=== PATIENT | male | born 1945 | race Caucasian/White ===

== ENCOUNTER 2017-02-07 20:59 | Emergency (ER) | payer MEDICARE, OTHER ==
[2017-02-07] MEDS ORDERED: BENADRYL 50 MG/ML IV ONE (21:35)
[2017-02-07] MEDS ORDERED: solu-MEDROL 125 MG IV ONE (21:35)
[2017-02-07] MEDS ORDERED: BENADRYL 50 MG/ML ONE (21:38)
[2017-02-07] MEDS ORDERED: solu-MEDROL 125 MG ONE (21:38)
--- NOTE | 2017-02-07 21:41 | ERPHSYRPT ---
- History of Present Illness Time Seen by Provider: 02/07/17 21:27 Source: patient, family () Exam Limitations: no limitations Patient Subjective Stated Complaint: pt states he has been outside mowing today and was bitten by gnats and now his face is swelling ,lips and eyelids with a cough -he has also been started on aleve Triage Nursing Assessment: pt is awake and alert and able to answer questions - there is obvious swelling of the eyelids- he is able to speak without difficluty Physician History: PT HAS BEEN MOWING TODAY AND BITTEN BY GNATS WITH RESULTANT ITCHING AND SWELLING OF THE EYELIDS, UPPER LIP AND LEFT EAR; DENIES CHEST PAIN, SHORTNESS OF AIR, FEVER, NAUSEA, VOMITING, ABDOMINAL PAIN, HOARSENESS, SWELLING IN THE NECK OR THROAT. Allergies/Adverse Reactions: latex Allergy (Severe, Verified 02/07/17 21:21) SORES IN MOUTH AND TONGUE sulfamethoxazole [From Bactrim] Allergy (Verified 02/07/17 21:21) trimethoprim [From Bactrim] Allergy (Verified 02/07/17 21:21) Home Medications: Aspirin 81 gm Chew [Baby Aspirin 81 mg Chew] 81 mg PO DAILY 02/07/17 [ History] Gabapentin [Neurontin] 300 mg PO TID 02/07/17 [History] Glipizide 5 mg [Glucotrol 5 MG] 5 mg PO DAILY 02/07/17 [History] Insulin Detemir [Levemir] 20 unit SQ DAILY 02/07/17 [History] Lisinopril 10 mg [Zestril 10 MG] 10 mg PO HS 02/07/17 [History] Metformin HCl [Fortamet] 1,000 mg PO BID 02/07/17 [History] Multivitamin [Multi-Vitamin Daily] 1 tab PO DAILY 02/07/17 [History] Naproxen Sodium 220 mg [Aleve 220 MG] 220 mg PO BID 02/07/17 [History] Simvastatin 10 mg PO HS 02/07/17 [History] Hx Tetanus, Diphtheria Vaccination/Date Given: Yes Hx Influenza Vaccination/Date Given: Yes Hx Pneumococcal Vaccination/Date Given: Yes - Review of Systems Constitutional: No Fever Ears, Nose, & Throat: No Throat Swelling, No Hoarse Respiratory: No Dyspnea Cardiac: No Chest Pain Abdominal/Gastrointestinal: No Abdominal Pain, No Nausea, No Vomiting Skin: Other (SWELLING AND PRURITUS OF THE EYELIDS, UPPER LIP AND LEFT EAR TODAY. ) All Other Systems: Reviewed and Negative - Past Medical History Pertinent Past Medical History: Yes Neurological History: Peripheral Neuropathy ENT History: No Pertinent History Cardiac History: No Pertinent History Respiratory History: No Pertinent History Endocrine Medical History: Diabetes Type II Musculoskeletal History: Arthritis, Other GI Medical History: No Pertinent History History: No Pertinent History Psycho-Social History: No Pertinent History Male Reproductive Disorders: No Pertinent History Other Medical History: Anemia - Past Surgical History Past Surgical History: Yes Neuro Surgical History: No Pertinent History Cardiac: No Pertinent History Respiratory: No Pertinent History Gastrointestinal: Cholecystectomy Musculoskeletal: Orthopedic Surgery Other Surgical History: Back surgery 2010, Neck surgery 2007, Left knee meniscal repair 2004, Right hip repair 1989, 1990, 2003, 10/11/2012, 2012...Fx: Pelvis, Ribs, Vertabrae, Right hip from tree falling on him in 1989 - Social History Smoking Status: Never smoker Exposure to second hand smoke: No Drug Use: none Patient Lives Alone: No - Nursing Vital Signs Nursing Vital Signs: Initial Vital Signs Temperature 98.7 F Temperature Source Oral Pulse Rate 72 Respiratory Rate 16 Blood Pressure [Right Arm] 113/70 Pain Intensity 0 - Physical Exam General Appearance: alert Eye Exam: PERRL/EOMI, other (EYELIDS MILDLY EDEMATOUS) Ears, Nose, Throat Exam: TMs normal, pharynx normal (NO PHARYNGEAL EDEMA), other (MILD EDEMA OF LEFT AURICLE AND UPPER LIP) Neck Exam: normal inspection Respiratory Exam: lungs clear Cardiovascular Exam: normal heart sounds Gastrointestinal/Abdomen Exam: soft, normal bowel sounds Back Exam: normal range of motion Extremity Exam: normal inspection, No pedal edema Neurologic Exam: alert, cooperative Skin Exam: warm, dry SpO2 Interpretation: normal SpO2: 98 Oxygen Delivery: Room Air - Course Nursing assessment & vital signs reviewed: Yes Ordered Tests: Active Orders 24 hr Category Date Time Status ACCUCHECK [Accucheck] STAT Care 02/07/17 21:13 Active IV Insertion STAT Care 02/07/17 21:13 Active Medication Summary Generic Name Dose Route Start Last Admin Trade Name Freq PRN Reason Stop Dose Admin Diphenhydramine HCl 25 mg 02/07/17 21:35 Benadryl 50 Mg/Ml IV 02/07/17 21:36 STAT ONE Methylprednisolone Sodium Succinate 125 mg 02/07/17 21:35 Solu-Medrol 125 Mg IV 02/07/17 21:36 STAT ONE - Departure Time of Disposition: 21:45 Departure Disposition: Home Clinical Impression: ALLERGIC REACTION Condition: Fair Critical Care Time: No Instructions: General Allergic Reactions Additional Instructions: FOLLOW UP WITH PRIVATE DOCTOR TOMORROW. Prescriptions: Hydroxyzine HCl 25 mg [Atarax 25 mg] 25 mg PO Q4H PRN PRN #30 tablet PRN Reason: Itching Methylprednisolone Packet [Medrol Dosepack] 4 mg PO UD #30 packet
[2017-02-07 21:45] VITALS: O2SAT 98
[2017-02-07] MEDS ORDERED: ATARAX 25 MG PO PRN (22:05)
[2017-02-07] MEDS ORDERED: ATARAX 25 MG PO ONE (22:07)
[2017-02-07] MEDS ORDERED: ATARAX 25 MG ONE (22:11)
[2017-02-07 22:22] VITALS: BP 122/68; PULSE 68
== END 2017-02-07 22:22 | disposition home or self-care (01) ==
LOC: ED 20:59
DX: T78.40XA Allergy, unspecified, initial encounter (principal); L29.9 Pruritus, unspecified; E11.9 Type 2 diabetes mellitus without complications; Z79.84 Long term (current) use of oral hypoglycemic drugs; Z79.4 Long term (current) use of insulin
CPT/HCPCS: 36000; 82962; 96374; 96375; 99284; J1200; J2930; A9270-GY

== ENCOUNTER 2018-04-09 13:10 | Inpatient (IN) | payer MEDICARE, OTHER ==
[2018-04-09] MEDS ORDERED: OXYCODONE HCL PO PRN (17:02)
[2018-04-09] MEDS ORDERED: VANCOMYCIN HCL IN DEXTROSE IV SCH (17:15)
[2018-04-09] MEDS ORDERED: [UNRECOGNIZED DRUG - OTHER] IV SCH (17:15)
[2018-04-09] MEDS ORDERED: Oxy-IR 5 MG PO PRN (17:19)
[2018-04-09] MEDS ORDERED: NEURONTIN 300 MG PO SCH (22:00)
[2018-04-09] MEDS: Oxycontin 10 MG ER PO SCH (22:43)
[2018-04-09] MEDS: Zestril 5 MG PO SCH (22:43)
[2018-04-09] MEDS: ECOTRIN 81 MG PO SCH (22:43)
[2018-04-09] MEDS: Zocor 10MG PO SCH (22:43)
[2018-04-09] MEDS: TYLENOL EXTRA STRENGTH 500 MG PO SCH (22:44)
[2018-04-09] MEDS: VANCOCIN 1 GM VIAL*** 0.75 GM in Sodium Chloride 0.9% 250 ML 250 ML IV SCH (22:44)
[2018-04-09] MEDS: Senokot-S Tablet PO SCH (22:45)
[2018-04-10] MEDS: Oxycontin 10 MG ER PO SCH ×2 (09:13→13:56)
[2018-04-10] MEDS: FEOSOL 325 MG PO SCH (09:13)
[2018-04-10] MEDS: THERAGRAN MULTIVITAMIN PO SCH ×2 (09:13→09:14)
[2018-04-10] MEDS: ROCEPHIN 2 Gm-D5w 50ML BAG** 2 G/50 ML IVPB IV SCH (09:13)
[2018-04-10] MEDS: ECOTRIN 81 MG PO SCH ×2 (09:13→22:22)
[2018-04-10] MEDS: Lopressor 25MG Tab PO SCH (09:13)
[2018-04-10] MEDS: Miralax Powder 17GM PACKET PO SCH (09:13)
[2018-04-10] MEDS: Protonix 40MG Tablet PO SCH (09:13)
[2018-04-10] MEDS: Senokot-S Tablet PO SCH ×3 (09:14→22:37)
[2018-04-10] MEDS: TYLENOL EXTRA STRENGTH 500 MG PO SCH ×4 (09:14→22:36)
[2018-04-10] MEDS: NEURONTIN 300 MG PO SCH ×4 (09:16→22:22)
[2018-04-10] MEDS ORDERED: NON-FORMULARY ITEM (Multivitamin [Multi-Vitamin Daily] 1 TAB) PO SCH (10:00)
[2018-04-10] MEDS ORDERED: [UNRECOGNIZED DRUG - OTHER] IV SCH (10:00)
[2018-04-10] MEDS ORDERED: CEFTRIAXONE IN IS OSM DEXTROSE IV SCH (10:00)
[2018-04-10] MEDS ORDERED: INSULIN DETEMIR 23 UNIT SQ SCH (10:00)
[2018-04-10] MEDS ORDERED: Aplisol ID SCH (10:00)
[2018-04-10] MEDS ORDERED: NON-FORMULARY ITEM (Omeprazole [Omeprazole] 20 MG) PO SCH (10:00)
[2018-04-10] MEDS: VANCOCIN 1 GM VIAL*** 0.75 GM in Sodium Chloride 0.9% 250 ML 250 ML IV SCH ×2 (10:18→22:22)
[2018-04-10] MEDS: Lantus Insulin SQ SCH (10:18)
[2018-04-10] MEDS: Glucophage 500 MG PO SCH (17:21)
[2018-04-10] MEDS: NovoLOG Insulin SQ PRN ×2 (17:21→22:23)
--- NOTE | 2018-04-10 21:13 | XRAY ---
Indication: New admission. Comparison: October 20, 2012. Portable chest again demonstrates normal heart and lungs with new right arm PICC line in good position. Bony thorax intact again with lower cervical fusion surgery. No acute cardiopulmonary abnormalities.
[2018-04-10] MEDS: Zestril 5 MG PO SCH (22:22)
[2018-04-10] MEDS: Zocor 10MG PO SCH (22:22)
[2018-04-11] MEDS: NEURONTIN 300 MG PO SCH ×4 (05:47→21:38)
[2018-04-11 06:14] LABS: BASOPHIL % 0.4 % (0.0-0.4); Basophil (Absolute #) 0.02 (0-0.4); Eosinophil % 5.3 % (0.00-5.0); Granulocyte Absolute (ANC) 3.56 (1.4-6.9); Granulocytes % 62.3 % (36.0-66.0); Hematocrit 26.9 % (42-50); Hemoglobin 8.3 gm/dl (12.5-18.0); Lymphocyte (Absolute #) 1.28 (1.0-4.6); Lymphocytes % 22.4 % (24.0-44.0); Mean Cell Volume 81.3 fl (78-100); Mean Corpuscular Hgb Concent. 30.9 g/dl (32-36); Mean Platelet Volume 8.7 fl (6-9.5); Monocyte (Absolute #) 0.55 (0.0-1.3); Monocytes % 9.6 % (0.0-12.0); Platelet Count 398 K/mm3 (150-450); Red Blood Count 3.31 M/mm3 (4.1-5.6); Red Cell Distribution Width 16.2 % (11.5-14.0); White Blood Count 5.7 K/mm3 (4.0-10.5)
[2018-04-11 06:25] LABS: ALKALINE PHOSPHATASE 201 U/L (38-126); BLOOD UREA NITROGEN 18 mg/dL (9-20); CHLORIDE 103 mmol/L (98-107); Calcium 8.7 mg/dL (8.4-10.2); Carbon Dioxide 28 mmol/L (22-30); Creatinine 1 0.86 mg/dL (0.66-1.25); Glucose 138 mg/dL (74-106); Potassium 4.3 mmol/L (3.5-5.1); SGOT/AST 34 U/L (17-59); SGPT/ALT 25 U/L (0-50); SODIUM 138 mmol/L (137-145); Total Protein 6.2 g/dL (6.3-8.2)
[2018-04-11] MEDS: Glucophage 500 MG PO SCH ×2 (07:59→16:43)
[2018-04-11] MEDS: TYLENOL EXTRA STRENGTH 500 MG PO SCH ×3 (09:19→21:55)
[2018-04-11] MEDS: THERAGRAN MULTIVITAMIN PO SCH (09:20)
[2018-04-11] MEDS: Senokot-S Tablet PO SCH ×2 (09:20→21:54)
[2018-04-11] MEDS: ROCEPHIN 2 Gm-D5w 50ML BAG** 2 G/50 ML IVPB IV SCH (09:20)
[2018-04-11] MEDS: ECOTRIN 81 MG PO SCH ×2 (09:20→21:38)
[2018-04-11] MEDS: Lopressor 25MG Tab PO SCH (09:20)
[2018-04-11] MEDS: Protonix 40MG Tablet PO SCH (09:20)
[2018-04-11] MEDS: FEOSOL 325 MG PO SCH (09:20)
[2018-04-11] MEDS: Lantus Insulin SQ SCH (09:21)
[2018-04-11] MEDS: Oxycontin 10 MG ER PO SCH ×2 (09:21→21:54)
[2018-04-11] MEDS: Miralax Powder 17GM PACKET PO SCH (09:22)
[2018-04-11] MEDS: VANCOCIN 1 GM VIAL*** 0.75 GM in Sodium Chloride 0.9% 250 ML 250 ML IV SCH ×2 (10:48→21:38)
[2018-04-11] MEDS: NovoLOG Insulin SQ PRN ×2 (11:57→16:43)
[2018-04-11] MEDS: Zestril 5 MG PO SCH (21:38)
[2018-04-11] MEDS: Zocor 10MG PO SCH (21:38)
[2018-04-12 05:47] LABS: ALKALINE PHOSPHATASE 179 U/L (38-126); ANION GAP 10.2 MEQ/L (5-15); BLOOD UREA NITROGEN 19 mg/dL (9-20); CHLORIDE 104 mmol/L (98-107); Calcium 8.9 mg/dL (8.4-10.2); Carbon Dioxide 29 mmol/L (22-30); Glucose 113 mg/dL (74-106); Potassium 4.2 mmol/L (3.5-5.1); SGOT/AST 32 U/L (17-59); SGPT/ALT 25 U/L (0-50); SODIUM 139 mmol/L (137-145); Total Protein 6.3 g/dL (6.3-8.2)
[2018-04-12 05:48] LABS: BASOPHIL % 0.5 % (0.0-0.4); Basophil (Absolute #) 0.03 (0-0.4); Eosinophil % 6.1 % (0.00-5.0); Eosinophil (Absolute #) 0.36 (0-0.5); Granulocyte Absolute (ANC) 3.34 (1.4-6.9); Granulocytes % 56.6 % (36.0-66.0); Hematocrit 25.2 % (42-50); Hemoglobin 7.9 gm/dl (12.5-18.0); Lymphocyte (Absolute #) 1.62 (1.0-4.6); Lymphocytes % 27.5 % (24.0-44.0); Mean Corpuscular Hemoglobin 25.4 pg (26-32); Mean Corpuscular Hgb Concent. 31.3 g/dl (32-36); Mean Platelet Volume 8.7 fl (6-9.5); Monocyte (Absolute #) 0.55 (0.0-1.3); Monocytes % 9.3 % (0.0-12.0); Platelet Count 384 K/mm3 (150-450); Red Blood Count 3.11 M/mm3 (4.1-5.6); Red Cell Distribution Width 16.2 % (11.5-14.0); White Blood Count 5.9 K/mm3 (4.0-10.5)
[2018-04-12] MEDS: NEURONTIN 300 MG PO SCH ×4 (06:48→21:37)
[2018-04-12] MEDS: Glucophage 500 MG PO SCH ×2 (08:08→16:56)
[2018-04-12] MEDS: FEOSOL 325 MG PO SCH (09:18)
[2018-04-12] MEDS: ECOTRIN 81 MG PO SCH ×2 (09:18→21:37)
[2018-04-12] MEDS: Lopressor 25MG Tab PO SCH (09:19)
[2018-04-12] MEDS: Protonix 40MG Tablet PO SCH (09:19)
[2018-04-12] MEDS: Senokot-S Tablet PO SCH ×2 (09:19→21:42)
[2018-04-12] MEDS: Oxycontin 10 MG ER PO SCH ×3 (09:19→21:45)
[2018-04-12] MEDS: TYLENOL EXTRA STRENGTH 500 MG PO SCH ×4 (09:20→21:45)
[2018-04-12] MEDS: VANCOCIN 1 GM VIAL*** 0.75 GM in Sodium Chloride 0.9% 250 ML 250 ML IV SCH ×2 (09:20→21:39)
[2018-04-12] MEDS: Miralax Powder 17GM PACKET PO SCH (09:22)
[2018-04-12] MEDS: Lantus Insulin SQ SCH (10:34)
[2018-04-12] MEDS: PLAVIX 75 MG Tablet PO SCH (10:34)
[2018-04-12] MEDS: ROCEPHIN 2 Gm-D5w 50ML BAG** 2 G/50 ML IVPB IV SCH (11:23)
--- NOTE | 2018-04-12 12:33 | HP ---
HISTORY OF PRESENT ILLNESS: Mina Grewal is a 72 year old with past medical history of hypertension, coronary artery disease, diabetes mellitus, hyperlipidemia, recent history of CVA with residual left facial droop, chronic anemia, peripheral neuropathy. He had mild left facial droop present. He has undergone multiple surgeries related to his right hip. 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 Reportedly he was doing well until January 2018 when he started to have fluctuance, swelling, draining area in right hip/right flank area. He was seen by vice president of software development and orthopedics. [place], he was treated with p.o. antibiotics for about a month. Eventually he underwent drainage of the area on 03/30/2018. Also he had undergone additional work up including MRI of that area. He had also underwent MRI of abdomen and pelvis which showed right posterior-lateral fluid collection overlying iliac crest with extension intra-abdominal anterior surrounding to right hip joint. The patient was admitted to for further management of the same. Over there he was placed on broad spectrum IV antibiotics and underwent further surgical intervention on 04/05/2018. Subsequently, he was transferred to [facility] on 04/09/2018 for swing-bed. Postoperative course was essentially unremarkable except mild anemia. He underwent PT. Reportedly there was some confusion about his medications. I was not contacted by nursing staff regarding his admission orders and medications were continued as per his discharge medication list. Per patient's , the patient's medication list from that paper was not accurate and she discussed with field operations supervisor regarding the same. At the time of this evaluation the patient is alert, awake and comfortable. He states his right hip pain is controlled. Denies any other complaints. PAST MEDICAL HISTORY: As noted above. PAST SURGICAL HISTORY: Anorectal carcinoid tumor status post excision in 2017. Total hip arthroplasty (1990, 2004, 2012). Resection of right total hip arthroplasty 02/03/2014. Re-implant right total hip arthroplasty 04/21/2014. Back surgery 2010. Neck surgery 2009. Knee surgery. Hip and pelvis repair 1989. Cholecystectomy. Tonsillectomy. ALLERGIES: LATEX, ATORVASTATIN, BACTRIM. MEDICATIONS: Current medications were reviewed. FAMILY HISTORY: Noncontributory. SOCIAL HISTORY: The patient lives at home. He has smoked one pack per day for ten years. He had quit in 1979. He denies alcohol abuse or illicit drug use. REVIEW OF SYSTEMS: Denies headache or dizziness. Complains of fatigue. Denies chest pain, shortness of breath or cough. Denies abdominal pain, nausea or vomiting. Denies constipation or diarrhea. Complains of mild right hip pain which is controlled with current medications. Denies urinary complaints. PHYSICAL EXAMINATION: An elderly male lying comfortably in bed, not in acute distress. VITAL SIGNS: Blood pressure 162/67, heart rate 62, respiratory rate 18, temperature 98.4F. Oxygen saturation 99% on room air. HEENT: Pallor is present. NECK: No JVD is present. CVS: S1, S2 present. RESPIRATORY: Breath sounds are bilaterally diminished and clear to auscultation. ABDOMEN: Soft, nontender. Right flank area shows presence of dressing/drain. NEURO: He is alert, oriented x3. EXTREMITIES: Reveals no edema on bilateral lower extremities. LABORATORY DATA AND TESTS: Available recent labs from transfer records were reviewed. There were no new labs today. Medications were reviewed. 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 2) History of hypertension/coronary artery disease. 3) Diabetes mellitus. 4) Chronic anemia. 5) Recent history of CVA with left facial droop. PLAN: The patient is transferred to swing-bed for further management. Continue PT/OT as tolerated. Continue broad spectrum IV antibiotics. Continue to follow CBC and electrolytes. Continue all post-op care as directed by orthopedic recommendation. The plan was discussed with the patient and the patient's . His medications have been now readjusted correctly. The plan was discussed with the patient and his . They seemed to be in understanding and agreement.
--- NOTE | 2018-04-12 12:39 | PCM.NOTE ---
Date and Time: 04/12/18 1237 Subjective Assessment: doing ok - Review of Systems Constitutional: No Fever, No Chills Eyes: No Symptoms Ears, Nose, & Throat: No Symptoms Respiratory: No Cough, No Short Of Breath Cardiac: No Chest Pain, No Edema, No Syncope Abdominal/Gastrointestinal: No Abdominal Pain, No Nausea, No Vomiting, No Diarrhea Genitourinary Symptoms: No Dysuria Musculoskeletal: No Back Pain, No Neck Pain Skin: No Rash Neurological: No Dizziness, No Focal Weakness, No Sensory Changes Psychological: No Symptoms Endocrine: No Symptoms Hematologic/Lymphatic: No Symptoms Immunological/Allergic: No Symptoms Objective Exam General Appearance: no apparent distress, alert Neurologic Exam: alert, oriented x 3, cooperative, normal mood/affect, nml cerebellar function, sensation nml, No motor deficits Skin Exam: normal color, warm, dry Eye Exam: PERRL, EOMI, eyes nml inspection Ears, Nose, Throat Exam: normal ENT inspection, pharynx normal, moist mucous membranes Neck Exam: normal inspection, non-tender, supple, full range of motion Respiratory Exam: normal breath sounds, lungs clear, No respiratory distress Cardiovascular Exam: regular rate/rhythm, normal heart sounds Gastrointestinal/Abdomen Exam: soft, No tenderness, No mass Extremity Exam: normal inspection, normal range of motion Back Exam: normal inspection, normal range of motion, No CVA tenderness, No vertebral tenderness Male Genitalia Exam: deferred Rectal Exam: deferred OBJECTIVE DATA Vital Signs: Vital Signs - 24 hr Temp Pulse Resp BP Pulse Ox 04/12/18 06:40 98.4 F 61 18 150/67 96 04/11/18 20:00 98.6 F 71 18 131/67 96 Pain Assessment - Last Documented Pain Intensity 0 Pain Scale Used 0-10 Pain Scale Intake and Output: Intake & Output 04/10/18 04/11/18 04/12/18 04/13/18 11:59 11:59 11:59 11:59 Intake Total 1550 1650 1570 Output Total 225 300 Balance 1325 1350 1570 Weight 74.3 kg 72.3 kg 71.1 kg Lab Results: Accuchecks Date 04/11/18 Date 04/11/18 Time 22:00 Time 16:30 Accucheck Value: 98 Accucheck Value: 170 Accucheck Value: 225 Lab Results-Last 24 Hours 04/12/18 04/12/1804/12/18 Range/Units 05:15 05:15 05:15 WBC 5.9 (4.0-10.5) K/mm3 RBC 3.11 L (4.1-5.6) M/mm3 Hgb 7.9 L (12.5-18.0) gm/dl Hct 25.2 L (42-50) % MCV 81.0 (78-100) fl MCH 25.4 L (26-32) pg MCHC 31.3 L (32-36) g/dl RDW 16.2 H (11.5-14.0) % Plt Count 384 (150-450) K/mm3 MPV 8.7 (6-9.5) fl Gran % 56.6 (36.0-66.0) % Eos # (Auto) 0.36 (0-0.5) Absolute Lymphs (auto) 1.62 (1.0-4.6) Absolute Monos (auto) 0.55 (0.0-1.3) Lymphocytes % 27.5 (24.0-44.0) % Monocytes % 9.3 (0.0-12.0) % Eosinophils % 6.1 H (0.00-5.0) % Basophils % 0.5 (0.0-0.4) % Absolute Granulocytes 3.34 (1.4-6.9) Basophils # 0.03 (0-0.4) Sodium 139 (137-145) mmol/L Potassium 4.2 (3.5-5.1) mmol/L Chloride 104 (98-107) mmol/L Carbon Dioxide 29 (22-30) mmol/L Anion Gap 10.2 (5-15) MEQ/L BUN 19 (9-20) mg/dL Creatinine 0.90 (0.66-1.25) mg/dL Estimated GFR > 60.0 ML/MIN Glucose 113 H (74-106) mg/dL Hemoglobin A1c 9.14 H (4.5-6.0) % Calcium 8.9 (8.4-10.2) mg/dL Total Bilirubin 0.20 (0.2-1.3) mg/dL AST 32 (17-59) U/L ALT 25 (0-50) U/L Alkaline Phosphatase 179 H (38-126) U/L Serum Total Protein 6.3 (6.3-8.2) g/dL Albumin 3.0 L (3.5-5.0) g/dL Vancomycin Trough (10-20) ug/mL 04/12/18 Range/Units 09:26 WBC (4.0-10.5) K/mm3 RBC (4.1-5.6) M/mm3 Hgb (12.5-18.0) gm/dl Hct (42-50) % MCV (78-100) fl MCH (26-32) pg MCHC (32-36) g/dl RDW (11.5-14.0) % Plt Count (150-450) K/mm3 MPV (6-9.5) fl Gran % (36.0-66.0) % Eos # (Auto) (0-0.5) Absolute Lymphs (auto) (1.0-4.6) Absolute Monos (auto) (0.0-1.3) Lymphocytes % (24.0-44.0) % Monocytes % (0.0-12.0) % Eosinophils % (0.00-5.0) % Basophils % (0.0-0.4) % Absolute Granulocytes (1.4-6.9) Basophils # (0-0.4) Sodium (137-145) mmol/L Potassium (3.5-5.1) mmol/L Chloride (98-107) mmol/L Carbon Dioxide (22-30) mmol/L Anion Gap (5-15) MEQ/L BUN (9-20) mg/dL Creatinine (0.66-1.25) mg/dL Estimated GFR ML/MIN Glucose (74-106) mg/dL Hemoglobin A1c (4.5-6.0) % Calcium (8.4-10.2) mg/dL Total Bilirubin (0.2-1.3) mg/dL AST (17-59) U/L ALT (0-50) U/L Alkaline Phosphatase (38-126) U/L Serum Total Protein (6.3-8.2) g/dL Albumin (3.5-5.0) g/dL Vancomycin Trough 19.96 (10-20) ug/mL Multi-Disciplinary Progress Notes: Multi-Disciplinary Progress Notes 04/12/18 07:52 Case Management Note by Iesha Estrada LATE ENTRY FOR 04/09/18 AT 1631: WHEN ACCEPTING PATIENT EARLIER IN WEEK, DR. ALBRECHT ORDERED FOR ALL DC ORDERS FROM [facility] TO BE CONT'D UPON ARRIVAL ADMIT ORDERS. HE OKAYED FOR [facility] TO USE [facility]'S DOSE OF VANC FOR PATIENT'S PM DOSE ON . HOME MED LIST DONE USING [facility] DC MED LIST, THIS WAS DOUBLE CHECKED BY HS. ALL MEDS CONT'D. CHECKED WITH YAKELIN FROM PHARMACY TO BE SURE THE CORRECT DOCUSATE -SENNA TABS AND FERROUS SULFATE TABS WERE CHOSEN WHEN ADDED TO THE HOME MED LIST. HE VERIFIED THEY WERE THE SAME LISTED ON THE [facility] DC LIST. IT WAS NOTED PATIENT WAS TO START PLAVIX ON THURSDAY 04/12 BUT NO FREQUENCY WAS LISTED, ORDER WRITTEN TO CLARIFY ORDER SO PATIENT CAN START ON THURSDAY. 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
--- NOTE | 2018-04-12 13:34 | PROG NOTE ---
DATE: 04/11/2018 Chart is reviewed and events noted. At the time of this evaluation the patient is alert, awake, comfortable, states his right hip pain is doing better. He was seen by PT earlier today. He denies any new complaints. PHYSICAL EXAMINATION: VITAL SIGNS: Blood pressure 141/59, heart rate 82, respiratory rate 17, temperature 98.8F. Oxygen saturation 98%. HEENT: Pallor is present. No icterus is noted. NECK: No JVD is present. CVS: S1, S2 present. RESPIRATORY: Breath sounds are bilaterally diminished, clear to auscultation. ABDOMEN: Soft, nontender. NEURO: He is alert, oriented x3. EXTREMITIES: No edema on bilateral lower extremities. LABORATORY DATA AND TESTS: Labs from today showed CBC with white blood cell 5.7, hemoglobin 8.3, hematocrit 26.9, PLT 398,000. CMP essentially unremarkable except glucose 128 and alkaline phosphatase 201. Chest x-ray from yesterday showed no acute changes. Medications were reviewed. ASSESSMENT: A 73 year old male with impression: 1) Status post incision and drainage of right total hip arthroplasty. 2) Anemia. 3) Diabetes mellitus. 4) Hypertension. 5) Coronary artery disease. PLAN: Continue broad spectrum IV antibiotics. Continue to monitor CBC and electrolytes. Continue PT/OT as tolerated. The plan was discussed with patient and . They seem to be in understanding and agreement.
[2018-04-12] MEDS: Zestril 5 MG PO SCH (21:38)
[2018-04-12] MEDS: Zocor 10MG PO SCH (21:38)
[2018-04-13] MEDS: NEURONTIN 300 MG PO SCH ×2 (05:45→11:20)
[2018-04-13 07:21] VITALS: BP 128/66; PULSE 75; O2SAT 93
[2018-04-13] MEDS: Glucophage 500 MG PO SCH (08:01)
[2018-04-13] MEDS: ROCEPHIN 2 Gm-D5w 50ML BAG** 2 G/50 ML IVPB IV SCH (09:13)
[2018-04-13] MEDS: Lantus Insulin SQ SCH (09:31)
[2018-04-13] MEDS: FEOSOL 325 MG PO SCH (09:32)
[2018-04-13] MEDS: THERAGRAN MULTIVITAMIN PO SCH (09:33)
[2018-04-13] MEDS: Protonix 40MG Tablet PO SCH (09:34)
[2018-04-13] MEDS: PLAVIX 75 MG Tablet PO SCH (09:34)
[2018-04-13] MEDS: Lopressor 25MG Tab PO SCH (09:35)
[2018-04-13] MEDS: ECOTRIN 81 MG PO SCH (09:35)
[2018-04-13] MEDS: Miralax Powder 17GM PACKET PO SCH (09:37)
[2018-04-13] MEDS: Oxycontin 10 MG ER PO SCH (09:38)
[2018-04-13] MEDS: TYLENOL EXTRA STRENGTH 500 MG PO SCH (09:38)
[2018-04-13] MEDS: Senokot-S Tablet PO SCH (09:38)
[2018-04-13] MEDS: VANCOCIN 1 GM VIAL*** 0.75 GM in Sodium Chloride 0.9% 250 ML 250 ML IV SCH (10:04)
--- NOTE | 2018-04-13 18:05 | PCM.DS ---
Discharge Summary Date of Admission: 04/09/18 16:31 Admitting Physician: ASH ALBRECHT Primary Care Provider: ASH ALBRECHT Allergies Allergies latex Allergy (Severe, Verified 02/07/17 21:21) SORES IN MOUTH AND TONGUE sulfamethoxazole [From Bactrim] Allergy (Verified 04/09/18 20:07) trimethoprim [From Bactrim] Allergy (Verified 02/07/17 21:21) Hospital Summary - Hospital Course Hospital Course: Chief Complaint Diagnosis deconditioning r/t s/p I&D R total hip arthroplasty Allergies Allergy/AdvReac Type Severity Reaction Status Date / Time latex Allergy Severe SORES IN Verified 02/07/17 21:21 MOUTH AND TONGUE sulfamethoxazole Allergy Verified 04/09/18 20:07 [From Bactrim] trimethoprim [From Bactrim] Allergy Verified 02/07/17 21:21 Vital Signs (Last 24 hours) Temp Pulse Resp BP Pulse Ox 04/13/18 07:20 98.7 F 75 18 128/66 93 L 04/12/18 20:00 98.9 F 71 18 149/71 98 Home Medications Medication Instructions Recorded Confirmed Last Taken Type Acetaminophen 500 mg [Tylenol 1,000 mg PO TID 04/09/18 04/09/18 04/09/18 09: 38 History Extra Strength 500 mg] Aspirin EC 81 mg [Ecotrin 81 81 mg PO BID 04/09/18 04/09/18 04/09/18 09:38 History mg] Ceftriaxone in Is-Osm Dextrose 2 gm IV DAILY 04/09/18 04/09/18 04/09/18 13:00 History [Ceftriaxone 2 gm Piggyback] Ferrous Sulfate 325 mg PO DAILY 04/09/18 04/09/18 04/09/18 09:38 History Lisinopril 5 mg [Zestril 5 5 mg PO HS 04/09/18 04/09/18 Unknown History MG] Metformin HCl 1,000 mg PO BIDWMEALS 04/09/18 04/09/18 04/09/18 09:38 History Metoprolol Tartrate 25 mg 25 mg PO DAILY 04/09/18 04/09/18 04/09/18 09:38 History [Lopressor 25MG Tab] Omeprazole 20 mg PO DAILY 04/09/18 04/09/18 Unknown History Oxycodone HCl 5 - 10 mg PO Q4HPRN PRN 04/09/18 04/09/18 Unknown History Oxycodone HCl [Oxycodone HCl ER] 10 mg PO Q12H 04/09/18 04/09/18 04/09/18 11:00 History Polyethylene Glycol 3350 17 gm 17 gm PO DAILY 04/09/18 04/09/18 Unknown History [Miralax Powder 17GM PACKET] Sennosides/Docusate Sodium 2 tab PO BID 04/09/18 04/09/18 Unknown History [Docusate Sodium-Senna Tablet] Vancomycin HCl in Dextrose 5 % 750 mg IV Q12H 04/09/18 04/09/18 04/09/18 10:00 History [Vancomycin 750 mg/250 ml-D5w] Clopidogrel Bisulfate 75 mg 75 mg PO DAILY 04/12/18 04/12/18 Unknown History [PLAVIX 75 MG Tablet] Ceftriaxone 2 GM/50 ML PREMIX* 2 g IV DAILY 34 Days #34 ivpb 04/13/18 Unknown Rx [ROCEPHIN 2 Gm-D5w 50ML BAG] Vancomycin/0.9 % Sod Chloride 750 mg IV Q12H 34 Days #68 04/13/18 Unknown Rx [Vanco-0.9% NaCl 750 mg/150 ml] plast..bag Current Medications Discontinued Medications Generic Name Dose Route Start Last Admin Trade Name Freq PRN Reason Stop Dose Admin Acetaminophen 1,000 mg 04/09/18 22:00 04/13/18 09:38 Tylenol Extra Strength 500 Mg PO 05/09/18 21:59 Not Given TID PAMELA Aspirin 81 mg 04/09/18 22:00 04/13/18 09:35 Ecotrin 81 Mg PO 05/07/18 21:59 81 mg BID PAMELA Administration Clopidogrel Bisulfate 75 mg 04/12/18 10:00 04/13/18 09:34 Plavix 75 Mg Tablet PO 05/12/18 09:59 75 mg DAILY PAMELA Administration Ferrous Sulfate 325 mg 04/10/18 10:00 04/13/18 09:32 Feosol 325 Mg PO 05/10/18 09:59 325 mg DAILY PAMELA Administration Gabapentin 600 mg 04/09/18 22:00 04/09/18 22:43 Neurontin 300 Mg PO 05/09/18 21:59 600 mg QID PAMELA Administration Gabapentin 600 mg 04/10/18 09:15 04/13/18 11:20 Neurontin 300 Mg PO 05/09/18 09:14 600 mg 0600,1200,1800,2200 PAMELA Administration Heparin Sodium (Beef Lung) 500 units 04/13/18 12:00 04/13/18 12:15 Heparin Lock Flush 100 Units/Ml 5ml Syringe PICC 05/13/18 11:59 500 units PRN PRN Administration IV PORT FLUSH Ceftriaxone Sodium/Dextrose 2 g in 50 mls @ 100 mls/hr 04/10/18 10:00 09:13 Rocephin 2 Gm-D5w 50ml Bag IV 05/10/18 09:59 100 mls/hr Q24H10 PAMELA Administration Vancomycin HCl 0.75 gm/ Sodium 250 mls @ 167 mls/hr 04/09/18 22:00 04/13/18 10:04 Chloride IV 05/09/18 21:59 167 mls/hr Q12HT PAMELA Administration Insulin Aspart 0 unit 04/10/18 17:04 04/11/18 16:43 Novolog Insulin SQ 05/10/18 17:03 2 unit UD PRN Administration HYPERGLYCEMIA Insulin Glargine 23 unit 04/10/18 10:00 04/13/18 09:31 Lantus Insulin SQ 05/10/18 09:59 23 unit QAM PAMELA Administration Lisinopril 5 mg 04/09/18 22:00 04/12/18 21:38 Zestril 5 Mg PO 05/09/18 21:59 5 mg HS PAMELA Administration Metformin HCl 1,000 mg 04/10/18 18:00 04/13/18 08:01 Glucophage 500 Mg PO 05/10/18 17:59 1,000 mg BIDWM PAMELA Administration Metoprolol Tartrate 25 mg 04/10/18 10:00 04/13/18 09:35 Lopressor 25mg Tab PO 05/10/18 09:59 25 mg DAILY PAMELA Administration Multivitamins Therapeutic 1 tab 04/10/18 10:00 04/13/18 09:33 Theragran Multivitamin PO 05/10/18 09:59 1 tab DAILY PAMELA Administration Non-Formulary Medication 2 gm 04/10/18 10:00 Ceftriaxone In Is-Osm Dextrose [Ceftriaxone 2 Gm Piggyback] IV 05/10/18 09: 59 DAILY PAMELA Non-Formulary Medication 750 mg 04/09/18 17:15 Vancomycin Hcl In Dextrose 5 % [Vancomycin 750 Mg/250 Ml-D5w] IV 05/09/18 17 :14 Q12H PAMELA Oxycodone HCl 10 mg 04/09/18 22:00 04/13/18 09:38 Oxycontin 10 Mg Er PO 04/14/18 21:59 Not Given Q12HT PAMELA Oxycodone HCl 5 - 10 mg 04/09/18 17:19 Oxy-Ir 5 Mg PO 04/14/18 17:18 Q4H PRN PRN PAIN Pantoprazole Sodium 40 mg 04/10/18 10:00 04/13/18 09:34 Protonix 40mg Tablet PO 05/10/18 09:59 40 mg DAILY PAMELA Administration Polyethylene Glycol 17 gm 04/10/18 10:00 04/13/18 09:37 Miralax Powder 17gm Packet PO 05/10/18 09:59 Not Given DAILY PAMELA Senna/Docusate Sodium 2 udtab 04/09/18 22:00 04/13/18 09:38 Senokot-S Tablet PO 05/09/18 21:59 Not Given BID PAMELA Simvastatin 10 mg 04/09/18 22:00 04/12/18 21:38 Zocor 10mg PO 05/09/18 21:59 10 mg HS PAMELA Administration Tuberculin PPD 5 unit 04/10/18 10:00 04/10/18 15:30 Aplisol ID 04/10/18 10:01 5 unit DAILY PAMELA Administration Tuberculin PPD 5 unit 04/21/18 10:00 Aplisol ID 04/21/18 10:01 DAILY PAMELA Intake & Output (Last 24 hours) 04/11/18 04/12/18 04/13/18 04/14/18 11:59 11:59 11:59 11:59 Intake Total 1650 1570 1320 480 Output Total 300 Balance 1350 1570 1320 480 Weight 72.3 kg 71.1 kg 70.9 kg Orders (Last 24 hours) Category Date Time Status Miscellaneous Nursing Order ROUTINE Care 04/13/18 13:29 Active Discharge Routine Discharge 04/13/18 Ordered Heparin Flush 500 units/5 ml [Heparin Lock Flush 100 Med 04/13/18 12:00 Discontinued Units/ml 5ml Syringe] 500 units PICC PRN PRN Tuberculin,Purif.prot.deriv. [Aplisol] Med 04/21/18 10:00 Discontinued 5 unit ID DAILY Patient Care Notes (Last 24 hours) 04/13/18 16:09 Physical Therapy Note by Nahomy Moss PATIENT D/C TO HOME THIS P.M. WILL CONTINUE ANTIBIOTIC THERAPY VIA OUTPT [facility]ION [facility]. P.T. WILL FOLLOW PATIENT IN THE INFUSION CENTER TO MONITOR HEP AND INCISION WOUND HEALING. Initialized on 04/13/18 16:09 - END OF NOTE - Vitals & Intake/Output Vital Signs: Vital Signs Temperature 98.7 F 04/13/18 07:20 Pulse Rate 75 04/13/18 07:20 Respiratory Rate 18 04/13/18 07:20 Blood Pressure 128/66 04/13/18 07:20 O2 Sat by Pulse Oximetry 93 L 04/13/18 07:20 Intake & Output: Intake & Output 04/11/18 04/12/18 04/13/18 04/14/18 11:59 11:59 11:59 11:59 Intake Total 1650 1570 1320 480 Output Total 300 Balance 1350 1570 1320 480 Weight 72.3 kg 71.1 kg 70.9 kg - Lab Result Diagrams: 04/12/18 05:15 04/12/18 05:15 Lab Results-Last 24 Hrs: Accuchecks Date 04/13/18 Date 04/13/18 Date 04/12/18 Time 11:30 Time 07:30 Time 22:00 Accucheck Value: 110 Accucheck Value: 72 Accucheck Value: 189 Micro Results-Entire Visit: Accuchecks Date 04/13/18 Date 04/13/18 Date 04/12/18 Time 11:30 Time 07:30 Time 22:00 Accucheck Value: 110 Accucheck Value: 72 Accucheck Value: 189 - Procedures and Test Procedures and Tests throughout Hospitalization: Therapy Orders & Screens 04/09/18 20:33 OT Screen per Nursing Assess ONCE Comment: Protocol Order Physician Instructions: Greater than 3 points order OT Admission Screening Reason For Exam: Triggered on Admission Diagnosis: deconditioning r/t s/p I&D R total hip arthroplasty Open Wound/Cellutlitis/Pressure Ulcers: No Acute Fx/ORIF/Change in wt bearing status: No Severe MUSCULOSKELETAL pain: No ADL Dysfunction: No Acute CVA w/Hemiparesis/Hemiplegia: No Decreased Functional Mobility/Strength: Yes Sprain/Strain: No Acute Post-op Mobility Dysfunction: Yes Total Points: 4 PT Screen per Nursing Assess ONCE Comment: Protocol Order Physician Instructions: Greater than 3 points order PT Admission Screenin Reason For Exam: Triggered on Admission Diagnosis: deconditioning r/t s/p I&D R total hip arthroplasty Open Wound/Cellutlitis/Pressure Ulcers: No Acute Fx/ORIF/Change in wt bearing status: No Severe MUSCULOSKELETAL pain: No ADL Dysfunction: No Acute CVA w/Hemiparesis/Hemiplegia: No Decreased Functional Mobility/Strength: Yes Sprain/Strain: No Acute Post-op Mobility Dysfunction: Yes Total Points: 4 04/10/18 08:43 OT Eval and Treat ( Order) ROUTINE Comment: Consulting Provider: Physician Instructions: Reason For Exam: Evaluate: t Treat: t Reason for Evaluation: Deconditioning r/t s/p I&D, right total hip arthroplasty Diagnosis: deconditioning r/t s/p I&D R total hip arthroplasty PT Eval & Treat ( Order) ROUTINE Reason for Eval:: Deconditioning r/t I&D, right total hip arthroplasty Diagnosis: deconditioning r/t s/p I&D R total hip arthroplasty 04/10/18 18:55 PT Eval & Treat ( Order) ROUTINE Reason for Eval:: s/p infected rt IRMA surgery Diagnosis: deconditioning r/t s/p I&D R total hip arthroplasty Discharge Exam General Appearance: no apparent distress, alert Neurologic Exam: alert, oriented x 3, cooperative, normal mood/affect, nml cerebellar function, sensation nml, No motor deficits Skin Exam: normal color, warm, dry Eye Exam: PERRL, EOMI, eyes nml inspection Ears, Nose, Throat Exam: normal ENT inspection, pharynx normal, moist mucous membranes Neck Exam: normal inspection, non-tender, supple, full range of motion Respiratory Exam: normal breath sounds, lungs clear, No respiratory distress Cardiovascular Exam: regular rate/rhythm, normal heart sounds Gastrointestinal/Abdomen Exam: soft, No tenderness, No mass Extremity Exam: normal inspection, normal range of motion Back Exam: normal inspection, normal range of motion, No CVA tenderness, No vertebral tenderness Male Genitalia Exam: deferred Rectal Exam: deferred Final Diagnosis/Problem List - Final Discharge Diagnosis/Problem (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 Status: Acute Assessment & Plan: Chief Complaint Diagnosis deconditioning r/t s/p I&D R total hip arthroplasty Allergies Allergy/AdvReac Type Severity Reaction Status Date / Time latex Allergy Severe SORES IN Verified 02/07/17 21:21 MOUTH AND TONGUE sulfamethoxazole Allergy Verified 04/09/18 20:07 [From Bactrim] trimethoprim [From Bactrim] Allergy Verified 02/07/17 21:21 Vital Signs (Last 24 hours) Temp Pulse Resp BP Pulse Ox 04/13/18 07:20 98.7 F 75 18 128/66 93 L 04/12/18 20:00 98.9 F 71 18 149/71 98 Home Medications Medication Instructions Recorded Confirmed Last Taken Type Acetaminophen 500 mg [Tylenol 1,000 mg PO TID 04/09/18 04/09/18 04/09/18 09: 38 History Extra Strength 500 mg] Aspirin EC 81 mg [Ecotrin 81 81 mg PO BID 04/09/18 04/09/18 04/09/18 09:38 History mg] Ceftriaxone in Is-Osm Dextrose 2 gm IV DAILY 04/09/18 04/09/18 04/09/18 13:00 History [Ceftriaxone 2 gm Piggyback] Ferrous Sulfate 325 mg PO DAILY 04/09/18 04/09/18 04/09/18 09:38 History Lisinopril 5 mg [Zestril 5 5 mg PO HS 04/09/18 04/09/18 Unknown History MG] Metformin HCl 1,000 mg PO BIDWMEALS 04/09/18 04/09/18 04/09/18 09:38 History Metoprolol Tartrate 25 mg 25 mg PO DAILY 04/09/18 04/09/18 04/09/18 09:38 History [Lopressor 25MG Tab] Omeprazole 20 mg PO DAILY 04/09/18 04/09/18 Unknown History Oxycodone HCl 5 - 10 mg PO Q4HPRN PRN 04/09/18 04/09/18 Unknown History Oxycodone HCl [Oxycodone HCl ER] 10 mg PO Q12H 04/09/18 04/09/18 04/09/18 11:00 History Polyethylene Glycol 3350 17 gm 17 gm PO DAILY 04/09/18 04/09/18 Unknown History [Miralax Powder 17GM PACKET] Sennosides/Docusate Sodium 2 tab PO BID 04/09/18 04/09/18 Unknown History [Docusate Sodium-Senna Tablet] Vancomycin HCl in Dextrose 5 % 750 mg IV Q12H 04/09/18 04/09/18 04/09/18 10:00 History [Vancomycin 750 mg/250 ml-D5w] Clopidogrel Bisulfate 75 mg 75 mg PO DAILY 04/12/18 04/12/18 Unknown History [PLAVIX 75 MG Tablet] Ceftriaxone 2 GM/50 ML PREMIX* 2 g IV DAILY 34 Days #34 ivpb 04/13/18 Unknown Rx [ROCEPHIN 2 Gm-D5w 50ML BAG] Vancomycin/0.9 % Sod Chloride 750 mg IV Q12H 34 Days #68 04/13/18 Unknown Rx [Vanco-0.9% NaCl 750 mg/150 ml] plast..bag Current Medications Discontinued Medications Generic Name Dose Route Start Last Admin Trade Name Freq PRN Reason Stop Dose Admin Acetaminophen 1,000 mg 04/09/18 22:00 04/13/18 09:38 Tylenol Extra Strength 500 Mg PO 05/09/18 21:59 Not Given TID PAMELA Aspirin 81 mg 04/09/18 22:00 04/13/18 09:35 Ecotrin 81 Mg PO 05/07/18 21:59 81 mg BID PAMELA Administration Clopidogrel Bisulfate 75 mg 04/12/18 10:00 04/13/18 09:34 Plavix 75 Mg Tablet PO 05/12/18 09:59 75 mg DAILY PAMELA Administration Ferrous Sulfate 325 mg 04/10/18 10:00 04/13/18 09:32 Feosol 325 Mg PO 05/10/18 09:59 325 mg DAILY PAMELA Administration Gabapentin 600 mg 04/09/18 22:00 04/09/18 22:43 Neurontin 300 Mg PO 05/09/18 21:59 600 mg QID PAMELA Administration Gabapentin 600 mg 04/10/18 09:15 04/13/18 11:20 Neurontin 300 Mg PO 05/09/18 09:14 600 mg 0600,1200,1800,2200 PAMELA Administration Heparin Sodium (Beef Lung) 500 units 04/13/18 12:00 04/13/18 12:15 Heparin Lock Flush 100 Units/Ml 5ml Syringe PICC 05/13/18 11:59 500 units PRN PRN Administration IV PORT FLUSH Ceftriaxone Sodium/Dextrose 2 g in 50 mls @ 100 mls/hr 04/10/18 10:00 09:13 Rocephin 2 Gm-D5w 50ml Bag IV 05/10/18 09:59 100 mls/hr Q24H10 PAMELA Administration Vancomycin HCl 0.75 gm/ Sodium 250 mls @ 167 mls/hr 04/09/18 22:00 04/13/18 10:04 Chloride IV 05/09/18 21:59 167 mls/hr Q12HT PAMELA Administration Insulin Aspart 0 unit 04/10/18 17:04 04/11/18 16:43 Novolog Insulin SQ 05/10/18 17:03 2 unit UD PRN Administration HYPERGLYCEMIA Insulin Glargine 23 unit 04/10/18 10:00 04/13/18 09:31 Lantus Insulin SQ 05/10/18 09:59 23 unit QAM PAMELA Administration Lisinopril 5 mg 04/09/18 22:00 04/12/18 21:38 Zestril 5 Mg PO 05/09/18 21:59 5 mg HS PAMELA Administration Metformin HCl 1,000 mg 04/10/18 18:00 04/13/18 08:01 Glucophage 500 Mg PO 05/10/18 17:59 1,000 mg BIDWM PAMELA Administration Metoprolol Tartrate 25 mg 04/10/18 10:00 04/13/18 09:35 Lopressor 25mg Tab PO 05/10/18 09:59 25 mg DAILY PAMELA Administration Multivitamins Therapeutic 1 tab 04/10/18 10:00 04/13/18 09:33 Theragran Multivitamin PO 05/10/18 09:59 1 tab DAILY PAMELA Administration Non-Formulary Medication 2 gm 04/10/18 10:00 Ceftriaxone In Is-Osm Dextrose [Ceftriaxone 2 Gm Piggyback] IV 05/10/18 09: 59 DAILY PAMELA Non-Formulary Medication 750 mg 04/09/18 17:15 Vancomycin Hcl In Dextrose 5 % [Vancomycin 750 Mg/250 Ml-D5w] IV 05/09/18 17 :14 Q12H PAMELA Oxycodone HCl 10 mg 04/09/18 22:00 04/13/18 09:38 Oxycontin 10 Mg Er PO 04/14/18 21:59 Not Given Q12HT PAMELA Oxycodone HCl 5 - 10 mg 04/09/18 17:19 Oxy-Ir 5 Mg PO 04/14/18 17:18 Q4H PRN PRN PAIN Pantoprazole Sodium 40 mg 04/10/18 10:00 04/13/18 09:34 Protonix 40mg Tablet PO 05/10/18 09:59 40 mg DAILY PAMELA Administration Polyethylene Glycol 17 gm 04/10/18 10:00 04/13/18 09:37 Miralax Powder 17gm Packet PO 05/10/18 09:59 Not Given DAILY PAMELA Senna/Docusate Sodium 2 udtab 04/09/18 22:00 04/13/18 09:38 Senokot-S Tablet PO 05/09/18 21:59 Not Given BID PAMELA Simvastatin 10 mg 04/09/18 22:00 04/12/18 21:38 Zocor 10mg PO 05/09/18 21:59 10 mg HS PAMELA Administration Tuberculin PPD 5 unit 04/10/18 10:00 04/10/18 15:30 Aplisol ID 04/10/18 10:01 5 unit DAILY PAMELA Administration Tuberculin PPD 5 unit 04/21/18 10:00 Aplisol ID 04/21/18 10:01 DAILY PAMELA Intake & Output (Last 24 hours) 04/11/18 04/12/18 04/13/18 04/14/18 11:59 11:59 11:59 11:59 Intake Total 1650 1570 1320 480 Output Total 300 Balance 1350 1570 1320 480 Weight 72.3 kg 71.1 kg 70.9 kg Orders (Last 24 hours) Category Date Time Status Miscellaneous Nursing Order ROUTINE Care 04/13/18 13:29 Active Discharge Routine Discharge 04/13/18 Ordered Heparin Flush 500 units/5 ml [Heparin Lock Flush 100 Med 04/13/18 12:00 Discontinued Units/ml 5ml Syringe] 500 units PICC PRN PRN Tuberculin,Purif.prot.deriv. [Aplisol] Med 04/21/18 10:00 Discontinued 5 unit ID DAILY Patient Care Notes (Last 24 hours) 04/13/18 16:09 Physical Therapy Note by Nahomy Moss PATIENT D/C TO HOME THIS P.M. WILL CONTINUE ANTIBIOTIC THERAPY VIA OUTPT [facility]ION [facility]ENTER. P.T. WILL FOLLOW PATIENT IN THE INFUSION CENTER TO MONITOR HEP AND INCISION WOUND HEALING. Initialized on 04/13/18 16:09 - END OF NOTE - Discharge Discharge Date: 04/13/18 Disposition: Home, Self-Care Condition: Good Prescriptions: New Ceftriaxone 2 GM/50 ML PREMIX* [ROCEPHIN 2 Gm-D5w 50ML BAG] 2 g IV DAILY 34 Days #34 ivpb Vancomycin/0.9 % Sod Chloride [Vanco-0.9% NaCl 750 mg/150 ml] 750 mg IV Q12H 34 Days #68 plast..bag Continue Insulin Detemir [Levemir] 23 unit SQ QAM Simvastatin 10 mg PO HS Gabapentin [Neurontin] 600 mg PO QID Multivitamin [Multi-Vitamin Daily] 1 tab PO DAILY Polyethylene Glycol 3350 17 gm [Miralax Powder 17GM PACKET] 17 gm PO DAILY Oxycodone HCl 5 - 10 mg PO Q4HPRN PRN PRN Reason: Pain Omeprazole 20 mg PO DAILY Metoprolol Tartrate 25 mg [Lopressor 25MG Tab] 25 mg PO DAILY Lisinopril 5 mg [Zestril 5 MG] 5 mg PO HS Ferrous Sulfate 325 mg PO DAILY Sennosides/Docusate Sodium [Docusate Sodium-Senna Tablet] 2 tab PO BID Ceftriaxone in Is-Osm Dextrose [Ceftriaxone 2 gm Piggyback] 2 gm IV DAILY Aspirin EC 81 mg [Ecotrin 81 mg] 81 mg PO BID Acetaminophen 500 mg [Tylenol Extra Strength 500 mg] 1,000 mg PO TID Vancomycin HCl in Dextrose 5 % [Vancomycin 750 mg/250 ml-D5w] 750 mg IV Q12H Oxycodone HCl [Oxycodone HCl ER] 10 mg PO Q12H Metformin HCl 1,000 mg PO BIDWMEALS Clopidogrel Bisulfate 75 mg [PLAVIX 75 MG Tablet] 75 mg PO DAILY Instructions: Surgical Wound (DC), Diabetes Type 2 (DC), Wound Incision and Drainage (DC) Additional Instructions: YOU WILL NEED TO COME TO HOSPITAL STARTING TOMORROW MORNING AT 6:00 AM FOR YOUR FIRST INFUSION. YOU WILL BE DIRECTED BY THE INFUSION DEPARTMENT WHAT TIME TO RETURN. YOUR ANTIBIOTICS WILL CONTINUE THROUGH 05/17/18. ALSO, P.T. TO EVAL AND TREAT FOR CONTINUED WOUND CARE AND PHYSICAL THERAPY OUTPATIENT. PLEASE CONTINUE PER NAHOMY MOSS P.T. Follow up with: DAISY DELGADO MD [NON-STAFF PHY W/O PRIVILEGES] - 04/22/18 2:45 pm ELLEN GILLESPIE [NON-STAFF PHY W/O PRIVILEGES] - 05/05/18 1:00 pm ASH ALBRECHT MD [Primary Care Provider] - Call for Appointment Forms: Discharge Instructions
[2018-04-21] MEDS ORDERED: Aplisol ID SCH (10:00)
== END 2018-04-13 14:30 | disposition home or self-care (01) | DRG 950 ==
LOC: MED SURG 16:31
PROVIDERS: ADMIT General Practice; ATTEND General Practice
DX: T84.51XD Infection and inflammatory reaction due to internal right hip prosthesis, subsequent encounter (principal); I10 Essential (primary) hypertension; I25.10 Atherosclerotic heart disease of native coronary artery without angina pectoris; E11.9 Type 2 diabetes mellitus without complications; E78.5 Hyperlipidemia, unspecified; Z86.73 Personal history of transient ischemic attack (TIA), and cerebral infarction without residual deficits; G62.9 Polyneuropathy, unspecified; Z86.14 Personal history of Methicillin resistant Staphylococcus aureus infection; Z96.641 Presence of right artificial hip joint; D64.9 Anemia, unspecified; Z98.890 Other specified postprocedural states
CPT/HCPCS: 36415; 71045; 80053; 80202; 83036; 85025; J0696; J1642; J3370; 97110-GP; A9270-GY

== ENCOUNTER 2019-04-06 19:25 | Emergency (ER) | payer MEDICARE, OTHER ==
[2019-04-06 19:44] VITALS: O2SAT 98
--- NOTE | 2019-04-06 20:22 | ERPHSYRPT ---
- History of Present Illness Time Seen by Provider: 04/06/19 20:22 Source: patient Exam Limitations: no limitations Patient Subjective Stated Complaint: stated had labs drawn at [facility] and [facility] called stating potassium was 6.3 and to either come to [place] [facility] workup. pt states has had some occassional light headedness but denies any other complaints. states see Dr August food service coordinator, has an internal heart monitor in place. Triage Nursing Assessment: A/O speech clear no c/o pain or disc. resp easy. lungs CTA. denies any further co at present. states here for abnormal labs [facility] Allergies/Adverse Reactions: latex Allergy (Severe, Verified 07/15/18 07:22) SORES IN MOUTH AND TONGUE sulfamethoxazole [From Bactrim] Allergy (Verified 07/15/18 07:22) trimethoprim [From Bactrim] Allergy (Verified 07/15/18 07:22) Home Medications: Gabapentin [Neurontin] 600 mg PO QID 02/07/17 [History] Insulin Detemir [Levemir] 32 unit SQ QAM 02/07/17 [History] Multivitamin [Multi-Vitamin Daily] 1 tab PO DAILY 02/07/17 [History] Simvastatin 10 mg PO HS 02/07/17 [History] Ferrous Sulfate 325 mg PO DAILY 04/09/18 [History] Lisinopril 5 mg [Zestril 5 MG] 5 mg PO BID 04/09/18 [History] Metformin HCl 1,000 mg PO BIDWMEALS 04/09/18 [History] Metoprolol Tartrate 25 mg [Lopressor 25MG Tab] 25 mg PO DAILY 04/09/18 [ History] Clopidogrel Bisulfate 75 mg [PLAVIX 75 MG Tablet] 75 mg PO DAILY 04/12/18 [History] Hx Tetanus, Diphtheria Vaccination/Date Given: No Hx Influenza Vaccination/Date Given: No Hx Pneumococcal Vaccination/Date Given: No Immunizations Up to Date: Yes - Review of Systems Constitutional: No Symptoms Respiratory: No Symptoms Cardiac: No Symptoms Neurological: Vertigo (occasionally - off and on) - Past Medical History Pertinent Past Medical History: Yes Neurological History: Peripheral Neuropathy, Stroke ENT History: Other Cardiac History: Coronary Artery Disease, Hypertension, Myocardial Infarction ( [place]) Respiratory History: No Pertinent History Endocrine Medical History: Diabetes Type II Musculoskeletal History: Arthritis, Other GI Medical History: No Pertinent History History: No Pertinent History Psycho-Social History: No Pertinent History Male Reproductive Disorders: No Pertinent History Other Medical History: Anemia,FLANDREAU, chronic hip infection of prosthetic joint. - Past Surgical History Past Surgical History: Yes Neuro Surgical History: No Pertinent History Cardiac: Cardiac Catheterization Respiratory: No Pertinent History Gastrointestinal: Appendectomy, Cholecystectomy Genitourinary: No Pertinent History Musculoskeletal: Orthopedic Surgery Male Surgical History: No Pertinent History Other Surgical History: Back surgery 2010, Neck surgery 2007, Left knee meniscal repair 2004, Right hip repair 1989, 1990, 2003, 10/11/2012, 2012...Fx: Pelvis, Ribs, Vertabrae, Right hip from tree falling on him in 1989 - Social History Smoking Status: Former smoker Exposure to second hand smoke: No Drug Use: none Patient Lives Alone: No - Nursing Vital Signs Nursing Vital Signs: Initial Vital Signs Temperature 98.8 F 04/06/19 19:26 Pulse Rate 55 L 04/06/19 19:26 Respiratory Rate 17 04/06/19 19:26 Blood Pressure 146/76 04/06/19 19:26 O2 Sat by Pulse Oximetry 98 04/06/19 19:26 Pain Scale Pain Intensity 0 - Physical Exam General Appearance: no apparent distress Eye Exam: PERRL/EOMI, eyes nml inspection Ears, Nose, Throat Exam: normal ENT inspection Neck Exam: normal inspection, non-tender, No carotid bruit Respiratory Exam: normal breath sounds, lungs clear, airway intact Cardiovascular Exam: regular rate/rhythm, normal heart sounds, normal peripheral pulses, No edema Gastrointestinal/Abdomen Exam: soft, normal bowel sounds (slightly hyperactive all 4 quadrants) Extremity Exam: normal inspection, normal range of motion, No pedal edema, No swelling Neurologic Exam: alert, oriented x 3, cooperative, normal mood/affect Skin Exam: normal color, warm, dry SpO2: 98 O2 Delivery: Room Air - Course Nursing assessment & vital signs reviewed: Yes EKG Interpreted by Me: RATE (52), Sinus Juan, NORMAL AXIS, NORMAL INTERVALS Ordered Tests: Active Orders 24 hr Category Date Time Status EKG-ER Only STAT Care 04/06/19 20:36 Active CBC Stat Lab 04/06/19 20:56 Completed CMP Stat Lab 04/06/19 20:56 Completed Lab/Rad Data: Laboratory Result Diagrams 04/06/19 20:56 04/06/19 20:56 Laboratory Results 04/06/19 04/06/19 Range/Units 20:56 20:56 WBC 5.6 (4.0-10.5) K/mm3 RBC 3.41 L (4.1-5.6) M/mm3 Hgb 9.7 L (12.5-18.0) gm/dl Hct 30.3 L (42-50) % MCV 88.9 (78-100) fl MCH 28.4 (26-32) pg MCHC 32.0 (32-36) g/dl RDW 14.0 (11.5-14.0) % Plt Count 268 (150-450) K/mm3 MPV 9.3 (6-9.5) fl Sodium 138 (137-145) mmol/L Potassium 5.9 H (3.5-5.1) mmol/L Chloride 108 H (98-107) mmol/L Carbon Dioxide 24 (22-30) mmol/L Anion Gap 11.3 (5-15) MEQ/L BUN 32 H (9-20) mg/dL Creatinine 1.13 (0.66-1.25) mg/dL Estimated GFR > 60.0 ML/MIN Glucose 166 H (74-106) mg/dL Calcium 9.7 (8.4-10.2) mg/dL Total Bilirubin 0.40 (0.2-1.3) mg/dL AST 33 (17-59) U/L ALT 22 (0-50) U/L Alkaline Phosphatase 98 (38-126) U/L Serum Total Protein 7.0 (6.3-8.2) g/dL Albumin 3.7 (3.5-5.0) g/dL - Departure Departure Disposition: Home Clinical Impression: Hyperkalemia Condition: Good Critical Care Time: No Referrals: ASH ALBRECHT MD [Primary Care Provider] - Instructions: Hyperkalemia (DC) Additional Instructions: Call Dr. August tomorrow; let them know of elevated Potassium of 5.9 which might be related to medications being taken. EKG was done in the ER and was unremarkable. Lab value in ER was lower than [facility] Follow up with Dr. August or primary care.
[2019-04-06 20:57] LABS: Hematocrit 30.3 % (42-50); Hemoglobin 9.7 gm/dl (12.5-18.0); Mean Cell Volume 88.9 fl (78-100); Mean Corpuscular Hemoglobin 28.4 pg (26-32); Mean Platelet Volume 9.3 fl (6-9.5); Platelet Count 268 K/mm3 (150-450); Red Blood Count 3.41 M/mm3 (4.1-5.6); White Blood Count 5.6 K/mm3 (4.0-10.5)
[2019-04-06 21:07] LABS: ALBUMIN 3.7 g/dL (3.5-5.0); ALKALINE PHOSPHATASE 98 U/L (38-126); ANION GAP 11.3 MEQ/L (5-15); BLOOD UREA NITROGEN 32 mg/dL (9-20); CHLORIDE 108 mmol/L (98-107); Calcium 9.7 mg/dL (8.4-10.2); Carbon Dioxide 24 mmol/L (22-30); Creatinine 1 1.13 mg/dL (0.66-1.25); Glucose 166 mg/dL (74-106); Potassium 5.9 mmol/L (3.5-5.1); SGOT/AST 33 U/L (17-59); SGPT/ALT 22 U/L (0-50); SODIUM 138 mmol/L (137-145)
[2019-04-06 22:01] VITALS: BP 143/74; PULSE 58
== END 2019-04-06 22:01 | disposition home or self-care (01) ==
LOC: ED 19:25
DX: E87.5 Hyperkalemia (principal); Z79.899 Other long term (current) drug therapy; E11.9 Type 2 diabetes mellitus without complications; I10 Essential (primary) hypertension; I25.10 Atherosclerotic heart disease of native coronary artery without angina pectoris
CPT/HCPCS: 36415; 80053; 85027; 93005; 99284

== ENCOUNTER 2019-09-20 14:51 | Inpatient (IN) | payer MEDICARE, OTHER ==
[2019-09-20] MEDS ORDERED: Oxycontin 10 MG ER PO PRN (17:32)
[2019-09-20] MEDS: Oxy-IR 5 MG PO PRN (17:40)
[2019-09-20] MEDS ORDERED: Vancomycin 1GM/ Ns 250ML*** 250 ML IV ONE (21:49)
[2019-09-20] MEDS ORDERED: VANCOCIN 1 GM VIAL*** 1.25 GM in Sodium Chloride 0.9% 250 ML 250 ML IV SCH (22:00)
[2019-09-20] MEDS ORDERED: VANCOCIN 1 GM VIAL*** 1 GM in Sodium Chloride 0.9% 250 ML 250 ML IV SCH (22:00)
[2019-09-20] MEDS: Colace 100 MG PO SCH (22:36)
[2019-09-20] MEDS: ECOTRIN 81 MG PO SCH (22:37)
[2019-09-20] MEDS: SENOKOT 8.6 MG PO SCH (22:37)
[2019-09-20] MEDS: NEURONTIN 300 MG PO SCH (22:37)
[2019-09-20] MEDS: Oxycontin 10 MG ER PO SCH (22:37)
[2019-09-20] MEDS: RIFAMPIN 300 MG PO SCH (22:38)
[2019-09-20] MEDS: TYLENOL EXTRA STRENGTH 500 MG PO SCH (22:38)
[2019-09-20] MEDS: Zocor 10MG PO SCH (22:39)
[2019-09-20] MEDS: Zestril 10 MG PO SCH (22:39)
[2019-09-20] MEDS: NovoLOG Insulin SQ PRN (23:28)
[2019-09-21 04:59] LABS: ANION GAP 7.1 MEQ/L (5-15); Calcium 9.1 mg/dL (8.4-10.2); Creatinine 1 1.34 mg/dL (0.66-1.25); Potassium 4.2 mmol/L (3.5-5.1)
[2019-09-21] MEDS ORDERED: Oxy-IR 5 MG PO PRN (07:27)
[2019-09-21] MEDS ORDERED: Nitrostat 0.4 MG Tablet SL PRN (07:43)
[2019-09-21] MEDS ORDERED: NON-FORMULARY ITEM (Metformin Hcl [Metformin Hcl] 1,000 MG) PO SCH (08:00)
[2019-09-21] MEDS: Lantus Insulin SQ SCH (08:10)
[2019-09-21] MEDS: Glucophage 500 MG PO SCH ×2 (08:10→17:30)
[2019-09-21] MEDS ORDERED: INSULIN DETEMIR 35 UNIT SQ SCH (10:00)
[2019-09-21] MEDS ORDERED: NON-FORMULARY ITEM (Omeprazole [Omeprazole] 20 MG) PO SCH (10:00)
[2019-09-21] MEDS ORDERED: NON-FORMULARY ITEM (Multivitamin [Multi-Vitamin Daily] 1 TAB) PO SCH (10:00)
[2019-09-21] MEDS ORDERED: Aplisol ID ONE (10:00)
[2019-09-21] MEDS ORDERED: NON-FORMULARY ITEM (Alogliptin Benzoate [Alogliptin] 12.5 MG) PO SCH (10:00)
[2019-09-21] MEDS: THERAGRAN MULTIVITAMIN PO SCH (10:32)
[2019-09-21] MEDS: FEOSOL 325 MG PO SCH (10:32)
[2019-09-21] MEDS: Colace 100 MG PO SCH ×2 (10:32→21:58)
[2019-09-21] MEDS: TYLENOL EXTRA STRENGTH 500 MG PO SCH ×3 (10:33→21:58)
[2019-09-21] MEDS: Januvia 50 MG PO SCH (10:33)
[2019-09-21] MEDS: NEURONTIN 300 MG PO SCH ×4 (10:34→21:58)
[2019-09-21] MEDS: Oxycontin 10 MG ER PO SCH ×2 (10:34→21:58)
[2019-09-21] MEDS: ECOTRIN 81 MG PO SCH ×2 (10:34→21:58)
[2019-09-21] MEDS: SENOKOT 8.6 MG PO SCH ×2 (10:34→21:58)
[2019-09-21] MEDS: Protonix 40MG Tablet PO SCH (10:34)
[2019-09-21] MEDS: Lopressor 25MG Tab PO SCH (10:34)
[2019-09-21] MEDS: Zestril 10 MG PO SCH ×2 (10:34→21:59)
[2019-09-21] MEDS: RIFAMPIN 300 MG PO SCH ×2 (10:35→21:59)
[2019-09-21] MEDS: Miralax Powder 17GM PACKET PO SCH (10:35)
--- NOTE | 2019-09-21 13:12 | PCM.HP ---
History of Present Illness - Chief Complaint Chief Complaint: deconditioning r/t hip infection History of Present Illness: is a 74 year old male came for rehab.Recently had hip infection - Review of Systems Constitutional: No Fever, No Chills Eyes: No Symptoms Ears, Nose, & Throat: No Symptoms Respiratory: No Cough, No Short Of Breath Cardiac: No Chest Pain, No Edema, No Syncope Abdominal/Gastrointestinal: No Abdominal Pain, No Nausea, No Vomiting, No Diarrhea Genitourinary Symptoms: No Dysuria Musculoskeletal: No Back Pain, No Neck Pain Skin: No Rash Neurological: No Dizziness, No Focal Weakness, No Sensory Changes Psychological: No Symptoms Endocrine: No Symptoms Hematologic/Lymphatic: No Symptoms Immunological/Allergic: No Symptoms Medications & Allergies Home Medications: Home Medication List Gabapentin [Neurontin] 600 mg PO QID 02/07/17 [History Confirmed 09/20/19] Insulin Detemir [Levemir] 35 unit SQ QAM 02/07/17 [History Confirmed 09/20/19] Multivitamin [Multi-Vitamin Daily] 1 tab PO DAILY 02/07/17 [History Confirmed ] Simvastatin 10 mg PO HS 02/07/17 [History Confirmed 09/20/19] Ferrous Sulfate 325 mg PO DAILY 04/09/18 [History Confirmed 09/20/19] Lisinopril 5 mg [Zestril 5 MG] 10 mg PO BID 04/09/18 [History Confirmed ] Metformin HCl 1,000 mg PO BIDWMEALS 04/09/18 [History Confirmed 09/20/19] Metoprolol Tartrate 25 mg [Lopressor 25MG Tab] 25 mg PO DAILY 04/09/18 [ History Confirmed 09/20/19] Clopidogrel Bisulfate 75 mg [PLAVIX 75 MG Tablet] 75 mg PO DAILY 04/12/18 [History Confirmed 09/20/19] Acetaminophen 500 mg [Tylenol Extra Strength 500 mg] 1,000 mg PO TID 09/20 [History Confirmed 09/20/19] Alogliptin Benzoate [Alogliptin] 12.5 mg PO DAILY 09/20/19 [History Confirmed ] Aspirin [Aspirin EC] 81 mg PO BID 09/20/19 [History Confirmed 09/20/19] Docusate Sodium [Stool Softener] 50 mg PO BID 09/20/19 [History Confirmed ] Indomethacin 25 mg [Indocin 25 MG] 25 mg PO DAILY 09/20/19 [History Confirmed 09/20/19] Nitroglycerin 0.4 mg Tablet [Nitrostat 0.4 MG Tablet] 0.4 mg SL Q5MIN PRN MR X 3 PRN 09/20/19 [History Confirmed 09/20/19] Omeprazole 20 mg PO DAILY 09/20/19 [History Confirmed 09/20/19] Oxycodone HCl 5 mg Ir [Oxy-IR 5 MG] 5 - 10 mg PO Q4H PRN 09/20/19 [ History Confirmed 09/20/19] Oxycodone HCl [Oxycodone HCl ER] 10 mg PO BID 09/20/19 [History Confirmed ] Polyethylene Glycol 3350 17 gm [Miralax Powder 17GM PACKET] 17 gm PO DAILY [History Confirmed 09/20/19] Rifampin 300 mg [Rifadin 300 mg] 300 mg PO BID 09/20/19 [History Confirmed 09/20/19] Sennosides [Senna] 8.6 mg PO BID 09/20/19 [History Confirmed 09/20/19] Vancomycin HCl in Water [Vancomycin 1,250 mg/12.5 ml Vl] 1.25 gm IV DAILY [History Confirmed 09/20/19] Allergies/Adverse Reactions: Allergies Allergy/AdvReac Type Severity Reaction Status Date / Time latex Allergy Severe SORES IN Verified 07/15/18 07:22 MOUTH AND TONGUE sulfamethoxazole Allergy Verified 07/15/18 07:22 [From Bactrim] trimethoprim [From Bactrim] Allergy Verified 07/15/18 07:22 - Past Medical History Past Medical History: Yes Neurological History: Peripheral Neuropathy, Stroke ENT History: Other Cardiac History: Coronary Artery Disease, Hypertension, Myocardial Infarction ( [place]) Respiratory History: No Pertinent History Endocrine Medical History: Diabetes Type II Musculoskelatal History: Arthritis, Other GI Medical History: No Pertinent History History: No Pertinent History Pyscho-Social History: No Pertinent History Male Reproductive Disorders: No Pertinent History Comment: Anemia,CURYUNG, chronic hip infection of prosthetic joint. - Past Surgical History Past Surgical History: Yes Neuro Surgical History: No Pertinent History Cardiac History: Cardiac Catheterization Respiratory Surgery: No Pertinent History GI Surgical History: Appendectomy, Cholecystectomy Genitourinary Surgical Hx: No Pertinent History Musculskeletal Surgical Hx: Orthopedic Surgery Male Surgical History: No Pertinent History Other Surgical History: Back surgery 2010, Neck surgery 2007, Left knee meniscal repair 2004, Right hip repair 1989, 1990, 2003, 10/11/2012, 2012...Fx: Pelvis, Ribs, Vertabrae, Right hip from tree falling on him in 1989 - Social History Smoking Status: Former smoker Exposure to second hand smoke: No Alcohol: None Drug Use: none - Physical Exam Vital Signs: Vital Signs - 24 hr Temp Pulse Resp BP Pulse Ox 09/21/19 08:00 97.6 F 68 24 138/65 94 L 09/20/19 20:00 98.0 F 64 20 108/57 96 09/20/19 17:29 98.1 F 65 18 108/57 95 General Appearance: no apparent distress, alert Neurologic Exam: alert, oriented x 3, cooperative, normal mood/affect, nml cerebellar function, nml station & gait, sensation nml, No motor deficits Eye Exam: PERRL/EOMI, eyes nml inspection Ears, Nose, Throat Exam: normal ENT inspection, TMs normal, pharynx normal, moist mucous membranes Neck Exam: normal inspection, non-tender, supple, full range of motion Respiratory Exam: normal breath sounds, lungs clear, No respiratory distress Cardiovascular Exam: regular rate/rhythm, normal heart sounds, normal peripheral pulses Gastrointestinal/Abdomen Exam: soft, normal bowel sounds, No tenderness, No mass Back Exam: normal inspection, normal range of motion, No CVA tenderness, No vertebral tenderness Extremity Exam: normal inspection, normal range of motion, pelvis stable Skin Exam: normal color, warm, dry, No rash Lymphatic Exam: No adenopathy Results - Labs Lab/Micro Results: Accuchecks Accucheck Value: 252 Lab Results-Last 24 Hours 09/21/19 09/21/19 Range/Units 04:43 06:00 Sodium 137 (137-145) mmol/L Potassium 4.2 (3.5-5.1) mmol/L Chloride 107 (98-107) mmol/L Carbon Dioxide 27 (22-30) mmol/L Anion Gap 7.1 (5-15) MEQ/L BUN 36 H (9-20) mg/dL Creatinine 1.34 H (0.66-1.25) mg/dL Estimated GFR 55.7 ML/MIN Glucose 94 (74-106) mg/dL Hemoglobin A1c 7.89 H (4.5-6.0) % Calcium 9.1 (8.4-10.2) mg/dL Accuchecks Accucheck Value: 252 Assessment/Plan (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 Current Visit: No Status: Acute Qualifiers: Encounter type: initial encounter Qualified Code(s): T84.59XA - Infection and inflammatory reaction due to other internal joint prosthesis, initial encounter; Z96.649 - Presence of unspecified artificial hip joint Code(s): T84.59XA - INFECT/INFLM REACTION DUE TO OTH INTERNAL JOINT PROSTH, INIT ; Z96.649 - PRESENCE OF UNSPECIFIED ARTIFICIAL HIP JOINT
[2019-09-21] MEDS: VANCOCIN 1 GM VIAL*** 1.25 GM in Sodium Chloride 0.9% 250 ML 250 ML IV SCH (21:58)
[2019-09-21] MEDS: Zocor 10MG PO SCH (21:59)
[2019-09-22] MEDS: Glucophage 500 MG PO SCH ×2 (08:26→17:42)
[2019-09-22] MEDS: Lantus Insulin SQ SCH (08:26)
[2019-09-22] MEDS: NEURONTIN 300 MG PO SCH ×4 (09:25→21:57)
[2019-09-22] MEDS: Lopressor 25MG Tab PO SCH (09:25)
[2019-09-22] MEDS: Protonix 40MG Tablet PO SCH (09:25)
[2019-09-22] MEDS: ECOTRIN 81 MG PO SCH ×2 (09:25→21:57)
[2019-09-22] MEDS: Zestril 10 MG PO SCH ×2 (09:25→21:58)
[2019-09-22] MEDS: Januvia 50 MG PO SCH (09:26)
[2019-09-22] MEDS: FEOSOL 325 MG PO SCH (09:26)
[2019-09-22] MEDS: THERAGRAN MULTIVITAMIN PO SCH (09:26)
[2019-09-22] MEDS: TYLENOL EXTRA STRENGTH 500 MG PO SCH ×3 (09:26→21:58)
[2019-09-22] MEDS: Oxycontin 10 MG ER PO SCH ×2 (09:26→21:57)
[2019-09-22] MEDS: RIFAMPIN 300 MG PO SCH ×2 (09:27→21:57)
[2019-09-22] MEDS: Miralax Powder 17GM PACKET PO SCH (09:27)
[2019-09-22] MEDS: SENOKOT 8.6 MG PO SCH ×2 (09:27→21:58)
[2019-09-22] MEDS: Colace 100 MG PO SCH ×2 (09:28→21:57)
--- NOTE | 2019-09-22 19:01 | PCM.NOTE ---
Date and Time: 09/22/19 190 Subjective Assessment: doing ok - Review of Systems Constitutional: No Fever, No Chills Eyes: No Symptoms Ears, Nose, & Throat: No Symptoms Respiratory: No Cough, No Short Of Breath Cardiac: No Chest Pain, No Edema, No Syncope Abdominal/Gastrointestinal: No Abdominal Pain, No Nausea, No Vomiting, No Diarrhea Genitourinary Symptoms: No Dysuria Musculoskeletal: No Back Pain, No Neck Pain Skin: No Rash Neurological: No Dizziness, No Focal Weakness, No Sensory Changes Psychological: No Symptoms Endocrine: No Symptoms Hematologic/Lymphatic: No Symptoms Immunological/Allergic: No Symptoms Objective Exam General Appearance: no apparent distress, alert Neurologic Exam: alert, oriented x 3, cooperative, normal mood/affect, nml cerebellar function, sensation nml, No motor deficits Skin Exam: normal color, warm, dry Eye Exam: PERRL, EOMI, eyes nml inspection Ears, Nose, Throat Exam: normal ENT inspection, pharynx normal, moist mucous membranes Neck Exam: normal inspection, non-tender, supple, full range of motion Respiratory Exam: normal breath sounds, lungs clear, No respiratory distress Cardiovascular Exam: regular rate/rhythm, normal heart sounds Gastrointestinal/Abdomen Exam: soft, No tenderness, No mass Extremity Exam: normal inspection, normal range of motion Back Exam: normal inspection, normal range of motion, No CVA tenderness, No vertebral tenderness Male Genitalia Exam: deferred Rectal Exam: deferred OBJECTIVE DATA Vital Signs: Vital Signs - 24 hr Temp Pulse Resp BP Pulse Ox 09/22/19 07:48 98.4 F 84 18 110/55 95 09/21/19 20:00 97.9 F 66 18 114/58 98 Pain Assessment - Last Documented Pain Intensity 0 Pain Scale Used 0-10 Pain Scale Intake and Output: Intake & Output 09/20/19 09/21/19 09/22/19 09/23/19 11:59 11:59 11:59 11:59 Intake Total 711 1191 360 Output Total 1040 Balance -329 1191 360 Weight 72.1 kg 72.1 kg Lab Results: Accuchecks Date 09/22/19 Date 09/22/19 Date 09/22/19 Time 17:30 Time 11:30 Time 07:30 Accucheck Value: 133 Accucheck Value: 140 Accucheck Value: 128 Accucheck Value: 138 Assessment/Plan (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 Current Visit: Yes Status: Chronic Qualifiers: Encounter type: initial encounter Qualified Code(s): T84.59XA - Infection and inflammatory reaction due to other internal joint prosthesis, initial encounter; Z96.649 - Presence of unspecified artificial hip joint Code(s): T84.59XA - INFECT/INFLM REACTION DUE TO OTH INTERNAL JOINT PROSTH, INIT ; Z96.649 - PRESENCE OF UNSPECIFIED ARTIFICIAL HIP JOINT
[2019-09-22] MEDS: Zocor 10MG PO SCH (21:58)
[2019-09-22] MEDS: VANCOCIN 1 GM VIAL*** 1.25 GM in Sodium Chloride 0.9% 250 ML 250 ML IV SCH (21:58)
[2019-09-23] MEDS: Lantus Insulin SQ SCH (08:00)
[2019-09-23] MEDS: Glucophage 500 MG PO SCH ×2 (09:03→17:02)
[2019-09-23] MEDS: Colace 100 MG PO SCH ×3 (10:42→22:24)
[2019-09-23] MEDS: Protonix 40MG Tablet PO SCH (10:42)
[2019-09-23] MEDS: THERAGRAN MULTIVITAMIN PO SCH (10:42)
[2019-09-23] MEDS: Miralax Powder 17GM PACKET PO SCH (10:42)
[2019-09-23] MEDS: SENOKOT 8.6 MG PO SCH ×2 (10:42→22:24)
[2019-09-23] MEDS: ECOTRIN 81 MG PO SCH ×2 (10:42→22:19)
[2019-09-23] MEDS: FEOSOL 325 MG PO SCH (10:42)
[2019-09-23] MEDS: NEURONTIN 300 MG PO SCH ×4 (10:42→22:19)
[2019-09-23] MEDS: Zestril 10 MG PO SCH ×2 (10:43→22:19)
[2019-09-23] MEDS: RIFAMPIN 300 MG PO SCH ×2 (10:43→22:19)
[2019-09-23] MEDS: Lopressor 25MG Tab PO SCH (10:43)
[2019-09-23] MEDS: Oxycontin 10 MG ER PO SCH ×2 (10:43→22:24)
[2019-09-23] MEDS: Januvia 50 MG PO SCH (10:43)
[2019-09-23] MEDS: TYLENOL EXTRA STRENGTH 500 MG PO SCH ×3 (10:49→22:24)
--- NOTE | 2019-09-23 12:26 | PCM.NOTE ---
Date and Time: 09/23/19 1226 Subjective Assessment: doing ok - Review of Systems Constitutional: No Fever, No Chills Eyes: No Symptoms Ears, Nose, & Throat: No Symptoms Respiratory: No Cough, No Short Of Breath Cardiac: No Chest Pain, No Edema, No Syncope Abdominal/Gastrointestinal: No Abdominal Pain, No Nausea, No Vomiting, No Diarrhea Genitourinary Symptoms: No Dysuria Musculoskeletal: No Back Pain, No Neck Pain Skin: No Rash Neurological: No Dizziness, No Focal Weakness, No Sensory Changes Psychological: No Symptoms Endocrine: No Symptoms Hematologic/Lymphatic: No Symptoms Immunological/Allergic: No Symptoms Objective Exam General Appearance: no apparent distress, alert Neurologic Exam: alert, oriented x 3, cooperative, normal mood/affect, nml cerebellar function, sensation nml, No motor deficits Skin Exam: normal color, warm, dry Eye Exam: PERRL, EOMI, eyes nml inspection Ears, Nose, Throat Exam: normal ENT inspection, pharynx normal, moist mucous membranes Neck Exam: normal inspection, non-tender, supple, full range of motion Respiratory Exam: normal breath sounds, lungs clear, No respiratory distress Cardiovascular Exam: regular rate/rhythm, normal heart sounds Gastrointestinal/Abdomen Exam: soft, No tenderness, No mass Extremity Exam: normal inspection, normal range of motion Back Exam: normal inspection, normal range of motion, No CVA tenderness, No vertebral tenderness Male Genitalia Exam: deferred Rectal Exam: deferred OBJECTIVE DATA Vital Signs: Vital Signs - 24 hr Temp Pulse Resp BP Pulse Ox 09/23/19 08:00 98.7 F 98 H 16 120/59 97 09/22/19 20:00 97.8 F 63 18 122/57 98 Pain Assessment - Last Documented Pain Intensity 1 Pain Scale Used 0-10 Pain Scale Intake and Output: Intake & Output 09/21/19 09/22/19 09/23/19 09/24/19 11:59 11:59 11:59 11:59 Intake Total 711 1191 1071 Output Total 1040 375 500 Balance -329 1191 696 -500 Weight 72.1 kg 72.1 kg Lab Results: Accuchecks Date 09/23/19 Date 09/22/19 Time 07:30 Time 17:30 Accucheck Value: 62 Accucheck Value: 153 Accucheck Value: 133 Assessment/Plan (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 Current Visit: Yes Status: Chronic Qualifiers: Encounter type: initial encounter Qualified Code(s): T84.59XA - Infection and inflammatory reaction due to other internal joint prosthesis, initial encounter; Z96.649 - Presence of unspecified artificial hip joint Code(s): T84.59XA - INFECT/INFLM REACTION DUE TO OTH INTERNAL JOINT PROSTH, INIT ; Z96.649 - PRESENCE OF UNSPECIFIED ARTIFICIAL HIP JOINT
[2019-09-23] MEDS: Zocor 10MG PO SCH (22:19)
[2019-09-23] MEDS: VANCOCIN 1 GM VIAL*** 1.25 GM in Sodium Chloride 0.9% 250 ML 250 ML IV SCH (22:37)
[2019-09-23] MEDS: NovoLOG Insulin SQ PRN (22:37)
[2019-09-24] MEDS: Glucophage 500 MG PO SCH ×2 (08:37→17:19)
[2019-09-24] MEDS: Lantus Insulin SQ SCH (08:37)
[2019-09-24] MEDS: TYLENOL EXTRA STRENGTH 500 MG PO SCH ×3 (09:38→22:03)
[2019-09-24] MEDS: FEOSOL 325 MG PO SCH (09:39)
[2019-09-24] MEDS: NEURONTIN 300 MG PO SCH ×4 (09:39→22:03)
[2019-09-24] MEDS: THERAGRAN MULTIVITAMIN PO SCH (09:39)
[2019-09-24] MEDS: PLAVIX 75 MG Tablet PO SCH (09:39)
[2019-09-24] MEDS: Lopressor 25MG Tab PO SCH (09:39)
[2019-09-24] MEDS: Zestril 10 MG PO SCH ×2 (09:39→22:05)
[2019-09-24] MEDS: Protonix 40MG Tablet PO SCH (09:39)
[2019-09-24] MEDS: ECOTRIN 81 MG PO SCH ×2 (09:39→22:03)
[2019-09-24] MEDS: RIFAMPIN 300 MG PO SCH ×2 (09:41→22:04)
[2019-09-24] MEDS: Miralax Powder 17GM PACKET PO SCH (09:45)
[2019-09-24] MEDS: SENOKOT 8.6 MG PO SCH ×2 (09:45→22:04)
[2019-09-24] MEDS: Oxycontin 10 MG ER PO SCH ×2 (09:45→22:04)
[2019-09-24] MEDS: Colace 100 MG PO SCH ×2 (09:45→22:03)
[2019-09-24] MEDS: Januvia 50 MG PO SCH (12:25)
[2019-09-24] MEDS: NovoLOG Insulin SQ PRN ×2 (12:26→22:09)
[2019-09-24] MEDS: VANCOCIN 1 GM VIAL*** 1.25 GM in Sodium Chloride 0.9% 250 ML 250 ML IV SCH (22:02)
[2019-09-24] MEDS: Zocor 10MG PO SCH (22:05)
[2019-09-25] MEDS: Glucophage 500 MG PO SCH ×2 (07:56→16:32)
[2019-09-25] MEDS: Lantus Insulin SQ SCH (07:56)
[2019-09-25] MEDS: Zestril 10 MG PO SCH ×2 (09:11→21:33)
[2019-09-25] MEDS: THERAGRAN MULTIVITAMIN PO SCH (09:12)
[2019-09-25] MEDS: NEURONTIN 300 MG PO SCH ×4 (09:12→21:33)
[2019-09-25] MEDS: FEOSOL 325 MG PO SCH (09:13)
[2019-09-25] MEDS: Januvia 50 MG PO SCH (09:13)
[2019-09-25] MEDS: Lopressor 25MG Tab PO SCH (09:14)
[2019-09-25] MEDS: PLAVIX 75 MG Tablet PO SCH (09:14)
[2019-09-25] MEDS: Protonix 40MG Tablet PO SCH (09:14)
[2019-09-25] MEDS: ECOTRIN 81 MG PO SCH ×2 (09:15→21:33)
[2019-09-25] MEDS: RIFAMPIN 300 MG PO SCH ×2 (09:16→21:33)
[2019-09-25] MEDS: SENOKOT 8.6 MG PO SCH ×2 (09:17→21:52)
[2019-09-25] MEDS: Oxycontin 10 MG ER PO SCH (09:18)
[2019-09-25] MEDS: TYLENOL EXTRA STRENGTH 500 MG PO SCH ×3 (09:18→21:51)
[2019-09-25] MEDS: Colace 100 MG PO SCH ×2 (09:18→21:52)
[2019-09-25] MEDS: Miralax Powder 17GM PACKET PO SCH (09:18)
[2019-09-25] MEDS: NovoLOG Insulin SQ PRN (16:34)
[2019-09-25] MEDS ORDERED: TROUGH DRUG LEVELS IJ ONE (21:30)
[2019-09-25] MEDS: Zocor 10MG PO SCH (21:33)
[2019-09-25] MEDS: VANCOCIN 1 GM VIAL*** 1.25 GM in Sodium Chloride 0.9% 250 ML 250 ML IV SCH (22:33)
[2019-09-26] MEDS: Glucophage 500 MG PO SCH ×2 (08:14→18:59)
[2019-09-26] MEDS: Lantus Insulin SQ SCH (08:15)
[2019-09-26 08:28] LABS: ANION GAP 13.4 MEQ/L (5-15); BLOOD UREA NITROGEN 38 mg/dL (9-20); CHLORIDE 104 mmol/L (98-107); Calcium 9.1 mg/dL (8.4-10.2); Carbon Dioxide 25 mmol/L (22-30); Creatinine 1 1.13 mg/dL (0.66-1.25); Glucose 152 mg/dL (74-106); Potassium 4.5 mmol/L (3.5-5.1); SODIUM 138 mmol/L (137-145)
[2019-09-26] MEDS: Januvia 50 MG PO SCH (10:29)
[2019-09-26] MEDS: Zestril 10 MG PO SCH ×2 (10:30→21:15)
[2019-09-26] MEDS: NEURONTIN 300 MG PO SCH ×4 (10:30→21:16)
[2019-09-26] MEDS: Protonix 40MG Tablet PO SCH (10:30)
[2019-09-26] MEDS: THERAGRAN MULTIVITAMIN PO SCH (10:31)
[2019-09-26] MEDS: FEOSOL 325 MG PO SCH (10:31)
[2019-09-26] MEDS: ECOTRIN 81 MG PO SCH ×2 (10:31→21:15)
[2019-09-26] MEDS: Lopressor 25MG Tab PO SCH (10:31)
[2019-09-26] MEDS: PLAVIX 75 MG Tablet PO SCH (10:31)
[2019-09-26] MEDS: SENOKOT 8.6 MG PO SCH ×3 (10:32→21:18)
[2019-09-26] MEDS: RIFAMPIN 300 MG PO SCH ×2 (10:32→21:17)
[2019-09-26] MEDS: Colace 100 MG PO SCH ×2 (10:39→21:18)
[2019-09-26] MEDS: Miralax Powder 17GM PACKET PO SCH (10:39)
[2019-09-26] MEDS: TYLENOL EXTRA STRENGTH 500 MG PO SCH ×3 (11:25→21:17)
[2019-09-26] MEDS: Zocor 10MG PO SCH (21:16)
[2019-09-26] MEDS: VANCOMYCIN 1 GRAM/200 ML BAG 1 GM/200 ML PIGGYBACK IV SCH (21:53)
[2019-09-27] MEDS: Lantus Insulin SQ SCH (08:32)
[2019-09-27] MEDS: Glucophage 500 MG PO SCH ×2 (08:39→17:06)
[2019-09-27] MEDS: NEURONTIN 300 MG PO SCH ×4 (09:56→21:10)
[2019-09-27] MEDS: THERAGRAN MULTIVITAMIN PO SCH (09:57)
[2019-09-27] MEDS: Zestril 10 MG PO SCH ×2 (09:57→21:09)
[2019-09-27] MEDS: FEOSOL 325 MG PO SCH (09:57)
[2019-09-27] MEDS: RIFAMPIN 300 MG PO SCH ×2 (09:57→21:11)
[2019-09-27] MEDS: PLAVIX 75 MG Tablet PO SCH (09:57)
[2019-09-27] MEDS: ECOTRIN 81 MG PO SCH ×2 (09:57→21:09)
[2019-09-27] MEDS: Lopressor 25MG Tab PO SCH (09:57)
[2019-09-27] MEDS: Januvia 50 MG PO SCH (09:57)
[2019-09-27] MEDS: Protonix 40MG Tablet PO SCH (09:57)
[2019-09-27] MEDS: TYLENOL EXTRA STRENGTH 500 MG PO SCH ×3 (09:58→17:11)
[2019-09-27] MEDS: Miralax Powder 17GM PACKET PO SCH (09:58)
[2019-09-27] MEDS: Colace 100 MG PO SCH ×2 (09:58→21:11)
[2019-09-27] MEDS: SENOKOT 8.6 MG PO SCH ×2 (09:58→21:11)
[2019-09-27] MEDS: NovoLOG Insulin SQ PRN (17:06)
[2019-09-27] MEDS: Zocor 10MG PO SCH (21:08)
[2019-09-27] MEDS: VANCOMYCIN 1 GRAM/200 ML BAG 1 GM/200 ML PIGGYBACK IV SCH (21:11)
[2019-09-28] MEDS ORDERED: GlucaGen 1 MG IM PRN (00:31)
[2019-09-28] MEDS ORDERED: D50W 50 ml Abboject IV PRN (00:31)
[2019-09-28] MEDS ORDERED: Glutose 15 GM ORAL GEL PO PRN (00:31)
[2019-09-28 05:36] LABS: Creatinine 1 1.25 mg/dL (0.66-1.25)
[2019-09-28] MEDS: Glucophage 500 MG PO SCH ×2 (08:26→16:42)
[2019-09-28] MEDS: Lantus Insulin SQ SCH (08:26)
[2019-09-28] MEDS: NEURONTIN 300 MG PO SCH ×4 (10:23→22:27)
[2019-09-28] MEDS: Colace 100 MG PO SCH ×2 (10:24→22:26)
[2019-09-28] MEDS: FEOSOL 325 MG PO SCH (10:24)
[2019-09-28] MEDS: ECOTRIN 81 MG PO SCH ×2 (10:24→22:27)
[2019-09-28] MEDS: THERAGRAN MULTIVITAMIN PO SCH (10:24)
[2019-09-28] MEDS: Miralax Powder 17GM PACKET PO SCH (10:24)
[2019-09-28] MEDS: Januvia 50 MG PO SCH (10:24)
[2019-09-28] MEDS: PLAVIX 75 MG Tablet PO SCH (10:24)
[2019-09-28] MEDS: TYLENOL EXTRA STRENGTH 500 MG PO SCH ×3 (10:25→22:29)
[2019-09-28] MEDS: Protonix 40MG Tablet PO SCH (10:25)
[2019-09-28] MEDS: SENOKOT 8.6 MG PO SCH ×2 (10:25→22:29)
[2019-09-28] MEDS: Zestril 10 MG PO SCH ×2 (10:25→22:32)
[2019-09-28] MEDS: Lopressor 25MG Tab PO SCH (10:25)
[2019-09-28] MEDS: RIFAMPIN 300 MG PO SCH ×2 (10:25→22:28)
--- NOTE | 2019-09-28 14:14 | PCM.NOTE ---
Date and Time: 09/28/19 1414 Subjective Assessment: doing better - Review of Systems Constitutional: No Fever, No Chills Eyes: No Symptoms Ears, Nose, & Throat: No Symptoms Respiratory: No Cough, No Short Of Breath Cardiac: No Chest Pain, No Edema, No Syncope Abdominal/Gastrointestinal: No Abdominal Pain, No Nausea, No Vomiting, No Diarrhea Genitourinary Symptoms: No Dysuria Musculoskeletal: No Back Pain, No Neck Pain Skin: No Rash Neurological: No Dizziness, No Focal Weakness, No Sensory Changes Psychological: No Symptoms Endocrine: No Symptoms Hematologic/Lymphatic: No Symptoms Immunological/Allergic: No Symptoms Objective Exam General Appearance: no apparent distress, alert Neurologic Exam: alert, oriented x 3, cooperative, normal mood/affect, nml cerebellar function, sensation nml, No motor deficits Skin Exam: normal color, warm, dry Eye Exam: PERRL, EOMI, eyes nml inspection Ears, Nose, Throat Exam: normal ENT inspection, pharynx normal, moist mucous membranes Neck Exam: normal inspection, non-tender, supple, full range of motion Respiratory Exam: normal breath sounds, lungs clear, No respiratory distress Cardiovascular Exam: regular rate/rhythm, normal heart sounds Gastrointestinal/Abdomen Exam: soft, No tenderness, No mass Extremity Exam: normal inspection, normal range of motion Back Exam: normal inspection, normal range of motion, No CVA tenderness, No vertebral tenderness Male Genitalia Exam: deferred Rectal Exam: deferred OBJECTIVE DATA Vital Signs: Vital Signs - 24 hr Temp Pulse Resp BP Pulse Ox 09/28/19 08:00 97.7 F 85 16 141/67 99 09/27/19 20:00 98.2 F 74 17 136/65 96 Pain Assessment - Last Documented Pain Intensity 0 Pain Scale Used 0-10 Pain Scale Intake and Output: Intake & Output 09/26/19 09/27/19 09/28/19 09/29/19 11:59 11:59 11:59 11:59 Intake Total 740 760 680 360 Balance 740 760 680 360 Weight 72.1 kg Lab Results: Accuchecks Date 09/28/19 Date 09/27/19 Date 09/27/19 Date 09/27/19 Time 00:22 Time 23:50 Time 16:00 Accucheck Value: 62 Accucheck Value: 85 Accucheck Value: 67 Accucheck Value: 58 Accucheck Value: 126 Accucheck Value: 253 Lab Results-Last 24 Hours 09/28/19 Range/Units 05:24 Creatinine 1.25 (0.66-1.25) mg/dL Estimated GFR > 60.0 ML/MIN Multi-Disciplinary Progress Notes: Multi-Disciplinary Progress Notes 09/27/19 17:08 Physical Therapy Note by Josie Altamirano PT. REPORTS R HIP PN AT 3/10; DECLINES NEED FOR CP OR PN MED. TRANSFERS W/ SBA. AMBULATES 200' W/ ROLLER WALKER AND FOOT FLAT WB R LE. NOTED IMPROVED PATTERN TODAY W/ R AFO AND SHOE. PT. IS PERFORMING 15-20 REPS OF GENERAL LE EX' S WITHIN HIP PRECAUTIONS W/ 1# CUFF WEIGHT. ADDED STEP TOUCH ON 3' STEP W/ R LE AND KICKS W/ R LE AT WALKER. PT. HAD 4X4" AREA OF DRIED BLOODY DRAINAGE ON PILLOW UPON P.T. ARRIVING TO ROOM THIS PM. R HIP INCISION WAS ASSESSED AND NO ACUTE BLEEDING NOTED. NOTED SMALL PINHOLE OPENING AT MEDIAL END. CLEANSED W/ HIBICLENS AND APPLIED THREE STERI-STRIPS TO AREA TO HELP APPROXIMATE. NO ODOR OR ANY PURULENT DRAINAGE NOTED. LEFT VOICEMAIL FOR "MARTIN", DR. BARR'S NURSE RE" THIS ISSUE W/ INISION AND SHE HAD NOT RETURNED CALL YET. ALSO DISCUSSED D/C FOR Thursday09/29/19 IF INICISION IS OK. PT. TO CONT. W/ OP INFUSION AND P.T. DID ADVISE PT AND SPOUSE RE: OP P.T. CAP AND THAT WE WOULD NEED TO BE CONSERVATIVE W/ P.T. VISITS HE HAS ANOTHER SX ON R HIP IN 8- 10 WKS. PT. ALSO NEEDS A HOSPITAL BED W/ TRAPEZE WHEN D/C'ED HOME TO ASSIST W/ MOBILITY NEEDS AND MAINTAIN COMPLINACE W/ HIP PRECAUTIONS. WILL CONT. P.T. AND AWAIT RETURN CALL FROM SX'S NURSE. JOSIE ALTAMIRANO PT Initialized on 09/27/19 17:08 - END OF NOTE Assessment/Plan (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 Status: Chronic Qualifiers: Encounter type: subsequent encounter Qualified Code(s): T84.59XD - Infection and inflammatory reaction due to other internal joint prosthesis, subsequent encounter; Z96.649 - Presence of unspecified artificial hip joint Code(s): T84.59XA - INFECT/INFLM REACTION DUE TO OTH INTERNAL JOINT PROSTH, INIT ; Z96.649 - PRESENCE OF UNSPECIFIED ARTIFICIAL HIP JOINT
[2019-09-28] MEDS ORDERED: TROUGH DRUG LEVELS IJ ONE (21:30)
[2019-09-28 21:45] VITALS: PULSE 83
[2019-09-28] MEDS: Zocor 10MG PO SCH (22:32)
[2019-09-28] MEDS: VANCOMYCIN 1 GRAM/200 ML BAG 1 GM/200 ML PIGGYBACK IV SCH (22:36)
[2019-09-29 07:40] VITALS: BP 119/60; O2SAT 99
[2019-09-29] MEDS: Lopressor 25MG Tab PO SCH (08:13)
[2019-09-29] MEDS: NEURONTIN 300 MG PO SCH ×2 (08:13→12:51)
[2019-09-29] MEDS: Januvia 50 MG PO SCH (08:13)
[2019-09-29] MEDS: Glucophage 500 MG PO SCH (08:13)
[2019-09-29] MEDS: PLAVIX 75 MG Tablet PO SCH (08:13)
[2019-09-29] MEDS: Zestril 10 MG PO SCH (08:14)
[2019-09-29] MEDS: Lantus Insulin SQ SCH (08:14)
[2019-09-29] MEDS: ECOTRIN 81 MG PO SCH (08:14)
[2019-09-29] MEDS: FEOSOL 325 MG PO SCH (08:14)
[2019-09-29] MEDS: THERAGRAN MULTIVITAMIN PO SCH (08:14)
[2019-09-29] MEDS: Protonix 40MG Tablet PO SCH (08:14)
[2019-09-29] MEDS: Colace 100 MG PO SCH (08:14)
[2019-09-29] MEDS: Miralax Powder 17GM PACKET PO SCH (08:15)
[2019-09-29] MEDS: SENOKOT 8.6 MG PO SCH (08:15)
[2019-09-29] MEDS: RIFAMPIN 300 MG PO SCH (08:15)
[2019-09-29] MEDS: TYLENOL EXTRA STRENGTH 500 MG PO SCH ×2 (08:31→14:50)
[2019-09-29] MEDS ORDERED: VANCOCIN 500 MG VIAL*** 500 MG in Sodium Chloride 100ML MINI-BAG PLUS 100 ML IV SCH (11:00)
--- NOTE | 2019-09-29 17:12 | PCM.DS ---
Discharge Summary Date of Admission: 09/20/19 17:21 Admitting Physician: ASH ALBRECHT Primary Care Provider: ASH ALBRECHT Allergies Allergies latex Allergy (Severe, Verified 07/15/18 07:22) SORES IN MOUTH AND TONGUE sulfamethoxazole [From Bactrim] Allergy (Verified 07/15/18 07:22) trimethoprim [From Bactrim] Allergy (Verified 07/15/18 07:22) Hospital Summary - Hospital Course Hospital Course: Chief Complaint Diagnosis deconditioning r/t hip infection Allergies Allergy/AdvReac Type Severity Reaction Status Date / Time latex Allergy Severe SORES IN Verified 07/15/18 07:22 MOUTH AND TONGUE sulfamethoxazole Allergy Verified 07/15/18 07:22 [From Bactrim] trimethoprim [From Bactrim] Allergy Verified 07/15/18 07:22 Vital Signs (Last 24 hours) Temp Pulse Resp BP Pulse Ox 09/29/19 07:40 98.2 F 83 18 119/60 99 09/28/19 20:00 98.2 F 83 17 126/60 93 L Home Medications Medication Instructions Recorded Confirmed Last Taken Type Acetaminophen 500 mg [Tylenol 1,000 mg PO TID 09/20/19 09/20/19 09/20/19 15: 00 History Extra Strength 500 mg] 1000 mg Alogliptin Benzoate [Alogliptin] 12.5 mg PO HS 09/20/19 09/23/19 09/20/19 09:00 History 12.5mg Aspirin [Aspirin EC] 81 mg PO BID 09/20/19 09/20/19 09/20/19 09:00 History 81mg Docusate Sodium [Stool Softener] 50 mg PO BID 09/20/19 09/20/19 09/20/19 09:00 History 50mg Indomethacin 25 mg [Indocin 25 25 mg PO DAILY PRN PRN 09/20/19 09/23/19 Unknown History MG] Nitroglycerin 0.4 mg Tablet 0.4 mg SL Q5MIN PRN MR X 3 PRN 09/20/19 09/20/19 Unknown History [Nitrostat 0.4 MG Tablet] Omeprazole 20 mg PO DAILY 09/20/19 09/20/19 09/20/19 09:00 History 20mg Oxycodone HCl 5 mg Ir [Oxy-IR 5 5 - 10 mg PO Q4H PRN 09/20/19 09/20/19 17:00 History MG] 5mg Oxycodone HCl [Oxycodone HCl ER] 10 mg PO BID 09/20/19 09/20/19 09/20/19 09:00 History 10mg Polyethylene Glycol 3350 17 gm 17 gm PO DAILY 09/20/19 09/20/19 09/20/19 09:00 History [Miralax Powder 17GM PACKET] Rifampin 300 mg [Rifadin 300 300 mg PO BID 09/20/19 09/20/19 09/20/19 11:00 History mg] 300mg Sennosides [Senna] 8.6 mg PO BID 09/20/19 09/20/19 09/20/19 09:00 History 8.6mg Vancomycin/0.9 % Sod Chloride 1 gm IV DAILY #42 plast..bag 09/29/19 Unknown Rx [Vanco 1 Gram/250 ml-0.9% NaCl] Current Medications Generic Name Dose Route Start Last Admin Trade Name Freq PRN Reason Stop Dose Admin Acetaminophen 1,000 mg 09/20/19 22:00 09/29/19 14:50 Tylenol Extra Strength 500 Mg PO 10/20/19 21:59 Not Given TID PAMELA Aspirin 81 mg 09/20/19 22:00 09/29/19 08:14 Ecotrin 81 Mg PO 10/20/19 21:59 81 mg BID PAMELA Administration Clopidogrel Bisulfate 75 mg 09/24/19 10:00 09/29/19 08:13 Plavix 75 Mg Tablet PO 10/24/19 09:59 75 mg DAILY PAMELA Administration Dextrose 25 ml 09/28/19 00:31 D50w 50 Ml Abboject IV 10/28/19 00:30 PRN PRN HYPOGLYCEMIA Docusate Sodium 100 mg 09/20/19 22:00 09/29/19 08:14 Colace 100 Mg PO 10/20/19 21:59 Not Given BID PAMELA Ferrous Sulfate 325 mg 09/21/19 10:00 09/29/19 08:14 Feosol 325 Mg PO 10/21/19 09:59 325 mg DAILY PAMELA Administration Gabapentin 600 mg 09/20/19 22:00 09/29/19 12:51 Neurontin 300 Mg PO 10/20/19 21:59 600 mg QID PAMELA Administration Glucagon 1 mg 09/28/19 00:31 09/28/19 00:42 Glucagen 1 Mg IM 10/28/19 00:30 1 mg PRN PRN Administration HYPOGLYCEMIA Glucose 15 gm 09/28/19 00:31 Glutose 15 Gm Oral Gel PO 10/28/19 00:30 PRN PRN HYPOGLYCEMIA Heparin Sodium (Beef Lung) 500 units 09/20/19 23:49 09/29/19 00:15 Heparin Lock Flush 100 Units/Ml 5ml Syringe PICC 10/20/19 23:48 500 units PRN PRN Administration IV PORT FLUSH Insulin Aspart 0 unit 09/20/19 22:59 09/27/19 17:06 Novolog Insulin SQ 10/20/19 22:58 4 unit UD PRN Administration HYPERGLYCEMIA Insulin Glargine 35 unit 09/21/19 08:00 09/29/19 08:14 Lantus Insulin SQ 10/21/19 07:59 35 unit AMINSULIN PAMELA Administration Lisinopril 10 mg 09/20/19 22:00 09/29/19 08:14 Zestril 10 Mg PO 10/20/19 21:59 10 mg BID PAMELA Administration Metformin HCl 1,000 mg 09/21/19 08:00 09/29/19 08:13 Glucophage 500 Mg PO 10/21/19 07:59 1,000 mg BIDWM PAMELA Administration Metoprolol Tartrate 25 mg 09/21/19 10:00 09/29/19 08:13 Lopressor 25mg Tab PO 10/21/19 09:59 25 mg DAILY PAMELA Administration Multivitamins Therapeutic 1 tab 09/21/19 10:00 09/29/19 08:14 Theragran Multivitamin PO 10/21/19 09:59 1 tab DAILY PAMELA Administration Nitroglycerin 0.4 mg 09/21/19 07:43 Nitrostat 0.4 Mg Tablet SL 10/21/19 07:42 Q5MIN PRN MR X 3 PRN CHEST PAIN Pantoprazole Sodium 40 mg 09/21/19 10:00 09/29/19 08:14 Protonix 40mg Tablet PO 10/21/19 09:59 40 mg DAILY PAMELA Administration Polyethylene Glycol 17 gm 09/21/19 10:00 09/29/19 08:15 Miralax Powder 17gm Packet PO 10/21/19 09:59 Not Given DAILY PAMELA Rifampin 300 mg 09/20/19 22:00 09/29/19 08:15 Rifadin 300 Mg PO 10/20/19 21:59 300 mg BID PAMELA Administration Senna 8.6 mg 09/20/19 22:00 09/29/19 08:15 Senokot 8.6 Mg PO 10/20/19 21:59 Not Given BID PAMELA Simvastatin 10 mg 09/20/19 22:00 09/28/19 22:32 Zocor 10mg PO 10/20/19 21:59 10 mg HS PAMELA Administration Sitagliptin Phosphate 50 mg 09/21/19 10:00 09/29/19 08:13 Januvia 50 Mg PO 10/21/19 09:59 50 mg QAM PAMELA Administration Discontinued Medications Generic Name Dose Route Start Last Admin Trade Name Freq PRN Reason Stop Dose Admin Device 1 09/25/19 21:30 09/25/19 21:52 Trough Drug Levels IJ 09/25/19 21:31 1 1XONLY ONE Administration Device 1 09/28/19 21:30 09/28/19 22:36 Trough Drug Levels IJ 09/28/19 21:31 1 1XONLY ONE Administration Vancomycin HCl 1.25 gm/ Sodium 250 mls @ 167 mls/hr 09/20/19 22:00 Chloride IV 10/20/19 21:59 Q24H PAMELA Vancomycin HCl 1 gm/ Sodium 250 mls @ 167 mls/hr 09/20/19 22:00 09/20/19 22: 24 Chloride IV 10/20/19 21:59 167 mls/hr Q24H PAMELA Administration Vancomycin HCl Confirm 09/20/19 21:49 Vancomycin 1gm/ Ns 250ml Administered 09/20/19 21:50 Dose 250 mls @ ud IV .STK-MED ONE Vancomycin HCl 1.25 gm/ Sodium 250 mls @ 167 mls/hr 09/21/19 22:00 09/25/19 22:33 Chloride IV 10/21/19 21:59 167 mls/hr Q24H22 PAMELA Administration Vancomycin HCl 1 gm in 200 mls @ 167 mls/hr 09/26/19 22:00 09/28/19 22:36 Vancomycin 1 Gram/200 Ml Bag IV 10/26/19 21:59 167 mls/hr Q24H22 PAMELA Administration Vancomycin HCl 500 mg/ Sodium 100 mls @ 66.667 mls/hr 09/29/19 11:00 10:59 Chloride IV 09/29/19 12:29 66.667 mls/hr 1100 PAMELA Administration Oxycodone HCl 5 - 10 mg 09/20/19 17:32 Oxycontin 10 Mg Er PO 09/25/19 17:44 Q4H PRN PAIN Oxycodone HCl 5 - 10 mg 09/20/19 17:36 09/20/19 17:40 Oxy-Ir 5 Mg PO 09/25/19 17:35 5 mg Q4H PRN Administration PAIN Oxycodone HCl 10 mg 09/20/19 22:00 09/25/19 09:18 Oxycontin 10 Mg Er PO 09/25/19 21:59 Not Given BID PAMELA Oxycodone HCl 5 - 10 mg 09/21/19 07:27 Oxy-Ir 5 Mg PO 09/26/19 07:26 Q4H PRN PRN PAIN Tuberculin PPD 5 unit 09/21/19 10:00 09/21/19 10:31 Aplisol ID 09/21/19 10:01 5 unit ONCE ONE Administration Intake & Output (Last 24 hours) 09/27/19 09/28/19 09/29/19 09/30/19 11:59 11:59 11:59 11:59 Intake Total 704 680 765 480 Output Total 200 Balance 760 160 565 480 Weight 72.1 kg Laboratory Results (Last 24 hours) 09/28/19 21:40 Vancomycin Trough 18.02 Orders (Last 24 hours) Category Date Time Status Discharge Planning,Consult Routine Discharge 09/29/19 Active Vancomycin, Trough Urgent Lab 09/28/19 21:40 Completed Therapuetic Drug Level Monitor [Trough Drug Levels] Med 09/28/19 21:30 Discontinued 1 IJ 1XONLY ONE Vancomycin HCl 500 mg Inj [Vancocin 500 mg Vial] Med 09/29/19 11:00 Discontinued 500 mg NaCl 0.9% 100 ml Mini-Bag Plus [Sodium Chloride 100ML MINI-BAG PLUS] 100 ml IV 1100 Patient Care Notes (Last 24 hours) 09/29/19 16:44 (created 09/29/19 16:46) Nursing Note by Gisel Hitchcock DC instructions given with understanding verbalized by patient and . Discharged at 1644. via wheelchair with Initialized on 09/29/19 16:46 - END OF NOTE 09/29/19 16:41 Physical Therapy Note by Josie Nino PT. REPORTS NO C/O R HIP PN. ANXIOUS TO D/C HOME. TO CONT. W/ OP VANCOMYCIN INFUSIONS AND WILL CONT. W/ HEP AT HOME TO LIMIT USE OF OP CAP HE HAS ANOTHER SX IN 8-10 WEEKS IN WHICH HE WILL NEED MORE OP P.T. PT TO CALL IF HE FEELS HE NEEDS OP P.T. ONCE D/C'ED HOME IF HEP NOT ENOUGH. PERFORMED 20 REPS OF LE EX'S W/ 1# CUFF WEIGHT. REVIEWED HIP PRECAUTIONS AND WB STATUS. WORKED ON STEP NEGOTIATION PT. HAS 2 STEPS IN TO ENTER HOME WITHOUT HR. SON, DILMA , PRESENT DURING STEP TRAINING. PT. ABLE TO ASCEND AND DESCEND 2 STEPS X 2 W/ WALKER AND CGA/MIN ASSIST. NEEDED V.C. TO REMIND TO ASCEND LEADING W/ L LE AND DESCEND LEADING W/ R. SON REPORTS EITHER HE OR HIS BROTHER WILL BE THERE TO ASSIST W/ STEP NEGOTIATION. PT. PROVIDED W/ WRITTEN AND PICTORIAL HEP. TO F/ U W/ SX 10/04/19. JOSIE NINO PT Initialized on 09/29/19 16:41 - END OF NOTE 09/29/19 09:00 (created 09/29/19 09:53) Case Management Note by Tyra Guerrero'S [facility] DOCUMENTATION FOR HOSPITAL BED TO BE BILLED TO INSURANCE. REPORTED TO DR. ALBRECHT. Initialized on 09/29/19 09:53 - END OF NOTE Patient will require hospital bed with trapeze for repositioning for chronic right hip infection and surgical intervention which limits mobility and repositioning himself - Vitals & Intake/Output Vital Signs: Vital Signs Temperature 98.2 F 09/29/19 07:40 Pulse Rate 83 09/29/19 07:40 Respiratory Rate 18 09/29/19 07:40 Blood Pressure 119/60 09/29/19 07:40 O2 Sat by Pulse Oximetry 99 09/29/19 07:40 Intake & Output: Intake & Output 09/27/19 09/28/19 09/29/19 09/30/19 11:59 11:59 11:59 11:59 Intake Total 760 680 765 480 Output Total 200 Balance 760 680 565 480 Weight 72.1 kg - Lab Result Diagrams: 09/28/19 05:24 Lab Results-Last 24 Hrs: Accuchecks Date 09/29/19 Date 09/29/19 Date 09/28/19 Time 16:30 Time 11:30 Time 07:30 Time 21:30 Accucheck Value: 75 Accucheck Value: 153 Accucheck Value: 98 Accucheck Value: 181 Lab Results-Last 24 Hours 09/28/19 Range/Units 21:40 Vancomycin Trough 18.02 (10-20) ug/mL Micro Results-Entire Visit: Accuchecks Date 09/29/19 Date 09/29/19 Date 09/28/19 Time 16:30 Time 11:30 Time 07:30 Time 21:30 Accucheck Value: 75 Accucheck Value: 153 Accucheck Value: 98 Accucheck Value: 181 - Procedures and Test Procedures and Tests throughout Hospitalization: Therapy Orders & Screens 09/20/19 17:58 PT Eval & Treat ( Order) ROUTINE Reason for Eval:: deconditioning rt right hip infection and resection Diagnosis: deconditioning r/t hip infection 09/21/19 15:02 PT Clarification Order ROUTINE Comment: Physician Instructions: Reason For Exam: PT Clarification: PT TO RX 5X/WK UNTIL D/C TO ADDRESS FUNCTIONAL MOBILITY AND GAIT TRAINING, THER EX, BALANCE TRAINING AND PT. ED. RE: HEP AND SAFETY AWRAENESS TO MAXIMIZE FUNCTIONAL POTENTIAL FOR SAFE RETURN HOME. Discharge Exam General Appearance: no apparent distress, alert Neurologic Exam: alert, oriented x 3, cooperative, normal mood/affect, nml cerebellar function, sensation nml, No motor deficits Eye Exam: PERRL, EOMI, eyes nml inspection Ears, Nose, Throat Exam: normal ENT inspection, pharynx normal, moist mucous membranes Neck Exam: normal inspection, non-tender, supple, full range of motion Respiratory Exam: normal breath sounds, lungs clear, No respiratory distress Cardiovascular Exam: regular rate/rhythm, normal heart sounds Gastrointestinal/Abdomen Exam: soft, No tenderness, No mass Male Genitalia Exam: deferred Rectal Exam: deferred Back Exam: normal inspection, normal range of motion, No CVA tenderness, No vertebral tenderness Extremity Exam: normal inspection, normal range of motion Skin Exam: normal color, warm, dry Final Diagnosis/Problem List - Final Discharge Diagnosis/Problem (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 Current Visit: Yes Status: Chronic Assessment & Plan: Chief Complaint Diagnosis deconditioning r/t hip infection Allergies Allergy/AdvReac Type Severity Reaction Status Date / Time latex Allergy Severe SORES IN Verified 07/15/18 07:22 MOUTH AND TONGUE sulfamethoxazole Allergy Verified 07/15/18 07:22 [From Bactrim] trimethoprim [From Bactrim] Allergy Verified 07/15/18 07:22 Vital Signs (Last 24 hours) Temp Pulse Resp BP Pulse Ox 09/29/19 07:40 98.2 F 83 18 119/60 99 09/28/19 20:00 98.2 F 83 17 126/60 93 L Home Medications Medication Instructions Recorded Confirmed Last Taken Type Acetaminophen 500 mg [Tylenol 1,000 mg PO TID 09/20/19 09/20/19 09/20/19 15: 00 History Extra Strength 500 mg] 1000 mg Alogliptin Benzoate [Alogliptin] 12.5 mg PO HS 09/20/19 09/23/19 09/20/19 09:00 History 12.5mg Aspirin [Aspirin EC] 81 mg PO BID 09/20/19 09/20/19 09/20/19 09:00 History 81mg Docusate Sodium [Stool Softener] 50 mg PO BID 09/20/19 09/20/19 09/20/19 09:00 History 50mg Indomethacin 25 mg [Indocin 25 25 mg PO DAILY PRN PRN 09/20/19 09/23/19 Unknown History MG] Nitroglycerin 0.4 mg Tablet 0.4 mg SL Q5MIN PRN MR X 3 PRN 09/20/19 09/20/19 Unknown History [Nitrostat 0.4 MG Tablet] Omeprazole 20 mg PO DAILY 09/20/19 09/20/19 09/20/19 09:00 History 20mg Oxycodone HCl 5 mg Ir [Oxy-IR 5 5 - 10 mg PO Q4H PRN 09/20/19 09/20/19 17:00 History MG] 5mg Oxycodone HCl [Oxycodone HCl ER] 10 mg PO BID 09/20/19 09/20/19 09/20/19 09:00 History 10mg Polyethylene Glycol 3350 17 gm 17 gm PO DAILY 09/20/19 09/20/19 09/20/19 09:00 History [Miralax Powder 17GM PACKET] Rifampin 300 mg [Rifadin 300 300 mg PO BID 09/20/19 09/20/19 09/20/19 11:00 History mg] 300mg Sennosides [Senna] 8.6 mg PO BID 09/20/19 09/20/19 09/20/19 09:00 History 8.6mg Vancomycin/0.9 % Sod Chloride 1 gm IV DAILY #42 plast..bag 09/29/19 Unknown Rx [Vanco 1 Gram/250 ml-0.9% NaCl] Current Medications Generic Name Dose Route Start Last Admin Trade Name Freq PRN Reason Stop Dose Admin Acetaminophen 1,000 mg 09/20/19 22:00 09/29/19 14:50 Tylenol Extra Strength 500 Mg PO 10/20/19 21:59 Not Given TID PAMELA Aspirin 81 mg 09/20/19 22:00 09/29/19 08:14 Ecotrin 81 Mg PO 10/20/19 21:59 81 mg BID PAMELA Administration Clopidogrel Bisulfate 75 mg 09/24/19 10:00 09/29/19 08:13 Plavix 75 Mg Tablet PO 10/24/19 09:59 75 mg DAILY PAMELA Administration Dextrose 25 ml 09/28/19 00:31 D50w 50 Ml Abboject IV 10/28/19 00:30 PRN PRN HYPOGLYCEMIA Docusate Sodium 100 mg 09/20/19 22:00 09/29/19 08:14 Colace 100 Mg PO 10/20/19 21:59 Not Given BID PAMELA Ferrous Sulfate 325 mg 09/21/19 10:00 09/29/19 08:14 Feosol 325 Mg PO 10/21/19 09:59 325 mg DAILY PAMELA Administration Gabapentin 600 mg 09/20/19 22:00 09/29/19 12:51 Neurontin 300 Mg PO 10/20/19 21:59 600 mg QID PAMELA Administration Glucagon 1 mg 09/28/19 00:31 09/28/19 00:42 Glucagen 1 Mg IM 10/28/19 00:30 1 mg PRN PRN Administration HYPOGLYCEMIA Glucose 15 gm 09/28/19 00:31 Glutose 15 Gm Oral Gel PO 10/28/19 00:30 PRN PRN HYPOGLYCEMIA Heparin Sodium (Beef Lung) 500 units 09/20/19 23:49 09/29/19 00:15 Heparin Lock Flush 100 Units/Ml 5ml Syringe PICC 10/20/19 23:48 500 units PRN PRN Administration IV PORT FLUSH Insulin Aspart 0 unit 09/20/19 22:59 09/27/19 17:06 Novolog Insulin SQ 10/20/19 22:58 4 unit UD PRN Administration HYPERGLYCEMIA Insulin Glargine 35 unit 09/21/19 08:00 09/29/19 08:14 Lantus Insulin SQ 10/21/19 07:59 35 unit AMINSULIN PAMELA Administration Lisinopril 10 mg 09/20/19 22:00 09/29/19 08:14 Zestril 10 Mg PO 10/20/19 21:59 10 mg BID PAMELA Administration Metformin HCl 1,000 mg 09/21/19 08:00 09/29/19 08:13 Glucophage 500 Mg PO 10/21/19 07:59 1,000 mg BIDWM PAMELA Administration Metoprolol Tartrate 25 mg 09/21/19 10:00 09/29/19 08:13 Lopressor 25mg Tab PO 10/21/19 09:59 25 mg DAILY PAMELA Administration Multivitamins Therapeutic 1 tab 09/21/19 10:00 09/29/19 08:14 Theragran Multivitamin PO 10/21/19 09:59 1 tab DAILY PAMELA Administration Nitroglycerin 0.4 mg 09/21/19 07:43 Nitrostat 0.4 Mg Tablet SL 10/21/19 07:42 Q5MIN PRN MR X 3 PRN CHEST PAIN Pantoprazole Sodium 40 mg 09/21/19 10:00 09/29/19 08:14 Protonix 40mg Tablet PO 10/21/19 09:59 40 mg DAILY PAMELA Administration Polyethylene Glycol 17 gm 09/21/19 10:00 09/29/19 08:15 Miralax Powder 17gm Packet PO 10/21/19 09:59 Not Given DAILY PAMELA Rifampin 300 mg 09/20/19 22:00 09/29/19 08:15 Rifadin 300 Mg PO 10/20/19 21:59 300 mg BID PAMELA Administration Senna 8.6 mg 09/20/19 22:00 09/29/19 08:15 Senokot 8.6 Mg PO 10/20/19 21:59 Not Given BID PAMELA Simvastatin 10 mg 09/20/19 22:00 09/28/19 22:32 Zocor 10mg PO 10/20/19 21:59 10 mg HS PAMELA Administration Sitagliptin Phosphate 50 mg 09/21/19 10:00 09/29/19 08:13 Januvia 50 Mg PO 10/21/19 09:59 50 mg QAM PAMELA Administration Discontinued Medications Generic Name Dose Route Start Last Admin Trade Name Freq PRN Reason Stop Dose Admin Device 1 09/25/19 21:30 09/25/19 21:52 Trough Drug Levels IJ 09/25/19 21:31 1 1XONLY ONE Administration Device 1 09/28/19 21:30 09/28/19 22:36 Trough Drug Levels IJ 09/28/19 21:31 1 1XONLY ONE Administration Vancomycin HCl 1.25 gm/ Sodium 250 mls @ 167 mls/hr 09/20/19 22:00 Chloride IV 10/20/19 21:59 Q24H PAMELA Vancomycin HCl 1 gm/ Sodium 250 mls @ 167 mls/hr 09/20/19 22:00 09/20/19 22: 24 Chloride IV 10/20/19 21:59 167 mls/hr Q24H PAMELA Administration Vancomycin HCl Confirm 09/20/19 21:49 Vancomycin 1gm/ Ns 250ml Administered 09/20/19 21:50 Dose 250 mls @ ud IV .STK-MED ONE Vancomycin HCl 1.25 gm/ Sodium 250 mls @ 167 mls/hr 09/21/19 22:00 09/25/19 22:33 Chloride IV 10/21/19 21:59 167 mls/hr Q24H22 PAMELA Administration Vancomycin HCl 1 gm in 200 mls @ 167 mls/hr 09/26/19 22:00 09/28/19 22:36 Vancomycin 1 Gram/200 Ml Bag IV 10/26/19 21:59 167 mls/hr Q24H22 PAMELA Administration Vancomycin HCl 500 mg/ Sodium 100 mls @ 66.667 mls/hr 09/29/19 11:00 10:59 Chloride IV 09/29/19 12:29 66.667 mls/hr 1100 PAMELA Administration Oxycodone HCl 5 - 10 mg 09/20/19 17:32 Oxycontin 10 Mg Er PO 09/25/19 17:44 Q4H PRN PAIN Oxycodone HCl 5 - 10 mg 09/20/19 17:36 09/20/19 17:40 Oxy-Ir 5 Mg PO 09/25/19 17:35 5 mg Q4H PRN Administration PAIN Oxycodone HCl 10 mg 09/20/19 22:00 09/25/19 09:18 Oxycontin 10 Mg Er PO 09/25/19 21:59 Not Given BID PAMELA Oxycodone HCl 5 - 10 mg 09/21/19 07:27 Oxy-Ir 5 Mg PO 09/26/19 07:26 Q4H PRN PRN PAIN Tuberculin PPD 5 unit 09/21/19 10:00 09/21/19 10:31 Aplisol ID 09/21/19 10:01 5 unit ONCE ONE Administration Intake & Output (Last 24 hours) 09/27/19 09/28/19 09/29/19 09/30/19 11:59 11:59 11:59 11:59 Intake Total 760 680 765 480 Output Total 200 Balance 760 680 565 480 Weight 72.1 kg Laboratory Results (Last 24 hours) 09/28/19 21:40 Vancomycin Trough 18.02 Orders (Last 24 hours) Category Date Time Status Discharge Planning,Consult Routine Discharge 09/29/19 Active Vancomycin, Trough Urgent Lab 09/28/19 21:40 Completed Therapuetic Drug Level Monitor [Trough Drug Levels] Med 09/28/19 21:30 Discontinued 1 IJ 1XONLY ONE Vancomycin HCl 500 mg Inj [Vancocin 500 mg Vial] Med 09/29/19 11:00 Discontinued 500 mg NaCl 0.9% 100 ml Mini-Bag Plus [Sodium Chloride 100ML MINI-BAG PLUS] 100 ml IV 1100 Patient Care Notes (Last 24 hours) 09/29/19 16:44 (created 09/29/19 16:46) Nursing Note by Gisel Hitchcock DC instructions given with understanding verbalized by patient and . Discharged at 1644. via wheelchair with Initialized on 09/29/19 16:46 - END OF NOTE 09/29/19 16:41 Physical Therapy Note by Josie Nino PT. REPORTS NO C/O R HIP PN. ANXIOUS TO D/C HOME. TO CONT. W/ OP VANCOMYCIN INFUSIONS AND WILL CONT. W/ HEP AT HOME TO LIMIT USE OF OP CAP HE HAS ANOTHER SX IN 8-10 WEEKS IN WHICH HE WILL NEED MORE OP P.T. PT TO CALL IF HE FEELS HE NEEDS OP P.T. ONCE D/C'ED HOME IF HEP NOT ENOUGH. PERFORMED 20 REPS OF LE EX'S W/ 1# CUFF WEIGHT. REVIEWED HIP PRECAUTIONS AND WB STATUS. WORKED ON STEP NEGOTIATION PT. HAS 2 STEPS IN TO ENTER HOME WITHOUT HR. SONDILMA , PRESENT DURING STEP TRAINING. PT. ABLE TO ASCEND AND DESCEND 2 STEPS X 2 W/ WALKER AND CGA/MIN ASSIST. NEEDED V.C. TO REMIND TO ASCEND LEADING W/ L LE AND DESCEND LEADING W/ R. SON REPORTS EITHER HE OR HIS BROTHER WILL BE THERE TO ASSIST W/ STEP NEGOTIATION. PT. PROVIDED W/ WRITTEN AND PICTORIAL HEP. TO F/ U W/ SX 10/04/19. JOSIE NINO PT Initialized on 09/29/19 16:41 - END OF NOTE 09/29/19 09:00 (created 09/29/19 09:53) Case Management Note by Tyra Guerrero'S [facility] DOCUMENTATION FOR HOSPITAL BED TO BE BILLED TO INSURANCE. REPORTED TO DR. ALBRECHT. Initialized on 09/29/19 09:53 - END OF NOTE Code(s): T84.59XA - INFECT/INFLM REACTION DUE TO OTH INTERNAL JOINT PROSTH, INIT ; Z96.649 - PRESENCE OF UNSPECIFIED ARTIFICIAL HIP JOINT - Discharge Discharge Date: 09/29/19 Disposition: Home, Self-Care Condition: Stable Prescriptions: New Vancomycin/0.9 % Sod Chloride [Vanco 1 Gram/250 ml-0.9% NaCl] 1 gm IV DAILY # 42 plast..bag Continue Insulin Detemir [Levemir] 35 unit SQ QAM Simvastatin 10 mg PO HS Gabapentin [Neurontin] 600 mg PO QID Multivitamin [Multi-Vitamin Daily] 1 tab PO 1200 Metoprolol Tartrate 25 mg [Lopressor 25MG Tab] 25 mg PO 1200 Lisinopril 5 mg [Zestril 5 MG] 10 mg PO BID Ferrous Sulfate 325 mg PO DINNER Metformin HCl 1,000 mg PO BIDWMEALS Clopidogrel Bisulfate 75 mg [PLAVIX 75 MG Tablet] 75 mg PO DAILY Nitroglycerin 0.4 mg Tablet [Nitrostat 0.4 MG Tablet] 0.4 mg SL Q5MIN PRN MR X 3 PRN PRN Reason: Chest Pain Indomethacin 25 mg [Indocin 25 MG] 25 mg PO DAILY PRN PRN PRN Reason: gout Alogliptin Benzoate [Alogliptin] 12.5 mg PO HS Rifampin 300 mg [Rifadin 300 mg] 300 mg PO BID Polyethylene Glycol 3350 17 gm [Miralax Powder 17GM PACKET] 17 gm PO DAILY Oxycodone HCl [Oxycodone HCl ER] 10 mg PO BID Oxycodone HCl 5 mg Ir [Oxy-IR 5 MG] 5 - 10 mg PO Q4H PRN PRN Reason: Pain Omeprazole 20 mg PO DAILY Sennosides [Senna] 8.6 mg PO BID Docusate Sodium [Stool Softener] 50 mg PO BID Aspirin [Aspirin EC] 81 mg PO BID Acetaminophen 500 mg [Tylenol Extra Strength 500 mg] 1,000 mg PO TID Discontinued Vancomycin HCl in Water [Vancomycin 1,250 mg/12.5 ml Vl] 1.25 gm IV DAILY Outpatient Orders: CBC Time Frame: 09/30/19, Location: LABORATORY CMP Time Frame: 09/30/19, Location: LABORATORY Erythrocyte Sedimentation Rate Time Frame: 09/30/19, Location: LABORATORY C-Reactive Protein, Quant Time Frame: 09/30/19, Location: LABORATORY Instructions: Peripherally-Inserted Central Catheter, Surgical Wound (DC), Generalized Weakness (DC), Wound Infection Additional Instructions: D/C Lab tests (CMP,CBC,SED RATE,CRP SerPI QN,Vancomycin pre-level) Every week for 6 weeks. Fax to [phone]. BRING THE AMBULATORY ORDER REQUISITION FORM WITH YOU TOMORROW, TO HAVE YOUR LABS DRAWN. YOUR INFUSION IS SCHEDULED FOR 2:00 PM. IF YOU ARRIVE BY 1:30 PM YOU SHOULD BE ABLE TO HAVE LABS DRAWN FIRST. [facility] HAS AN ORDER ON FILE, AND IF YOU DECIDE THAT YOU NEED THEIR SERVICES, JUST CALL THEM. Follow up with: Maria Elena TAYLOR MD [NON-STAFF PHY W/O PRIVILEGES] - 10/12/19 1:00 pm ([facility] [address] [facility] [address] 7th floor ) DAISY DELGADO MD [NON-STAFF PHY W/O PRIVILEGES] - 10/04/19 11:15 am ASH ALBRECHT MD [Primary Care Provider] - 10/07/19 2:00 pm (at [facility] ) Forms: Discharge Instructions
== END 2019-09-29 16:44 | disposition home or self-care (01) | DRG 561 ==
LOC: MED SURG 17:21 → OBSVTOIN 17:21
PROVIDERS: ADMIT General Practice; ATTEND General Practice
DX: T84.51XA Infection and inflammatory reaction due to internal right hip prosthesis, initial encounter (principal); I10 Essential (primary) hypertension; E11.9 Type 2 diabetes mellitus without complications; I25.10 Atherosclerotic heart disease of native coronary artery without angina pectoris; Z79.01 Long term (current) use of anticoagulants; Z79.899 Other long term (current) drug therapy; I25.2 Old myocardial infarction
CPT/HCPCS: 36415; 80048; 80202; 82565; 82962; 83036; J1610; J1642; J3370; 97110-GP; A9270-GY

== ENCOUNTER 2019-10-09 11:00 | Inpatient (IN) | payer MEDICARE, OTHER ==
[2019-10-09] MEDS ORDERED: Sodium Chloride 0.9% 1000 ML 1,000 ML IV STA ×3 (11:29→20:16)
[2019-10-09] MEDS ORDERED: Zofran 4 MG/2 ML VIAL IV ONE (11:29)
--- NOTE | 2019-10-09 11:31 | ERPHSYRPT ---
- History of Present Illness Time Seen by Provider: 10/09/19 11:11 Source: patient Patient Subjective Stated Complaint: Pt states "Ever since i started this infusion, i am really sick." Triage Nursing Assessment: Pt presented alert and oriented X 3, Skin pale, warm , dry. Pt able to speakin clearf ull sentences pt in no aparent respiratory distress. 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 Patient reports his symptoms of weakness and lethargy he gets worse after taking vancomycin infusion. He was recently evaluated by infectious disease/ orthopedic surgery for increasing nausea, was given Zofran. He denies fever or chills. Denies any chest pain palpitations or shortness of breath.denies any hip swelling, redness, fall.patient reports last time when he had similar symptom he had hyperkalemia. Patient is not a good historian and history is limited. Severity: moderate Modifying Factors: Improves With: medication Associated Symptoms: nausea, vomiting, abdominal pain Allergies/Adverse Reactions: latex Allergy (Severe, Verified 07/15/18 07:22) SORES IN MOUTH AND TONGUE sulfamethoxazole [From Bactrim] Allergy (Verified 07/15/18 07:22) trimethoprim [From Bactrim] Allergy (Verified 07/15/18 07:22) Home Medications: Gabapentin [Neurontin] 600 mg PO QID 02/07/17 [History] Insulin Detemir [Levemir] 35 unit SQ QAM 02/07/17 [History] Multivitamin [Multi-Vitamin Daily] 1 tab PO 1200 02/07/17 [History] Simvastatin 10 mg PO HS 02/07/17 [History] Ferrous Sulfate 325 mg PO DINNER 04/09/18 [History] Lisinopril 5 mg [Zestril 5 MG] 10 mg PO BID 04/09/18 [History] Metformin HCl 1,000 mg PO BIDWMEALS 04/09/18 [History] Metoprolol Tartrate 25 mg [Lopressor 25MG Tab] 25 mg PO 1200 04/09/18 [ History] Clopidogrel Bisulfate 75 mg [PLAVIX 75 MG Tablet] 75 mg PO DAILY 04/12/18 [History] Acetaminophen 500 mg [Tylenol Extra Strength 500 mg] 1,000 mg PO TIDPRN [History] Alogliptin Benzoate [Alogliptin] 12.5 mg PO HS 09/20/19 [History] Aspirin [Aspirin EC] 81 mg PO BID 09/20/19 [History] Docusate Sodium [Stool Softener] 50 mg PO BID 09/20/19 [History] Indomethacin 25 mg [Indocin 25 MG] 25 mg PO DAILY PRN PRN 09/20/19 [ History] Nitroglycerin 0.4 mg Tablet [Nitrostat 0.4 MG Tablet] 0.4 mg SL Q5MIN PRN MR X 3 PRN 09/20/19 [History] Omeprazole 20 mg PO DAILY 09/20/19 [History] Polyethylene Glycol 3350 17 gm [Miralax Powder 17GM PACKET] 17 gm PO DAILY [History] Rifampin 300 mg [Rifadin 300 mg] 300 mg PO BID 09/20/19 [History] Sennosides [Senna] 8.6 mg PO BID 09/20/19 [History] Hx Tetanus, Diphtheria Vaccination/Date Given: No Hx Influenza Vaccination/Date Given: Yes Hx Pneumococcal Vaccination/Date Given: Yes Immunizations Up to Date: Yes - Review of Systems Constitutional: Malaise Eyes: No Symptoms Ears, Nose, & Throat: No Symptoms Respiratory: No Symptoms Cardiac: No Symptoms Abdominal/Gastrointestinal: Nausea, Vomiting Genitourinary Symptoms: No Symptoms Musculoskeletal: Myalgias Neurological: No Symptoms Psychological: No Symptoms Endocrine: No Symptoms Hematologic/Lymphatic: No Symptoms Immunological/Allergic: No Symptoms - Past Medical History Pertinent Past Medical History: Yes Neurological History: Peripheral Neuropathy, Stroke ENT History: Other Cardiac History: Coronary Artery Disease, Hypertension, Myocardial Infarction ( ID) Respiratory History: No Pertinent History Endocrine Medical History: Diabetes Type II Musculoskeletal History: Arthritis, Other GI Medical History: No Pertinent History History: No Pertinent History Psycho-Social History: No Pertinent History Male Reproductive Disorders: No Pertinent History Other Medical History: Anemia,HAVASUPAI, chronic hip infection of prosthetic joint. 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 right hip - Social History Smoking Status: Former smoker Exposure to second hand smoke: No Drug Use: none Patient Lives Alone: No - Nursing Vital Signs Nursing Vital Signs: Initial Vital Signs Temperature 98.2 F 10/09/19 11:05 Pulse Rate 83 10/09/19 11:05 Respiratory Rate 14 10/09/19 11:05 Blood Pressure 130/66 10/09/19 11:05 O2 Sat by Pulse Oximetry 97 10/09/19 11:05 Pain Scale Pain Intensity 0 - Physical Exam General Appearance: no apparent distress Eye Exam: PERRL/EOMI, eyes nml inspection Ears, Nose, Throat Exam: normal ENT inspection, TMs normal, pharynx normal Neck Exam: normal inspection, non-tender, supple, full range of motion Respiratory Exam: normal breath sounds, lungs clear, No chest tenderness, No respiratory distress Cardiovascular Exam: regular rate/rhythm, normal heart sounds Gastrointestinal/Abdomen Exam: soft, normal bowel sounds, tenderness (mild generalized), No distention, No mass, No guarding Back Exam: normal inspection, normal range of motion Extremity Exam: normal inspection, limited range of motion (right hip), tenderness (right hip) Neurologic Exam: alert, oriented x 3, 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, 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 Skin Exam: normal color SpO2 Interpretation: normal SpO2: 97 O2 Delivery: Room Air - Course Nursing assessment & vital signs reviewed: Yes Ordered Tests: Active Orders 24 hr Category Date Time Status Up With Assistance ROUTINE Activity 10/09/19 14:07 Active Accucheck Q4H Care 10/09/19 14:07 Active Call Admit Doctor for Orders ROUTINE Care 10/09/19 14:07 Active Code Status Order ROUTINE Care 10/09/19 14:07 Active IV Care Q6H Care 10/09/19 14:07 Active IV Insertion STAT Care 10/09/19 11:29 Completed Neuro Checks Q4H Care 10/09/19 14:[address] in Observation ROUTINE Care 10/09/19 14:07 Active Kevin Wiggins ROUTINE Care 10/09/19 14:07 Active 1800 Calorie ADA Diet 10/09/19 Dinner Active BLOOD CULTURE Stat Lab 10/09/19 11:57 Received BMP AM.LAB Lab 10/10/19 04:00 Ordered CBC W DIFF AM.LAB Lab 10/10/19 04:00 Ordered CBC W DIFF Stat Lab 10/09/19 11:20 Completed CMP Stat Lab 10/09/19 11:20 Completed LIPASE Stat Lab 10/09/19 11:20 Completed Lactic Acid Stat Lab 10/09/19 11:29 Completed UA W/RFX UR CULTURE Stat Lab 10/09/19 13:34 Completed Transfer Order Routine Transfer 10/09/19 Completed Medication Summary Generic Name Dose Route Start Last Admin Trade Name Freq PRN Reason Stop Dose Admin Acetaminophen 1,000 mg 10/09/19 16:24 10/09/19 16:45 Tylenol Extra Strength 500 Mg PO 11/08/19 16:22 1,000 mg TIDPRN PRN Administration HEADACHE Docusate Sodium 50 mg 10/09/19 22:00 Colace 100 Mg PO 11/08/19 21:59 BID [facility] Enoxaparin Sodium 30 mg 10/09/19 18:00 Enoxaparin Sodium SQ 11/08/19 17:59 DAILY [facility] Ferrous Sulfate 325 mg 10/09/19 17:00 Feosol 325 Mg PO 11/08/19 16:59 [facility] Gabapentin 600 mg 10/09/19 22:00 Neurontin 300 Mg PO 11/08/19 21:59 QID [facility] Heparin Sodium (Beef Lung) 500 units 10/09/19 14:17 Heparin Lock Flush 100 Units/Ml 5ml Syringe PICC 11/08/19 14:16 PRN PRN IV PORT FLUSH Insulin Aspart 0 unit 10/09/19 14:07 Novolog Insulin SQ 11/08/19 14:06 UD PRN HYPERGLYCEMIA Lisinopril 10 mg 10/09/19 22:00 Zestril 10 Mg PO 11/08/19 21:59 BID [facility] Ondansetron HCl 4 mg 10/09/19 16:22 10/09/19 17:19 Zofran 4 Mg/2 Ml Vial IV 11/08/19 16:21 4 mg Q4H PRN PRN Administration NAUSEA/VOMITING Senna 8.6 mg 10/09/19 22:00 Senokot 8.6 Mg PO 11/08/19 21:59 BID [facility] Simvastatin 10 mg 10/09/19 22:00 Zocor 10mg PO 11/08/19 21:59 HS [facility] Discontinued Medications Generic Name Dose Route Start Last Admin Trade Name Freq PRN Reason Stop Dose Admin Acetaminophen 1,000 mg 10/09/19 16:23 Tylenol Extra Strength 500 Mg PO 11/08/19 16:22 Q4H PRN PRN HEADACHE Alteplase, Recombinant 2 mg 10/09/19 15:00 10/09/19 14:38 Cathflo Activase 2 Mg IV 10/09/19 15:01 2 mg ONCE ONE Administration Sodium Chloride 1,000 mls @ 999 mls/hr 10/09/19 11:29 10/09/19 12:38 Sodium Chloride 0.9% 1000 Ml IV 10/09/19 12:29 Infused .Q1H1M STA Infusion Sodium Chloride Confirm 10/09/19 11:35 Sodium Chloride 0.9% 1000 Ml Administered 10/09/19 11:36 Dose 1,000 mls @ ud .ROUTE .STK-MED ONE Sodium Chloride 1,000 mls @ 999 mls/hr 10/09/19 12:44 10/09/19 12:50 Sodium Chloride 0.9% 1000 Ml IV 10/09/19 13:44 999 mls/hr .Q1H1M STA Administration Piperacillin Sod/Tazobactam Sod 3.375 gm in 100 mls @ 200 mls/hr 10/09/19 12: 43 10/09/19 12:51 Zosyn 3.375gm/100 Ml D5w IV 10/09/19 13:12 200 mls/hr STAT STA 200 mls/hr Administration Sodium Chloride Confirm 10/09/19 12:49 Sodium Chloride 0.9% 1000 Ml Administered 10/09/19 12:50 Dose 1,000 mls @ ud .ROUTE .STK-MED ONE Piperacillin Sod/Tazobactam Sod Confirm 10/09/19 12:49 Zosyn 3.375gm/100 Ml D5w Administered 10/09/19 12:50 Dose 3.375 gm in 100 mls @ ud IV .STK-MED ONE Ondansetron HCl 4 mg 10/09/19 11:29 10/09/19 11:37 Zofran 4 Mg/2 Ml Vial IV 10/09/19 11:30 4 mg STAT ONE Administration Ondansetron HCl Confirm 10/09/19 11:35 Zofran 4 Mg/2 Ml Vial Administered 10/09/19 11:36 Dose 4 mg .ROUTE .STK-MED ONE Lab/Rad Data: Laboratory Result Diagrams 10/09/19 11:20 10/09/19 11:20 Laboratory Results 10/09/19 10/09/19 10/09/19 Range/Units 13:34 13:30 11:29 WBC (4.0-10.5) K/mm3 RBC (4.1-5.6) M/mm3 Hgb (12.5-18.0) gm/dl Hct (42-50) % MCV (78-100) fl MCH (26-32) pg MCHC (32-36) g/dl RDW (11.5-14.0) % Plt Count (150-450) K/mm3 MPV (7.5-11.0) fl Gran % (36.0-66.0) % Eos # (Auto) (0-0.5) Absolute Lymphs (auto) (1.0-4.6) Absolute Monos (auto) (0.0-1.3) Lymphocytes % (24.0-44.0) % Monocytes % (0.0-12.0) % Eosinophils % (0.00-5.0) % Basophils % (0.0-0.4) % Absolute Granulocytes (1.4-6.9) Basophils # (0-0.4) Sodium (137-145) mmol/L Potassium (3.5-5.1) mmol/L Chloride (98-107) mmol/L Carbon Dioxide (22-30) mmol/L Anion Gap (5-15) MEQ/L BUN (9-20) mg/dL Creatinine (0.66-1.25) mg/dL Estimated GFR ML/MIN Glucose (74-106) mg/dL Lactic Acid 5.4 H (0.4-2.0) Calcium (8.4-10.2) mg/dL Total Bilirubin (0.2-1.3) mg/dL AST (17-59) U/L ALT (0-50) U/L Alkaline Phosphatase (38-126) U/L Troponin I < 0.012 (0.000-0.034) ng/mL Serum Total Protein (6.3-8.2) g/dL Albumin (3.5-5.0) g/dL Lipase (23-300) U/L Urine Color RUPALI (YELLOW) Urine Appearance CLEAR (CLEAR) Urine pH 5.0 (5-6) Ur Specific Sneads 1.021 (1.005-1.025) Urine Protein 30 (Negative) Urine Ketones NEGATIVE (NEGATIVE) Urine Blood NEGATIVE (0-5) Curtis/ul Urine Nitrite NEGATIVE (NEGATIVE) Urine Bilirubin NEGATIVE (NEGATIVE) Urine Urobilinogen NEGATIVE (0-1) mg/dL Ur Leukocyte Esterase NEGATIVE (NEGATIVE) Urine WBC (Auto) NONE (0-5) /HPF Urine RBC (Auto) 0-2 (0-2) /HPF U Hyaline Cast (Auto) 6-10 (0-2) /LPF U Epithel Cells (Auto) NONE (FEW) /HPF Urine Bacteria (Auto) NONE (NEGATIVE) /HPF Urine Mucus (Auto) SLIGHT (NEGATIVE) /HPF Urine Culture Reflexed NO (NO) Urine Glucose NEGATIVE (NEGATIVE) mg/dL 10/09/19 10/09/19 Range/Units 11:20 11:20 WBC 6.9 (4.0-10.5) K/mm3 RBC 3.06 L (4.1-5.6) M/mm3 Hgb 8.4 L (12.5-18.0) gm/dl Hct 26.0 L (42-50) % MCV 85.0 (78-100) fl MCH 27.5 (26-32) pg MCHC 32.3 (32-36) g/dl RDW 14.0 (11.5-14.0) % Plt Count 231 (150-450) K/mm3 MPV 9.3 (7.5-11.0) fl Gran % 72.2 H (36.0-66.0) % Eos # (Auto) 0.55 H (0-0.5) Absolute Lymphs (auto) 0.70 L (1.0-4.6) Absolute Monos (auto) 0.65 (0.0-1.3) Lymphocytes % 10.1 L (24.0-44.0) % Monocytes % 9.4 (0.0-12.0) % Eosinophils % 8.0 H (0.00-5.0) % Basophils % 0.3 (0.0-0.4) % Absolute Granulocytes 4.98 (1.4-6.9) Basophils # 0.02 (0-0.4) Sodium 134 L (137-145) mmol/L Potassium 4.7 (3.5-5.1) mmol/L Chloride 104 (98-107) mmol/L Carbon Dioxide 19 L (22-30) mmol/L Anion Gap 16.6 H (5-15) MEQ/L BUN 41 H (9-20) mg/dL Creatinine 1.47 H (0.66-1.25) mg/dL Estimated GFR 50.0 ML/MIN Glucose 90 (74-106) mg/dL Lactic Acid (0.4-2.0) Calcium 9.0 (8.4-10.2) mg/dL Total Bilirubin 0.40 (0.2-1.3) mg/dL AST 37 (17-59) U/L ALT 27 (0-50) U/L Alkaline Phosphatase 155 H (38-126) U/L Troponin I (0.000-0.034) ng/mL Serum Total Protein 7.2 (6.3-8.2) g/dL Albumin 3.5 (3.5-5.0) g/dL Lipase 48 (23-300) U/L Urine Color (YELLOW) Urine Appearance (CLEAR) Urine pH (5-6) Ur Specific Sneads (1.005-1.025) Urine Protein (Negative) Urine Ketones (NEGATIVE) Urine Blood (0-5) Curtis/ul Urine Nitrite (NEGATIVE) Urine Bilirubin (NEGATIVE) Urine Urobilinogen (0-1) mg/dL Ur Leukocyte Esterase (NEGATIVE) Urine WBC (Auto) (0-5) /HPF Urine RBC (Auto) (0-2) /HPF U Hyaline Cast (Auto) (0-2) /LPF U Epithel Cells (Auto) (FEW) /HPF Urine Bacteria (Auto) (NEGATIVE) /HPF Urine Mucus (Auto) (NEGATIVE) /HPF Urine Culture Reflexed (NO) Urine Glucose (NEGATIVE) mg/dL - Progress Progress: improved, pain not gone completely, re-examined Progress Note: 10/09/19 18:29 74 years old is evaluated for generalized weakness and fatigue with some nausea and mild abdominal discomfort. He is given IV fluid, septic workup showed lactic of 5.4 but normal white count and stable H&H. I have recommended CT abdomen and pelvis and chest x-ray but patient/family refused.dentist and the risk of not doing imaging. I have discussed with Dr. Leslye Benson. orthopedic , he has discussed with Dr. Valencia, recommended stopping rifampin as this could be the reason for his not feeling well. This patient seems septic I have given a dose of Zosyn as well along with IV fluids at per sepsis protocol. Discussed with Dr. Tejada and the patient is deemed admitted. Plan discussed with patient and family who understand the visit. Discussed with .: Abi Will see patient in: hospital (observation) Counseled pt/family regarding: lab results, diagnosis - Departure Departure Disposition: Observation Clinical Impression: Dehydration Sepsis Qualifiers: Sepsis type: sepsis due to unspecified organism Sepsis acute organ dysfunction status: unspecified Qualified Code(s): A41.9 - Sepsis, unspecified organism Condition: Fair Critical Care Time: Yes Critical Care Time(excluding separately billable procedures): Critical 30-74 mins
[2019-10-09] MEDS ORDERED: Zofran 4 MG/2 ML VIAL ONE (11:35)
[2019-10-09] MEDS ORDERED: Sodium Chloride 0.9% 1000 ML 1,000 ML ONE ×2 (11:35→12:49)
[2019-10-09 11:36] LABS: Absolute Neutrophil Ct (ANC) 4.98 (1.4-6.9); BASOPHIL % 0.3 % (0.0-0.4); Basophil (Absolute #) 0.02 (0-0.4); Eosinophil (Absolute #) 0.55 (0-0.5); Hemoglobin 8.4 gm/dl (12.5-18.0); Lymphocytes % 10.1 % (24.0-44.0); Mean Corpuscular Hemoglobin 27.5 pg (26-32); Mean Corpuscular Hgb Concent. 32.3 g/dl (32-36); Mean Platelet Volume 9.3 fl (7.5-11.0); Monocyte (Absolute #) 0.65 (0.0-1.3); Monocytes % 9.4 % (0.0-12.0); Neutrophil % 72.2 % (36.0-66.0); Platelet Count 231 K/mm3 (150-450); Red Blood Count 3.06 M/mm3 (4.1-5.6); White Blood Count 6.9 K/mm3 (4.0-10.5)
[2019-10-09 11:44] LABS: ALBUMIN 3.5 g/dL (3.5-5.0); ANION GAP 16.6 MEQ/L (5-15); BILIRUBIN,TOTAL 0.4 mg/dL (0.2-1.3); Creatinine 1 1.47 mg/dL (0.66-1.25); Potassium 4.7 mmol/L (3.5-5.1); Total Protein 7.2 g/dL (6.3-8.2)
[2019-10-09] MEDS ORDERED: Zosyn 3.375GM/100 Ml D5W 3.375 GM/100 ML IVPB IV STA (12:43)
[2019-10-09] MEDS ORDERED: Zosyn 3.375GM/100 Ml D5W 3.375 GM/100 ML IVPB IV ONE (12:49)
[2019-10-09 13:52] LABS: Appearance CLEAR (CLEAR); Bilirubin NEGATIVE (NEGATIVE); Blood NEGATIVE Ery/ul (0-5); Glucose NEGATIVE (NEGATIVE); Ketones NEGATIVE (NEGATIVE); Leukocyte Esterase NEGATIVE (NEGATIVE); Mucus SLIGHT /HPF (NEGATIVE); Nitrite NEGATIVE (NEGATIVE); Protein,Urine Dip 30 (Negative); RBC 0-2 /HPF (0-2); Specific Gravity 1.021 (1.005-1.025); Urobilinogen NEGATIVE mg/dL (0-1)
[2019-10-09] MEDS ORDERED: Cathflo Activase 2 MG IV ONE (15:00)
[2019-10-09] MEDS ORDERED: TYLENOL EXTRA STRENGTH 500 MG PO PRN ×3 (16:23→20:18)
[2019-10-09] MEDS ORDERED: TYLENOL EXTRA STRENGTH 500 MG ONE (16:35)
[2019-10-09] MEDS ORDERED: FEOSOL 325 MG PO SCH (17:00)
[2019-10-09] MEDS: Zofran 4 MG/2 ML VIAL IV PRN (17:19)
[2019-10-09] MEDS: ENOXAPARIN SODIUM SQ SCH (19:04)
[2019-10-09] MEDS: Zosyn 3.375GM/100 Ml D5W 3.375 GM/100 ML IVPB IV SCH (21:24)
[2019-10-09] MEDS: Dextrose 5% -0.45 NaCl 1000 ML 1,000 ML IV SCH (21:28)
[2019-10-09] MEDS ORDERED: Zocor 10MG PO SCH (22:00)
[2019-10-09] MEDS ORDERED: Colace 100 MG PO SCH (22:00)
[2019-10-09] MEDS: Zestril 10 MG PO SCH (22:10)
[2019-10-09] MEDS: NEURONTIN 300 MG PO SCH (22:25)
[2019-10-09] MEDS: SENOKOT 8.6 MG PO SCH (22:28)
[2019-10-10] MEDS: NovoLOG Insulin SQ PRN ×3 (03:59→13:02)
[2019-10-10] MEDS: Dextrose 5% -0.45 NaCl 1000 ML 1,000 ML IV SCH ×2 (04:53→14:54)
[2019-10-10] MEDS: Zosyn 3.375GM/100 Ml D5W 3.375 GM/100 ML IVPB IV SCH ×2 (04:56→14:55)
[2019-10-10 05:26] LABS: Absolute Neutrophil Ct (ANC) 3.65 (1.4-6.9); BASOPHIL % 0.2 % (0.0-0.4); Basophil (Absolute #) 0.01 (0-0.4); Eosinophil % 10.7 % (0.00-5.0); Eosinophil (Absolute #) 0.55 (0-0.5); Hematocrit 22.5 % (42-50); Hemoglobin 7.2 gm/dl (12.5-18.0); Lymphocyte (Absolute #) 0.41 (1.0-4.6); Mean Cell Volume 84.6 fl (78-100); Mean Corpuscular Hemoglobin 27.1 pg (26-32); Mean Platelet Volume 8.9 fl (7.5-11.0); Monocyte (Absolute #) 0.52 (0.0-1.3); Monocytes % 10.1 % (0.0-12.0); Platelet Count 225 K/mm3 (150-450); Red Blood Count 2.66 M/mm3 (4.1-5.6); Red Cell Distribution Width 13.9 % (11.5-14.0); White Blood Count 5.1 K/mm3 (4.0-10.5)
[2019-10-10 05:43] LABS: ANION GAP 11.2 MEQ/L (5-15); Calcium 7.6 mg/dL (8.4-10.2); Creatinine 1 1.29 mg/dL (0.66-1.25); Potassium 4.1 mmol/L (3.5-5.1)
[2019-10-10 05:44] LABS: Slide Review 1 YES
[2019-10-10] MEDS ORDERED: TYLENOL EXTRA STRENGTH 500 MG PO PRN (06:59)
[2019-10-10] MEDS ORDERED: Nitrostat 0.4 MG Tablet SL PRN (07:05)
[2019-10-10] MEDS ORDERED: NON-FORMULARY ITEM (Metformin Hcl [Metformin Hcl] 1,000 MG) PO SCH (08:00)
[2019-10-10] MEDS ORDERED: Lantus Insulin SQ SCH (08:00)
[2019-10-10] MEDS ORDERED: Glucophage 500 MG PO SCH (08:00)
[2019-10-10] MEDS ORDERED: PHARMACY DOSING REQUIRED: VANCOMYCIN IV ONE (08:53)
[2019-10-10] MEDS ORDERED: VANCOMYCIN 1 GRAM/200 ML BAG 1 GM/200 ML PIGGYBACK IV SCH (10:00)
[2019-10-10] MEDS ORDERED: Protonix 40MG Tablet PO SCH (10:00)
[2019-10-10] MEDS ORDERED: INSULIN DETEMIR 35 UNIT SQ SCH (10:00)
[2019-10-10] MEDS ORDERED: Miralax Powder 17GM PACKET PO SCH (10:00)
[2019-10-10] MEDS ORDERED: NON-FORMULARY ITEM (Omeprazole [Omeprazole] 20 MG) PO SCH (10:00)
[2019-10-10] MEDS ORDERED: Colace 100 MG PO SCH (10:00)
[2019-10-10] MEDS: Zestril 10 MG PO SCH (10:32)
[2019-10-10] MEDS: SENOKOT 8.6 MG PO SCH (10:32)
[2019-10-10] MEDS: NEURONTIN 300 MG PO SCH ×2 (10:32→14:55)
[2019-10-10] MEDS: ENOXAPARIN SODIUM SQ SCH (10:35)
[2019-10-10] MEDS ORDERED: THERAGRAN MULTIVITAMIN PO SCH (12:00)
[2019-10-10] MEDS ORDERED: Lopressor 25MG Tab PO SCH (12:00)
[2019-10-10] MEDS ORDERED: NON-FORMULARY ITEM (Multivitamin [Multi-Vitamin Daily] 1 TAB) PO SCH (12:00)
--- NOTE | 2019-10-10 13:25 | PCM.HP ---
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 Patient reports his symptoms of weakness and lethargy he gets worse after taking vancomycin infusion. He was recently evaluated by infectious disease/orthopedic surgery for increasing nausea, was given Zofran. He denies fever or chills. Denies any chest pain palpitations or shortness of breath.denies any hip swelling, redness, fall.patient reports last time when he had similar symptom he had hyperkalemia. Patient is not a good historian and history is limited. Severity: moderate Modifying Factors: Improves With: medication Associated Symptoms: nausea, vomiting, abdominal pain - Review of Systems Constitutional: Fever, Chills Eyes: No Symptoms Ears, Nose, & Throat: No Symptoms Respiratory: No Cough, No Short Of Breath Cardiac: No Chest Pain, No Edema, No Syncope Abdominal/Gastrointestinal: No Abdominal Pain, No Nausea, No Vomiting, No Diarrhea Genitourinary Symptoms: No Dysuria Musculoskeletal: No Back Pain, No Neck Pain Skin: No Rash Neurological: No Dizziness, No Focal Weakness, No Sensory Changes Psychological: No Symptoms Endocrine: No Symptoms Hematologic/Lymphatic: No Symptoms Immunological/Allergic: No Symptoms Medications & Allergies Home Medications: Home Medication List Gabapentin [Neurontin] 600 mg PO QID 02/07/17 [History Confirmed 10/09/19] Insulin Detemir [Levemir] 35 unit SQ QAM 02/07/17 [History Confirmed 10/09/19] Multivitamin [Multi-Vitamin Daily] 1 tab PO 1200 02/07/17 [History Confirmed ] Simvastatin 10 mg PO HS 02/07/17 [History Confirmed 10/09/19] Ferrous Sulfate 325 mg PO DINNER 04/09/18 [History Confirmed 10/09/19] Lisinopril 5 mg [Zestril 5 MG] 10 mg PO BID 04/09/18 [History Confirmed ] Metformin HCl 1,000 mg PO BIDWMEALS 04/09/18 [History Confirmed 10/09/19] Metoprolol Tartrate 25 mg [Lopressor 25MG Tab] 25 mg PO 1200 04/09/18 [ History Confirmed 10/09/19] Clopidogrel Bisulfate 75 mg [PLAVIX 75 MG Tablet] 75 mg PO DAILY 04/12/18 [History Confirmed 10/09/19] Acetaminophen 500 mg [Tylenol Extra Strength 500 mg] 1,000 mg PO TIDPRN [History Confirmed 10/09/19] Alogliptin Benzoate [Alogliptin] 12.5 mg PO HS 09/20/19 [History Confirmed 10/09] Aspirin [Aspirin EC] 81 mg PO BID 09/20/19 [History Confirmed 10/09/19] Docusate Sodium [Stool Softener] 50 mg PO BID 09/20/19 [History Confirmed ] Indomethacin 25 mg [Indocin 25 MG] 25 mg PO DAILY PRN PRN 09/20/19 [ History Confirmed 10/09/19] Nitroglycerin 0.4 mg Tablet [Nitrostat 0.4 MG Tablet] 0.4 mg SL Q5MIN PRN MR X 3 PRN 09/20/19 [History Confirmed 10/09/19] Omeprazole 20 mg PO DAILY 09/20/19 [History Confirmed 10/09/19] Polyethylene Glycol 3350 17 gm [Miralax Powder 17GM PACKET] 17 gm PO DAILY [History Confirmed 10/09/19] Rifampin 300 mg [Rifadin 300 mg] 300 mg PO BID 09/20/19 [History Confirmed 10/09/19] Sennosides [Senna] 8.6 mg PO BID 09/20/19 [History Confirmed 10/09/19] Vancomycin/0.9 % Sod Chloride [Vanco 1 Gram/250 ml-0.9% NaCl] 1 gm IV DAILY #42 plast..bag 09/29/19 [Rx Confirmed 10/09/19] Allergies/Adverse Reactions: Allergies Allergy/AdvReac Type Severity Reaction Status Date / Time latex Allergy Severe SORES IN Verified 07/15/18 07:22 MOUTH AND TONGUE sulfamethoxazole Allergy Verified 07/15/18 07:22 [From Bactrim] trimethoprim [From Bactrim] Allergy Verified 07/15/18 07:22 - Past Medical History Past Medical History: Yes Neurological History: Peripheral Neuropathy, Stroke ENT History: Other Cardiac History: Coronary Artery Disease, Hypertension, Myocardial Infarction ( [place]) Respiratory History: No Pertinent History Endocrine Medical History: Diabetes Type II Musculoskelatal History: Arthritis, Other GI Medical History: No Pertinent History History: No Pertinent History Pyscho-Social History: No Pertinent History Male Reproductive Disorders: No Pertinent History Comment: Anemia,[place], chronic hip infection of prosthetic joint. - Past Surgical History Past Surgical History: Yes Neuro Surgical History: No Pertinent History Cardiac History: Cardiac Catheterization Respiratory Surgery: No Pertinent History GI Surgical History: Appendectomy, Cholecystectomy Genitourinary Surgical Hx: No Pertinent History Musculskeletal Surgical Hx: Orthopedic Surgery Male Surgical History: No Pertinent History Other Surgical History: Back surgery 2010, Neck surgery 2007, Left knee meniscal repair 2004, Right hip repair 1989, 1990, 2003, 10/11/2012, 2012...Fx: Pelvis, Ribs, Vertabrae, Right hip from tree falling on him in 1989. right hip - Social History Smoking Status: Former smoker Exposure to second hand smoke: No Alcohol: None Drug Use: none - Physical Exam Vital Signs: Vital Signs - 24 hr Temp Pulse Resp BP Pulse Ox 10/10/19 12:00 95 H 10/10/19 11:36 99.8 F 88 18 130/68 98 10/10/19 10:00 97.2 F 85 24 115/57 98 10/10/19 08:00 81 10/10/19 06:20 98.3 F 89 20 110/72 95 10/10/19 05:43 98.3 F 10/10/19 05:13 102.3 F 10/10/19 04:00 102.7 F 107 H 22 136/65 92 L 10/10/19 00:00 98.1 F 93 H 23 145/64 95 10/09/19 21:00 98.0 F 95 H 22 111/52 96 10/09/19 18:34 97 10/09/19 16:00 101.8 F 97 H 20 119/58 97 10/09/19 15:17 98.7 F 87 20 143/63 97 10/09/19 14:12 98.7 F 87 20 143/63 97 10/09/19 13:34 98.4 F 87 14 125/66 98 General Appearance: no apparent distress, alert Neurologic Exam: alert, oriented x 3, cooperative, normal mood/affect, nml cerebellar function, nml station & gait, sensation nml, No motor deficits Eye Exam: PERRL/EOMI, eyes nml inspection Ears, Nose, Throat Exam: normal ENT inspection, TMs normal, pharynx normal, moist mucous membranes Neck Exam: normal inspection, non-tender, supple, full range of motion Respiratory Exam: normal breath sounds, lungs clear, No respiratory distress Cardiovascular Exam: regular rate/rhythm, normal heart sounds, normal peripheral pulses Gastrointestinal/Abdomen Exam: soft, normal bowel sounds, No tenderness, No mass Back Exam: normal inspection, normal range of motion, No CVA tenderness, No vertebral tenderness Extremity Exam: inflammation (right hip), joint swelling, limited range of motion, swelling, tenderness Skin Exam: normal color, warm, dry, No rash Lymphatic Exam: No adenopathy Results - Labs Lab/Micro Results: Accuchecks Date 10/10/19 Date 10/10/19 Date 10/09/19 Date 10/09/19 Date 10/09/19 Time 04:03 Time 00:00 Time 22:06 Time 20:00 Time 16:00 Accucheck Value: 184 Accucheck Value: 201 Accucheck Value: 185 Accucheck Value: 111 Accucheck Value: 106 Accucheck Value: 66 Accucheck Value: 61 Lab Results-Last 24 Hours 10/09/19 10/09/19 10/09/19 Range/Units 13:30 13:34 14:18 WBC (4.0-10.5) K/mm3 RBC (4.1-5.6) M/mm3 Hgb (12.5-18.0) gm/dl Hct (42-50) % MCV (78-100) fl MCH (26-32) pg MCHC (32-36) g/dl RDW (11.5-14.0) % Plt Count (150-450) K/mm3 MPV (7.5-11.0) fl Gran % (36.0-66.0) % Eos # (Auto) (0-0.5) Absolute Lymphs (auto) (1.0-4.6) Absolute Monos (auto) (0.0-1.3) Lymphocytes % (24.0-44.0) % Monocytes % (0.0-12.0) % Eosinophils % (0.00-5.0) % Basophils % (0.0-0.4) % Absolute Granulocytes (1.4-6.9) Basophils # (0-0.4) Sodium (137-145) mmol/L Potassium (3.5-5.1) mmol/L Chloride (98-107) mmol/L Carbon Dioxide (22-30) mmol/L Anion Gap (5-15) MEQ/L BUN (9-20) mg/dL Creatinine (0.66-1.25) mg/dL Estimated GFR ML/MIN Glucose (74-106) mg/dL Lactic Acid 5.9 H (0.4-2.0) Calcium (8.4-10.2) mg/dL Troponin I < 0.012 (0.000-0.034) ng/mL Prealbumin (17.6-36.0) mg/dL Urine Color RUPALI (YELLOW) Urine Appearance CLEAR (CLEAR) Urine pH 5.0 (5-6) Ur Specific Melvin 1.021 (1.005-1.025) Urine Protein 30 (Negative) Urine Ketones NEGATIVE (NEGATIVE) Urine Blood NEGATIVE (0-5) Curtis/ul Urine Nitrite NEGATIVE (NEGATIVE) Urine Bilirubin NEGATIVE (NEGATIVE) Urine Urobilinogen NEGATIVE (0-1) mg/dL Ur Leukocyte Esterase NEGATIVE (NEGATIVE) Urine WBC (Auto) NONE (0-5) /HPF Urine RBC (Auto) 0-2 (0-2) /HPF U Hyaline Cast (Auto) 6-10 (0-2) /LPF U Epithel Cells (Auto) NONE (FEW) /HPF Urine Bacteria (Auto) NONE (NEGATIVE) /HPF Urine Mucus (Auto) SLIGHT (NEGATIVE) /HPF Urine Culture Reflexed NO (NO) Urine Glucose NEGATIVE (NEGATIVE) mg/dL Slides for Path Review 10/09/19 10/10/19 10/10/19 Range/Units 16:00 04:45 05:00 WBC 5.1 (4.0-10.5) K/mm3 RBC 2.66 L (4.1-5.6) M/mm3 Hgb 7.2 L (12.5-18.0) gm/dl Hct 22.5 L (42-50) % MCV 84.6 (78-100) fl MCH 27.1 (26-32) pg MCHC 32.0 (32-36) g/dl RDW 13.9 (11.5-14.0) % Plt Count 225 (150-450) K/mm3 MPV 8.9 (7.5-11.0) fl Gran % 71.0 H (36.0-66.0) % Eos # (Auto) 0.55 H (0-0.5) Absolute Lymphs (auto) 0.41 L (1.0-4.6) Absolute Monos (auto) 0.52 (0.0-1.3) Lymphocytes % 8.0 L (24.0-44.0) % Monocytes % 10.1 (0.0-12.0) % Eosinophils % 10.7 H (0.00-5.0) % Basophils % 0.2 (0.0-0.4) % Absolute Granulocytes 3.65 (1.4-6.9) Basophils # 0.01 (0-0.4) Sodium 134 L (137-145) mmol/L Potassium 4.1 (3.5-5.1) mmol/L Chloride 106 (98-107) mmol/L Carbon Dioxide 21 L (22-30) mmol/L Anion Gap 11.2 (5-15) MEQ/L BUN 28 H (9-20) mg/dL Creatinine 1.29 H (0.66-1.25) mg/dL Estimated GFR 58.2 ML/MIN Glucose 161 H (74-106) mg/dL Lactic Acid (0.4-2.0) Calcium 7.6 L D (8.4-10.2) mg/dL Troponin I (0.000-0.034) ng/mL Prealbumin 10.89 L (17.6-36.0) mg/dL Urine Color (YELLOW) Urine Appearance (CLEAR) Urine pH (5-6) Ur Specific Melvin (1.005-1.025) Urine Protein (Negative) Urine Ketones (NEGATIVE) Urine Blood (0-5) Curtis/ul Urine Nitrite (NEGATIVE) Urine Bilirubin (NEGATIVE) Urine Urobilinogen (0-1) mg/dL Ur Leukocyte Esterase (NEGATIVE) Urine WBC (Auto) (0-5) /HPF Urine RBC (Auto) (0-2) /HPF U Hyaline Cast (Auto) (0-2) /LPF U Epithel Cells (Auto) (FEW) /HPF Urine Bacteria (Auto) (NEGATIVE) /HPF Urine Mucus (Auto) (NEGATIVE) /HPF Urine Culture Reflexed (NO) Urine Glucose (NEGATIVE) mg/dL Slides for Path Review YES 10/10/19 Range/Units 06:06 WBC (4.0-10.5) K/mm3 RBC (4.1-5.6) M/mm3 Hgb (12.5-18.0) gm/dl Hct (42-50) % MCV (78-100) fl MCH (26-32) pg MCHC (32-36) g/dl RDW (11.5-14.0) % Plt Count (150-450) K/mm3 MPV (7.5-11.0) fl Gran % (36.0-66.0) % Eos # (Auto) (0-0.5) Absolute Lymphs (auto) (1.0-4.6) Absolute Monos (auto) (0.0-1.3) Lymphocytes % (24.0-44.0) % Monocytes % (0.0-12.0) % Eosinophils % (0.00-5.0) % Basophils % (0.0-0.4) % Absolute Granulocytes (1.4-6.9) Basophils # (0-0.4) Sodium (137-145) mmol/L Potassium (3.5-5.1) mmol/L Chloride (98-107) mmol/L Carbon Dioxide (22-30) mmol/L Anion Gap (5-15) MEQ/L BUN (9-20) mg/dL Creatinine (0.66-1.25) mg/dL Estimated GFR ML/MIN Glucose (74-106) mg/dL Lactic Acid 1.4 (0.4-2.0) Calcium (8.4-10.2) mg/dL Troponin I (0.000-0.034) ng/mL Prealbumin (17.6-36.0) mg/dL Urine Color (YELLOW) Urine Appearance (CLEAR) Urine pH (5-6) Ur Specific Melvin (1.005-1.025) Urine Protein (Negative) Urine Ketones (NEGATIVE) Urine Blood (0-5) Curtis/ul Urine Nitrite (NEGATIVE) Urine Bilirubin (NEGATIVE) Urine Urobilinogen (0-1) mg/dL Ur Leukocyte Esterase (NEGATIVE) Urine WBC (Auto) (0-5) /HPF Urine RBC (Auto) (0-2) /HPF U Hyaline Cast (Auto) (0-2) /LPF U Epithel Cells (Auto) (FEW) /HPF Urine Bacteria (Auto) (NEGATIVE) /HPF Urine Mucus (Auto) (NEGATIVE) /HPF Urine Culture Reflexed (NO) Urine Glucose (NEGATIVE) mg/dL Slides for Path Review Accuchecks Date 10/10/19 Date 10/10/19 Date 10/09/19 Date 10/09/19 Date 10/09/19 Time 04:03 Time 00:00 Time 22:06 Time 20:00 Time 16:00 Accucheck Value: 184 Accucheck Value: 201 Accucheck Value: 185 Accucheck Value: 111 Accucheck Value: 106 Accucheck Value: 66 Accucheck Value: 61 Assessment/Plan (1) Sepsis Current Visit: Yes Status: Acute Qualifiers: Sepsis type: sepsis due to unspecified organism Sepsis acute organ dysfunction status: unspecified Qualified Code(s): A41.9 - Sepsis, unspecified organism Assessment & Plan: Chief Complaint Diagnosis SEPSIS Allergies Allergy/AdvReac Type Severity Reaction Status Date / Time latex Allergy Severe SORES IN Verified 07/15/18 07:22 MOUTH AND TONGUE sulfamethoxazole Allergy Verified 07/15/18 07:22 [From Bactrim] trimethoprim [From Bactrim] Allergy Verified 07/15/18 07:22 Vital Signs (Last 24 hours) Temp Pulse Resp BP Pulse Ox 10/10/19 12:00 95 H 10/10/19 11:36 99.8 F 88 18 130/68 98 10/10/19 10:00 97.2 F 85 24 115/57 98 10/10/19 08:00 81 10/10/19 06:20 98.3 F 89 20 110/72 95 10/10/19 05:43 98.3 F 10/10/19 05:13 102.3 F 10/10/19 04:00 102.7 F 107 H 22 136/65 92 L 10/10/19 00:00 98.1 F 93 H 23 145/64 95 10/09/19 21:00 98.0 F 95 H 22 111/52 96 10/09/19 18:34 97 10/09/19 16:00 101.8 F 97 H 20 119/58 97 10/09/19 15:17 98.7 F 87 20 143/63 97 10/09/19 14:12 98.7 F 87 20 143/63 97 10/09/19 13:34 98.4 F 87 14 125/66 98 Current Medications Generic Name Dose Route Start Last Admin Trade Name Freq PRN Reason Stop Dose Admin Acetaminophen 1,000 mg 10/10/19 06:59 10/10/19 11:51 Tylenol Extra Strength 500 Mg PO 11/09/19 06:58 1,000 mg Q4H PRN PRN Administration HEADACHE Docusate Sodium 100 mg 10/10/19 10:00 10/10/19 10:31 Colace 100 Mg PO 11/09/19 09:59 Not Given BID PAMELA Enoxaparin Sodium 30 mg 10/09/19 18:00 10/10/19 10:35 Enoxaparin Sodium SQ 11/08/19 17:59 30 mg DAILY PAMELA Administration Ferrous Sulfate 325 mg 10/09/19 17:00 10/09/19 18:48 Feosol 325 Mg PO 11/08/19 16:59 Not Given DINNER PAMELA Gabapentin 600 mg 10/09/19 22:00 10/10/19 10:32 Neurontin 300 Mg PO 11/08/19 21:59 600 mg QID PAMELA Administration Heparin Sodium (Beef Lung) 500 units 10/09/19 14:17 Heparin Lock Flush 100 Units/Ml 5ml Syringe PICC 11/08/19 14:16 PRN PRN IV PORT FLUSH Piperacillin Sod/Tazobactam Sod 3.375 gm in 100 mls @ 200 mls/hr 10/09/19 22: 00 10/10/19 04:56 Zosyn 3.375gm/100 Ml D5w IV 11/08/19 21:59 200 mls/hr Q8HT PAMELA Administration Dextrose/Sodium Chloride 1,000 mls @ 125 mls/hr 10/09/19 21:30 10/10/19 04:53 Dextrose 5% -0.45 Nacl 1000 Ml IV 11/08/19 21:29 125 mls/hr .Q8H PAMELA Administration Vancomycin HCl 1 gm in 200 mls @ 133.333 mls/hr 10/10/19 10:00 10/10/19 10:44 Vancomycin 1 Gram/200 Ml Bag IV 11/09/19 09:59 133.333 mls/hr Q24H10 PAMELA Administration Insulin Aspart 0 unit 10/09/19 14:07 10/10/19 13:02 Novolog Insulin SQ 11/08/19 14:06 3 unit UD PRN Administration HYPERGLYCEMIA Insulin Glargine 35 unit 10/10/19 08:00 10/10/19 08:42 Lantus Insulin SQ 11/09/19 07:59 35 unit AMINSULIN PAMELA Administration Lisinopril 10 mg 10/09/19 22:00 10/10/19 10:32 Zestril 10 Mg PO 11/08/19 21:59 Not Given BID PAMELA Metformin HCl 1,000 mg 10/10/19 08:00 10/10/19 08:40 Glucophage 500 Mg PO 11/09/19 07:59 1,000 mg BIDWM PAMELA Administration Metoprolol Tartrate 25 mg 10/10/19 12:00 10/10/19 11:51 Lopressor 25mg Tab PO 11/09/19 11:59 25 mg 1200 PAMELA Administration Multivitamins Therapeutic 1 tab 10/10/19 12:00 10/10/19 13:02 Theragran Multivitamin PO 11/09/19 11:59 1 tab DAILY@1200 PAMELA Administration Nitroglycerin 0.4 mg 10/10/19 07:05 Nitrostat 0.4 Mg Tablet SL 11/09/19 07:04 Q5MIN PRN MR X 3 PRN CHEST PAIN Ondansetron HCl 4 mg 10/09/19 16:22 10/09/19 17:19 Zofran 4 Mg/2 Ml Vial IV 11/08/19 16:21 4 mg Q4H PRN PRN Administration NAUSEA/VOMITING Pantoprazole Sodium 40 mg 10/10/19 10:00 10/10/19 10:31 Protonix 40mg Tablet PO 11/09/19 09:59 40 mg DAILY PAMELA Administration Polyethylene Glycol 17 gm 10/10/19 10:00 10/10/19 10:32 Miralax Powder 17gm Packet PO 11/09/19 09:59 Not Given DAILY PAMELA Senna 8.6 mg 10/09/19 22:00 10/10/19 10:32 Senokot 8.6 Mg PO 11/08/19 21:59 Not Given BID PAMELA Simvastatin 10 mg 10/09/19 22:00 10/09/19 22:10 Zocor 10mg PO 11/08/19 21:59 Not Given HS PAMELA Sitagliptin Phosphate 50 mg 10/10/19 22:00 Januvia 50 Mg PO 11/09/19 21:59 HS PAMELA Discontinued Medications Generic Name Dose Route Start Last Admin Trade Name Freq PRN Reason Stop Dose Admin Acetaminophen 1,000 mg 10/09/19 16:23 Tylenol Extra Strength 500 Mg PO 11/08/19 16:22 Q4H PRN PRN HEADACHE Acetaminophen 1,000 mg 10/09/19 16:24 10/09/19 16:45 Tylenol Extra Strength 500 Mg PO 11/08/19 16:22 1,000 mg TIDPRN PRN Administration HEADACHE Acetaminophen Confirm 10/09/19 16:35 Tylenol Extra Strength 500 Mg Administered 10/09/19 16:36 Dose 1,000 mg .ROUTE .STK-MED ONE Acetaminophen 1,000 mg 10/09/19 20:18 10/10/19 03:57 Tylenol Extra Strength 500 Mg PO 11/08/19 16:23 1,000 mg Q4H PRN Administration HEADACHE Alteplase, Recombinant 2 mg 10/09/19 15:00 10/09/19 14:38 Cathflo Activase 2 Mg IV 10/09/19 15:01 2 mg ONCE ONE Administration Docusate Sodium 50 mg 10/09/19 22:00 10/09/19 22:28 Colace 100 Mg PO 11/08/19 21:59 Not Given BID PAMELA Sodium Chloride 1,000 mls @ 999 mls/hr 10/09/19 11:29 10/09/19 12:38 Sodium Chloride 0.9% 1000 Ml IV 10/09/19 12:29 Infused .Q1H1M STA Infusion Sodium Chloride Confirm 10/09/19 11:35 Sodium Chloride 0.9% 1000 Ml Administered 10/09/19 11:36 Dose 1,000 mls @ ud .ROUTE .STK-MED ONE Sodium Chloride 1,000 mls @ 999 mls/hr 10/09/19 12:44 10/09/19 12:50 Sodium Chloride 0.9% 1000 Ml IV 10/09/19 13:44 999 mls/hr .Q1H1M STA Administration Piperacillin Sod/Tazobactam Sod 3.375 gm in 100 mls @ 200 mls/hr 10/09/19 12: 43 10/09/19 12:51 Zosyn 3.375gm/100 Ml D5w IV 10/09/19 13:12 200 mls/hr STAT STA 200 mls/hr Administration Sodium Chloride Confirm 10/09/19 12:49 Sodium Chloride 0.9% 1000 Ml Administered 10/09/19 12:50 Dose 1,000 mls @ ud .ROUTE .STK-MED ONE Piperacillin Sod/Tazobactam Sod Confirm 10/09/19 12:49 Zosyn 3.375gm/100 Ml D5w Administered 10/09/19 12:50 Dose 3.375 gm in 100 mls @ ud IV .STK-MED ONE Sodium Chloride 1,000 mls @ 999 mls/hr 10/09/19 20:16 10/09/19 20:22 Sodium Chloride 0.9% 1000 Ml IV 10/09/19 21:16 999 mls/hr .Q1H1M STA Administration Non-Formulary Medication 1 each 10/10/19 08:53 Pharmacy Dosing Required: Vancomycin IV 10/10/19 08:54 STAT ONE Ondansetron HCl 4 mg 10/09/19 11:29 10/09/19 11:37 Zofran 4 Mg/2 Ml Vial IV 10/09/19 11:30 4 mg STAT ONE Administration Ondansetron HCl Confirm 10/09/19 11:35 Zofran 4 Mg/2 Ml Vial Administered 10/09/19 11:36 Dose 4 mg .ROUTE .STK-MED ONE Intake & Output (Last 24 hours) 10/08/19 10/09/19 10/10/19 10/11/19 11:59 11:59 11:59 11:59 Intake Total 2827 Output Total 1100 275 Balance 1727 -275 Weight 68.039 kg 68.039 kg Microbiology Results (Last 24 hours) 10/09/19 11:57 Blood Blood Culture Gram Stain - Pending 10/09/19 11:57 Blood Blood Culture - Pending 10/09/19 11:47 Blood Blood Culture Gram Stain - Pending 10/09/19 11:47 Blood Blood Culture - Pending Laboratory Results (Last 24 hours) 10/10/19 10/10/19 10/10/19 06:06 05:00 04:45 WBC 5.1 RBC 2.66 L Hgb 7.2 L Hct 22.5 L MCV 84.6 MCH 27.1 MCHC 32.0 RDW 13.9 Plt Count 225 MPV 8.9 Gran % 71.0 H Eos # (Auto) 0.55 H Absolute Lymphs (auto) 0.41 L Absolute Monos (auto) 0.52 Lymphocytes % 8.0 L Monocytes % 10.1 Eosinophils % 10.7 H Basophils % 0.2 Absolute Granulocytes 3.65 Basophils # 0.01 Sodium 134 L Potassium 4.1 Chloride 106 Carbon Dioxide 21 L Anion Gap 11.2 BUN 28 H Creatinine 1.29 H Estimated GFR 58.2 Glucose 161 H Lactic Acid 1.4 Calcium 7.6 L D Troponin I Prealbumin Urine Color Urine Appearance Urine pH Ur Specific Melvin Urine Protein Urine Ketones Urine Blood Urine Nitrite Urine Bilirubin Urine Urobilinogen Ur Leukocyte Esterase Urine WBC (Auto) Urine RBC (Auto) U Hyaline Cast (Auto) U Epithel Cells (Auto) Urine Bacteria (Auto) Urine Mucus (Auto) Urine Culture Reflexed Urine Glucose Slides for Path Review YES 10/09/19 10/09/19 10/09/19 16:00 14:18 13:34 WBC RBC Hgb Hct MCV MCH MCHC RDW Plt Count MPV Gran % Eos # (Auto) Absolute Lymphs (auto) Absolute Monos (auto) Lymphocytes % Monocytes % Eosinophils % Basophils % Absolute Granulocytes Basophils # Sodium Potassium Chloride Carbon Dioxide Anion Gap BUN Creatinine Estimated GFR Glucose Lactic Acid 5.9 H Calcium Troponin I Prealbumin 10.89 L Urine Color RUPALI Urine Appearance CLEAR Urine pH 5.0 Ur Specific Melvin 1.021 Urine Protein 30 Urine Ketones NEGATIVE Urine Blood NEGATIVE Urine Nitrite NEGATIVE Urine Bilirubin NEGATIVE Urine Urobilinogen NEGATIVE Ur Leukocyte Esterase NEGATIVE Urine WBC (Auto) NONE Urine RBC (Auto) 0-2 U Hyaline Cast (Auto) 6-10 U Epithel Cells (Auto) NONE Urine Bacteria (Auto) NONE Urine Mucus (Auto) SLIGHT Urine Culture Reflexed NO Urine Glucose NEGATIVE Slides for Path Review 10/09/19 13:30 WBC RBC Hgb Hct MCV MCH MCHC RDW Plt Count MPV Gran % Eos # (Auto) Absolute Lymphs (auto) Absolute Monos (auto) Lymphocytes % Monocytes % Eosinophils % Basophils % Absolute Granulocytes Basophils # Sodium Potassium Chloride Carbon Dioxide Anion Gap BUN Creatinine Estimated GFR Glucose Lactic Acid Calcium Troponin I < 0.012 Prealbumin Urine Color Urine Appearance Urine pH Ur Specific Melvin Urine Protein Urine Ketones Urine Blood Urine Nitrite Urine Bilirubin Urine Urobilinogen Ur Leukocyte Esterase Urine WBC (Auto) Urine RBC (Auto) U Hyaline Cast (Auto) U Epithel Cells (Auto) Urine Bacteria (Auto) Urine Mucus (Auto) Urine Culture Reflexed Urine Glucose Slides for Path Review Orders (Last 24 hours) Category Date Time Status Up With Assistance ROUTINE Activity 10/09/19 14:07 Active Accucheck Q4H Care 10/09/19 14:07 Active Admission Status Change [Change to Full Admit] ROUTINE Care 10/09/19 16:45 Active Call Admit Doctor for Orders ROUTINE Care 10/09/19 14:07 Active Code Status Order ROUTINE Care 10/09/19 14:07 Active IV Care Q6H Care 10/09/19 14:07 Active Neuro Checks Q4H Care 10/09/19 14:[address] in Observation ROUTINE Care 10/09/19 14:07 Active Kevin Wiggins ROUTINE Care 10/09/19 14:07 Active Cardio-Pulmonary Rehab .as ordered Cons 10/09/19 15:16 Active Infection Control Consult ROUTINE Cons 10/09/19 16:00 Active Gunnery/Ordnance Officer/Discharge Plan ROUTINE Cons 10/09/19 16:00 Active 1800 Calorie ADA Diet 10/09/19 Dinner Active Nutritional Admission Screen once Diet 10/09/19 16:00 Active BMP AM.LAB Lab 10/10/19 05:00 Completed CBC W DIFF AM.LAB Lab 10/10/19 04:45 Completed Lactic Acid Stat Lab 10/09/19 14:18 Completed Lactic Acid Urgent Lab 10/10/19 06:06 Completed PREALBUMIN Routine Lab 10/09/19 16:00 Completed TROPONIN Stat Lab 10/09/19 13:30 Completed UA W/RFX UR CULTURE Stat Lab 10/09/19 13:34 Completed Acetaminophen 500 mg [Tylenol Extra Strength 500 mg* Med 10/09/19 16:35 Discontinued ] 1,000 mg .ROUTE .STK-MED ONE Acetaminophen 500 mg [Tylenol Extra Strength 500 mg* Med 10/09/19 20:18 Discontinued ] 1,000 mg PO Q4H PRN Acetaminophen 500 mg [Tylenol Extra Strength 500 mg* Med 10/09/19 16:23 Discontinued ] 1,000 mg PO Q4H PRN PRN Acetaminophen 500 mg [Tylenol Extra Strength 500 mg* Med 10/10/19 06:59 Active ] 1,000 mg PO Q4H PRN PRN Acetaminophen 500 mg [Tylenol Extra Strength 500 mg* Med 10/09/19 16:24 Discontinued ] 1,000 mg PO TIDPRN PRN Alteplase 2 mg [Cathflo Activase 2 MG] Med 10/09/19 15:00 Discontinued 2 mg IV ONCE ONE D5w-0.45 NaCl 1000 ml [Dextrose 5% -0.45 NaCl 1000 ML] Med 10/09/19 21:30 Active 1,000 ml IV 125 mls/hr Docusate Sodium 100 mg [Colace 100 MG] Med 10/10/19 10:00 Active 100 mg PO BID Docusate Sodium 100 mg [Colace 100 MG] Med 10/09/19 22:00 Discontinued 50 mg PO BID Enoxaparin Sodium [Enoxaparin Sodium] Med 10/09/19 18:00 Active 30 mg SQ DAILY Ferrous Sulfate 325 mg [Feosol 325 mg] Med 10/09/19 17:00 Active 325 mg PO DINNER Gabapentin 300 mg [Neurontin 300 mg] Med 10/09/19 22:00 Active 600 mg PO QID Heparin Flush 500 units/5 ml [Heparin Lock Flush 100 Med 10/09/19 14:17 Active Units/ml 5ml Syringe] 500 units PICC PRN PRN Insulin Aspart [NovoLOG Insulin] Med 10/09/19 14:07 Active See Dose Instructions SQ UD PRN Insulin Glargine [Lantus Insulin] Med 10/10/19 08:00 Active 35 unit SQ AMINSULIN Lisinopril 10 mg [Zestril 10 MG] Med 10/09/19 22:00 Active 10 mg PO BID Metformin HCl 500 mg [Glucophage 500 MG] Med 10/10/19 08:00 Active 1,000 mg PO BIDWM Metoprolol Tartrate 25 mg [Lopressor 25MG Tab] Med 10/10/19 12:00 Active 25 mg PO 1200 Multivitamins,Therapeutic Tab* [Theragran Multivitamin* Med 10/10/19 12:00 Active ] 1 tab PO DAILY@1200 NaCl 0.9% 1000 ml [Sodium Chloride 0.9% 1000 ML] 1,000 Med 10/09/19 12:49 Discontinued ml .ROUTE UD NaCl 0.9% 1000 ml [Sodium Chloride 0.9% 1000 ML] 1,000 Med 10/09/19 12:44 Discontinued ml IV 999 mls/hr NaCl 0.9% 1000 ml [Sodium Chloride 0.9% 1000 ML] 1,000 Med 10/09/19 20:16 Discontinued ml IV 999 mls/hr Nitroglycerin 0.4 mg Tablet [Nitrostat 0.4 MG Tablet Med 10/10/19 07:05 Active ] 0.4 mg SL Q5MIN PRN MR X 3 PRN Ondansetron HCl 4 mg/2 ml [Zofran 4 MG/2 ML VIAL] Med 10/09/19 16:22 Active 4 mg IV Q4H PRN PRN PANTOPRAZOLE 40 mg Tablet [Protonix 40MG Tablet] Med 10/10/19 10:00 Active 40 mg PO DAILY Pharmacy Dose Request: Vancomy [Pharmacy Dosing Med 10/10/19 08:53 Discontinued Required: Vancomycin] 1 each IV STAT ONE Piperacillin/Tazobactam Premix [Zosyn 3.375GM/100 Ml Med 10/09/19 22:00 Active D5W] 3.375 gm in 100 ml IV Q8HT Piperacillin/Tazobactam Premix [Zosyn 3.375GM/100 Ml Med 10/09/19 12:43 Discontinued D5W] 3.375 gm in 100 ml IV STAT Piperacillin/Tazobactam Premix [Zosyn 3.375GM/100 Ml Med 10/09/19 12:49 Discontinued D5W] 3.375 gm in 100 ml IV UD Polyethylene Glycol 3350 17 gm [Miralax Powder 17GM Med 10/10/19 10:00 Active PACKET] 17 gm PO DAILY Senna 8.6 mg [Senokot 8.6 mg] Med 10/09/19 22:00 Active 8.6 mg PO BID Simvastatin 10 mg [Zocor 10MG] Med 10/09/19 22:00 Active 10 mg PO HS Sitagliptin Phosphate 50 MG [Januvia 50 MG] Med 10/10/19 22:00 Active 50 mg PO HS Vancomycin/Water For Inj (Peg) [Vancomycin 1 Gram/200 Med 10/10/19 10:00 Active ml Bag] 1 gm in 200 ml IV Q24H10 OT Screen per Nursing Assess ONCE OT 10/09/19 16:00 Active PT Screen per Nursing Assess ONCE PT 10/09/19 16:00 Completed Patient Care Notes (Last 24 hours) 10/09/19 19:30 (created 10/09/19 20:31) Nursing Note by Ashia Gupta 1437- Patient given cathflow as ordered to PICC line in right AC due to PICC line not flushing. 1507- Attempted to aspirate from PICC line at this time. Unable to aspirate as indicated in instructions. Will let cathflow dwell in PICC line longer as indicated. 1637- Attempted to aspirate from PICC line at this time. 5cc of blood aspirated as ordered. Flushed PICC line with 30cc of saline. Flushed without difficulty. 1640- NS bolus from ER attached to PICC Line and continued to infuse @ rate of 250cc/hr as instructed per ER nurse. 1645- Fever of 102.3 reported to this nurse at this time. Given Tylenol [address] Tejada called and given report on patient. Home medications reordered as indicated. 1700- Accucheck of 60 obtained. Given [place] juice at this time. patient alert and oriented. 1745- Repeat accucheck of 90 obtained at this time. B/P 119/58, P 97, R 24. 1800- Temp of 101 axillary obtained. 1850- NS bolus from ER finished at this time. PICC line flushed at this time. Initialized on 10/09/19 20:31 - END OF NOTE 10/09/19 19:08 Nursing Note by Kaitlyn Richards MD order for pharmacy to dose Zosyn. Den pharmacist communication skills instructor recommended Zosyn 3.375 Q 8Hr. Order put in as recommended by pharmacy Initialized on 10/09/19 19:08 - END OF NOTE 10/09/19 17:26 Respiratory Note by Thelma Potts REPORTED INCREASE IN LACTIC TO 5.[address] ANGEL VIA TELEPHONE AT 1720. REPEAT WITH AM LAB[facility] NOTIFIED OF RESULTS AND REPEAT OF LACTIC IN AM. 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
[2019-10-10 15:48] VITALS: BP 105/53; PULSE 91; O2SAT 96
[2019-10-10] MEDS ORDERED: Glutose 15 GM ORAL GEL PO PRN (16:21)
[2019-10-10] MEDS ORDERED: D50W 50 ml Abboject IV PRN (16:21)
[2019-10-10] MEDS: Zofran 4 MG/2 ML VIAL IV PRN (16:39)
[2019-10-10] MEDS ORDERED: NON-FORMULARY ITEM (Alogliptin Benzoate [Alogliptin] 12.5 MG) PO SCH (22:00)
[2019-10-10] MEDS ORDERED: Januvia 50 MG PO SCH (22:00)
--- NOTE | 2019-10-11 12:19 | PCM.DS ---
Discharge Summary Date of Admission: 10/09/19 16:45 Admitting Physician: ASH ALBRECHT Primary Care Provider: ASH ALBRECHT Allergies Allergies latex Allergy (Severe, Verified 07/15/18 07:22) SORES IN MOUTH AND TONGUE sulfamethoxazole [From Bactrim] Allergy (Verified 07/15/18 07:22) trimethoprim [From Bactrim] Allergy (Verified 07/15/18 07:22) Hospital Summary - Hospital Course Hospital Course: Chief Complaint Diagnosis fever, weakness chills for 2-3 days Allergies Allergy/AdvReac Type Severity Reaction Status Date / Time latex Allergy Severe SORES IN Verified 07/15/18 07:22 MOUTH AND TONGUE sulfamethoxazole Allergy Verified 07/15/18 07:22 [From Bactrim] trimethoprim [From Bactrim] Allergy Verified 07/15/18 07:22 Vital Signs (Last 24 hours) Temp Pulse Resp BP Pulse Ox 10/10/19 15:00 98.5 F 91 H 21 105/53 96 Current Medications Discontinued Medications Generic Name Dose Route Start Last Admin Trade Name Freq PRN Reason Stop Dose Admin Acetaminophen 1,000 mg 10/09/19 16:23 Tylenol Extra Strength 500 Mg PO 11/08/19 16:22 Q4H PRN PRN HEADACHE Acetaminophen 1,000 mg 10/09/19 16:24 10/09/19 16:45 Tylenol Extra Strength 500 Mg PO 11/08/19 16:22 1,000 mg TIDPRN PRN Administration HEADACHE Acetaminophen Confirm 10/09/19 16:35 Tylenol Extra Strength 500 Mg Administered 10/09/19 16:36 Dose 1,000 mg .ROUTE .STK-MED ONE Acetaminophen 1,000 mg 10/09/19 20:18 10/10/19 03:57 Tylenol Extra Strength 500 Mg PO 11/08/19 16:23 1,000 mg Q4H PRN Administration HEADACHE Acetaminophen 1,000 mg 10/10/19 06:59 10/10/19 11:51 Tylenol Extra Strength 500 Mg PO 11/09/19 06:58 1,000 mg Q4H PRN PRN Administration HEADACHE Alteplase, Recombinant 2 mg 10/09/19 15:00 10/09/19 14:38 Cathflo Activase 2 Mg IV 10/09/19 15:01 2 mg ONCE ONE Administration Dextrose 25 ml 10/10/19 16:21 10/10/19 16:36 D50w 50 Ml Abboject IV 11/09/19 16:20 25 ml PRN PRN Administration HYPOGLYCEMIA Docusate Sodium 50 mg 10/09/19 22:00 10/09/19 22:28 Colace 100 Mg PO 11/08/19 21:59 Not Given BID PAMELA Docusate Sodium 100 mg 10/10/19 10:00 10/10/19 10:31 Colace 100 Mg PO 11/09/19 09:59 Not Given BID PAMELA Enoxaparin Sodium 30 mg 10/09/19 18:00 10/10/19 10:35 Enoxaparin Sodium SQ 11/08/19 17:59 30 mg DAILY PAMELA Administration Ferrous Sulfate 325 mg 10/09/19 17:00 10/09/19 18:48 Feosol 325 Mg PO 11/08/19 16:59 Not Given DINNER PAMELA Gabapentin 600 mg 10/09/19 22:00 10/10/19 14:55 Neurontin 300 Mg PO 11/08/19 21:59 600 mg QID PAMELA Administration Glucose 15 gm 10/10/19 16:21 10/10/19 16:28 Glutose 15 Gm Oral Gel PO 11/09/19 16:20 15 gm PRN PRN Administration HYPOGLYCEMIA Heparin Sodium (Beef Lung) 500 units 10/09/19 14:17 Heparin Lock Flush 100 Units/Ml 5ml Syringe PICC 11/08/19 14:16 PRN PRN IV PORT FLUSH Sodium Chloride 1,000 mls @ 999 mls/hr 10/09/19 11:29 10/09/19 12:38 Sodium Chloride 0.9% 1000 Ml IV 10/09/19 12:29 Infused .Q1H1M STA Infusion Sodium Chloride Confirm 10/09/19 11:35 Sodium Chloride 0.9% 1000 Ml Administered 10/09/19 11:36 Dose 1,000 mls @ ud .ROUTE .STK-MED ONE Sodium Chloride 1,000 mls @ 999 mls/hr 10/09/19 12:44 10/09/19 12:50 Sodium Chloride 0.9% 1000 Ml IV 10/09/19 13:44 999 mls/hr .Q1H1M STA Administration Piperacillin Sod/Tazobactam Sod 3.375 gm in 100 mls @ 200 mls/hr 10/09/19 12: 43 10/09/19 12:51 Zosyn 3.375gm/100 Ml D5w IV 10/09/19 13:12 200 mls/hr STAT STA 200 mls/hr Administration Sodium Chloride Confirm 10/09/19 12:49 Sodium Chloride 0.9% 1000 Ml Administered 10/09/19 12:50 Dose 1,000 mls @ ud .ROUTE .STK-MED ONE Piperacillin Sod/Tazobactam Sod Confirm 10/09/19 12:49 Zosyn 3.375gm/100 Ml D5w Administered 10/09/19 12:50 Dose 3.375 gm in 100 mls @ ud IV .STK-MED ONE Piperacillin Sod/Tazobactam Sod 3.375 gm in 100 mls @ 200 mls/hr 10/09/19 22: 00 10/10/19 14:55 Zosyn 3.375gm/100 Ml D5w IV 11/08/19 21:59 200 mls/hr Q8HT PAMELA Administration Dextrose/Sodium Chloride 1,000 mls @ 125 mls/hr 10/09/19 21:30 10/10/19 14:54 Dextrose 5% -0.45 Nacl 1000 Ml IV 11/08/19 21:29 125 mls/hr .Q8H PAMELA Administration Sodium Chloride 1,000 mls @ 999 mls/hr 10/09/19 20:16 10/09/19 20:22 Sodium Chloride 0.9% 1000 Ml IV 10/09/19 21:16 999 mls/hr .Q1H1M STA Administration Vancomycin HCl 1 gm in 200 mls @ 133.333 mls/hr 10/10/19 10:00 10/10/19 10:44 Vancomycin 1 Gram/200 Ml Bag IV 11/09/19 09:59 133.333 mls/hr Q24H10 PAMELA Administration Insulin Aspart 0 unit 10/09/19 14:07 10/10/19 13:02 Novolog Insulin SQ 11/08/19 14:06 3 unit UD PRN Administration HYPERGLYCEMIA Insulin Glargine 35 unit 10/10/19 08:00 10/10/19 08:42 Lantus Insulin SQ 11/09/19 07:59 35 unit AMINSULIN PAMELA Administration Lisinopril 10 mg 10/09/19 22:00 10/10/19 10:32 Zestril 10 Mg PO 11/08/19 21:59 Not Given BID PAMELA Metformin HCl 1,000 mg 10/10/19 08:00 10/10/19 08:40 Glucophage 500 Mg PO 11/09/19 07:59 1,000 mg BIDWM PAMELA Administration Metoprolol Tartrate 25 mg 10/10/19 12:00 10/10/19 11:51 Lopressor 25mg Tab PO 11/09/19 11:59 25 mg 1200 PAMELA Administration Multivitamins Therapeutic 1 tab 10/10/19 12:00 10/10/19 13:02 Theragran Multivitamin PO 11/09/19 11:59 1 tab DAILY@1200 PMAELA Administration Nitroglycerin 0.4 mg 10/10/19 07:05 Nitrostat 0.4 Mg Tablet SL 11/09/19 07:04 Q5MIN PRN MR X 3 PRN CHEST PAIN Non-Formulary Medication 1 each 10/10/19 08:53 Pharmacy Dosing Required: Vancomycin IV 10/10/19 08:54 STAT ONE Ondansetron HCl 4 mg 10/09/19 11:29 10/09/19 11:37 Zofran 4 Mg/2 Ml Vial IV 10/09/19 11:30 4 mg STAT ONE Administration Ondansetron HCl Confirm 10/09/19 11:35 Zofran 4 Mg/2 Ml Vial Administered 10/09/19 11:36 Dose 4 mg .ROUTE .STK-MED ONE Ondansetron HCl 4 mg 10/09/19 16:22 10/10/19 16:39 Zofran 4 Mg/2 Ml Vial IV 11/08/19 16:21 4 mg Q4H PRN PRN Administration NAUSEA/VOMITING Pantoprazole Sodium 40 mg 10/10/19 10:00 10/10/19 10:31 Protonix 40mg Tablet PO 11/09/19 09:59 40 mg DAILY PAMELA Administration Polyethylene Glycol 17 gm 10/10/19 10:00 10/10/19 10:32 Miralax Powder 17gm Packet PO 11/09/19 09:59 Not Given DAILY PAMELA Senna 8.6 mg 10/09/19 22:00 10/10/19 10:32 Senokot 8.6 Mg PO 11/08/19 21:59 Not Given BID PAMELA Simvastatin 10 mg 10/09/19 22:00 10/09/19 22:10 Zocor 10mg PO 11/08/19 21:59 Not Given HS PAMELA Sitagliptin Phosphate 50 mg 10/10/19 22:00 Januvia 50 Mg PO 11/09/19 21:59 HS PAMELA Intake & Output (Last 24 hours) 10/09/19 10/10/19 10/11/19 10/12/19 11:59 11:59 11:59 11:59 Intake Total 2827 Output Total 1100 575 Balance 1727 -575 Weight 68.039 kg 68.039 kg Microbiology Results (Last 24 hours) 10/09/19 11:57 Blood Blood Culture Gram Stain - Pending 10/09/19 11:57 Blood Blood Culture - Preliminary NO GROWTH TO DATE 10/09/19 11:47 Blood Blood Culture Gram Stain - Pending 10/09/19 11:47 Blood Blood Culture - Preliminary NO GROWTH TO DATE Laboratory Results (Last 24 hours) 10/10/19 16:22 Glucose 33 L* Orders (Last 24 hours) Category Date Time Status Discharge Routine Discharge 10/10/19 16:30 Ordered Glucose Stat Lab 10/10/19 16:22 Completed Dextrose 15 gm Oral Gel [Glutose 15 GM ORAL GEL] Med 10/10/19 16:21 Discontinued 15 gm PO PRN PRN Dextrose 50%-Water Syringe [D50W 50 ml Abboject] Med 10/10/19 16:21 Discontinued 25 ml IV PRN PRN Metoprolol Tartrate 25 mg [Lopressor 25MG Tab] Med 10/10/19 12:00 Discontinued 25 mg PO 1200 Multivitamins,Therapeutic Tab* [Theragran Multivitamin* Med 10/10/19 12:00 Discontinued ] 1 tab PO DAILY@1200 Sitagliptin Phosphate 50 MG [Januvia 50 MG] Med 10/10/19 22:00 Discontinued 50 mg PO HS Patient Care Notes (Last 24 hours) 10/10/19 17:05 Nursing Note by Isaias Zuniga SNUFF GRINDER reported accucheck of 42. This nurse called lab for a stat glucose draw and rechecked with different machine. This nurse got result of 37. Glutose gel given. EMS in room to transport pt and accucheck was rechecked and found to be 66. 25 mL of D50 given and after approx 10 minutes FSBS [id number]. Initialized on 10/10/19 17:05 - END OF NOTE - Vitals & Intake/Output Vital Signs: Vital Signs Temperature 98.5 F 10/10/19 15:00 Pulse Rate 91 H 10/10/19 15:00 Respiratory Rate 21 10/10/19 15:00 Blood Pressure 105/53 10/10/19 15:00 O2 Sat by Pulse Oximetry 96 10/10/19 15:00 Intake & Output: Intake & Output 10/09/19 10/10/19 10/11/19 10/12/19 11:59 11:59 11:59 11:59 Intake Total 2827 Output Total 1100 575 Balance 1727 -575 Weight 68.039 kg 68.039 kg - Lab Result Diagrams: 10/10/19 04:45 10/10/19 05:00 Lab Results-Last 24 Hrs: Accuchecks Accucheck Value: 42 Lab Results-Last 24 Hours 10/10/19 Range/Units 16:22 Glucose 33 L* (74-106) mg/dL Micro Results-Entire Visit: Microbiology 10/09/19 11:57 Blood Culture - Preliminary Blood NO GROWTH TO DATE 10/09/19 11:47 Blood Culture - Preliminary Blood NO GROWTH TO DATE Accuchecks Accucheck Value: 42 - Procedures and Test Procedures and Tests throughout Hospitalization: Therapy Orders & Screens 10/09/19 16:00 OT Screen per Nursing Assess ONCE Comment: Protocol Order Physician Instructions: Greater than 3 points order OT Admission Screening Reason For Exam: Triggered on Admission Diagnosis: Sepsis Open Wound/Cellutlitis/Pressure Ulcers: No Acute Fx/ORIF/Change in wt bearing status: Yes Severe MUSCULOSKELETAL pain: No ADL Dysfunction: Yes Acute CVA w/Hemiparesis/Hemiplegia: No Decreased Functional Mobility/Strength: Yes Sprain/Strain: No Acute Post-op Mobility Dysfunction: No Total Points: 9 PT Screen per Nursing Assess ONCE Comment: Protocol Order Physician Instructions: Greater than 3 points order PT Admission Screenin Reason For Exam: Triggered on Admission Diagnosis: Sepsis Open Wound/Cellutlitis/Pressure Ulcers: No Acute Fx/ORIF/Change in wt bearing status: Yes Severe MUSCULOSKELETAL pain: No ADL Dysfunction: Yes Acute CVA w/Hemiparesis/Hemiplegia: No Decreased Functional Mobility/Strength: Yes Sprain/Strain: No Acute Post-op Mobility Dysfunction: No Total Points: 9 Discharge Exam General Appearance: no apparent distress, alert Neurologic Exam: alert, oriented x 3, cooperative, normal mood/affect, nml cerebellar function, sensation nml, No motor deficits Eye Exam: PERRL, EOMI, eyes nml inspection Ears, Nose, Throat Exam: normal ENT inspection, pharynx normal, moist mucous membranes Neck Exam: normal inspection, non-tender, supple, full range of motion Respiratory Exam: normal breath sounds, lungs clear, No respiratory distress Cardiovascular Exam: regular rate/rhythm, normal heart sounds Gastrointestinal/Abdomen Exam: soft, No tenderness, No mass Male Genitalia Exam: deferred Rectal Exam: deferred Back Exam: normal inspection, normal range of motion, No CVA tenderness, No vertebral tenderness Extremity Exam: normal inspection, normal range of motion Skin Exam: normal color, warm, dry Final Diagnosis/Problem List - Final Discharge Diagnosis/Problem (1) Sepsis Status: Acute (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 Status: Acute Code(s): T84.59XA - INFECT/INFLM REACTION DUE TO OTH INTERNAL JOINT PROSTH, INIT; Z96.649 - PRESENCE OF UNSPECIFIED ARTIFICIAL HIP JOINT - Discharge Discharge Date: 10/10/19 Disposition: DC TO OTHER HOSP Condition: Stable Prescriptions: No Action Insulin Detemir [Levemir] 35 unit SQ QAM Simvastatin 10 mg PO HS Gabapentin [Neurontin] 600 mg PO QID Multivitamin [Multi-Vitamin Daily] 1 tab PO 1200 Metoprolol Tartrate 25 mg [Lopressor 25MG Tab] 25 mg PO 1200 Lisinopril 5 mg [Zestril 5 MG] 10 mg PO BID Ferrous Sulfate 325 mg PO DINNER Metformin HCl 1,000 mg PO BIDWMEALS Clopidogrel Bisulfate 75 mg [PLAVIX 75 MG Tablet] 75 mg PO DAILY Nitroglycerin 0.4 mg Tablet [Nitrostat 0.4 MG Tablet] 0.4 mg SL Q5MIN PRN MR X 3 PRN PRN Reason: Chest Pain Indomethacin 25 mg [Indocin 25 MG] 25 mg PO DAILY PRN PRN PRN Reason: gout Alogliptin Benzoate [Alogliptin] 12.5 mg PO HS Rifampin 300 mg [Rifadin 300 mg] 300 mg PO BID Polyethylene Glycol 3350 17 gm [Miralax Powder 17GM PACKET] 17 gm PO DAILY Omeprazole 20 mg PO DAILY Sennosides [Senna] 8.6 mg PO BID Docusate Sodium [Stool Softener] 50 mg PO BID Aspirin [Aspirin EC] 81 mg PO BID Acetaminophen 500 mg [Tylenol Extra Strength 500 mg] 1,000 mg PO TIDPRN Vancomycin/0.9 % Sod Chloride [Vanco 1 Gram/250 ml-0.9% NaCl] 1 gm IV DAILY # 42 plast..bag Follow up with: Maria Elena TAYLOR MD [NON-STAFF PHY W/O PRIVILEGES] - 10/12/19 1:00 pm DAISY DELGADO MD [NON-STAFF PHY W/O PRIVILEGES] - 1 Week ASH ALBRECHT MD [Primary Care Provider] - 1 Week Forms: Ambulance Transport Record, Transfer Record Inter-Agency
== END 2019-10-10 16:52 | DRG 872 ==
LOC: ED 11:00 → MED SURG 14:00 → OBSVTOIN 16:45 → ICU 20:26
PROVIDERS: ADMIT General Practice; ATTEND General Practice
DX: A41.9 Sepsis, unspecified organism (principal); T84.51XD Infection and inflammatory reaction due to internal right hip prosthesis, subsequent encounter; E11.9 Type 2 diabetes mellitus without complications; I10 Essential (primary) hypertension; I25.2 Old myocardial infarction; R53.1 Weakness; R53.83 Other fatigue; R11.2 Nausea with vomiting, unspecified; R10.9 Unspecified abdominal pain; I25.10 Atherosclerotic heart disease of native coronary artery without angina pectoris; Z79.01 Long term (current) use of anticoagulants; Z79.899 Other long term (current) drug therapy
CPT/HCPCS: 36000; 36415; 80048; 80053; 81001; 82947; 82962; 83605; 83690; 84134; 84484; 85025; 87040; 93268; 96360; 96361; 96365; 96366; 96374; 99211; 99285; J1642; J1650; J2405; J2543; J2997; A9270-GY; J3370

== ENCOUNTER 2020-03-21 16:51 | Observation (INO) | payer MEDICARE, OTHER ==
--- NOTE | 2020-03-21 17:43 | ERPHSYRPT ---
- History of Present Illness Time Seen by Provider: 03/21/20 18:00 Source: patient Patient Subjective Stated Complaint: high potassium Triage Nursing Assessment: pt to ED c/o abnormal labs. states had blood drawn at [facility] today, told to come to ED for evaluation. reports hyperkalemia 6.4 per . hx hyperkalemia few years ago, pt was allergic to bactrum and that sent K+ le vels up. has not started any new meds lately. denies pain at this time. A&Ox4. pt also states recent dizziness when getting overheated. heart sounds clear. Physician History: Patient is a 74-year-old male who presents to our ED for evaluation of hyperkalemia. Patient obtained routine labs at the [facility]. Results revealed a hyperkalemia of 6.4. Patient's primary care doctor was notified. Patient was advised to come to the ED for further evaluation. Patient admits to a history of hyperkalemia a few years ago. However this was due to treatment with Bactrim. However he has not had symptoms since. No chest pain or shortness of breath. No nausea vomiting or diaphoresis. Patient voiced that he feels somewhat dizzy while outdoors during excessive heat. Otherwise he feels well. Patient voices no other complaints concerns at this time. Timing/Duration: today Severity: mild Modifying Factors: Improves With: nothing Associated Symptoms: denies symptoms Allergies/Adverse Reactions: latex Allergy (Severe, Verified 03/21/20 17:04) SORES IN MOUTH AND TONGUE sulfamethoxazole [From Bactrim] Allergy (Verified 03/21/20 17:04) trimethoprim [From Bactrim] Allergy (Verified 03/21/20 17:04) Home Medications: Gabapentin [Neurontin] 600 mg PO QID 02/07/17 [History] Insulin Detemir [Levemir] 35 unit SQ QAM 02/07/17 [History] Multivitamin [Multi-Vitamin Daily] 1 tab PO 1200 02/07/17 [History] Simvastatin 10 mg PO HS 02/07/17 [History] Ferrous Sulfate 325 mg PO DINNER 04/09/18 [History] Lisinopril 5 mg [Zestril 5 MG] 10 mg PO BID 04/09/18 [History] Metformin HCl 1,000 mg PO BIDWMEALS 04/09/18 [History] Metoprolol Tartrate 25 mg [Lopressor 25MG Tab] 25 mg PO 1200 04/09/18 [History] Clopidogrel Bisulfate 75 mg [PLAVIX 75 MG Tablet] 75 mg PO DAILY 04/12/18 [History] Alogliptin Benzoate [Alogliptin] 12.5 mg PO HS 09/20/19 [History] Aspirin [Aspirin EC] 81 mg PO BID 09/20/19 [History] Nitroglycerin 0.4 mg Tablet [Nitrostat 0.4 MG Tablet] 0.4 mg SL Q5MIN PRN MR X 3 PRN 09/20/19 [History] Hx Tetanus, Diphtheria Vaccination/Date Given: No (unknown) Hx Influenza Vaccination/Date Given: Yes Hx Pneumococcal Vaccination/Date Given: Yes Travel Risk - International Travel Have you traveled outside of the country in past 3 weeks: No - Coronavirus Screening Are you exhibiting any of the following symptoms?: No Close contact with a COVID-19 positive Pt in past 14-21 Days: No - Review of Systems Constitutional: No Symptoms, No Fever, No Chills Eyes: No Symptoms Ears, Nose, & Throat: No Symptoms Respiratory: No Symptoms, No Cough, No Dyspnea Cardiac: No Symptoms, No Chest Pain, No Edema, No Syncope Abdominal/Gastrointestinal: No Symptoms, No Abdominal Pain, No Nausea, No Vomiting, No Diarrhea Genitourinary Symptoms: No Symptoms, No Dysuria Musculoskeletal: No Symptoms, No Back Pain, No Neck Pain Skin: No Symptoms, No Rash Neurological: No Symptoms, No Dizziness, No Focal Weakness, No Sensory Changes Psychological: No Symptoms Endocrine: No Symptoms Hematologic/Lymphatic: No Symptoms Immunological/Allergic: No Symptoms All Other Systems: Reviewed and Negative - Past Medical History Pertinent Past Medical History: Yes Neurological History: Peripheral Neuropathy, Stroke ENT History: Other Cardiac History: Coronary Artery Disease, Hypertension, Myocardial Infarction ([place]) Respiratory History: No Pertinent History Endocrine Medical History: Diabetes Type II Musculoskeletal History: Arthritis, Other GI Medical History: No Pertinent History History: No Pertinent History Psycho-Social History: No Pertinent History Male Reproductive Disorders: No Pertinent History Other Medical History: Anemia,TOGIAK, chronic hip infection of prosthetic joint. 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 right hip - most recent hip sx january 2020 - Social History Smoking Status: Former smoker Exposure to second hand smoke: No Drug Use: none Patient Lives Alone: No - Nursing Vital Signs Nursing Vital Signs: Initial Vital Signs O2 Sat by Pulse Oximetry 95 03/21/20 17:54 Pain Scale Pain Intensity 0 - Physical Exam General Appearance: no apparent distress, alert Eye Exam: PERRL/EOMI, eyes nml inspection Ears, Nose, Throat Exam: normal ENT inspection, TMs normal, pharynx normal, moist mucous membranes Neck Exam: normal inspection, non-tender, supple, full range of motion Respiratory Exam: normal breath sounds, lungs clear, No respiratory distress Cardiovascular Exam: regular rate/rhythm, normal heart sounds, normal peripheral pulses Gastrointestinal/Abdomen Exam: soft, normal bowel sounds, No tenderness, No mass Back Exam: normal inspection, normal range of motion, No CVA tenderness, No vertebral tenderness Extremity Exam: normal inspection, normal range of motion, pelvis stable Neurologic Exam: alert, oriented x 3, cooperative, normal mood/affect, nml cerebellar function, nml station & gait, sensation nml, No motor deficits Skin Exam: normal color, warm, dry, No rash Lymphatic Exam: No adenopathy SpO2 Interpretation: normal SpO2: 95 O2 Delivery: Room Air - Course Nursing assessment & vital signs reviewed: Yes EKG Interpreted by Me: RATE (65), Sinus Rhythm, NORMAL AXIS, NORMAL INTERVALS Ordered Tests: Active Orders 24 hr Category Date Time Status [employer] Supervisor STAT Care 03/21/20 18:00 Active EKG-ER Only STAT Care 03/21/20 18:00 Active IV Insertion STAT Care 03/21/20 17:59 Active Nursing [Miscellaneous Nursing Order] ROUTINE Care 03/21/20 18:34 Active CBC W DIFF Stat Lab 03/21/20 17:10 Completed CMP Stat Lab 03/21/20 17:10 Completed Respiratory Therapy Assessment DAILY RT 03/21/20 19:02 Active Transfer Order Routine Transfer 03/21/20 Ordered Medication Summary Generic Name Dose Route Start Last Admin Trade Name Kimberly PRN Reason Stop Dose Admin Sodium Bicarbonate 75 meq/ 575 mls @ 75 mls/hr 03/21/20 18:30 03/21/20 18:49 Dextrose/Sodium Chloride IV 04/20/20 18:29 75 mls/hr .[id number] PAMELA 75 mls/hr Administration Discontinued Medications Generic Name Dose Route Start Last Admin Trade Name Kimberly PRN Reason Stop Dose Admin Albuterol Sulfate 2.5 mg 03/21/20 18:36 03/21/20 18:59 Proventil 2.5 Mg/3 Ml Neb IH 03/21/20 18:37 2.5 mg STAT ONE Administration Albuterol Sulfate Confirm 03/21/20 18:56 Proventil 2.5 Mg/3 Ml Neb Administered 03/21/20 18:57 Dose 2.5 mg IH .STK-MED ONE Calcium Gluconate 1,000 mg 03/21/20 18:28 03/21/20 18:47 Calcium Gluconate 10% 1000 Mg IV 03/21/20 18:29 1,000 mg STAT ONE Administration Calcium Gluconate Confirm 03/21/20 18:44 Calcium Gluconate 10% 1000 Mg Administered 03/21/20 18:45 Dose 1,000 mg IV .STK-MED ONE Furosemide 20 mg 03/21/20 18:31 03/21/20 18:47 Lasix 40 Mg/4 Ml IV 03/21/20 18:32 20 mg STAT ONE Administration Furosemide Confirm 03/21/20 18:44 Lasix 40 Mg/4 Ml Administered 03/21/20 18:45 Dose 40 mg .ROUTE .STK-MED ONE Dextrose/Sodium Chloride Confirm 03/21/20 18:44 Dextrose 5%-1/2ns Iv Soln. 500 Ml Administered 03/21/20 18:45 Dose 500 mls @ ud IV .STK-MED ONE Sodium Bicarbonate Confirm 03/21/20 18:44 Sodium Bicarbonate 50 Meq/50 Ml Vial Administered 03/21/20 18:45 Dose 100 meq .ROUTE .STK-MED ONE Sodium Polystyrene Sulfonate 30 g 03/21/20 18:29 03/21/20 18:47 Kayexylate 15 Gm/60 Ml PO 03/21/20 18:30 30 g STAT ONE Administration Sodium Polystyrene Sulfonate Confirm 03/21/20 18:44 Kayexylate 15 Gm/60 Ml Administered 03/21/20 18:45 Dose 30 g .ROUTE .STK-MED ONE Lab/Rad Data: Laboratory Result Diagrams 03/21/20 17:10 03/21/20 17:10 Laboratory Results 03/21/20 03/21/20 Range/Units 17:10 17:10 WBC 5.6 (4.0-10.5) K/mm3 RBC 3.01 L (4.1-5.6) M/mm3 Hgb 8.2 L (12.5-18.0) gm/dl Hct 26.8 L (42-50) % MCV 89.0 (78-100) fl MCH 27.2 (26-32) pg MCHC 30.6 L (32-36) g/dl RDW 15.1 H (11.5-14.0) % Plt Count 345 (150-450) K/mm3 MPV 9.3 (7.5-11.0) fl Gran % 61.8 (36.0-66.0) % Eos # (Auto) 0.26 (0-0.5) Absolute Lymphs (auto) 1.36 (1.0-4.6) Absolute Monos (auto) 0.48 (0.0-1.3) Lymphocytes % 24.5 (24.0-44.0) % Monocytes % 8.6 (0.0-12.0) % Eosinophils % 4.7 (0.00-5.0) % Basophils % 0.4 (0.0-0.4) % Absolute Granulocytes 3.43 (1.4-6.9) Basophils # 0.02 (0-0.4) Sodium 138 (137-145) mmol/L Potassium 6.4 H* (3.5-5.1) mmol/L Chloride 114 H (98-107) mmol/L Carbon Dioxide 18 L (22-30) mmol/L Anion Gap 12.7 (5-15) MEQ/L BUN 38 H (9-20) mg/dL Creatinine 1.54 H (0.66-1.25) mg/dL Estimated GFR 47.4 ML/MIN Glucose 81 (74-106) mg/dL Calcium 9.3 (8.4-10.2) mg/dL Total Bilirubin 0.40 (0.2-1.3) mg/dL AST 31 (17-59) U/L ALT 18 (0-50) U/L Alkaline Phosphatase 96 (38-126) U/L Serum Total Protein 7.1 (6.3-8.2) g/dL Albumin 3.6 (3.5-5.0) g/dL - Progress Progress: improved Progress Note: 03/21/20 19:35 Patient reassessed. He remains well. Work-up reveals a hyperkalemia with acute renal injury. The cause of the hyperkalemia is not well known at this time. We will admit patient for further evaluation and treatment Case discussed with Dr. Roman who accepts admission to [facility] for further evaluation and treatment. Plan of care discussed with patient. He agrees with admission. Patient voiced no other complaints concerns at this time. Discussed with Dr.: Cathi Will see patient in: hospital (observation) Counseled pt/family regarding: lab results, diagnosis, rad results - Departure Departure Disposition: Observation Clinical Impression: Hyperkalemia, Acute renal injury, Anemia Condition: Stable Critical Care Time: Yes Critical Care Time(excluding separately billable procedures): Critical 75-104 mins Referrals: ASH ALBRECHT MD [Primary Care Provider] - Additional Instructions: Discharge/Care Plan ANKITA MORTON was seen on 03/21/20 in the Emergency Room. The patient was counseled regarding Diagnosis,Lab results, Imaging studies, need for follow up and when to return to the Emergency Room. Prescriptions given: Discharge Note I have spoken with the patient and/or caregivers. I have explained the patient's condition, diagnosis and treatment plan based on the information available to me at this time. I have answered the patient's and/or caregiver's questions and addressed any concerns. The patient and/or caregivers have as good understanding of the patient's diagnosis, condition and treatment plan as can be expected at this point. The vital signs have been stable. The patient's condition is stable and appropriate for discharge from the emergency department. The patient will pursue further outpatient evaluation with the primary care physician or other designated or consulting physician as outlined in the discharge instructions. The patient and/or caregivers are agreeable to this plan of care and follow-up instructions have been explained in detail. The patient and/or caregivers have received these instruction. The patient/and or caregivers are aware that any significant change in condition or worsening of symptoms should prompt an immediate return to this or the closest emergency department or call 911.
[2020-03-21 18:15] LABS: Absolute Neutrophil Ct (ANC) 3.43 (1.4-6.9); BASOPHIL % 0.4 % (0.0-0.4); Basophil (Absolute #) 0.02 (0-0.4); Eosinophil % 4.7 % (0.00-5.0); Eosinophil (Absolute #) 0.26 (0-0.5); Hematocrit 26.8 % (42-50); Hemoglobin 8.2 gm/dl (12.5-18.0); Lymphocyte (Absolute #) 1.36 (1.0-4.6); Lymphocytes % 24.5 % (24.0-44.0); Mean Corpuscular Hemoglobin 27.2 pg (26-32); Mean Corpuscular Hgb Concent. 30.6 g/dl (32-36); Mean Platelet Volume 9.3 fl (7.5-11.0); Monocyte (Absolute #) 0.48 (0.0-1.3); Monocytes % 8.6 % (0.0-12.0); Neutrophil % 61.8 % (36.0-66.0); Platelet Count 345 K/mm3 (150-450); Red Blood Count 3.01 M/mm3 (4.1-5.6); Red Cell Distribution Width 15.1 % (11.5-14.0); White Blood Count 5.6 K/mm3 (4.0-10.5)
[2020-03-21 18:18] LABS: ALBUMIN 3.6 g/dL (3.5-5.0); ANION GAP 12.7 MEQ/L (5-15); BILIRUBIN,TOTAL 0.4 mg/dL (0.2-1.3); Calcium 9.3 mg/dL (8.4-10.2); Creatinine 1 1.54 mg/dL (0.66-1.25); Total Protein 7.1 g/dL (6.3-8.2)
[2020-03-21 18:20] LABS: Potassium 6.4 mmol/L (3.5-5.1)
[2020-03-21] MEDS ORDERED: Calcium Gluconate 10% 1000 MG IV ONE ×2 (18:28→18:44)
[2020-03-21] MEDS ORDERED: Kayexylate 15 GM/60 ML PO ONE (18:29)
[2020-03-21] MEDS ORDERED: Sodium Bicarbonate 50 MEQ/50 ML VIAL*** 75 MEQ in Dextrose 5%-1/2NS IV Soln. 500 ML 500 ML IV SCH (18:30)
[2020-03-21] MEDS ORDERED: Lasix 40 MG/4 ML IV ONE (18:31)
[2020-03-21] MEDS ORDERED: PROVENTIL 2.5 MG/3 ML NEB IH ONE ×2 (18:36→18:56)
[2020-03-21] MEDS ORDERED: Kayexylate 15 GM/60 ML ONE (18:44)
[2020-03-21] MEDS ORDERED: Sodium Bicarbonate 50 MEQ/50 ML VIAL ONE (18:44)
[2020-03-21] MEDS ORDERED: Lasix 40 MG/4 ML ONE (18:44)
[2020-03-21] MEDS ORDERED: Dextrose 5%-1/2NS IV Soln. 500 ML 500 ML IV ONE (18:44)
[2020-03-21] MEDS ORDERED: MORPHINE SULFATE 2 MG INJ IV PRN (20:30)
[2020-03-21 20:46] LABS: Appearance CLEAR (CLEAR); Bilirubin NEGATIVE (NEGATIVE); Blood NEGATIVE Ery/ul (0-5); Glucose NEGATIVE (NEGATIVE); Ketones NEGATIVE (NEGATIVE); Leukocyte Esterase NEGATIVE (NEGATIVE); Mucus SLIGHT /HPF (NEGATIVE); Nitrite NEGATIVE (NEGATIVE); Protein,Urine Dip NEGATIVE (Negative); Specific Gravity 1.006 (1.005-1.025); Urobilinogen NEGATIVE mg/dL (0-1)
[2020-03-21] MEDS: Lopressor 25MG Tab PO SCH (22:43)
[2020-03-21] MEDS: NEURONTIN 300 MG PO SCH (22:44)
[2020-03-21] MEDS: Zestril 10 MG PO SCH (22:44)
[2020-03-21] MEDS: Zocor 10MG PO SCH (22:44)
[2020-03-22] MEDS: Sodium Chloride 0.9% 1000 ML 1,000 ML IV SCH ×3 (03:09→22:41)
[2020-03-22 05:36] LABS: ALBUMIN 3.2 g/dL (3.5-5.0); ALKALINE PHOSPHATASE 87 U/L (38-126); ANION GAP 11.3 MEQ/L (5-15); BLOOD UREA NITROGEN 37 mg/dL (9-20); CHLORIDE 108 mmol/L (98-107); Calcium 9.3 mg/dL (8.4-10.2); Carbon Dioxide 24 mmol/L (22-30); Creatinine 1 1.32 mg/dL (0.66-1.25); Glucose 196 mg/dL (74-106); Potassium 4.8 mmol/L (3.5-5.1); SGOT/AST 30 U/L (17-59); SGPT/ALT 16 U/L (0-50); SODIUM 139 mmol/L (137-145); Total Protein 6.5 g/dL (6.3-8.2)
[2020-03-22 07:18] LABS: TROPONIN < 0.012 ng/mL (0.000-0.034)
[2020-03-22 07:27] LABS: BASOPHIL % 0.2 % (0.0-0.4); Basophil (Absolute #) 0.01 (0-0.4); Eosinophil % 6.3 % (0.00-5.0); Eosinophil (Absolute #) 0.29 (0-0.5); Hematocrit 25.6 % (42-50); Hemoglobin 7.9 gm/dl (12.5-18.0); Lymphocyte (Absolute #) 1.31 (1.0-4.6); Lymphocytes % 28.4 % (24.0-44.0); Mean Cell Volume 88.3 fl (78-100); Mean Corpuscular Hemoglobin 27.2 pg (26-32); Mean Corpuscular Hgb Concent. 30.9 g/dl (32-36); Mean Platelet Volume 9.4 fl (7.5-11.0); Monocyte (Absolute #) 0.41 (0.0-1.3); Monocytes % 8.9 % (0.0-12.0); Neutrophil % 56.2 % (36.0-66.0); Platelet Count 298 K/mm3 (150-450); Red Cell Distribution Width 14.9 % (11.5-14.0); White Blood Count 4.6 K/mm3 (4.0-10.5)
--- NOTE | 2020-03-22 08:04 | PCM.HP ---
History of Present Illness - Chief Complaint Chief Complaint: hyperkalemia, acute kidney injury History of Present Illness: is a 74 year old male who has no local physician, was contacted by the [place] that his potassium was 6.4 so he came to ER, he denies any specific complaints other than some muscle cramps. He has had multiple surgeries including right hip replacement that has been complicated and multiple procedures, he denies taking any supplemental potassium, no new meds. He also denies nsaid use, no blood in stool but does have some dark stools occasionally. he had a colonoscopy with polyp removal last year at [facility]. - Review of Systems Constitutional: Weight Loss, No Fever, No Chills Respiratory: No Cough, No Short Of Breath Cardiac: No Chest Pain, No Edema, No Syncope Abdominal/Gastrointestinal: No Abdominal Pain, No Nausea, No Vomiting, No Diarrhea Skin: No Rash All Other Systems: Reviewed and Negative Medications & Allergies Home Medications: Home Medication List Gabapentin [Neurontin] 600 mg PO QID 02/07/17 [History Confirmed 03/21/20] Insulin Detemir [Levemir] 33 unit SQ QAM 02/07/17 [History Confirmed 03/21/20] Multivitamin [Multi-Vitamin Daily] 1 tab PO 1200 02/07/17 [History Confirmed 03/21/20] Simvastatin 10 mg PO HS 02/07/17 [History Confirmed 03/21/20] Ferrous Sulfate 325 mg PO DINNER 04/09/18 [History Confirmed 03/21/20] Lisinopril 5 mg [Zestril 5 MG] 10 mg PO BID 04/09/18 [History Confirmed 03/21/20] Metformin HCl 1,000 mg PO BIDWMEALS 04/09/18 [History Confirmed 03/21/20] Metoprolol Tartrate 25 mg [Lopressor 25MG Tab] 25 mg PO BID 04/09/18 [History Confirmed 03/21/20] Clopidogrel Bisulfate 75 mg [PLAVIX 75 MG Tablet] 75 mg PO DAILY 04/12/18 [History Confirmed 03/21/20] Alogliptin Benzoate [Alogliptin] 12.5 mg PO DINNER 09/20/19 [History Confirmed 03/21/20] Nitroglycerin 0.4 mg Tablet [Nitrostat 0.4 MG Tablet] 0.4 mg SL Q5MIN PRN MR X 3 PRN 09/20/19 [History Confirmed 03/21/20] Omeprazole 20 mg PO DAILY 03/21/20 [History Confirmed 03/21/20] cefaDROXiL [Cefadroxil] 500 mg PO BID 03/21/20 [History Confirmed 03/21/20] Allergies/Adverse Reactions: Allergies Allergy/AdvReac Type Severity Reaction Status Date / Time latex Allergy Severe SORES IN Verified 03/21/20 17:04 MOUTH AND TONGUE sulfamethoxazole Allergy Intermediate Weakness Verified 03/21/20 20:47 [From Bactrim] trimethoprim [From Bactrim] Allergy Verified 03/21/20 17:04 - Past Medical History Past Medical History: Yes Neurological History: Peripheral Neuropathy, Stroke ENT History: Other Cardiac History: Coronary Artery Disease, Hypertension, Myocardial Infarction ([place]) Respiratory History: No Pertinent History Endocrine Medical History: Diabetes Type II Musculoskelatal History: Arthritis, Other GI Medical History: No Pertinent History History: No Pertinent History Pyscho-Social History: No Pertinent History Male Reproductive Disorders: No Pertinent History Comment: Anemia,HYDABURG, chronic hip infection of prosthetic joint,sepsis. - Past Surgical History Past Surgical History: Yes Neuro Surgical History: No Pertinent History Cardiac History: Cardiac Catheterization Respiratory Surgery: No Pertinent History GI Surgical History: Appendectomy, Cholecystectomy Genitourinary Surgical Hx: No Pertinent History Musculskeletal Surgical Hx: Orthopedic Surgery Male Surgical History: No Pertinent History Other Surgical History: Back surgery 2010, Neck surgery 2007, Left knee meniscal repair 2004, Right hip repair 1989, 1990, 2003, 10/11/2012, 01/10/2013...Fx: Pelvis, Ribs, Vertabrae, Right hip from tree falling on him in 1989. right hip - most recent hip sx january 2020, left knee replacement - Social History Smoking Status: Former smoker Exposure to second hand smoke: No Alcohol: None Drug Use: none - Physical Exam Vital Signs: Vital Signs - 24 hr Temp Pulse Resp BP Pulse Ox 03/22/20 07:51 97.8 F 54 L 13 149/67 96 03/22/20 06:39 94 L 03/22/20 04:00 18 03/22/20 03:41 98.0 F 62 18 118/57 94 L 03/22/20 00:00 17 03/21/20 23:43 97.8 F 64 17 131/63 96 03/21/20 20:59 98.0 F 56 L 18 129/68 99 03/21/20 20:04 95 03/21/20 20:02 56 L 19 120/61 99 03/21/20 18:59 56 L 16 122/63 99 03/21/20 17:55 64 14 112/55 97 General Appearance: no apparent distress, alert Respiratory Exam: normal breath sounds, lungs clear, No respiratory distress Cardiovascular Exam: regular rate/rhythm, normal heart sounds, normal peripheral pulses Gastrointestinal/Abdomen Exam: soft, normal bowel sounds, No tenderness, No mass Extremity Exam: other (well healed surgical scar to right hip) Results - Labs Lab/Micro Results: Lab Results-Last 24 Hours 03/21/20 03/21/20 03/21/20 Range/Units 17:10 17:10 20:15 WBC 5.6 (4.0-10.5) K/mm3 RBC 3.01 L (4.1-5.6) M/mm3 Hgb 8.2 L (12.5-18.0) gm/dl Hct 26.8 L (42-50) % MCV 89.0 (78-100) fl MCH 27.2 (26-32) pg MCHC 30.6 L (32-36) g/dl RDW 15.1 H (11.5-14.0) % Plt Count 345 (150-450) K/mm3 MPV 9.3 (7.5-11.0) fl Gran % 61.8 (36.0-66.0) % Eos # (Auto) 0.26 (0-0.5) Absolute Lymphs (auto) 1.36 (1.0-4.6) Absolute Monos (auto) 0.48 (0.0-1.3) Lymphocytes % 24.5 (24.0-44.0) % Monocytes % 8.6 (0.0-12.0) % Eosinophils % 4.7 (0.00-5.0) % Basophils % 0.4 (0.0-0.4) % Absolute Granulocytes 3.43 (1.4-6.9) Basophils # 0.02 (0-0.4) Sodium 138 (137-145) mmol/L Potassium 6.4 H* (3.5-5.1) mmol/L Chloride 114 H (98-107) mmol/L Carbon Dioxide 18 L (22-30) mmol/L Anion Gap 12.7 (5-15) MEQ/L BUN 38 H (9-20) mg/dL Creatinine 1.54 H (0.66-1.25) mg/dL Estimated GFR 47.4 ML/MIN Glucose 81 (74-106) mg/dL Calcium 9.3 (8.4-10.2) mg/dL Total Bilirubin 0.40 (0.2-1.3) mg/dL AST 31 (17-59) U/L ALT 18 (0-50) U/L Alkaline Phosphatase 96 (38-126) U/L Troponin I (0.000-0.034) ng/mL Serum Total Protein 7.1 (6.3-8.2) g/dL Albumin 3.6 (3.5-5.0) g/dL Urine Color STRAW (YELLOW) Urine Appearance CLEAR (CLEAR) Urine pH 5.0 (5-6) Ur Specific [place] 1.006 (1.005-1.025) Urine Protein NEGATIVE (Negative) Urine Ketones NEGATIVE (NEGATIVE) Urine Blood NEGATIVE (0-5) Curtis/ul Urine Nitrite NEGATIVE (NEGATIVE) Urine Bilirubin NEGATIVE (NEGATIVE) Urine Urobilinogen NEGATIVE (0-1) mg/dL Ur Leukocyte Esterase NEGATIVE (NEGATIVE) Urine WBC (Auto) NONE (0-5) /HPF Urine RBC (Auto) NONE (0-2) /HPF U Epithel Cells (Auto) NONE (FEW) /HPF Urine Bacteria (Auto) NONE (NEGATIVE) /HPF Urine Mucus (Auto) SLIGHT (NEGATIVE) /HPF Urine Culture Reflexed ORDERED SEPARATELY (NO) Urine Glucose NEGATIVE (NEGATIVE) mg/dL 03/22/20 03/22/20 Range/Units 04:46 04:46 WBC 4.6 (4.0-10.5) K/mm3 RBC 2.90 L (4.1-5.6) M/mm3 Hgb 7.9 L (12.5-18.0) gm/dl Hct 25.6 L (42-50) % MCV 88.3 (78-100) fl MCH 27.2 (26-32) pg MCHC 30.9 L (32-36) g/dl RDW 14.9 H (11.5-14.0) % Plt Count 298 (150-450) K/mm3 MPV 9.4 (7.5-11.0) fl Gran % 56.2 (36.0-66.0) % Eos # (Auto) 0.29 (0-0.5) Absolute Lymphs (auto) 1.31 (1.0-4.6) Absolute Monos (auto) 0.41 (0.0-1.3) Lymphocytes % 28.4 (24.0-44.0) % Monocytes % 8.9 (0.0-12.0) % Eosinophils % 6.3 H (0.00-5.0) % Basophils % 0.2 (0.0-0.4) % Absolute Granulocytes 2.60 (1.4-6.9) Basophils # 0.01 (0-0.4) Sodium 139 (137-145) mmol/L Potassium 4.8 D (3.5-5.1) mmol/L Chloride 108 H (98-107) mmol/L Carbon Dioxide 24 (22-30) mmol/L Anion Gap 11.3 (5-15) MEQ/L BUN 37 H (9-20) mg/dL Creatinine 1.32 H (0.66-1.25) mg/dL Estimated GFR 56.7 ML/MIN Glucose 196 H (74-106) mg/dL Calcium 9.3 (8.4-10.2) mg/dL Total Bilirubin 0.30 (0.2-1.3) mg/dL AST 30 (17-59) U/L ALT 16 (0-50) U/L Alkaline Phosphatase 87 (38-126) U/L Troponin I < 0.012 (0.000-0.034) ng/mL Serum Total Protein 6.5 (6.3-8.2) g/dL Albumin 3.2 L (3.5-5.0) g/dL Urine Color (YELLOW) Urine Appearance (CLEAR) Urine pH (5-6) Ur Specific [place] (1.005-1.025) Urine Protein (Negative) Urine Ketones (NEGATIVE) Urine Blood (0-5) Curtis/ul Urine Nitrite (NEGATIVE) Urine Bilirubin (NEGATIVE) Urine Urobilinogen (0-1) mg/dL Ur Leukocyte Esterase (NEGATIVE) Urine WBC (Auto) (0-5) /HPF Urine RBC (Auto) (0-2) /HPF U Epithel Cells (Auto) (FEW) /HPF Urine Bacteria (Auto) (NEGATIVE) /HPF Urine Mucus (Auto) (NEGATIVE) /HPF Urine Culture Reflexed (NO) Urine Glucose (NEGATIVE) mg/dL Assessment/Plan (1) Hyperkalemia Current Visit: Yes Status: Acute Assessment & Plan: etiology unclear, not on supplemental potassium or K sparing diuretics etc. renal consult pending, will order aldosterone and random cortisol levels. Code(s): E87.5 - HYPERKALEMIA (2) Acute renal injury Current Visit: Yes Status: Acute Assessment & Plan: mild increase in bun/cr not likely to account for increased serum K Code(s): N17.9 - ACUTE KIDNEY FAILURE, UNSPECIFIED (3) Anemia Current Visit: Yes Status: Acute Assessment & Plan: he appears to not know of history of anemia or workup but does take [facility] supplement [facility] and on review of records has a long history of low hgb, up to date on c-scope. will check iron profile, b12 and folate and start ppi due to intermittent dark stools etc. might consider outpatient EGD if no alternate cause found. Code(s): D64.9 - ANEMIA, UNSPECIFIED
[2020-03-22] MEDS: PROTONIX 40 MG IV IV SCH (08:06)
--- NOTE | 2020-03-22 08:59 | XRAY ---
Indication: Weakness. Anemia. Comparison: April 10, 2018. Portable chest remains clear. Heart is not enlarged. Bony thorax intact again with lower cervical fusion surgery. New electronic device overlies the left hilum. Impression: Nonacute chest with chronic features.
[2020-03-22] MEDS ORDERED: MEDICATION INTERVENTION PO SCH (09:45)
[2020-03-22 09:54] LABS: Ferritin 42.3 ng/mL (17.9-464); Vitamin B12 253 pg/mL (239-931)
[2020-03-22 09:58] LABS: Folate (Folic Acid) > 20.0 ng/mL (2.76 - >20)
[2020-03-22] MEDS: PLAVIX 75 MG Tablet PO SCH (09:59)
[2020-03-22] MEDS: Lopressor 25MG Tab PO SCH ×2 (09:59→21:18)
[2020-03-22] MEDS: Zestril 10 MG PO SCH ×2 (09:59→21:19)
[2020-03-22] MEDS: Lantus Insulin SQ SCH (09:59)
[2020-03-22] MEDS: NEURONTIN 300 MG PO SCH ×4 (09:59→21:18)
[2020-03-22] MEDS ORDERED: CEFADROXIL 500 MG PO SCH (10:00)
[2020-03-22] MEDS ORDERED: INSULIN DETEMIR 33 UNIT SQ SCH (10:00)
[2020-03-22] MEDS ORDERED: FEOSOL 325 MG PO SCH (17:00)
[2020-03-22] MEDS: HUMALOG SQ PRN ×2 (17:53→21:20)
[2020-03-22] MEDS: PATIENT OWN MEDICATION PO SCH (21:18)
[2020-03-22] MEDS: Zocor 10MG PO SCH (21:19)
[2020-03-23 08:03] VITALS: BP 145/65; PULSE 62; O2SAT 99
--- NOTE | 2020-03-23 08:40 | PCM.DS ---
Discharge Summary Date of Admission: 03/21/20 20:22 Admitting Physician: ASH ALBRECHT Consults: Consults on Case 03/22/20 07:02 Consult Nephrology ROUTINE Primary Care Provider: ASH ALBRECHT Allergies Allergies latex Allergy (Severe, Verified 03/21/20 17:04) SORES IN MOUTH AND TONGUE sulfamethoxazole [From Bactrim] Allergy (Intermediate, Verified 03/21/20 20:47) Weakness trimethoprim [From Bactrim] Allergy (Verified 03/21/20 17:04) Hospital Summary - Hospital Course Hospital Course: patient admitted with elevated potassium, no complaints. improved with hydration. has chronic iron def anemia, records received and he has had egd and colonoscopy within the last 6 months at [facility]. - Vitals & Intake/Output Vital Signs: Vital Signs Temperature 98.5 F 03/23/20 08:00 Pulse Rate 62 03/23/20 08:00 Respiratory Rate 18 03/23/20 08:00 Blood Pressure 145/65 03/23/20 08:00 O2 Sat by Pulse Oximetry 99 03/23/20 08:00 Intake & Output: Intake & Output 03/20/20 03/21/20 03/22/20 03/23/20 11:59 11:59 11:59 11:59 Intake Total 604 2987 Output Total 1650 1700 Balance -1046 1287 Weight 69.4 kg - Lab Result Diagrams: 03/22/20 04:46 03/22/20 04:46 Lab Results-Last 24 Hrs: Accuchecks Date 03/22/20 Date 03/22/20 Time 16:30 Time 11:30 Accucheck Value: 187 Accucheck Value: 94 Accucheck Value: 61 Accucheck Value: 250 Accucheck Value: 250 Accucheck Value: 233 Lab Results-Last 24 Hours 03/22/20 03/22/20 03/22/20 Range/Units 04:40 04:40 04:40 Retic Count 0.68 (0.36-2.02) % Hemoglobin A1c (4.5-6.0) % Iron 26 L (49-181) ug/dL Ferritin 42.3 (17.9-464) ng/mL Vitamin B12 253 (239-931) pg/mL Folic Acid > 20.0 (2.76 - >20) ng/mL 03/22/20 Range/Units 05:00 Retic Count (0.36-2.02) % Hemoglobin A1c 6.81 H (4.5-6.0) % Iron (49-181) ug/dL Ferritin (17.9-464) ng/mL Vitamin B12 (239-931) pg/mL Folic Acid (2.76 - >20) ng/mL Micro Results-Entire Visit: Microbiology 03/21/20 20:15 Urine Culture - Preliminary Catherized NO GROWTH TO DATE Accuchecks Date 03/22/20 Date 03/22/20 Time 16:30 Time 11:30 Accucheck Value: 187 Accucheck Value: 94 Accucheck Value: 61 Accucheck Value: 250 Accucheck Value: 250 Accucheck Value: 233 - Radiology Exams Ordered Rad Exams-Entire Visit: Radiology Procedures Category Date Time Status CHEST 1 VIEW (PORTABLE) Routine Exams 03/22/20 08:06 Completed - Procedures and Test Procedures and Tests throughout Hospitalization: Therapy Orders & Screens 03/21/20 19:02 Respiratory Therapy Assessment DAILY Comment: 03/22/20 23:39 Oxygen NASAL CANNULA 2 lpm Comment: Diagnosis: hyperkalemia, acute kidney injury Discharge Exam General Appearance: no apparent distress, alert Respiratory Exam: normal breath sounds, lungs clear, No respiratory distress Cardiovascular Exam: regular rate/rhythm, normal heart sounds Gastrointestinal/Abdomen Exam: soft, No tenderness, No mass Skin Exam: normal color Final Diagnosis/Problem List - Final Discharge Diagnosis/Problem (1) Hyperkalemia Current Visit: Yes Status: Acute Assessment & Plan: resolved Code(s): E87.5 - HYPERKALEMIA (2) Acute renal injury Current Visit: Yes Status: Acute Code(s): N17.9 - ACUTE KIDNEY FAILURE, UNSPECIFIED (3) Anemia Current Visit: Yes Status: Acute Assessment & Plan: increase iron to bid, cautioned might need stool softener Code(s): D64.9 - ANEMIA, UNSPECIFIED - Discharge Disposition: Home, Self-Care Condition: Stable Prescriptions: New Ferrous Sulfate 325 mg [Feosol 325 mg] 325 mg PO BID #60 tablet Continue Insulin Detemir [Levemir] 33 unit SQ QAM Simvastatin 10 mg PO HS Gabapentin [Neurontin] 600 mg PO QID Multivitamin [Multi-Vitamin Daily] 1 tab PO 1200 Metoprolol Tartrate 25 mg [Lopressor 25MG Tab] 25 mg PO BID Lisinopril 5 mg [Zestril 5 MG] 10 mg PO BID Ferrous Sulfate 325 mg PO DINNER Metformin HCl 1,000 mg PO BIDWMEALS Clopidogrel Bisulfate 75 mg [PLAVIX 75 MG Tablet] 75 mg PO DAILY Nitroglycerin 0.4 mg Tablet [Nitrostat 0.4 MG Tablet] 0.4 mg SL Q5MIN PRN MR X 3 PRN PRN Reason: Chest Pain Alogliptin Benzoate [Alogliptin] 12.5 mg PO DINNER Omeprazole 20 mg PO DAILY cefaDROXiL [Cefadroxil] 500 mg PO BID Follow up with: ASH ALBRECHT MD [Primary Care Provider] - 1 Week
[2020-03-23 08:53] LABS: Absolute Neutrophil Ct (ANC) 4.46 (1.4-6.9); BASOPHIL % 0.3 % (0.0-0.4); Basophil (Absolute #) 0.02 (0-0.4); Eosinophil % 3.9 % (0.00-5.0); Eosinophil (Absolute #) 0.25 (0-0.5); Hematocrit 29.2 % (42-50); Lymphocyte (Absolute #) 1.13 (1.0-4.6); Lymphocytes % 17.7 % (24.0-44.0); Mean Cell Volume 87.2 fl (78-100); Mean Corpuscular Hemoglobin 26.9 pg (26-32); Mean Corpuscular Hgb Concent. 30.8 g/dl (32-36); Mean Platelet Volume 8.8 fl (7.5-11.0); Monocyte (Absolute #) 0.53 (0.0-1.3); Monocytes % 8.3 % (0.0-12.0); Neutrophil % 69.8 % (36.0-66.0); Platelet Count 333 K/mm3 (150-450); Red Blood Count 3.35 M/mm3 (4.1-5.6); Red Cell Distribution Width 14.7 % (11.5-14.0); White Blood Count 6.4 K/mm3 (4.0-10.5)
[2020-03-23 09:03] LABS: ANION GAP 10.3 MEQ/L (5-15); BLOOD UREA NITROGEN 24 mg/dL (9-20); CHLORIDE 109 mmol/L (98-107); Calcium 8.6 mg/dL (8.4-10.2); Carbon Dioxide 23 mmol/L (22-30); Creatinine 1 1.02 mg/dL (0.66-1.25); Glucose 227 mg/dL (74-106); Potassium 4.6 mmol/L (3.5-5.1); SODIUM 137 mmol/L (137-145)
[2020-03-23] MEDS: Zestril 10 MG PO SCH (09:20)
[2020-03-23] MEDS: PROTONIX 40 MG IV IV SCH (09:20)
[2020-03-23] MEDS: NEURONTIN 300 MG PO SCH (09:20)
[2020-03-23] MEDS: PLAVIX 75 MG Tablet PO SCH (09:20)
[2020-03-23] MEDS: Lopressor 25MG Tab PO SCH (09:20)
[2020-03-23] MEDS: Lantus Insulin SQ SCH (09:21)
[2020-03-23] MEDS: PATIENT OWN MEDICATION PO SCH (10:46)
== END 2020-03-23 10:45 | disposition home or self-care (01) ==
LOC: ED 16:51 → MED SURG 20:22
PROVIDERS: ADMIT General Practice; ATTEND General Practice
DX: E87.5 Hyperkalemia (principal); N17.9 Acute kidney failure, unspecified; E11.9 Type 2 diabetes mellitus without complications; D50.9 Iron deficiency anemia, unspecified; I10 Essential (primary) hypertension; Z79.899 Other long term (current) drug therapy; Z79.01 Long term (current) use of anticoagulants; I25.2 Old myocardial infarction; Z86.79 Personal history of other diseases of the circulatory system
CPT/HCPCS: 36000; 36415; 51702; 71045; 80048; 80053; 81001; 82088; 82533; 82607; 82728; 82746; 82962; 83036; 83540; 84484; 85025; 85045; 87086; 93005; 93041; 93268; 94640; 94762; 96365; 96374; 96375; 99285; 99291; 99292; G0378; J0610; J1817; J1940; J7609; A9270-GY

== ENCOUNTER 2021-02-12 17:33 | Observation (INO) | payer MEDICARE, OTHER ==
--- NOTE | 2021-02-12 18:11 | ERPHSYRPT ---
- History of Present Illness Time Seen by Provider: 02/12/21 17:37 Source: patient Exam Limitations: no limitations Patient Subjective Stated Complaint: abnormal labs Triage Nursing Assessment: pt to ED for abnormal labs. was called by drop hammer setter up office and referred to ED for hyperkalemia. states that they told her his K+ was 6.4 when it was drawn today. pt has no complaints at this time. Physician History: 75 years old male with history of coronary artery disease, diabetes mellitus, hypertension who was evaluated by drop hammer setter up earlier today with a lab work done which showed hyperkalemia 6.4. Patient reported was a routine visit as he was having off and on chest pain for almost 1 week and was recently placed on long-acting nitros and now his pain is better for the last few days. 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 Denies any chest pain palpitations or shortness of breath. No abdominal pain nausea or vomiting. No urinary complaints. Allergies/Adverse Reactions: latex Allergy (Severe, Verified 02/12/21 18:03) SORES IN MOUTH AND TONGUE sulfamethoxazole [From Bactrim] Allergy (Intermediate, Verified 02/12/21 18:03) Weakness trimethoprim [From Bactrim] Allergy (Verified 02/12/21 18:03) Home Medications: Gabapentin [Neurontin] 600 mg PO QID 02/07/17 [History] Insulin Detemir [Levemir] 33 unit SQ QAM 02/07/17 [History] Multivitamin [Multi-Vitamin Daily] 1 tab PO 1200 02/07/17 [History] Simvastatin 10 mg PO HS 02/07/17 [History] Ferrous Sulfate 325 mg PO DINNER 04/09/18 [History] Lisinopril 5 mg [Zestril 5 MG] 10 mg PO BID 04/09/18 [History] Metformin HCl 1,000 mg PO BIDWMEALS 04/09/18 [History] Metoprolol Tartrate 25 mg [Lopressor 25MG Tab] 25 mg PO BID 04/09/18 [History] Clopidogrel Bisulfate 75 mg [PLAVIX 75 MG Tablet] 75 mg PO DAILY 04/12/18 [History] Alogliptin Benzoate [Alogliptin] 12.5 mg PO DINNER 09/20/19 [History] Nitroglycerin 0.4 mg Tablet [Nitrostat 0.4 MG Tablet] 0.4 mg SL Q5MIN PRN MR X 3 PRN 09/20/19 [History] cefaDROXiL [Cefadroxil] 500 mg PO BID 03/21/20 [History] Isosorbide Mononitrate 30 mg [Imdur 30 MG] 30 mg PO DAILY 02/12/21 [History] Hx Tetanus, Diphtheria Vaccination/Date Given: No (unknown) Hx Influenza Vaccination/Date Given: Yes Hx Pneumococcal Vaccination/Date Given: Yes Immunizations Up to Date: Yes Travel Risk - International Travel Have you traveled outside of the country in past 3 weeks: No - Coronavirus Screening Are you exhibiting any of the following symptoms?: No Close contact with a COVID-19 positive Pt in past 14-21 Days: No - Vaccine Status Have you recieved a Covid-19 vaccination: Yes Ret[employer] Pre [employer]: [facility] - Vaccination Dates Date of 2cond Vaccination (if applicable): oct 29 - Review of Systems Constitutional: No Symptoms Eyes: No Symptoms Ears, Nose, & Throat: No Symptoms Respiratory: No Symptoms Cardiac: No Symptoms Abdominal/Gastrointestinal: No Symptoms Genitourinary Symptoms: No Symptoms Musculoskeletal: No Symptoms Skin: No Symptoms Neurological: No Symptoms Psychological: No Symptoms Endocrine: No Symptoms Hematologic/Lymphatic: No Symptoms Immunological/Allergic: No Symptoms - Past Medical History Pertinent Past Medical History: Yes Neurological History: Peripheral Neuropathy, Stroke ENT History: Other Cardiac History: Coronary Artery Disease, Hypertension, Myocardial Infarction (ND) Respiratory History: No Pertinent History Endocrine Medical History: Diabetes Type II Musculoskeletal History: Arthritis, Other GI Medical History: No Pertinent History History: No Pertinent History Psycho-Social History: No Pertinent History Male Reproductive Disorders: No Pertinent History Other Medical History: Anemia,[place], chronic hip infection of prosthetic joint,sepsis. 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 right hip - most recent hip sx january 2020, left knee replacement - Social History Smoking Status: Former smoker Exposure to second hand smoke: No Drug Use: none Patient Lives Alone: No - Nursing Vital Signs Nursing Vital Signs: Initial Vital Signs Temperature 98.6 F 02/12/21 17:57 Pulse Rate 64 02/12/21 17:57 Respiratory Rate 22 02/12/21 17:57 Blood Pressure 99/56 02/12/21 17:57 O2 Sat by Pulse Oximetry 98 02/12/21 17:57 Pain Scale Pain Intensity 0 - Physical Exam General Appearance: no apparent distress, alert Eye Exam: PERRL/EOMI, eyes nml inspection Ears, Nose, Throat Exam: normal ENT inspection, TMs normal, pharynx normal Neck Exam: normal inspection, non-tender, supple, full range of motion Respiratory Exam: normal breath sounds, lungs clear Cardiovascular Exam: regular rate/rhythm, normal heart sounds Gastrointestinal/Abdomen Exam: soft, normal bowel sounds, No tenderness Back Exam: normal inspection, normal range of motion Extremity Exam: normal inspection, normal range of motion Neurologic Exam: alert, oriented x 3, cooperative Skin Exam: normal color SpO2 Interpretation: normal SpO2: 98 O2 Delivery: Room Air - Course EKG Interpreted by Me: RATE (64), Sinus Rhythm, Left [place] Deviation, NORMAL INTERVALS, Other (Peaked T waves) Ordered Tests: Active Orders 24 hr Category Date Time Status BNP [NT PRO BNP] Stat Lab 02/12/21 18:43 Completed CBC W DIFF Stat Lab 02/12/21 18:43 Completed CMP Stat Lab 02/12/21 18:43 Completed TROPONIN Q3H Lab 02/12/21 18:43 Completed TROPONIN Q3H Lab 02/12/21 21:30 Ordered TROPONIN Q3H Lab 02/13/21 00:30 Ordered TROPONIN Q3H Lab 02/13/21 03:30 Ordered TROPONIN Q3H Lab 02/13/21 06:30 Ordered Respiratory Therapy Assessment DAILY RT 02/12/21 19:53 Active Transfer Order Routine Transfer 02/12/21 Ordered Medication Summary Generic Name Dose Route Start Last Admin Trade Name Freq PRN Reason Stop Dose Admin Sodium Chloride 1,000 mls @ 100 mls/hr 02/12/21 19:15 02/12/21 19:34 Sodium Chloride 0.9% 1000 Ml IV 03/14/21 19:14 100 mls/hr .Q10H PAMELA Administration Discontinued Medications Generic Name Dose Route Start Last Admin Trade Name Kimberly PRN Reason Stop Dose Admin Albuterol Sulfate 2.5 mg 02/12/21 19:13 02/12/21 19:50 Proventil 2.5 Mg/3 Ml Neb IH 02/12/21 19:14 2.5 mg STAT ONE Administration Albuterol Sulfate Confirm 02/12/21 19:48 Proventil 2.5 Mg/3 Ml Neb Administered 02/12/21 19:49 Dose 2.5 mg IH .STK-MED ONE Calcium Gluconate 1,000 mg 02/12/21 19:13 02/12/21 19:40 Calcium Gluconate 10% 1000 Mg IV 02/12/21 19:14 1,000 mg STAT ONE Administration Calcium Gluconate Confirm 02/12/21 19:25 Calcium Gluconate 10% 1000 Mg Administered 02/12/21 19:26 Dose 1,000 mg IV .STK-MED ONE Dextrose 50 ml 02/12/21 19:13 02/12/21 19:35 D50w 50 Ml Abboject IV 02/12/21 19:14 50 ml STAT ONE Administration Dextrose Confirm 02/12/21 19:25 D50w 50 Ml Abboject Administered 02/12/21 19:26 Dose 50 ml IV .STK-MED ONE Insulin Human Regular 10 unit 02/12/21 19:13 02/12/21 19:43 Humulin R IV 02/12/21 19:14 10 unit STAT STA Administration Insulin Human Regular Confirm 02/12/21 19:30 Humulin R Administered 02/12/21 19:31 Dose 10 unit .ROUTE .STK-MED ONE Sodium Bicarbonate 50 meq 02/12/21 19:13 02/12/21 19:36 Sodium Bicarbonate 50 Meq/50 Ml Abboject IV 02/12/21 19:14 50 meq STAT ONE Administration Sodium Bicarbonate Confirm 02/12/21 19:25 Sodium Bicarbonate 50 Meq/50 Ml Abboject Administered 02/12/21 19:26 Dose 50 meq IV .STK-MED ONE Sodium Polystyrene Sulfonate 30 g 02/12/21 19:17 02/12/21 19:44 Kayexylate 15 Gm/60 Ml PO 02/12/21 19:18 30 g STAT ONE Administration Sodium Polystyrene Sulfonate Confirm 02/12/21 19:25 Kayexylate 15 Gm/60 Ml Administered 02/12/21 19:26 Dose 30 g .ROUTE .STK-MED ONE Lab/Rad Data: Laboratory Result Diagrams 02/12/21 18:43 02/12/21 18:43 Laboratory Results 02/12/21 02/12/21 02/12/21 Range/Units 18:43 18:43 18:43 WBC 5.6 (4.0-10.5) K/mm3 RBC 3.20 L (4.1-5.6) M/mm3 Hgb 9.5 L (12.5-18.0) gm/dl Hct 30.6 L (42-50) % MCV 95.6 (78-100) fl MCH 29.7 (26-32) pg MCHC 31.0 L (32-36) g/dl RDW 12.7 (11.5-14.0) % Plt Count 275 (150-450) K/mm3 MPV 9.1 (7.5-11.0) fl Gran % 65.4 (36.0-66.0) % Eos # (Auto) 0.45 (0-0.5) Absolute Lymphs (auto) 0.99 L (1.0-4.6) Absolute Monos (auto) 0.48 (0.0-1.3) Lymphocytes % 17.7 L (24.0-44.0) % Monocytes % 8.6 (0.0-12.0) % Eosinophils % 8.1 H (0.00-5.0) % Basophils % 0.2 (0.0-0.4) % Absolute Granulocytes 3.66 (1.4-6.9) Basophils # 0.01 (0-0.4) Sodium 136 L (137-145) mmol/L Potassium 7.2 H* (3.5-5.1) mmol/L Chloride 109 H (98-107) mmol/L Carbon Dioxide 21 L (22-30) mmol/L Anion Gap 13.0 (5-15) MEQ/L BUN 37 H (9-20) mg/dL Creatinine 1.57 H (0.66-1.25) mg/dL Estimated GFR 46.3 ML/MIN Glucose 135 H (74-106) mg/dL Calcium 9.3 (8.4-10.2) mg/dL Total Bilirubin 0.20 (0.2-1.3) mg/dL AST 26 (17-59) U/L ALT 18 (0-50) U/L Alkaline Phosphatase 72 (38-126) U/L Troponin I < 0.012 (0.000-0.034) ng/mL NT-Pro-B Natriuret Pep 466 (0-900) pg/mL Serum Total Protein 6.3 (6.3-8.2) g/dL Albumin 3.9 (3.5-5.0) g/dL - Progress Progress: unchanged Progress Note: 02/12/21 19:20 75 years old asymptomatic is evaluated for elevated potassium check at cardiology office. EKG showed some peaked T waves without any ST elevations. Negative initial troponin. Initial potassium is 7.2, given medication for hyperkalemia, calcium gluconate/sodium bicarb/dextrose/insulin/Kayexalate. We will recheck potassium in [address] Albrecht and patient is admitted to ICU. Plan discussed with patient/family who understand and agree with it. Will see patient in: hospital (observation) Counseled pt/family regarding: lab results, diagnosis - Departure Departure Disposition: Observation Clinical Impression: Hyperkalemia Condition: Stable Critical Care Time: Yes Critical Care Time(excluding separately billable procedures): Critical 30-74 mins Referrals: ASH ALBRECHT MD [Primary Care Provider] -
[2021-02-12 18:47] LABS: Absolute Neutrophil Ct (ANC) 3.66 (1.4-6.9); BASOPHIL % 0.2 % (0.0-0.4); Basophil (Absolute #) 0.01 (0-0.4); Eosinophil % 8.1 % (0.00-5.0); Eosinophil (Absolute #) 0.45 (0-0.5); Hematocrit 30.6 % (42-50); Hemoglobin 9.5 gm/dl (12.5-18.0); Lymphocyte (Absolute #) 0.99 (1.0-4.6); Lymphocytes % 17.7 % (24.0-44.0); Mean Cell Volume 95.6 fl (78-100); Mean Corpuscular Hemoglobin 29.7 pg (26-32); Mean Platelet Volume 9.1 fl (7.5-11.0); Monocyte (Absolute #) 0.48 (0.0-1.3); Monocytes % 8.6 % (0.0-12.0); Neutrophil % 65.4 % (36.0-66.0); Platelet Count 275 K/mm3 (150-450); Red Cell Distribution Width 12.7 % (11.5-14.0); White Blood Count 5.6 K/mm3 (4.0-10.5)
[2021-02-12 19:08] LABS: ALBUMIN 3.9 g/dL (3.5-5.0); BILIRUBIN,TOTAL 0.2 mg/dL (0.2-1.3); Calcium 9.3 mg/dL (8.4-10.2); Creatinine 1 1.57 mg/dL (0.66-1.25); EST GLOMERULAR FILTRATION RATE 46.3 ML/MIN; Total Protein 6.3 g/dL (6.3-8.2)
[2021-02-12 19:12] LABS: Potassium 7.2 mmol/L (3.5-5.1)
[2021-02-12] MEDS ORDERED: D50W 50 ml Abboject IV ONE ×2 (19:13→19:25)
[2021-02-12] MEDS ORDERED: SODIUM BICARBONATE 50 MEQ/50 ML ABBOJECT IV ONE ×2 (19:13→19:25)
[2021-02-12] MEDS ORDERED: HUMULIN R IV STA (19:13)
[2021-02-12] MEDS ORDERED: PROVENTIL 2.5 MG/3 ML NEB IH ONE ×2 (19:13→19:48)
[2021-02-12] MEDS ORDERED: Calcium Gluconate 10% 1000 MG IV ONE ×2 (19:13→19:25)
[2021-02-12] MEDS ORDERED: Sodium Chloride 0.9% 1000 ML 1,000 ML IV SCH (19:15)
[2021-02-12] MEDS ORDERED: Kayexylate 15 GM/60 ML PO ONE (19:17)
[2021-02-12] MEDS ORDERED: Sodium Chloride 0.9% 1000 ML 1,000 ML ONE (19:25)
[2021-02-12] MEDS ORDERED: Kayexylate 15 GM/60 ML ONE (19:25)
[2021-02-12] MEDS ORDERED: HUMULIN R ONE (19:30)
[2021-02-12 22:06] LABS: INFLUENZA A NEGATIVE (NEGATIVE); INFLUENZA B NEGATIVE (NEGATIVE); RESPIRATORY SYNCTIAL VIRUS NEGATIVE (Negative)
[2021-02-13 00:59] LABS: ANION GAP 12.1 MEQ/L (5-15); Calcium 9.7 mg/dL (8.4-10.2); Creatinine 1 1.51 mg/dL (0.66-1.25); EST GLOMERULAR FILTRATION RATE 48.4 ML/MIN; Potassium 5.1 mmol/L (3.5-5.1)
[2021-02-13 03:43] LABS: ALBUMIN 3.2 g/dL (3.5-5.0); ANION GAP 11.8 MEQ/L (5-15); BILIRUBIN,TOTAL 0.2 mg/dL (0.2-1.3); Calcium 8.8 mg/dL (8.4-10.2); Creatinine 1 1.44 mg/dL (0.66-1.25); EST GLOMERULAR FILTRATION RATE 51.1 ML/MIN; Potassium 5.5 mmol/L (3.5-5.1); Total Protein 5.8 g/dL (6.3-8.2)
[2021-02-13 05:14] LABS: Hematocrit 28.7 % (42-50); Hemoglobin 8.9 gm/dl (12.5-18.0); Mean Corpuscular Hemoglobin 29.8 pg (26-32); Mean Platelet Volume 9.4 fl (7.5-11.0); Platelet Count 252 K/mm3 (150-450); Red Blood Count 2.99 M/mm3 (4.1-5.6); Red Cell Distribution Width 12.6 % (11.5-14.0); White Blood Count 4.8 K/mm3 (4.0-10.5)
[2021-02-13] MEDS ORDERED: Sodium Chloride 0.9% 1000 ML 1,000 ML ONE (06:21)
[2021-02-13 06:27] LABS: BAND 2 % (0.0-2.0); Eosinophil 7 % (0.00-3.0); Lymphocytes 7 % (24-44); Monocyte 3 % (0.0-12.0); Neutrophils 81 % (36.-66.); Total Cells Counted 100
[2021-02-13 06:29] LABS: Platelet Estimate NORMAL (NORMAL)
[2021-02-13] MEDS ORDERED: Nitrostat 0.4 MG Tablet SL PRN (08:45)
[2021-02-13] MEDS ORDERED: Indocin 25 MG PO PRN (08:45)
[2021-02-13] MEDS ORDERED: MEDICATION INTERVENTION PO SCH (09:15)
[2021-02-13] MEDS ORDERED: Imdur 30 MG PO SCH (10:00)
[2021-02-13] MEDS ORDERED: CEFADROXIL 500 MG PO SCH (10:00)
[2021-02-13] MEDS ORDERED: PLAVIX 75 MG Tablet PO SCH (10:00)
[2021-02-13] MEDS ORDERED: NON-FORMULARY ITEM (Insulin Detemir [Levemir] 30 UNIT) SQ SCH (10:00)
[2021-02-13] MEDS ORDERED: Kayexylate 15 GM/60 ML PO ONE (10:00)
[2021-02-13] MEDS ORDERED: FEOSOL 325 MG PO SCH (10:00)
[2021-02-13] MEDS ORDERED: Lopressor 25MG Tab PO SCH (10:00)
[2021-02-13] MEDS ORDERED: Lantus Insulin SQ SCH (10:00)
[2021-02-13] MEDS ORDERED: Zestril 10 MG PO SCH (10:00)
[2021-02-13] MEDS ORDERED: THERAGRAN MULTIVITAMIN PO SCH (12:00)
[2021-02-13] MEDS ORDERED: NON-FORMULARY ITEM (Multivitamin [Multi-Vitamin Daily] 1 TAB) PO SCH (12:00)
[2021-02-13] MEDS: NEURONTIN 300 MG PO SCH ×3 (12:11→18:12)
[2021-02-13] MEDS: Glucophage 500 MG PO SCH ×2 (12:11→18:11)
[2021-02-13] MEDS ORDERED: PHARMACY DOSING REQUEST MC ONE (13:48)
[2021-02-13] MEDS ORDERED: Sodium Chloride 0.9% 1000 ML 1,000 ML IV SCH (14:30)
[2021-02-13] MEDS ORDERED: VELTASSA PO SCH (15:00)
[2021-02-13] MEDS ORDERED: NON-FORMULARY ITEM (Alogliptin Benzoate [Alogliptin] 12.5 MG) PO SCH (17:00)
[2021-02-13] MEDS ORDERED: Januvia 50 MG PO SCH (17:00)
[2021-02-13] MEDS ORDERED: NON-FORMULARY ITEM (Metformin Hcl [Metformin Hcl] 1,000 MG) PO SCH (17:00)
--- NOTE | 2021-02-13 17:23 | PCM.HP ---
History of Present Illness - Chief Complaint Chief Complaint: high potassium level for 2 days History of Present Illness: is a 75 year old male.with history of coronary artery disease, diabetes mellitus, hypertension who was evaluated by telecommunications engineer earlier today with a lab work done which showed hyperkalemia 6.4. Patient reported was a routine visit as he was having off and on chest pain for almost 1 week and was recently placed on long-acting nitros and now his pain is better for the last few days. 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 Denies any chest pain palpitations or shortness of breath. No abdominal pain nausea or vomiting. No urinary complaints. - Review of Systems Constitutional: No Fever, No Chills Eyes: No Symptoms Ears, Nose, & Throat: No Symptoms Respiratory: No Cough, No Short Of Breath Cardiac: No Chest Pain, No Edema, No Syncope Abdominal/Gastrointestinal: No Abdominal Pain, No Nausea, No Vomiting, No Diarrhea Genitourinary Symptoms: No Dysuria Musculoskeletal: No Back Pain, No Neck Pain Skin: No Rash Neurological: No Dizziness, No Focal Weakness, No Sensory Changes Psychological: No Symptoms Endocrine: No Symptoms Hematologic/Lymphatic: No Symptoms Immunological/Allergic: No Symptoms Medications & Allergies Home Medications: Home Medication List Gabapentin [Neurontin] 600 mg PO QID 02/07/17 [History Confirmed 02/13/21] Insulin Detemir [Levemir] 30 unit SQ QAM 02/07/17 [History Confirmed 02/13/21] Multivitamin [Multi-Vitamin Daily] 1 tab PO 1200 02/07/17 [History Confirmed 02/13/21] Simvastatin 10 mg PO HS 02/07/17 [History Confirmed 02/13/21] Ferrous Sulfate 325 mg PO BID 04/09/18 [History Confirmed 02/13/21] Lisinopril 5 mg [Zestril 5 MG] 10 mg PO BID 04/09/18 [History Confirmed 02/13/21] Metformin HCl 1,000 mg PO BIDWMEALS 04/09/18 [History Confirmed 02/13/21] Metoprolol Tartrate 25 mg [Lopressor 25MG Tab] 25 mg PO BID 04/09/18 [History Confirmed 02/13/21] Clopidogrel Bisulfate 75 mg [PLAVIX 75 MG Tablet] 75 mg PO DAILY 04/12/18 [History Confirmed 02/13/21] Alogliptin Benzoate [Alogliptin] 12.5 mg PO DINNER 09/20/19 [History Confirmed 02/13/21] Nitroglycerin 0.4 mg Tablet [Nitrostat 0.4 MG Tablet] 0.4 mg SL Q5MIN PRN MR X 3 PRN 09/20/19 [History Confirmed 02/12/21] cefaDROXiL [Cefadroxil] 500 mg PO BID 03/21/20 [History Confirmed 02/13/21] Isosorbide Mononitrate 30 mg [Imdur 30 MG] 30 mg PO DAILY 02/12/21 [History Confirmed 02/12/21] Indomethacin 25 mg [Indocin 25 MG] 25 mg PO DAILY PRN PRN 02/13/21 [History Confirmed 02/13/21] Allergies/Adverse Reactions: Allergies Allergy/AdvReac Type Severity Reaction Status Date / Time latex Allergy Severe SORES IN Verified 02/13/21 00:07 MOUTH AND TONGUE sulfamethoxazole Allergy Intermediate Weakness Verified 02/13/21 00:07 [From Bactrim] bee venom protein (honey bee) Allergy Shortness Verified 02/13/21 00:11 of Breath Sulfa (Sulfonamide Allergy Verified 02/13/21 00:09 Antibiotics) trimethoprim [From Bactrim] Allergy Verified 02/13/21 00:07 - Past Medical History Past Medical History: Yes Neurological History: Peripheral Neuropathy, Stroke ENT History: Other Cardiac History: Coronary Artery Disease, Hypertension, Myocardial Infarction ([place]) Respiratory History: No Pertinent History Endocrine Medical History: Diabetes Type II Musculoskelatal History: Arthritis, Fractures GI Medical History: No Pertinent History History: No Pertinent History Pyscho-Social History: No Pertinent History Male Reproductive Disorders: No Pertinent History Comment: Anemia, 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 Agent orange exposure in [place]. - Past Surgical History Past Surgical History: Yes Neuro Surgical History: No Pertinent History Cardiac History: Cardiac Catheterization Respiratory Surgery: No Pertinent History GI Surgical History: Appendectomy, Cholecystectomy Genitourinary Surgical Hx: No Pertinent History Musculskeletal Surgical Hx: Orthopedic Surgery Male Surgical History: No Pertinent History Other Surgical History: Back surgery 2010, Neck surgery 2007, Left knee meniscal repair 2004, Right hip repair 1989, 1990, 2003, 10/11/2012, 01/10/2013...Fx: Pelvis, Ribs, Vertabrae, Right hip from tree falling on him in 1989. right hip - most recent hip sx january 2020, left knee replacement - Social History Smoking Status: Former smoker How long have you smoked: [id number] Exposure to second hand smoke: No Alcohol: None Drug Use: none - Physical Exam Vital Signs: Vital Signs - 24 hr Temp Pulse Resp BP Pulse Ox 02/13/21 16:00 98.7 F 60 16 113/61 96 02/13/21 11:21 97.4 F 71 20 141/69 02/13/21 08:00 71 20 02/13/21 07:34 97.4 F 59 L 20 141/69 97 02/13/21 04:00 97.6 F 58 L 17 120/63 97 02/13/21 00:45 18 02/13/21 00:18 97.6 F 56 L 18 145/62 98 02/12/21 22:00 67 19 124/64 99 02/12/21 21:00 60 19 130/63 97 02/12/21 20:30 73 23 135/64 99 02/12/21 20:08 98 02/12/21 19:54 50 L 20 100 02/12/21 19:20 64 16 106/61 99 02/12/21 18:55 60 20 102/54 98 02/12/21 17:57 98.6 F 64 22 99/56 98 General Appearance: no apparent distress, alert Neurologic Exam: alert, oriented x 3, cooperative, normal mood/affect, nml cerebellar function, nml station & gait, sensation nml, No motor deficits Eye Exam: PERRL/EOMI, eyes nml inspection Ears, Nose, Throat Exam: normal ENT inspection, TMs normal, pharynx normal, moist mucous membranes Neck Exam: normal inspection, non-tender, supple, full range of motion Respiratory Exam: normal breath sounds, lungs clear, No respiratory distress Cardiovascular Exam: regular rate/rhythm, normal heart sounds, normal peripheral pulses Gastrointestinal/Abdomen Exam: soft, normal bowel sounds, No tenderness, No mass Back Exam: normal inspection, normal range of motion, No CVA tenderness, No vertebral tenderness Extremity Exam: normal inspection, normal range of motion, pelvis stable Skin Exam: normal color, warm, dry, No rash Lymphatic Exam: No adenopathy Results - Labs Lab/Micro Results: Lab Results-Last 24 Hours 02/12/21 02/12/21 02/12/21 Range/Units 00:29 18:43 18:43 WBC 5.6 (4.0-10.5) K/mm3 RBC 3.20 L (4.1-5.6) M/mm3 Hgb 9.5 L (12.5-18.0) gm/dl Hct 30.6 L (42-50) % MCV 95.6 (78-100) fl MCH 29.7 (26-32) pg MCHC 31.0 L (32-36) g/dl RDW 12.7 (11.5-14.0) % Plt Count 275 (150-450) K/mm3 MPV 9.1 (7.5-11.0) fl Gran % 65.4 (36.0-66.0) % Eos # (Auto) 0.45 (0-0.5) Absolute Lymphs (auto) 0.99 L (1.0-4.6) Absolute Monos (auto) 0.48 (0.0-1.3) Lymphocytes % 17.7 L (24.0-44.0) % Monocytes % 8.6 (0.0-12.0) % Eosinophils % 8.1 H (0.00-5.0) % Basophils % 0.2 (0.0-0.4) % Absolute Granulocytes 3.66 (1.4-6.9) Segmented Neutrophils (36.-66.) % Band Neutrophils (0.0-2.0) % Lymphocytes (Manual) (24-44) % Monocytes (Manual) (0.0-12.0) % Eosinophils (Manual) (0.00-3.0) % Basophils # 0.01 (0-0.4) Platelet Estimate (NORMAL) RBC Morphology Sodium 139 136 L (137-145) mmol/L Potassium 5.1 7.2 H* D (3.5-5.1) mmol/L Chloride 110 H 109 H (98-107) mmol/L Carbon Dioxide 22 21 L (22-30) mmol/L Anion Gap 12.1 13.0 (5-15) MEQ/L BUN 33 H 37 H (9-20) mg/dL Creatinine 1.51 H 1.57 H (0.66-1.25) mg/dL Estimated GFR 48.4 46.3 ML/MIN Glucose 102 135 H (74-106) mg/dL POC Glucometer (74 to 106) mg/dL Hemoglobin A1c (4.5-6.0) % Calcium 9.7 9.3 (8.4-10.2) mg/dL Total Bilirubin 0.20 (0.2-1.3) mg/dL AST 26 (17-59) U/L ALT 18 (0-50) U/L Alkaline Phosphatase 72 (38-126) U/L Troponin I (0.000-0.034) ng/mL NT-Pro-B Natriuret Pep 466 (0-900) pg/mL Serum Total Protein 6.3 (6.3-8.2) g/dL Albumin 3.9 (3.5-5.0) g/dL Influenza Type A Ag (NEGATIVE) Influenza Type B Ag (NEGATIVE) RSV (PCR) (Negative) SARS-CoV-2 (PCR) (NEGATIVE) 02/12/21 02/12/21 02/12/21 Range/Units 18:43 21:25 22:15 WBC (4.0-10.5) K/mm3 RBC (4.1-5.6) M/mm3 Hgb (12.5-18.0) gm/dl Hct (42-50) % MCV (78-100) fl MCH (26-32) pg MCHC (32-36) g/dl RDW (11.5-14.0) % Plt Count (150-450) K/mm3 MPV (7.5-11.0) fl Gran % (36.0-66.0) % Eos # (Auto) (0-0.5) Absolute Lymphs (auto) (1.0-4.6) Absolute Monos (auto) (0.0-1.3) Lymphocytes % (24.0-44.0) % Monocytes % (0.0-12.0) % Eosinophils % (0.00-5.0) % Basophils % (0.0-0.4) % Absolute Granulocytes (1.4-6.9) Segmented Neutrophils (36.-66.) % Band Neutrophils (0.0-2.0) % Lymphocytes (Manual) (24-44) % Monocytes (Manual) (0.0-12.0) % Eosinophils (Manual) (0.00-3.0) % Basophils # (0-0.4) Platelet Estimate (NORMAL) RBC Morphology Sodium (137-145) mmol/L Potassium (3.5-5.1) mmol/L Chloride (98-107) mmol/L Carbon Dioxide (22-30) mmol/L Anion Gap (5-15) MEQ/L BUN (9-20) mg/dL Creatinine (0.66-1.25) mg/dL Estimated GFR ML/MIN Glucose (74-106) mg/dL POC Glucometer (74 to 106) mg/dL Hemoglobin A1c (4.5-6.0) % Calcium (8.4-10.2) mg/dL Total Bilirubin (0.2-1.3) mg/dL AST (17-59) U/L ALT (0-50) U/L Alkaline Phosphatase (38-126) U/L Troponin I < 0.012 < 0.012 (0.000-0.034) ng/mL NT-Pro-B Natriuret Pep (0-900) pg/mL Serum Total Protein (6.3-8.2) g/dL Albumin (3.5-5.0) g/dL Influenza Type A Ag NEGATIVE (NEGATIVE) Influenza Type B Ag NEGATIVE (NEGATIVE) RSV (PCR) NEGATIVE (Negative) SARS-CoV-2 (PCR) NEGATIVE (NEGATIVE) 02/12/21 02/13/21 02/13/21 Range/Units 22:15 00:29 03:27 WBC (4.0-10.5) K/mm3 RBC (4.1-5.6) M/mm3 Hgb (12.5-18.0) gm/dl Hct (42-50) % MCV (78-100) fl MCH (26-32) pg MCHC (32-36) g/dl RDW (11.5-14.0) % Plt Count (150-450) K/mm3 MPV (7.5-11.0) fl Gran % (36.0-66.0) % Eos # (Auto) (0-0.5) Absolute Lymphs (auto) (1.0-4.6) Absolute Monos (auto) (0.0-1.3) Lymphocytes % (24.0-44.0) % Monocytes % (0.0-12.0) % Eosinophils % (0.00-5.0) % Basophils % (0.0-0.4) % Absolute Granulocytes (1.4-6.9) Segmented Neutrophils (36.-66.) % Band Neutrophils (0.0-2.0) % Lymphocytes (Manual) (24-44) % Monocytes (Manual) (0.0-12.0) % Eosinophils (Manual) (0.00-3.0) % Basophils # (0-0.4) Platelet Estimate (NORMAL) RBC Morphology Sodium (137-145) mmol/L Potassium 5.6 H D (3.5-5.1) mmol/L Chloride (98-107) mmol/L Carbon Dioxide (22-30) mmol/L Anion Gap (5-15) MEQ/L BUN (9-20) mg/dL Creatinine (0.66-1.25) mg/dL Estimated GFR ML/MIN Glucose (74-106) mg/dL POC Glucometer (74 to 106) mg/dL Hemoglobin A1c (4.5-6.0) % Calcium (8.4-10.2) mg/dL Total Bilirubin (0.2-1.3) mg/dL AST (17-59) U/L ALT (0-50) U/L Alkaline Phosphatase (38-126) U/L Troponin I < 0.012 < 0.012 (0.000-0.034) ng/mL NT-Pro-B Natriuret Pep (0-900) pg/mL Serum Total Protein (6.3-8.2) g/dL Albumin (3.5-5.0) g/dL Influenza Type A Ag (NEGATIVE) Influenza Type B Ag (NEGATIVE) RSV (PCR) (Negative) SARS-CoV-2 (PCR) (NEGATIVE) 02/13/21 02/13/21 02/13/21 Range/Units 03:27 03:27 03:27 WBC 4.8 (4.0-10.5) K/mm3 RBC 2.99 L (4.1-5.6) M/mm3 Hgb 8.9 L (12.5-18.0) gm/dl Hct 28.7 L (42-50) % MCV 96.0 (78-100) fl MCH 29.8 (26-32) pg MCHC 31.0 L (32-36) g/dl RDW 12.6 (11.5-14.0) % Plt Count 252 (150-450) K/mm3 MPV 9.4 (7.5-11.0) fl Gran % (36.0-66.0) % Eos # (Auto) (0-0.5) Absolute Lymphs (auto) (1.0-4.6) Absolute Monos (auto) (0.0-1.3) Lymphocytes % (24.0-44.0) % Monocytes % (0.0-12.0) % Eosinophils % (0.00-5.0) % Basophils % (0.0-0.4) % Absolute Granulocytes (1.4-6.9) Segmented Neutrophils 81 H (36.-66.) % Band Neutrophils 2 (0.0-2.0) % Lymphocytes (Manual) 7 L (24-44) % Monocytes (Manual) 3 (0.0-12.0) % Eosinophils (Manual) 7 H (0.00-3.0) % Basophils # (0-0.4) Platelet Estimate NORMAL (NORMAL) RBC Morphology NORMAL Sodium 136 L (137-145) mmol/L Potassium 5.5 H (3.5-5.1) mmol/L Chloride 109 H (98-107) mmol/L Carbon Dioxide 21 L (22-30) mmol/L Anion Gap 11.8 (5-15) MEQ/L BUN 30 H (9-20) mg/dL Creatinine 1.44 H (0.66-1.25) mg/dL Estimated GFR 51.1 ML/MIN Glucose 240 H (74-106) mg/dL POC Glucometer (74 to 106) mg/dL Hemoglobin A1c 8.73 H (4.5-6.0) % Calcium 8.8 (8.4-10.2) mg/dL Total Bilirubin 0.20 (0.2-1.3) mg/dL AST 24 (17-59) U/L ALT 16 (0-50) U/L Alkaline Phosphatase 62 (38-126) U/L Troponin I (0.000-0.034) ng/mL NT-Pro-B Natriuret Pep (0-900) pg/mL Serum Total Protein 5.8 L (6.3-8.2) g/dL Albumin 3.2 L (3.5-5.0) g/dL Influenza Type A Ag (NEGATIVE) Influenza Type B Ag (NEGATIVE) RSV (PCR) (Negative) SARS-CoV-2 (PCR) (NEGATIVE) 02/13/21 02/13/21 02/13/21 Range/Units 06:30 07:04 11:43 WBC (4.0-10.5) K/mm3 RBC (4.1-5.6) M/mm3 Hgb (12.5-18.0) gm/dl Hct (42-50) % MCV (78-100) fl MCH (26-32) pg MCHC (32-36) g/dl RDW (11.5-14.0) % Plt Count (150-450) K/mm3 MPV (7.5-11.0) fl Gran % (36.0-66.0) % Eos # (Auto) (0-0.5) Absolute Lymphs (auto) (1.0-4.6) Absolute Monos (auto) (0.0-1.3) Lymphocytes % (24.0-44.0) % Monocytes % (0.0-12.0) % Eosinophils % (0.00-5.0) % Basophils % (0.0-0.4) % Absolute Granulocytes (1.4-6.9) Segmented Neutrophils (36.-66.) % Band Neutrophils (0.0-2.0) % Lymphocytes (Manual) (24-44) % Monocytes (Manual) (0.0-12.0) % Eosinophils (Manual) (0.00-3.0) % Basophils # (0-0.4) Platelet Estimate (NORMAL) RBC Morphology Sodium (137-145) mmol/L Potassium (3.5-5.1) mmol/L Chloride (98-107) mmol/L Carbon Dioxide (22-30) mmol/L Anion Gap (5-15) MEQ/L BUN (9-20) mg/dL Creatinine (0.66-1.25) mg/dL Estimated GFR ML/MIN Glucose (74-106) mg/dL POC Glucometer 136 H 228 H (74 to 106) mg/dL Hemoglobin A1c (4.5-6.0) % Calcium (8.4-10.2) mg/dL Total Bilirubin (0.2-1.3) mg/dL AST (17-59) U/L ALT (0-50) U/L Alkaline Phosphatase (38-126) U/L Troponin I < 0.012 (0.000-0.034) ng/mL NT-Pro-B Natriuret Pep (0-900) pg/mL Serum Total Protein (6.3-8.2) g/dL Albumin (3.5-5.0) g/dL Influenza Type A Ag (NEGATIVE) Influenza Type B Ag (NEGATIVE) RSV (PCR) (Negative) SARS-CoV-2 (PCR) (NEGATIVE) 02/13/21 02/13/21 Range/Units 12:45 16:25 WBC (4.0-10.5) K/mm3 RBC (4.1-5.6) M/mm3 Hgb (12.5-18.0) gm/dl Hct (42-50) % MCV (78-100) fl MCH (26-32) pg MCHC (32-36) g/dl RDW (11.5-14.0) % Plt Count (150-450) K/mm3 MPV (7.5-11.0) fl Gran % (36.0-66.0) % Eos # (Auto) (0-0.5) Absolute Lymphs (auto) (1.0-4.6) Absolute Monos (auto) (0.0-1.3) Lymphocytes % (24.0-44.0) % Monocytes % (0.0-12.0) % Eosinophils % (0.00-5.0) % Basophils % (0.0-0.4) % Absolute Granulocytes (1.4-6.9) Segmented Neutrophils (36.-66.) % Band Neutrophils (0.0-2.0) % Lymphocytes (Manual) (24-44) % Monocytes (Manual) (0.0-12.0) % Eosinophils (Manual) (0.00-3.0) % Basophils # (0-0.4) Platelet Estimate (NORMAL) RBC Morphology Sodium (137-145) mmol/L Potassium 5.5 H (3.5-5.1) mmol/L Chloride (98-107) mmol/L Carbon Dioxide (22-30) mmol/L Anion Gap (5-15) MEQ/L BUN (9-20) mg/dL Creatinine (0.66-1.25) mg/dL Estimated GFR ML/MIN Glucose (74-106) mg/dL POC Glucometer 116 H (74 to 106) mg/dL Hemoglobin A1c (4.5-6.0) % Calcium (8.4-10.2) mg/dL Total Bilirubin (0.2-1.3) mg/dL AST (17-59) U/L ALT (0-50) U/L Alkaline Phosphatase (38-126) U/L Troponin I (0.000-0.034) ng/mL NT-Pro-B Natriuret Pep (0-900) pg/mL Serum Total Protein (6.3-8.2) g/dL Albumin (3.5-5.0) g/dL Influenza Type A Ag (NEGATIVE) Influenza Type B Ag (NEGATIVE) RSV (PCR) (Negative) SARS-CoV-2 (PCR) (NEGATIVE) Accuchecks Date 02/13/21 Date 02/13/21 Date 02/13/21 Time 16:37 Time 11:30 Time 07:35 Assessment/Plan (1) Hyperkalemia Current Visit: Yes Status: Acute Assessment & Plan: Chief Complaint Diagnosis hyperkalemia Allergies Allergy/AdvReac Type Severity Reaction Status Date / Time latex Allergy Severe SORES IN Verified 02/13/21 00:07 MOUTH AND TONGUE sulfamethoxazole Allergy Intermediate Weakness Verified 02/13/21 00:07 [From Bactrim] bee venom protein (honey bee) Allergy Shortness Verified 02/13/21 00:11 of Breath Sulfa (Sulfonamide Allergy Verified 02/13/21 00:09 Antibiotics) trimethoprim [From Bactrim] Allergy Verified 02/13/21 00:07 Vital Signs (Last 24 hours) Temp Pulse Resp BP Pulse Ox 02/13/21 16:00 98.7 F 60 16 113/61 96 02/13/21 11:21 97.4 F 71 20 141/69 02/13/21 08:00 71 20 02/13/21 07:34 97.4 F 59 L 20 141/69 97 02/13/21 04:00 97.6 F 58 L 17 120/63 97 02/13/21 00:45 18 02/13/21 00:18 97.6 F 56 L 18 145/62 98 02/12/21 22:00 67 19 124/64 99 02/12/21 21:00 60 19 130/63 97 02/12/21 20:30 73 23 135/64 99 02/12/21 20:08 98 02/12/21 19:54 50 L 20 100 02/12/21 19:20 64 16 106/61 99 02/12/21 18:55 60 20 102/54 98 02/12/21 17:57 98.6 F 64 22 99/56 98 Home Medications Medication Instructions Recorded Confirmed Last Taken Type Isosorbide Mononitrate 30 mg 30 mg PO DAILY 02/12/21 02/12/21 02/12/21 History [Imdur 30 MG] Indomethacin 25 mg [Indocin 25 25 mg PO DAILY PRN PRN 02/13/21 02/13/21 Unknown History MG] Current Medications Generic Name Dose Route Start Last Admin Trade Name Freq PRN Reason Stop Dose Admin Clopidogrel Bisulfate 75 mg 02/13/21 10:00 02/13/21 12:12 Plavix 75 Mg Tablet PO 03/15/21 09:59 75 mg DAILY PAMELA Administration Ferrous Sulfate 325 mg 02/13/21 10:00 02/13/21 12:11 Feosol 325 Mg PO 03/15/21 09:59 325 mg BID PAMELA Administration Gabapentin 600 mg 02/13/21 10:00 02/13/21 13:58 Neurontin 300 Mg PO 03/15/21 09:59 Not Given QID PAMELA Sodium Chloride 1,000 mls @ 100 mls/hr 02/13/21 14:30 02/13/21 14:34 Sodium Chloride 0.9% 1000 Ml IV 03/15/21 14:29 100 mls/hr .Q10H PAMELA Administration Indomethacin 25 mg 02/13/21 08:45 Indocin 25 Mg PO 03/15/21 08:44 DAILY PRN PRN gout Insulin Glargine 30 unit 02/13/21 10:00 02/13/21 09:37 Lantus Insulin SQ 03/15/21 09:59 30 unit QAM PAMELA Administration Isosorbide Mononitrate 30 mg 02/13/21 10:00 02/13/21 12:11 Imdur 30 Mg PO 03/15/21 09:59 30 mg DAILY PAMELA Administration Lisinopril 10 mg 02/14/21 10:00 Zestril 10 Mg PO 03/16/21 09:59 DAILY PAMELA Metformin HCl 1,000 mg 02/13/21 09:00 02/13/21 12:11 Glucophage 500 Mg PO 03/15/21 08:59 1,000 mg BIDWMEALS PAMELA Administration Metoprolol Tartrate 25 mg 02/13/21 10:00 02/13/21 12:12 Lopressor 25mg Tab PO 03/15/21 09:59 25 mg BID PAMELA Administration Multivitamins Therapeutic 1 tab 02/13/21 12:00 02/13/21 12:13 Theragran Multivitamin PO 03/15/21 11:59 1 tab 1200 [facility] Administration Nitroglycerin 0.4 mg 02/13/21 08:45 Nitrostat 0.4 Mg Tablet SL 03/15/21 08:44 Q5MIN PRN MR X 3 PRN CHEST PAIN Cefadroxil 500mg 1 each 02/13/21 18:00 Capsule PO 02/14/21 00:01 0000,1800 PAMELA Cefadroxil 500mg 1 each 02/14/21 10:00 Capsule PO 03/16/21 09:59 BID PAMELA Patiromer 8.4 gm 02/13/21 15:00 02/13/21 15:14 [place] PO 03/15/21 14:59 8.4 gm DAILY PAMELA Administration Simvastatin 10 mg 02/13/21 22:00 Zocor 10mg PO 03/15/21 21:59 HS [facility] Sitagliptin Phosphate 50 mg 02/13/21 17:00 Januvia 50 Mg PO 03/15/21 16:59 DINNER [facility] Discontinued Medications Generic Name Dose Route Start Last Admin Trade Name Freq PRN Reason Stop Dose Admin Albuterol Sulfate 2.5 mg 02/12/21 19:13 02/12/21 19:50 Proventil 2.5 Mg/3 Ml Neb IH 02/12/21 19:14 2.5 mg STAT ONE Administration Albuterol Sulfate Confirm 02/12/21 19:48 Proventil 2.5 Mg/3 Ml Neb Administered 02/12/21 19:49 Dose 2.5 mg IH .STK-MED ONE Calcium Gluconate 1,000 mg 02/12/21 19:13 02/12/21 19:40 Calcium Gluconate 10% 1000 Mg IV 02/12/21 19:14 1,000 mg STAT ONE Administration Calcium Gluconate Confirm 02/12/21 19:25 Calcium Gluconate 10% 1000 Mg Administered 02/12/21 19:26 Dose 1,000 mg IV .STK-MED ONE Dextrose 50 ml 02/12/21 19:13 02/12/21 19:35 D50w 50 Ml Abboject IV 02/12/21 19:14 50 ml STAT ONE Administration Dextrose Confirm 02/12/21 19:25 D50w 50 Ml Abboject Administered 02/12/21 19:26 Dose 50 ml IV .STK-MED ONE Sodium Chloride 1,000 mls @ 100 mls/hr 02/12/21 19:15 02/12/21 19:34 Sodium Chloride 0.9% 1000 Ml IV 03/14/21 19:14 100 mls/hr .Q10H PAMELA Administration Sodium Chloride Confirm 02/12/21 19:25 Sodium Chloride 0.9% 1000 Ml Administered 02/12/21 19:26 Dose 1,000 mls @ ud .ROUTE .STK-MED ONE Sodium Chloride Confirm 02/13/21 06:21 Sodium Chloride 0.9% 1000 Ml Administered 02/13/21 06:22 Dose 1,000 mls @ ud .ROUTE .STK-MED ONE Insulin Human Regular 10 unit 02/12/21 19:13 02/12/21 19:43 Humulin R IV 02/12/21 19:14 10 unit STAT STA Administration Insulin Human Regular Confirm 02/12/21 19:30 Humulin R Administered 02/12/21 19:31 Dose 10 unit .ROUTE .STK-MED ONE Lisinopril 10 mg 02/13/21 10:00 02/13/21 12:12 Zestril 10 Mg PO 03/15/21 09:59 10 mg BID PAMELA Administration Miscellaneous Information 1 each 02/13/21 09:15 Medication Intervention PO 03/15/21 09:14 .RN TO CHECK ON [facility] Non-Formulary Medication 1 each 02/13/21 13:48 02/13/21 16:55 Pharmacy Dosing Request [facility] 02/13/21 13:49 Not Given STAT ONE Sodium Bicarbonate 50 meq 02/12/21 19:13 02/12/21 19:36 Sodium Bicarbonate 50 Meq/50 Ml Abboject IV 02/12/21 19:14 50 meq STAT ONE Administration Sodium Bicarbonate Confirm 02/12/21 19:25 Sodium Bicarbonate 50 Meq/50 Ml Abboject Administered 02/12/21 19:26 Dose 50 meq IV .STK-MED ONE Sodium Polystyrene Sulfonate 30 g 02/12/21 19:17 02/12/21 19:44 Kayexylate 15 Gm/60 Ml PO 02/12/21 19:18 30 g STAT ONE Administration Sodium Polystyrene Sulfonate Confirm 02/12/21 19:25 Kayexylate 15 Gm/60 Ml Administered 02/12/21 19:26 Dose 30 g .ROUTE .STK-MED ONE Sodium Polystyrene Sulfonate 30 g 02/13/21 10:00 02/13/21 09:36 Kayexylate 15 Gm/60 Ml PO 02/13/21 10:01 30 g STAT ONE Administration Intake & Output (Last 24 hours) 02/11/21 02/12/21 02/13/21 02/14/21 11:59 11:59 11:59 11:59 Intake Total 514 Output Total 500 Balance 14 Weight 68.7 kg Laboratory Results (Last 24 hours) 02/13/21 02/13/21 02/13/21 16:25 12:45 11:43 WBC RBC Hgb Hct MCV MCH MCHC RDW Plt Count MPV Gran % Eos # (Auto) Absolute Lymphs (auto) Absolute Monos (auto) Lymphocytes % Monocytes % Eosinophils % Basophils % Absolute Granulocytes Segmented Neutrophils Band Neutrophils Lymphocytes (Manual) Monocytes (Manual) Eosinophils (Manual) Basophils # Platelet Estimate RBC Morphology Sodium Potassium 5.5 H Chloride Carbon Dioxide Anion Gap BUN Creatinine Estimated GFR Glucose POC Glucometer 116 H 228 H Hemoglobin A1c Calcium Total Bilirubin AST ALT Alkaline Phosphatase Troponin I NT-Pro-B Natriuret Pep Serum Total Protein Albumin Influenza Type A Ag Influenza Type B Ag RSV (PCR) SARS-CoV-2 (PCR) 02/13/21 02/13/21 02/13/21 07:04 06:30 03:27 WBC RBC Hgb Hct MCV MCH MCHC RDW Plt Count MPV Gran % Eos # (Auto) Absolute Lymphs (auto) Absolute Monos (auto) Lymphocytes % Monocytes % Eosinophils % Basophils % Absolute Granulocytes Segmented Neutrophils Band Neutrophils Lymphocytes (Manual) Monocytes (Manual) Eosinophils (Manual) Basophils # Platelet Estimate RBC Morphology Sodium Potassium Chloride Carbon Dioxide Anion Gap BUN Creatinine Estimated GFR Glucose POC Glucometer 136 H Hemoglobin A1c 8.73 H Calcium Total Bilirubin AST ALT Alkaline Phosphatase Troponin I < 0.012 NT-Pro-B Natriuret Pep Serum Total Protein Albumin Influenza Type A Ag Influenza Type B Ag RSV (PCR) SARS-CoV-2 (PCR) 02/13/21 02/13/21 02/13/21 03:27 03:27 03:27 WBC 4.8 RBC 2.99 L Hgb 8.9 L Hct 28.7 L MCV 96.0 MCH 29.8 MCHC 31.0 L RDW 12.6 Plt Count 252 MPV 9.4 Gran % Eos # (Auto) Absolute Lymphs (auto) Absolute Monos (auto) Lymphocytes % Monocytes % Eosinophils % Basophils % Absolute Granulocytes Segmented Neutrophils 81 H Band Neutrophils 2 Lymphocytes (Manual) 7 L Monocytes (Manual) 3 Eosinophils (Manual) 7 H Basophils # Platelet Estimate NORMAL RBC Morphology NORMAL Sodium 136 L Potassium 5.5 H Chloride 109 H Carbon Dioxide 21 L Anion Gap 11.8 BUN 30 H Creatinine 1.44 H Estimated GFR 51.1 Glucose 240 H POC Glucometer Hemoglobin A1c Calcium 8.8 Total Bilirubin 0.20 AST 24 ALT 16 Alkaline Phosphatase 62 Troponin I < 0.012 NT-Pro-B Natriuret Pep Serum Total Protein 5.8 L Albumin 3.2 L Influenza Type A Ag Influenza Type B Ag RSV (PCR) SARS-CoV-2 (PCR) 02/13/21 02/12/21 02/12/21 00:29 22:15 22:15 WBC RBC Hgb Hct MCV MCH MCHC RDW Plt Count MPV Gran % Eos # (Auto) Absolute Lymphs (auto) Absolute Monos (auto) Lymphocytes % Monocytes % Eosinophils % Basophils % Absolute Granulocytes Segmented Neutrophils Band Neutrophils Lymphocytes (Manual) Monocytes (Manual) Eosinophils (Manual) Basophils # Platelet Estimate RBC Morphology Sodium Potassium 5.6 H D Chloride Carbon Dioxide Anion Gap BUN Creatinine Estimated GFR Glucose POC Glucometer Hemoglobin A1c Calcium Total Bilirubin AST ALT Alkaline Phosphatase Troponin I < 0.012 < 0.012 NT-Pro-B Natriuret Pep Serum Total Protein Albumin Influenza Type A Ag Influenza Type B Ag RSV (PCR) SARS-CoV-2 (PCR) 02/12/21 02/12/21 02/12/21 21:25 18:43 18:43 WBC RBC Hgb Hct MCV MCH MCHC RDW Plt Count MPV Gran % Eos # (Auto) Absolute Lymphs (auto) Absolute Monos (auto) Lymphocytes % Monocytes % Eosinophils % Basophils % Absolute Granulocytes Segmented Neutrophils Band Neutrophils Lymphocytes (Manual) Monocytes (Manual) Eosinophils (Manual) Basophils # Platelet Estimate RBC Morphology Sodium 136 L Potassium 7.2 H* D Chloride 109 H Carbon Dioxide 21 L Anion Gap 13.0 BUN 37 H Creatinine 1.57 H Estimated GFR 46.3 Glucose 135 H POC Glucometer Hemoglobin A1c Calcium 9.3 Total Bilirubin 0.20 AST 26 ALT 18 Alkaline Phosphatase 72 Troponin I < 0.012 NT-Pro-B Natriuret Pep 466 Serum Total Protein 6.3 Albumin 3.9 Influenza Type A Ag NEGATIVE Influenza Type B Ag NEGATIVE RSV (PCR) NEGATIVE SARS-CoV-2 (PCR) NEGATIVE 02/12/21 02/12/21 18:43 00:29 WBC 5.6 RBC 3.20 L Hgb 9.5 L Hct 30.6 L MCV 95.6 MCH 29.7 MCHC 31.0 L RDW 12.7 Plt Count 275 MPV 9.1 Gran % 65.4 Eos # (Auto) 0.45 Absolute Lymphs (auto) 0.99 L Absolute Monos (auto) 0.48 Lymphocytes % 17.7 L Monocytes % 8.6 Eosinophils % 8.1 H Basophils % 0.2 Absolute Granulocytes 3.66 Segmented Neutrophils Band Neutrophils Lymphocytes (Manual) Monocytes (Manual) Eosinophils (Manual) Basophils # 0.01 Platelet Estimate RBC Morphology Sodium 139 Potassium 5.1 Chloride 110 H Carbon Dioxide 22 Anion Gap 12.1 BUN 33 H Creatinine 1.51 H Estimated GFR 48.4 Glucose 102 POC Glucometer Hemoglobin A1c Calcium 9.7 Total Bilirubin AST ALT Alkaline Phosphatase Troponin I NT-Pro-B Natriuret Pep Serum Total Protein Albumin Influenza Type A Ag Influenza Type B Ag RSV (PCR) SARS-CoV-2 (PCR) Orders (Last 24 hours) Category Date Time Status Bedrest ROUTINE Activity 02/12/21 23:48 Active Up With Assistance ROUTINE Activity 02/12/21 23:48 Active Admit as Inpatient ROUTINE Care 02/12/21 23:48 Completed Code Status Order ROUTINE Care 02/12/21 23:48 Active Fall Protocol Q1H Care 02/12/21 23:48 Active IV Care Q6H Care 02/12/21 23:48 Active POCT Glucose Check ACHS Care 02/12/21 23:[address] in Observation ROUTINE Care 02/12/21 23:42 Active [place], Apply ROUTINE Care 02/12/21 23:48 Active Weight,Daily 0600 Care 02/12/21 23:48 Active BNP [NT PRO BNP] Stat Lab 02/12/21 18:43 Completed CBC W DIFF AM.LAB Lab 02/13/21 03:27 Completed CBC W DIFF Stat Lab 02/12/21 18:43 Completed CMP AM.LAB Lab 02/13/21 03:27 Completed CMP Stat Lab 02/12/21 18:43 Completed HEMOGLOBIN A1C Urgent Lab 02/13/21 03:27 Completed Manual Differential NC Routine Lab 02/13/21 03:27 Completed POCT GLUCOSE Stat Lab 02/13/21 07:04 Completed POCT GLUCOSE Stat Lab 02/13/21 11:43 Completed POCT GLUCOSE Stat Lab 02/13/21 16:25 Completed Potassium (Lab Test) [Potassium] AM.LAB Lab 02/14/21 04:00 Ordered Potassium (Lab Test) [Potassium] Urgent Lab 02/13/21 12:45 Completed Potassium Routine Lab 02/12/21 22:15 Completed TROPONIN Q3H Lab 02/12/21 18:43 Completed TROPONIN Q3H Lab 02/12/21 22:15 Completed TROPONIN Q3H Lab 02/13/21 00:29 Completed TROPONIN Q3H Lab 02/13/21 03:27 Completed TROPONIN Q3H Lab 02/13/21 06:30 Completed Albuterol 2.5 mg/3 ml Neb [Proventil 2.5 mg/3 ml Neb Med 02/12/21 19:48 Discontinued ] 2.5 mg IH .STK-MED ONE Albuterol 2.5 mg/3 ml Neb [Proventil 2.5 mg/3 ml Neb Med 02/12/21 19:13 Discontinued ] 2.5 mg IH STAT ONE Calcium Gluconate 1000 mg [Calcium Gluconate 10% 1000 Med 02/12/21 19:25 Discontinued MG] 1,000 mg IV .STK-MED ONE Calcium Gluconate 1000 mg [Calcium Gluconate 10% 1000 Med 02/12/21 19:13 Discontinued MG] 1,000 mg IV STAT ONE Clopidogrel Bisulfate 75 mg [PLAVIX 75 MG Tablet] Med 02/13/21 10:00 Active 75 mg PO DAILY Dextrose 50%-Water Syringe [D50W 50 ml Abboject] Med 02/12/21 19:25 Discontinued 50 ml IV .STK-MED ONE Dextrose 50%-Water Syringe [D50W 50 ml Abboject] Med 02/12/21 19:13 Discontinued 50 ml IV STAT ONE Ferrous Sulfate 325 mg [Feosol 325 mg] Med 02/13/21 10:00 Active 325 mg PO BID Gabapentin 300 mg [Neurontin 300 mg] Med 02/13/21 10:00 Active 600 mg PO QID Indomethacin 25 mg [Indocin 25 MG] Med 02/13/21 08:45 Active 25 mg PO DAILY PRN PRN Insulin Glargine [Lantus Insulin] Med 02/13/21 10:00 Active 30 unit SQ QAM Insulin Regular, Human [Humulin R] Med 02/12/21 19:30 Discontinued 10 unit .ROUTE .STK-MED ONE Insulin Regular, Human [Humulin R] Med 02/12/21 19:13 Discontinued 10 unit IV STAT STA Isosorbide Mononitrate 30 mg [Imdur 30 MG] Med 02/13/21 10:00 Active 30 mg PO DAILY Lisinopril 10 mg [Zestril 10 MG] Med 02/13/21 10:00 Discontinued 10 mg PO BID Lisinopril 10 mg [Zestril 10 MG] Med 02/14/21 10:00 Active 10 mg PO DAILY Medication Intervention Med 02/13/21 09:15 Discontinued 1 each PO .RN TO CHECK ON Metformin HCl 500 mg [Glucophage 500 MG] Med 02/13/21 09:00 Active 1,000 mg PO BIDWMEALS Metoprolol Tartrate 25 mg [Lopressor 25MG Tab] Med 02/13/21 10:00 Active 25 mg PO BID Multivitamins,Therapeutic Tab* [Theragran Multivitamin* Med 02/13/21 12:00 Active ] 1 tab PO 1200 NaCl 0.9% 1000 ml [Sodium Chloride 0.9% 1000 ML] 1,000 Med 02/12/21 19:25 Discontinued ml .ROUTE UD NaCl 0.9% 1000 ml [Sodium Chloride 0.9% 1000 ML] 1,000 Med 02/13/21 06:21 Discontinued ml .ROUTE UD NaCl 0.9% 1000 ml [Sodium Chloride 0.9% 1000 ML] 1,000 Med 02/12/21 19:15 Discontinued ml IV 100 mls/hr NaCl 0.9% 1000 ml [Sodium Chloride 0.9% 1000 ML] 1,000 Med 02/13/21 14:30 Active ml IV 100 mls/hr Nitroglycerin 0.4 mg Tablet [Nitrostat 0.4 MG Tablet Med 02/13/21 08:45 Active ] 0.4 mg SL Q5MIN PRN MR X 3 PRN Patient Own Med [Patient Own Medication] Med 02/13/21 18:00 Active 1 each PO 0000,1800 Patient Own Med [Patient Own Medication] Med 02/14/21 10:00 Active 1 each PO BID Patiromer Calcium Sorbitex [Veltassa] Med 02/13/21 15:00 Active 8.4 gm PO DAILY Pharmacy Dosing Request Med 02/13/21 13:48 Discontinued 1 each MC STAT ONE Simvastatin 10 mg [Zocor 10MG] Med 02/13/21 22:00 Active 10 mg PO HS Sitagliptin Phosphate 50 MG [Januvia 50 MG] Med 02/13/21 17:00 Active 50 mg PO DINNER Sodium Bicarbonate 50 Meq Abb* [Sodium Bicarbonate 50 Med 02/12/21 19:25 Discontinued Meq/50 ml Abboject] 50 meq IV .STK-MED ONE Sodium Bicarbonate 50 Meq Abb* [Sodium Bicarbonate 50 Med 02/12/21 19:13 Discontinued Meq/50 ml Abboject] 50 meq IV STAT ONE Sodium Polystyrene 15Gm/60 ml* [Kayexylate 15 GM/60 ML* Med 02/12/21 19:25 Discontinued ] 30 g .ROUTE .STK-MED ONE Sodium Polystyrene 15Gm/60 ml* [Kayexylate 15 GM/60 ML* Med 02/12/21 19:17 Dis continued ] 30 g PO STAT ONE Sodium Polystyrene 15Gm/60 ml* [Kayexylate 15 GM/60 ML* Med 02/13/21 10:00 Discontinued ] 30 g PO STAT ONE EKG STAT RT 02/13/21 12:59 Completed Respiratory Therapy Assessment DAILY RT 02/12/21 19:53 Completed Patient Care Notes (Last 24 hours) 02/13/21 10:14 Nursing Note by Marta Khan HOLDING AM MEDS UNTIL 1230 DT [facility] Initialized on 02/13/21 10:14 - END OF NOTE Code(s): E87.5 - HYPERKALEMIA (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 Current Visit: Yes Status: Chronic Qualifiers: Encounter type: sequela Qualified Code(s): T84.59XS - Infection and inflammatory reaction due to other internal joint prosthesis, sequela; Z96.649 - Presence of unspecified artificial hip joint Code(s): T84.59XA - INFECT/INFLM REACTION DUE TO OTH INTERNAL JOINT PROSTH, INIT; Z96.649 - PRESENCE OF UNSPECIFIED ARTIFICIAL HIP JOINT
[2021-02-13] MEDS ORDERED: PATIENT OWN MEDICATION PO SCH (18:00)
[2021-02-13 20:05] VITALS: BP 119/49; PULSE 66; O2SAT 97
[2021-02-13] MEDS ORDERED: Zocor 10MG PO SCH (22:00)
[2021-02-14] MEDS ORDERED: Zestril 10 MG PO SCH (10:00)
[2021-02-14] MEDS ORDERED: PATIENT OWN MEDICATION PO SCH (10:00)
== END 2021-02-13 20:45 | disposition home or self-care (01) ==
LOC: ED 17:33 → ICU 23:42 → INTOOBSV 23:42
PROVIDERS: ADMIT General Practice; ATTEND General Practice
DX: E87.5 Hyperkalemia (principal); E11.9 Type 2 diabetes mellitus without complications; I10 Essential (primary) hypertension; Z79.899 Other long term (current) drug therapy; Z79.01 Long term (current) use of anticoagulants; I25.10 Atherosclerotic heart disease of native coronary artery without angina pectoris; T84.59XS Infection and inflammatory reaction due to other internal joint prosthesis, sequela; Z96.641 Presence of right artificial hip joint; Z20.828 Contact with and (suspected) exposure to other viral communicable diseases
CPT/HCPCS: 0241U; 36000; 36415; 80048; 80053; 82947; 83036; 83880; 84132; 84484; 85025; 93005; 93268; 94640; 96372; 96374; 96375; 99285; 99291; G0378; J0610; J1815; J7609; A9270-GY

== ENCOUNTER 2022-05-12 19:47 | Emergency (ER) | payer MEDICARE, OTHER ==
--- NOTE | 2022-05-12 20:57 | ERPHSYRPT ---
- History of Present Illness Time Seen by Provider: 05/12/22 20:30 Source: patient, family Exam Limitations: no limitations Patient Subjective Stated Complaint: pt states he tripped on a piece of concrete and fell and hit his arm on the sidewalk. denies hitting head or any other injury. Triage Nursing Assessment: pt alert and oriented, answers questions approp. pt ambulatory with steady gait noted. respiraitons nonlabored. skin tear to upper lateral arm and lt elbow. minimal bleeding noted at this time. Physician History: This is a 77-year-old white male [facility] who also uses Dr. Albrecht as his primary local physician presenting to the emergency department with left arm and elbow pain and skin tears after tripping on a piece of concrete. He fell onto his left upper arm and left elbow. The patient denies any head or neck injury or pain. Patient has a history of insulin-dependent diabetes, hypertension, peripheral neuropathy, coronary disease and chronic anemia. Patient is on Plavix. Patient is also on antibiotics at this time. Occurred: just prior to arrival Method of Injury: fell Quality: aching Severity of Pain-Max: moderate Severity of Pain-Current: mild (To moderate) Extremities Pain Location: arm: left, elbow: left Modifying Factors: Improves With: movement Associated Symptoms: none Allergies/Adverse Reactions: latex Allergy (Severe, Verified 05/12/22 19:52) SORES IN MOUTH AND TONGUE sulfamethoxazole [From Bactrim] Allergy (Intermediate, Verified 05/12/22 19:52) Weakness bee venom protein (honey bee) Allergy (Verified 05/12/22 19:52) Shortness of Breath Sulfa (Sulfonamide Antibiotics) Allergy (Verified 05/12/22 19:52) trimethoprim [From Bactrim] Allergy (Verified 05/12/22 19:52) Home Medications: Gabapentin [Neurontin] 600 mg PO QID 02/07/17 [History] Insulin Detemir [Levemir] 30 unit SQ QAM 02/07/17 [History] Multivitamin [Multi-Vitamin Daily] 1 tab PO 1200 02/07/17 [History] Simvastatin 10 mg PO HS 02/07/17 [History] Ferrous Sulfate 325 mg PO BID 04/09/18 [History] Metformin HCl 1,000 mg PO BIDWMEALS 04/09/18 [History] Metoprolol Tartrate 25 mg [Lopressor 25MG Tab] 25 mg PO BID 04/09/18 [History] Clopidogrel Bisulfate [PLAVIX Tablet] 75 mg PO DAILY 04/12/18 [History] Alogliptin Benzoate [Alogliptin] 12.5 mg PO DINNER 09/20/19 [History] Nitroglycerin 0.4 mg Tablet [Nitrostat 0.4 MG Tablet] 0.4 mg SL Q5MIN PRN MR X 3 PRN 09/20/19 [History] cefaDROXiL [Cefadroxil] 500 mg PO BID 03/21/20 [History] Isosorbide Mononitrate 30 mg [Imdur 30 MG] 30 mg PO DAILY 02/12/21 [History] Indomethacin 25 mg [Indocin 25 MG] 25 mg PO DAILY PRN PRN 02/13/21 [History] Lisinopril 10 mg [Zestril 10 MG] 10 mg PO DAILY 02/13/21 [History] Hx Tetanus, Diphtheria Vaccination/Date Given: No (unknown) Hx Influenza Vaccination/Date Given: Yes Hx Pneumococcal Vaccination/Date Given: Yes Immunizations Up to Date: No Travel Risk - International Travel Have you traveled outside of the country in past 3 weeks: No - Coronavirus Screening Are you exhibiting any of the following symptoms?: No Close contact with a COVID-19 positive Pt in past 14-21 Days: No - Vaccine Status Have you recieved a Covid-19 vaccination: Yes [employer]: [place] - Vaccination Dates Date of 2cond Vaccination (if applicable): 10/29/20 - Review of Systems Constitutional: No Symptoms Eyes: No Symptoms Ears, Nose, & Throat: No Symptoms Respiratory: No Symptoms Cardiac: No Symptoms Abdominal/Gastrointestinal: No Symptoms Genitourinary Symptoms: No Symptoms Musculoskeletal: Fall, Injury (Left arm and left elbow) Skin: Other (Skin tears left arm and elbow area) Neurological: No Symptoms Psychological: No Symptoms Endocrine: No Symptoms Hematologic/Lymphatic: No Symptoms Immunological/Allergic: No Symptoms All Other Systems: Reviewed and Negative - Past Medical History Pertinent Past Medical History: Yes Neurological History: Peripheral Neuropathy, Stroke ENT History: Other Cardiac History: Coronary Artery Disease, Hypertension, Myocardial Infarction (MD) Respiratory History: No Pertinent History Endocrine Medical History: Diabetes Type II Musculoskeletal History: Arthritis, Fractures GI Medical History: No Pertinent History History: No Pertinent History Psycho-Social History: No Pertinent History Male Reproductive Disorders: No Pertinent History Other Medical History: Anemia, 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 Agent orange exposure in [place]. 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 right hip - most recent hip sx january 2020, left knee replacement - Social History Smoking Status: Former smoker How long have you smoked: [id number] Exposure to second hand smoke: No Drug Use: none Patient Lives Alone: No - Nursing Vital Signs Nursing Vital Signs: Initial Vital Signs Temperature 97.4 F 05/12/22 19:52 Pulse Rate 65 05/12/22 19:52 Respiratory Rate 16 05/12/22 19:52 Blood Pressure 134/70 05/12/22 19:52 O2 Sat by Pulse Oximetry 100 05/12/22 19:52 Pain Scale Pain Intensity 7 - Physical Exam General Appearance: no apparent distress, alert, anxiety Eyes, Ears, Nose, Throat Exam: normal ENT inspection, moist mucous membranes Neck Exam: normal inspection, non-tender, supple, full range of motion Cardiovascular/Respiratory Exam: chest non-tender, no respiratory distress Abdominal Exam: non-tender Back Exam: normal inspection, normal range of motion, No CVA tenderness, No vertebral tenderness Wrist Exam: normal inspection Hand Exam: normal inspection Neuro/Tendon Exam: normal sensation, normal motor functions, normal tendon functions, no evidence tendon injury Mental Status Exam: alert, oriented x 3, cooperative Skin Exam: other (Skin tears left upper arm and left elbow) SpO2 Interpretation: normal SpO2: 100 O2 Delivery: Room Air - Course Nursing assessment & vital signs reviewed: Yes Ordered Tests: Active Orders 24 hr Category Date Time Status Sling Application STAT Care 05/12/22 21:28 Active ELBOW (MINIMUM 3 VIEWS) Stat Exams 05/12/22 Taken HUMERUS Stat Exams 05/12/22 Taken Medication Summary Discontinued Medications Generic Name Dose Route Start Last Admin Trade Name Kimberly PRN Reason Stop Dose Admin Bacitracin Zinc 0.9 each 05/12/22 21:44 05/12/22 21:48 Bacitracin Packet 1 Each Pckt TP 05/12/22 21:45 0.9 each STAT ONE Administration Bacitracin Zinc Confirm 05/12/22 21:46 Bacitracin Packet 1 Each Pckt Administered 05/12/22 21:47 Dose 1 each .ROUTE .STK-MED ONE Diphtheria/Tetanus/Acell Pertussis 0.5 ml 05/12/22 21:31 05/12/22 21:48 Tdap --Diph,Pertuss(Acell),Tet Vac/Pf 0.5 Ml Vial IM 05/12/22 21:32 0.5 ml .ONCE ONE Administration Diphtheria/Tetanus/Acell Pertussis Confirm 05/12/22 21:46 Tdap --Diph,Pertuss(Acell),Tet Vac/Pf 0.5 Ml Vial Administered 05/12/22 21:47 Dose 0.5 ml IM .STK-MED ONE Oxycodone/Acetaminophen 1 tab 05/12/22 21:31 05/12/22 21:48 Oxycodone Hcl/Apap 5 Mg/325 Mg Tablet PO 05/12/22 21:32 1 tab STAT STA Administration Oxycodone/Acetaminophen Confirm 05/12/22 21:46 Oxycodone Hcl/Apap 5 Mg/325 Mg Tablet Administered 05/12/22 21:47 Dose 1 tab .ROUTE .STK-MED ONE - Progress Progress: improved, pain not gone completely, re-examined Progress Note: 05/12/22 21:28 X-ray left humerus to the question of her chronic versus acute anatomical neck fracture. Patient does not have pain in this area. X-ray left elbow shows no acute fracture or dislocation. 05/12/22 21:54 Patient states he has no left shoulder pain and no pain in the proximal left humeral head area. Counseled pt/family regarding: diagnosis, need for follow-up, rad results - Departure Departure Disposition: Home Clinical Impression: Skin tear of left upper arm without complication, Skin tear of left elbow without complication Condition: Stable Critical Care Time: No Referrals: ASH ALBRECHT MD [Primary Care Provider] - Follow up/PCP as directed Additional Instructions: Wear sling for comfort. Keep the skin tear sites clean daily with soap and water. Begin this treatment in Thursday05/14/2022.. Take your antibiotics as prescribed. May apply antibiotic ointment of choice to the abrasion sites but avoid the Steri-Strips. Leave the Steri-Strips in place till they fall off on their own. Continue your antibiotics as prescribed.
[2022-05-12 21:25] VITALS: BP 120/69
[2022-05-12] MEDS ORDERED: Adacel Vial IM ONE ×2 (21:31→21:46)
[2022-05-12] MEDS ORDERED: PERCOCET TABLET 5/325MG PO STA ×2 (21:31→21:56)
[2022-05-12] MEDS ORDERED: BACIGUENT PACKET TP ONE (21:44)
[2022-05-12] MEDS ORDERED: PERCOCET TABLET 5/325MG ONE ×2 (21:46→21:58)
[2022-05-12] MEDS ORDERED: BACIGUENT PACKET ONE (21:46)
[2022-05-12 22:08] VITALS: PULSE 64; O2SAT 96
--- NOTE | 2022-05-13 08:53 | XRAY ---
Indication: Pain following fall. Comparison: None 2 view left humerus demonstrates osteopenia, moderate/advanced shoulder degenerative arthropathy, tiny left lung calcified granulomas, CABG surgery with sternotomy hardware, and partially visualized lower cervical fusion hardware. No other bony, articular, or soft tissue abnormalities.
--- NOTE | 2022-05-13 08:55 | XRAY ---
Indication: Pain following fall. Comparison: None 3 view left elbow demonstrates osteopenia and small olecranon process spurring. No other bony, articular, or soft tissue abnormalities.
== END 2022-05-12 22:08 | disposition home or self-care (01) ==
LOC: ED 19:47
DX: S41.112A Laceration without foreign body of left upper arm, initial encounter (principal); S51.012A Laceration without foreign body of left elbow, initial encounter; W01.0XXA Fall on same level from slipping, tripping and stumbling without subsequent striking against object, initial encounter; E11.42 Type 2 diabetes mellitus with diabetic polyneuropathy; I10 Essential (primary) hypertension; Z79.02 Long term (current) use of antithrombotics/antiplatelets; Z79.4 Long term (current) use of insulin; Z79.84 Long term (current) use of oral hypoglycemic drugs; Z79.899 Other long term (current) drug therapy
CPT/HCPCS: 73060; 73080; 90471; 90715; 99283; A9270-GY

== ENCOUNTER 2022-07-30 12:45 | Emergency (ER) | payer MEDICARE, OTHER ==
--- NOTE | 2022-07-30 13:00 | ERPHSYRPT ---
- History of Present Illness Time Seen by Provider: 07/30/22 13:00 Source: patient, family Exam Limitations: no limitations Physician History: This is a 77-year-old white male [facility] who also sees Dr. Albrecht locally and presents with 2 to 3-day history of generalized weakness, headaches and body aches. 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 However his symptoms came on approximately 2 to 3 days ago. Patient is an insulin-dependent diabetic who also have a history of hypertension, coronary disease, chronic anemia, hyperlipidemia and peripheral neuropathy. Patient is on Plavix. He denies chest pain. He denies shortness of breath. He has some mild abdominal discomfort with a few episodes of diarrhea. He thought this might be related to recent increase in his metformin. He has no known exposures to anyone with similar symptoms or who has been diagnosed with viral illness. Timing/Duration: day(s) (Symptoms for 2 to 3 days), other (Not necessarily worse but persistent) Severity: moderate Associated Symptoms: heartburn, weakness, other (Body aches), No shortness of breath, No chest pain Allergies/Adverse Reactions: latex Allergy (Severe, Verified 07/30/22 13:10) SORES IN MOUTH AND TONGUE sulfamethoxazole [From Bactrim] Allergy (Intermediate, Verified 07/30/22 13:10) Weakness bee venom protein (honey bee) Allergy (Verified 07/30/22 13:10) Shortness of Breath Sulfa (Sulfonamide Antibiotics) Allergy (Verified 07/30/22 13:10) trimethoprim [From Bactrim] Allergy (Verified 07/30/22 13:10) Home Medications: Insulin Detemir [Levemir] 16 unit SQ BID 02/07/17 [History] Ferrous Sulfate 325 mg PO BID 04/09/18 [History] Metformin HCl 500 mg PO BIDWMEALS 04/09/18 [History] Alogliptin Benzoate [Alogliptin] 6.25 mg PO DINNER 09/20/19 [History] Nitroglycerin 0.4 mg Tablet [Nitrostat 0.4 MG Tablet] 0.4 mg SL Q5MIN PRN MR X 3 PRN 09/20/19 [History] cefaDROXiL [Cefadroxil] 500 mg PO BID 03/21/20 [History] Isosorbide Mononitrate 30 mg [Imdur 30 MG] 30 mg PO DAILY 02/12/21 [History] Indomethacin 25 mg [Indocin 25 MG] 25 mg PO DAILY PRN PRN 02/13/21 [Hist ory] Aspirin 81 mg PO DAILY 07/30/22 [History] Duloxetine HCl 30 mg [Cymbalta 30 MG Capsule] 30 mg PO DAILY 07/30/22 [History] Hx Tetanus, Diphtheria Vaccination/Date Given: No (unknown) Hx Influenza Vaccination/Date Given: Yes Hx Pneumococcal Vaccination/Date Given: Yes Travel Risk - International Travel Have you traveled outside of the country in past 3 weeks: No - Coronavirus Screening Are you exhibiting any of the following symptoms?: Yes Symptoms: Vomiting/Diarrhea, Headaches/Body Aches/Fatigue Close contact with a COVID-19 positive Pt in past 14-21 Days: No - Vaccine Status Have you recieved a Covid-19 vaccination: Yes 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: [employer] - Vaccination Dates Date of 2cond Vaccination (if applicable): 10/29/20 - Review of Systems Constitutional: Weakness Eyes: No Symptoms Ears, Nose, & Throat: No Symptoms Respiratory: No Symptoms Cardiac: No Symptoms Abdominal/Gastrointestinal: Diarrhea Genitourinary Symptoms: No Symptoms Musculoskeletal: Arthralgias, Myalgias Skin: No Symptoms Neurological: No Symptoms Psychological: No Symptoms Endocrine: No Symptoms Hematologic/Lymphatic: No Symptoms Immunological/Allergic: No Symptoms All Other Systems: Reviewed and Negative - Past Medical History Pertinent Past Medical History: Yes Neurological History: Peripheral Neuropathy, Stroke ENT History: Other Cardiac History: Coronary Artery Disease, Hypertension, Myocardial Infarction (NM) Respiratory History: No Pertinent History Endocrine Medical History: Diabetes Type II Musculoskeletal History: Arthritis, Fractures GI Medical History: No Pertinent History History: No Pertinent History Psycho-Social History: No Pertinent History Male Reproductive Disorders: No Pertinent History Other Medical History: Anemia, 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 Agent orange exposure in [place]. 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 right hip - most recent hip sx january 2020, left knee replacement - Social History Smoking Status: Former smoker How long have you smoked: [id number] Exposure to second hand smoke: No Drug Use: none Patient Lives Alone: No - Nursing Vital Signs Nursing Vital Signs: Initial Vital Signs Temperature 96.8 F 07/30/22 12:59 Pulse Rate 62 07/30/22 12:59 Respiratory Rate 14 07/30/22 12:59 Blood Pressure 138/79 07/30/22 12:59 O2 Sat by Pulse Oximetry 97 07/30/22 12:59 Pain Scale Pain Intensity 4 - Physical Exam General Appearance: no apparent distress, alert Eye Exam: PERRL/EOMI, eyes nml inspection Ears, Nose, Throat Exam: normal ENT inspection, moist mucous membranes Neck Exam: normal inspection, non-tender, supple, full range of motion Respiratory Exam: normal breath sounds, lungs clear, airway intact, No chest tenderness, No respiratory distress Cardiovascular Exam: regular rate/rhythm, normal heart sounds, normal peripheral pulses Gastrointestinal/Abdomen Exam: soft, normal bowel sounds, No tenderness Rectal Exam: not done Back Exam: normal inspection, normal range of motion, vertebral tenderness, No CVA tenderness Extremity Exam: normal inspection, normal range of motion, pelvis stable Neurologic Exam: alert, oriented x 3, cooperative, 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, nor mal mood/affect, nml cerebellar function, nml station & gait, sensation nml Skin Exam: normal color, warm, dry Lymphatic Exam: No adenopathy SpO2 Interpretation: normal O2 Delivery: Room Air - Course Nursing assessment & vital signs reviewed: Yes EKG Interpreted by Me: RATE (65), Sinus Rhythm, Left [place] Deviation, NORMAL INTERVALS, NORMAL QRS, NORMAL ST-T, Other (No acute ischemic changes on today's EKG) Ordered Tests: Active Orders 24 hr Category Date Time Status Machine Cleaner STAT Care 07/30/22 13:26 Active EKG-ER Only STAT Care 07/30/22 13:26 Active IV Insertion STAT Care 07/30/22 13:26 Active Pulse Oximetry (ED) STAT Care 07/30/22 13:26 Active BLOOD CULTURE Stat Lab 07/30/22 13:38 Received CBC W DIFF Stat Lab 07/30/22 13:30 Completed CMP Stat Lab 07/30/22 13:30 Completed Lactic Acid Stat Lab 07/30/22 13:48 Completed Lactic Acid Stat Lab 07/30/22 15:48 Received [place] Screen Stat Lab 07/30/22 13:30 Completed NT PRO BNP Stat Lab 07/30/22 13:30 Completed TROPONIN Q4H Lab 07/30/22 13:30 Completed TROPONIN Q4H Lab 07/30/22 17:30 Ordered TROPONIN Q4H Lab 07/30/22 21:30 Ordered UA W/RFX CULTURE Stat Lab 07/30/22 15:23 Completed Medication Summary Discontinued Medications Generic Name Dose Route Start Last Admin Trade Name Freq PRN Reason Stop Dose Admin Sodium Chloride 1,000 mls @ 999 mls/hr 07/30/22 13:26 07/30/22 14:51 Sodium Chloride 0.9% 1000 Ml IV 07/30/22 14:26 Infused .Q1H1M STA Infusion Sodium Chloride Confirm 07/30/22 13:44 Sodium Chloride 0.9% 1000 Ml Administered 07/30/22 13:45 Dose 1,000 mls @ ud .ROUTE .STK-MED ONE Sodium Chloride 1,000 mls @ 999 mls/hr 07/30/22 14:48 07/30/22 14:52 Sodium Chloride 0.9% 1000 Ml IV 07/30/22 15:48 999 mls/hr .Q1H1M STA Administration Sodium Chloride Confirm 07/30/22 14:52 Sodium Chloride 0.9% 1000 Ml Administered 07/30/22 14:53 Dose 1,000 mls @ ud .ROUTE .STK-MED ONE Lab/Rad Data: Laboratory Result Diagrams 07/30/22 13:30 07/30/22 13:30 Laboratory Results 07/30/22 07/30/22 07/30/22 Range/Units 15:23 13:48 13:38 WBC (4.0-10.5) x10^3/uL RBC (4.1-5.6) x10^6/uL Hgb (12.5-18.0) g/dL Hct (42-50) % MCV (78-100) fL MCH (26-32) pg MCHC (32-36) g/dL RDW (11.5-14.0) % Plt Count (150-450) x10^3/uL MPV (7.5-11.0) fL Gran % (36.0-66.0) % Immature Gran % (Auto) (0.00-0.4) % Nucleat RBC Rel Count (0.00-0.1) % Eos # (Auto) (0-0.5) x10^3/uL Immature Gran # (Auto) (0.00-0.03) x10^3u/L Absolute Lymphs (auto) (1.0-4.6) x10^3/uL Absolute Monos (auto) (0.0-1.3) x10^3/uL Absolute Nucleated RBC (0.00-0.01) x10^3u/L Lymphocytes % (24.0-44.0) % Monocytes % (0.0-12.0) % Eosinophils % (0.00-5.0) % Basophils % (0.0-0.4) % Absolute Granulocytes (1.4-6.9) x10^3/uL Basophils # (0-0.4) x10^3/uL Sodium (137-145) mmol/L Potassium (3.5-5.1) mmol/L Chloride (98-107) mmol/L Carbon Dioxide (22-30) mmol/L Anion Gap (5-15) MEQ/L BUN (9-20) mg/dL Creatinine (0.66-1.25) mg/dL Estimated GFR ML/MIN Glucose (74-106) mg/dL Lactic Acid 2.9 H (0.4-2.0) Calcium (8.4-10.2) mg/dL Total Bilirubin (0.2-1.3) mg/dL AST (17-59) U/L ALT (0-50) U/L Alkaline Phosphatase (38-126) U/L Troponin I (0.000-0.034) ng/mL NT-Pro-B Natriuret Pep (0-1800) pg/mL Serum Total Protein (6.3-8.2) g/dL Albumin (3.5-5.0) g/dL Urinalys Dipstick Clnc MAIN LAB Urine Color YELLOW (YELLOW) Urine Appearance CLEAR (CLEAR) Urine pH 5.0 (5-6) Ur Specific [place] 1.025 (1.005-1.025) POC Urine Protein Conf TRACE A (Negative) Urine Ketones NEGATIVE (NEGATIVE) Urine Nitrite NEGATIVE (NEGATIVE) Urine Bilirubin NEGATIVE (NEGATIVE) Urine Urobilinogen 0.2 (0-1) mg/dL Urine Leukocytes NEGATIVE (NEGATIVE) Urine WBC (Auto) Not Reportable Urine RBC (Auto) NONE (0-2) /HPF U Epithel Cells (Auto) Not Reportable Urine Bacteria (Auto) RARE (NEGATIVE) /HPF Urine RBC NEGATIVE (0-5) Curtis/ul Urine Mucus (Auto) SLIGHT A (NEGATIVE) /HPF Ur Culture Indicated? NO Urine Glucose 500 A (NEGATIVE) mg/dL Monoscreen (Negative) Influenza Type A Ag NEGATIVE (NEGATIVE) Influenza Type B Ag NEGATIVE (NEGATIVE) RSV (PCR) NEGATIVE (Negative) SARS-CoV-2 (PCR) NEGATIVE (NEGATIVE) 07/30/22 07/30/22 07/30/22 Range/Units 13:30 13:30 13:30 WBC (4.0-10.5) x10^3/uL RBC (4.1-5.6) x10^6/uL Hgb (12.5-18.0) g/dL Hct (42-50) % MCV (78-100) fL MCH (26-32) pg MCHC (32-36) g/dL RDW (11.5-14.0) % Plt Count (150-450) x10^3/uL MPV (7.5-11.0) fL Gran % (36.0-66.0) % Immature Gran % (Auto) (0.00-0.4) % Nucleat RBC Rel Count (0.00-0.1) % Eos # (Auto) (0-0.5) x10^3/uL Immature Gran # (Auto) (0.00-0.03) x10^3u/L Absolute Lymphs (auto) (1.0-4.6) x10^3/uL Absolute Monos (auto) (0.0-1.3) x10^3/uL Absolute Nucleated RBC (0.00-0.01) x10^3u/L Lymphocytes % (24.0-44.0) % Monocytes % (0.0-12.0) % Eosinophils % (0.00-5.0) % Basophils % (0.0-0.4) % Absolute Granulocytes (1.4-6.9) x10^3/uL Basophils # (0-0.4) x10^3/uL Sodium 134 L (137-145) mmol/L Potassium 5.0 (3.5-5.1) mmol/L Chloride 103 (98-107) mmol/L Carbon Dioxide 24 (22-30) mmol/L Anion Gap 11.8 (5-15) MEQ/L BUN 29 H (9-20) mg/dL Creatinine 1.32 H (0.66-1.25) mg/dL Estimated GFR 56.2 ML/MIN Glucose 165 H (74-106) mg/dL Lactic Acid (0.4-2.0) Calcium 8.9 (8.4-10.2) mg/dL Total Bilirubin 0.40 (0.2-1.3) mg/dL AST 29 (17-59) U/L ALT 21 (0-50) U/L Alkaline Phosphatase 57 (38-126) U/L Troponin I 0.012 (0.000-0.034) ng/mL NT-Pro-B Natriuret Pep 547 (0-1800) pg/mL Serum Total Protein 6.9 (6.3-8.2) g/dL Albumin 3.9 (3.5-5.0) g/dL Urinalys Dipstick Clnc Urine Color (YELLOW) Urine Appearance (CLEAR) Urine pH (5-6) Ur Specific [place] (1.005-1.025) POC Urine Protein Conf (Negative) Urine Ketones (NEGATIVE) Urine Nitrite (NEGATIVE) Urine Bilirubin (NEGATIVE) Urine Urobilinogen (0-1) mg/dL Urine Leukocytes (NEGATIVE) Urine WBC (Auto) Urine RBC (Auto) (0-2) /HPF U Epithel Cells (Auto) Urine Bacteria (Auto) (NEGATIVE) /HPF Urine RBC (0-5) Curtis/ul Urine Mucus (Auto) (NEGATIVE) /HPF Ur Culture Indicated? Urine Glucose (NEGATIVE) mg/dL Monoscreen NEGATIVE (Negative) Influenza Type A Ag (NEGATIVE) Influenza Type B Ag (NEGATIVE) RSV (PCR) (Negative) SARS-CoV-2 (PCR) (NEGATIVE) 07/30/22 Range/Units 13:30 WBC 5.2 (4.0-10.5) x10^3/uL RBC 4.11 (4.1-5.6) x10^6/uL Hgb 12.0 L (12.5-18.0) g/dL Hct 37.3 L (42-50) % MCV 90.8 (78-100) fL MCH 29.2 (26-32) pg MCHC 32.2 (32-36) g/dL RDW 13.2 (11.5-14.0) % Plt Count 205 (150-450) x10^3/uL MPV 9.1 (7.5-11.0) fL Gran % 66.7 H (36.0-66.0) % Immature Gran % (Auto) 0.4 (0.00-0.4) % Nucleat RBC Rel Count 0.0 (0.00-0.1) % Eos # (Auto) 0.16 (0-0.5) x10^3/uL Immature Gran # (Auto) 0.02 (0.00-0.03) x10^3u/L Absolute Lymphs (auto) 1.11 (1.0-4.6) x10^3/uL Absolute Monos (auto) 0.43 (0.0-1.3) x10^3/uL Absolute Nucleated RBC 0.00 (0.00-0.01) x10^3u/L Lymphocytes % 21.2 L (24.0-44.0) % Monocytes % 8.2 (0.0-12.0) % Eosinophils % 3.1 (0.00-5.0) % Basophils % 0.4 (0.0-0.4) % Absolute Granulocytes 3.49 (1.4-6.9) x10^3/uL Basophils # 0.02 (0-0.4) x10^3/uL Sodium (137-145) mmol/L Potassium (3.5-5.1) mmol/L Chloride (98-107) mmol/L Carbon Dioxide (22-30) mmol/L Anion Gap (5-15) MEQ/L BUN (9-20) mg/dL Creatinine (0.66-1.25) mg/dL Estimated GFR ML/MIN Glucose (74-106) mg/dL Lactic Acid (0.4-2.0) Calcium (8.4-10.2) mg/dL Total Bilirubin (0.2-1.3) mg/dL AST (17-59) U/L ALT (0-50) U/L Alkaline Phosphatase (38-126) U/L Troponin I (0.000-0.034) ng/mL NT-Pro-B Natriuret Pep (0-1800) pg/mL Serum Total Protein (6.3-8.2) g/dL Albumin (3.5-5.0) g/dL Urinalys Dipstick Clnc Urine Color (YELLOW) Urine Appearance (CLEAR) Urine pH (5-6) Ur Specific [place] (1.005-1.025) POC Urine Protein Conf (Negative) Urine Ketones (NEGATIVE) Urine Nitrite (NEGATIVE) Urine Bilirubin (NEGATIVE) Urine Urobilinogen (0-1) mg/dL Urine Leukocytes (NEGATIVE) Urine WBC (Auto) Urine RBC (Auto) (0-2) /HPF U Epithel Cells (Auto) Urine Bacteria (Auto) (NEGATIVE) /HPF Urine RBC (0-5) Curtis/ul Urine Mucus (Auto) (NEGATIVE) /HPF Ur Culture Indicated? Urine Glucose (NEGATIVE) mg/dL Monoscreen (Negative) Influenza Type A Ag (NEGATIVE) Influenza Type B Ag (NEGATIVE) RSV (PCR) (Negative) SARS-CoV-2 (PCR) (NEGATIVE) - Progress Progress: improved Counseled pt/family regarding: lab results, diagnosis - Departure Departure Disposition: Home Clinical Impression: Weakness Condition: Stable Critical Care Time: No Referrals: ASH ALBRECHT MD [Primary Care Provider] - Follow up/PCP as directed Additional Instructions: Drink plenty of fluids. Do not advance your diet to your drinking your fluids well. Take your medication as prescribed. Follow-up with Dr Albrecht tomorrow morning and make arrangements for an appointment for further evaluation management
[2022-07-30] MEDS ORDERED: Sodium Chloride 0.9% 1000 ML 1,000 ML IV STA ×2 (13:26→14:48)
[2022-07-30] MEDS ORDERED: Sodium Chloride 0.9% 1000 ML 1,000 ML ONE ×2 (13:44→14:52)
[2022-07-30 13:50] LABS: Absolute Neutrophil Ct (ANC) 3.49 x10^3/uL (1.4-6.9); Basophil (Absolute #) 0.02 x10^3/uL (0-0.4); Eosinophil % 3.1 % (0.00-5.0); Eosinophil (Absolute #) 0.16 x10^3/uL (0-0.5); Hematocrit 37.3 % (42-50); Lymphocyte (Absolute #) 1.11 x10^3/uL (1.0-4.6); Lymphocytes % 21.2 % (24.0-44.0); Mean Cell Volume 90.8 fL (78-100); Mean Corpuscular Hemoglobin 29.2 pg (26-32); Mean Corpuscular Hgb Concent. 32.2 g/dL (32-36); Mean Platelet Volume 9.1 fL (7.5-11.0); Monocyte (Absolute #) 0.43 x10^3/uL (0.0-1.3); Monocytes % 8.2 % (0.0-12.0); Neutrophil % 66.7 % (36.0-66.0); Platelet Count 205 x10^3/uL (150-450); Red Blood Count 4.11 x10^6/uL (4.1-5.6); Red Cell Distribution Width 13.2 % (11.5-14.0); White Blood Count 5.2 x10^3/uL (4.0-10.5)
[2022-07-30 14:16] LABS: ALBUMIN 3.9 g/dL (3.5-5.0); ANION GAP 11.8 MEQ/L (5-15); BILIRUBIN,TOTAL 0.4 mg/dL (0.2-1.3); Calcium 8.9 mg/dL (8.4-10.2); Creatinine 1 1.32 mg/dL (0.66-1.25); EST GLOMERULAR FILTRATION RATE 56.2 ML/MIN; Total Protein 6.9 g/dL (6.3-8.2)
[2022-07-30 14:25] LABS: INFLUENZA A NEGATIVE (NEGATIVE); INFLUENZA B NEGATIVE (NEGATIVE); RESPIRATORY SYNCTIAL VIRUS NEGATIVE (Negative); SARS-CoV-2 Xpert Express NEGATIVE (NEGATIVE)
[2022-07-30 14:57] VITALS: BP 138/78
[2022-07-30 15:31] LABS: Appearance CLEAR (CLEAR); Bilirubin NEGATIVE (NEGATIVE); Glucose 500 mg/dL (NEGATIVE); Ketones NEGATIVE (NEGATIVE); RBC NEGATIVE Ery/ul (0-5); Specific Gravity 1.025 (1.005-1.025)
[2022-07-30 15:32] LABS: Dipstick done @ ? MAIN LAB; Nitrite NEGATIVE (NEGATIVE); Protein,Urine Dip TRACE (Negative); Urobilinogen 0.2 mg/dL (0-1)
[2022-07-30 15:36] LABS: Bacteria RARE /HPF (NEGATIVE); Mucus SLIGHT /HPF (NEGATIVE)
[2022-07-30 15:37] LABS: Urine Cultured Indicated? NO
[2022-07-30 16:31] VITALS: PULSE 64; O2SAT 98
== END 2022-07-30 16:15 | disposition home or self-care (01) ==
LOC: ED 12:45
DX: R53.1 Weakness (principal); R51.9 Headache, unspecified; M79.10 Myalgia, unspecified site; R10.9 Unspecified abdominal pain; R19.7 Diarrhea, unspecified; E11.42 Type 2 diabetes mellitus with diabetic polyneuropathy; I10 Essential (primary) hypertension; E78.5 Hyperlipidemia, unspecified; Z79.4 Long term (current) use of insulin; Z79.84 Long term (current) use of oral hypoglycemic drugs; Z79.899 Other long term (current) drug therapy; Z20.828 Contact with and (suspected) exposure to other viral communicable diseases
CPT/HCPCS: 0241U; 36000; 36415; 80053; 81015; 83605; 83880; 84484; 85025; 86308; 87040; 93005; 93041; 94760; 96360; 99284

== ENCOUNTER 2023-07-29 17:17 | Observation (INO) | payer MEDICARE, OTHER ==
--- NOTE | 2023-07-29 17:19 | ERPHSYRPT ---
- History of Present Illness Source: patient, family Exam Limitations: no limitations Timing/Duration: week(s), worse Severity: moderate Associated Symptoms: loss of appetite, weakness Hx Tetanus, Diphtheria Vaccination/Date Given: No (unknown) Hx Influenza Vaccination/Date Given: Yes Hx Pneumococcal Vaccination/Date Given: Yes <JOSÉ MELTON - Last Filed: 07/29/23 19:18> <NAYELI EVERETT - Last Filed: 07/29/23 23:58> - History of Present Illness Time Seen by Provider: 07/29/23 17:18 Physician History: This is a 78-year-old white male patient of Dr. Corina melgar and is [facility]. Patient presents with progressively worsening weakness over the last 2 weeks. 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 , who provided independent, additional history, states that the last time he felt this week he was septic. On July 14 patient underwent drainage of a subcutaneous mass/fluid collection of the right hip externally. He has been on outpatient IV antibiotics at our infusion clinic. Patient denies chest pain. He denies shortness of breath. Patient is an insulin-dependent diabetic who has hypertension, coronary disease, chronic anemia, hyperlipidemia peripheral neuropathy and has had a CVA in the past. (JOSÉ MELTON) Allergies/Adverse Reactions: latex Allergy (Severe, Verified 07/29/23 17:35) SORES IN MOUTH AND TONGUE sulfamethoxazole [From Bactrim] Allergy (Intermediate, Verified 07/29/23 17:35) Weakness bee venom protein (honey bee) Allergy (Verified 07/29/23 17:35) Shortness of Breath Sulfa (Sulfonamide Antibiotics) Allergy (Verified 07/29/23 17:35) trimethoprim [From Bactrim] Allergy (Verified 07/29/23 17:35) Home Medications: Insulin Detemir [Levemir] 25 unit SQ BID 02/07/17 [History] Ferrous Sulfate 325 mg PO DAILY 04/09/18 [History] Alogliptin Benzoate [Alogliptin] 6.25 mg PO DINNER 09/20/19 [History] Nitroglycerin 0.4 mg Tablet [Nitrostat 0.4 MG Tablet] 0.4 mg SL Q5MIN PRN MR X 3 PRN 09/20/19 [History] Aspirin 81 mg PO DAILY 07/30/22 [History] Duloxetine HCl 30 mg [Cymbalta 30 MG Capsule] 30 mg PO DAILY 07/30/22 [History] Atorvastatin Calcium 40 mg PO DAILY 07/18/23 [History] Empagliflozin [Jardiance] 10 mg PO DAILY 07/18/23 [History] Lactobacillus Acidophilus [Probiotic] 1 each PO DAILY 07/18/23 [History] Memantine HCl 5 mg [Namenda 5 MG] 5 mg PO DAILY 07/18/23 [History] Multivitamin 1 each PO DAILY 07/18/23 [History] Pregabalin 50 mg PO BID 07/18/23 [History] Travel Risk - International Travel Have you traveled outside of the country in past 3 weeks: No - Coronavirus Screening Are you exhibiting any of the following symptoms?: No Close contact with a COVID-19 positive Pt in past 14-21 Days: No - Vaccine Status Have you recieved a Covid-19 vaccination: Yes 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 It is in the subcutaneous/skin region overlying the right hip) Neurological: No Symptoms Psychological: No Symptoms Endocrine: No Symptoms Hematologic/Lymphatic: No Symptoms Immunological/Allergic: No Symptoms All Other Systems: Reviewed and Negative <JOSÉ MELTON - Last Filed: 07/29/23 19:18> - Past Medical History Pertinent Past Medical History: Yes Neurological History: Peripheral Neuropathy ENT History: Other Cardiac History: Myocardial Infarction ([place]) Respiratory History: No Pertinent History Endocrine Medical History: Diabetes Type II Musculoskeletal History: Arthritis, Fractures GI Medical History: No Pertinent History History: No Pertinent History Psycho-Social History: No Pertinent History Male Reproductive Disorders: No Pertinent History Other Medical History: EXPOSURE TO [employer] IN [place], MULTIPLE HIP SX DUE TO INFECTION, CHRONIC KIDNEY DISEASE STAGE 3, NEUROPATHY. FAMILY PRACTICIONER: DR. BAZZI - Past Surgical History Past Surgical History: Yes Neuro Surgical History: No Pertinent History Cardiac: CABG, Cardiac Catheterization Respiratory: No Pertinent History Gastrointestinal: Appendectomy, Cholecystectomy Genitourinary: No Pertinent History Musculoskeletal: Orthopedic Surgery Male Surgical History: No Pertinent History Other Surgical History: Back surgery 2010, Neck surgery 2007, Left knee meniscal repair 2004, Right hip repair 1989, 1990, 2003, 10/11/2012, 01/10/2013, 2019...Fx: Pelvis, Ribs, Vertabrae, Right hip from tree falling on him in 1989. right hip - most recent hip sx january 2020, left knee replacement - Social History Smoking Status: Former smoker How long have you smoked: [id number] Exposure to second hand smoke: No Drug Use: none Patient Lives Alone: No <JOSÉ MELTON - Last Filed: 07/29/23 19:18> - Physical Exam General Appearance: no apparent distress, lethargy Eye Exam: PERRL/EOMI, eyes nml inspection Ears, Nose, Throat Exam: normal ENT inspection, moist mucous membranes Neck Exam: normal inspection, non-tender, supple, full range of motion Respiratory Exam: normal breath sounds, lungs clear, airway intact, No chest tenderness, No respiratory distress Cardiovascular Exam: regular rate/rhythm, normal heart sounds, normal peripheral pulses Gastrointestinal/Abdomen Exam: soft, normal bowel sounds, No tenderness Rectal Exam: not done Back Exam: normal inspection, normal range of motion, No CVA tenderness, No vertebral tenderness Extremity Exam: normal inspection, normal range of motion, pelvis stable Neurologic Exam: oriented x 3, cooperative, adult psychiatrist II-XII nml as tested, nml cerebellar function, nml station & gait, sensation nml Skin Exam: normal color, warm, dry, other (surgical incision line intact without pain, drainage, redness or odor) Lymphatic Exam: No adenopathy SpO2 Interpretation: normal O2 Delivery: Room Air <JOSÉ MELTON - Last Filed: 07/29/23 19:18> - Nursing Vital Signs Nursing Vital Signs: Initial Vital Signs Temperature 96.7 F 07/29/23 17:28 Pulse Rate 60 07/29/23 17:28 Respiratory Rate 16 07/29/23 17:28 Blood Pressure 139/72 07/29/23 17:28 O2 Sat by Pulse Oximetry 98 07/29/23 17:28 Pain Scale Pain Intensity 0 - Course Nursing assessment & vital signs reviewed: Yes <JOSÉ MELTON - Last Filed: 07/29/23 19:18> - CT Exams Chest CT Interpretation: Tele-radiologist Report (No comps, normal CT PE exam) <NAYELI EVERETT - Last Filed: 07/29/23 23:58> Ordered Tests: Active Orders 24 hr Category Date Time Status EKG-ER Only STAT Care 07/29/23 18:19 Active IV Insertion STAT Care 07/29/23 18:19 Active CHEST 1 VIEW (PORTABLE) Stat Exams 07/29/23 18:19 Taken CHEST WITH CONTRAST [CT] Stat Exams 07/29/23 19:27 Taken BLOOD CULTURE Stat Lab 07/29/23 18:50 Received CBC W DIFF Stat Lab 07/29/23 18:50 Completed CK-Creatinine Phosphokinase Stat Lab 07/29/23 18:50 Completed CMP Stat Lab 07/29/23 18:50 Completed CULTURE,URINE Stat Lab 07/29/23 19:10 Received D-DIMER QUANTITATIVE Stat Lab 07/29/23 18:50 Completed Lactic Acid Stat Lab 07/29/23 18:43 Completed MAGNESIUM Stat Lab 07/29/23 18:50 Completed MONO SCREEN Stat Lab 07/29/23 18:50 Completed NT PRO BNPII Stat Lab 07/29/23 18:50 Completed TROPONIN Q4H Lab 07/29/23 18:50 Completed TROPONIN Q4H Lab 07/29/23 22:00 Completed TROPONIN Q4H Lab 07/30/23 02:30 Ordered UA W/RFX UR CULTURE Stat Lab 07/29/23 19:10 Completed Medication Summary Discontinued Medications Generic Name Dose Route Start Last Admin Trade Name Freq PRN Reason Stop Dose Admin Sodium Chloride 1,000 mls @ 999 mls/hr 07/29/23 18:19 07/29/23 18:42 Sodium Chloride 0.9% 1000 Ml IV 07/29/23 19:19 999 mls/hr .Q1H1M STA Administration Sodium Chloride 500 mls @ 500 mls/hr 07/29/23 20:11 07/29/23 20:12 Sodium Chloride 0.9% 500 Ml IV 07/29/23 21:10 500 mls/hr .Q1H ONE Administration Sodium Chloride Confirm 07/29/23 20:11 Sodium Chloride 0.9% 500 Ml Administered 07/29/23 20:12 Dose 500 mls @ ud IV .STK-MED ONE Lab/Rad Data: Laboratory Result Diagrams 07/29/23 18:50 07/29/23 18:50 Laboratory Results 07/29/23 07/29/23 07/29/23 Range/Units 22:00 19:10 18:50 WBC (4.0-10.5) x10^3/uL RBC (4.1-5.6) x10^6/uL Hgb (12.5-18.0) g/dL Hct (42-50) % MCV (78-100) fL MCH (26-32) pg MCHC (32-36) g/dL RDW (11.5-14.0) % Plt Count (150-450) x10^3/uL MPV (7.5-11.0) fL Gran % (36.0-66.0) % Immature Gran % (Auto) (0.00-0.4) % Nucleat RBC Rel Count (0.00-0.1) % Eos # (Auto) (0-0.5) x10^3/uL Immature Gran # (Auto) (0.00-0.03) x10^3u/L Absolute Lymphs (auto) (1.0-4.6) x10^3/uL Absolute Monos (auto) (0.0-1.3) x10^3/uL Absolute Nucleated RBC (0.00-0.01) x10^3u/L Lymphocytes % (24.0-44.0) % Monocytes % (0.0-12.0) % Eosinophils % (0.00-5.0) % Basophils % (0.0-0.4) % Absolute Granulocytes (1.4-6.9) x10^3/uL Basophils # (0-0.4) x10^3/uL D-Dimer (0.0-0.50) mg/L Sodium (137-145) mmol/L Potassium (3.5-5.1) mmol/L Chloride (98-107) mmol/L Carbon Dioxide (22-30) mmol/L Anion Gap (5-15) MEQ/L BUN (9-20) mg/dL Creatinine (0.66-1.25) mg/dL Estimated GFR ML/MIN Glucose (74-106) mg/dL Lactic Acid (0.4-2.0) Calcium (8.4-10.2) mg/dL Magnesium (1.6-2.3) mg/dL Total Bilirubin (0.2-1.3) mg/dL AST (17-59) U/L ALT (0-50) U/L Alkaline Phosphatase (38-126) U/L Ammonia < 9 L (9-30) umol/L Creatine Kinase (55-170) U/L Troponin I 0.014 (0.000-0.034) ng/mL NT-Pro-B Natriuret Pep (<300) pg/mL Serum Total Protein (6.3-8.2) g/dL Albumin (3.5-5.0) g/dL Urine Color Yellow (Yellow) Urine Appearance Clear (Clear) Urine pH 5.0 (4.6-8.0) Ur Specific [place] 1.025 (1.005-1.030) Urine Protein 30 (Negative) Urine Glucose (UA) >=1000 A (Negative) mg/dL Urine Ketones Negative (Negative) Urine Blood Small A (Negative) Urine Nitrite Negative (Negative) Urine Bilirubin Negative (Negative) Urine Urobilinogen 0.2 (0.2) mg/dL Ur Leukocyte Esterase Negative (Negative) U Hyaline Cast (Auto) 3-5 A (0-2) /LPF Urine Microscopic RBC 0-2 (0-5) /HPF Urine Microscopic WBC 0-2 (0-5) /HPF Ur Epithelial Cells None Seen (None Seen) /HPF Urine Bacteria None Seen (None Seen) /HPF Urine Culture Reflexed YES (NO) Monoscreen (NEGATIVE) Influenza Type A Ag (NEGATIVE) Influenza Type B Ag (NEGATIVE) RSV (PCR) (NEGATIVE) SARS-CoV-2 (PCR) (NEGATIVE) 07/29/23 07/29/23 07/29/23 Range/Units 18:50 18:50 18:50 WBC (4.0-10.5) x10^3/uL RBC (4.1-5.6) x10^6/uL Hgb (12.5-18.0) g/dL Hct (42-50) % MCV (78-100) fL MCH (26-32) pg MCHC (32-36) g/dL RDW (11.5-14.0) % Plt Count (150-450) x10^3/uL MPV (7.5-11.0) fL Gran % (36.0-66.0) % Immature Gran % (Auto) (0.00-0.4) % Nucleat RBC Rel Count (0.00-0.1) % Eos # (Auto) (0-0.5) x10^3/uL Immature Gran # (Auto) (0.00-0.03) x10^3u/L Absolute Lymphs (auto) (1.0-4.6) x10^3/uL Absolute Monos (auto) (0.0-1.3) x10^3/uL Absolute Nucleated RBC (0.00-0.01) x10^3u/L Lymphocytes % (24.0-44.0) % Monocytes % (0.0-12.0) % Eosinophils % (0.00-5.0) % Basophils % (0.0-0.4) % Absolute Granulocytes (1.4-6.9) x10^3/uL Basophils # (0-0.4) x10^3/uL D-Dimer (0.0-0.50) mg/L Sodium (137-145) mmol/L Potassium (3.5-5.1) mmol/L Chloride (98-107) mmol/L Carbon Dioxide (22-30) mmol/L Anion Gap (5-15) MEQ/L BUN (9-20) mg/dL Creatinine (0.66-1.25) mg/dL Estimated GFR ML/MIN Glucose (74-106) mg/dL Lactic Acid (0.4-2.0) Calcium (8.4-10.2) mg/dL Magnesium (1.6-2.3) mg/dL Total Bilirubin (0.2-1.3) mg/dL AST (17-59) U/L ALT (0-50) U/L Alkaline Phosphatase (38-126) U/L Ammonia (9-30) umol/L Creatine Kinase (55-170) U/L Troponin I 0.012 (0.000-0.034) ng/mL NT-Pro-B Natriuret Pep (<300) pg/mL Serum Total Protein (6.3-8.2) g/dL Albumin (3.5-5.0) g/dL Urine Color (Yellow) Urine Appearance (Clear) Urine pH (4.6-8.0) Ur Specific [place] (1.005-1.030) Urine Protein (Negative) Urine Glucose (UA) (Negative) mg/dL Urine Ketones (Negative) Urine Blood (Negative) Urine Nitrite (Negative) Urine Bilirubin (Negative) Urine Urobilinogen (0.2) mg/dL Ur Leukocyte Esterase (Negative) U Hyaline Cast (Auto) (0-2) /LPF Urine Microscopic RBC (0-5) /HPF Urine Microscopic WBC (0-5) /HPF Ur Epithelial Cells (None Seen) /HPF Urine Bacteria (None Seen) /HPF Urine Culture Reflexed (NO) Monoscreen WEAKLY POSITIVE (NEGATIVE) Influenza Type A Ag NEGATIVE (NEGATIVE) Influenza Type B Ag NEGATIVE (NEGATIVE) RSV (PCR) NEGATIVE (NEGATIVE) SARS-CoV-2 (PCR) NEGATIVE (NEGATIVE) 07/29/23 07/29/23 07/29/23 Range/Units 18:50 18:50 18:50 WBC 8.5 (4.0-10.5) x10^3/uL RBC 3.64 L (4.1-5.6) x10^6/uL Hgb 10.4 L (12.5-18.0) g/dL Hct 33.7 L (42-50) % MCV 92.6 (78-100) fL MCH 28.6 (26-32) pg MCHC 30.9 L (32-36) g/dL RDW 13.9 (11.5-14.0) % Plt Count 217 (150-450) x10^3/uL MPV 9.6 (7.5-11.0) fL Gran % 67.9 H (36.0-66.0) % Immature Gran % (Auto) 0.2 (0.00-0.4) % Nucleat RBC Rel Count 0.0 (0.00-0.1) % Eos # (Auto) 0.55 H (0-0.5) x10^3/uL Immature Gran # (Auto) 0.02 (0.00-0.03) x10^3u/L Absolute Lymphs (auto) 1.39 (1.0-4.6) x10^3/uL Absolute Monos (auto) 0.75 (0.0-1.3) x10^3/uL Absolute Nucleated RBC 0.00 (0.00-0.01) x10^3u/L Lymphocytes % 16.3 L (24.0-44.0) % Monocytes % 8.8 (0.0-12.0) % Eosinophils % 6.4 H (0.00-5.0) % Basophils % 0.4 (0.0-0.4) % Absolute Granulocytes 5.79 (1.4-6.9) x10^3/uL Basophils # 0.03 (0-0.4) x10^3/uL D-Dimer 2.53 H* (0.0-0.50) mg/L Sodium 134 L (137-145) mmol/L Potassium 4.3 (3.5-5.1) mmol/L Chloride 105 (98-107) mmol/L Carbon Dioxide 20 L (22-30) mmol/L Anion Gap 12.9 (5-15) MEQ/L BUN 41 H (9-20) mg/dL Creatinine 1.50 H (0.66-1.25) mg/dL Estimated GFR 48.0 ML/MIN Glucose 313 H (74-106) mg/dL Lactic Acid (0.4-2.0) Calcium 8.7 (8.4-10.2) mg/dL Magnesium 2.3 (1.6-2.3) mg/dL Total Bilirubin 0.40 (0.2-1.3) mg/dL AST 28 (17-59) U/L ALT 24 (0-50) U/L Alkaline Phosphatase 95 (38-126) U/L Ammonia (9-30) umol/L Creatine Kinase 53 L (55-170) U/L Troponin I (0.000-0.034) ng/mL NT-Pro-B Natriuret Pep 751 (<300) pg/mL Serum Total Protein 6.8 (6.3-8.2) g/dL Albumin 3.6 (3.5-5.0) g/dL Urine Color (Yellow) Urine Appearance (Clear) Urine pH (4.6-8.0) Ur Specific [place] (1.005-1.030) Urine Protein (Negative) Urine Glucose (UA) (Negative) mg/dL Urine Ketones (Negative) Urine Blood (Negative) Urine Nitrite (Negative) Urine Bilirubin (Negative) Urine Urobilinogen (0.2) mg/dL Ur Leukocyte Esterase (Negative) U Hyaline Cast (Auto) (0-2) /LPF Urine Microscopic RBC (0-5) /HPF Urine Microscopic WBC (0-5) /HPF Ur Epithelial Cells (None Seen) /HPF Urine Bacteria (None Seen) /HPF Urine Culture Reflexed (NO) Monoscreen (NEGATIVE) Influenza Type A Ag (NEGATIVE) Influenza Type B Ag (NEGATIVE) RSV (PCR) (NEGATIVE) SARS-CoV-2 (PCR) (NEGATIVE) 07/29/23 Range/Units 18:43 WBC (4.0-10.5) x10^3/uL RBC (4.1-5.6) x10^6/uL Hgb (12.5-18.0) g/dL Hct (42-50) % MCV (78-100) fL MCH (26-32) pg MCHC (32-36) g/dL RDW (11.5-14.0) % Plt Count (150-450) x10^3/uL MPV (7.5-11.0) fL Gran % (36.0-66.0) % Immature Gran % (Auto) (0.00-0.4) % Nucleat RBC Rel Count (0.00-0.1) % Eos # (Auto) (0-0.5) x10^3/uL Immature Gran # (Auto) (0.00-0.03) x10^3u/L Absolute Lymphs (auto) (1.0-4.6) x10^3/uL Absolute Monos (auto) (0.0-1.3) x10^3/uL Absolute Nucleated RBC (0.00-0.01) x10^3u/L Lymphocytes % (24.0-44.0) % Monocytes % (0.0-12.0) % Eosinophils % (0.00-5.0) % Basophils % (0.0-0.4) % Absolute Granulocytes (1.4-6.9) x10^3/uL Basophils # (0-0.4) x10^3/uL D-Dimer (0.0-0.50) mg/L Sodium (137-145) mmol/L Potassium (3.5-5.1) mmol/L Chloride (98-107) mmol/L Carbon Dioxide (22-30) mmol/L Anion Gap (5-15) MEQ/L BUN (9-20) mg/dL Creatinine (0.66-1.25) mg/dL Estimated GFR ML/MIN Glucose (74-106) mg/dL Lactic Acid 1.3 (0.4-2.0) Calcium (8.4-10.2) mg/dL Magnesium (1.6-2.3) mg/dL Total Bilirubin (0.2-1.3) mg/dL AST (17-59) U/L ALT (0-50) U/L Alkaline Phosphatase (38-126) U/L Ammonia (9-30) umol/L Creatine Kinase (55-170) U/L Troponin I (0.000-0.034) ng/mL NT-Pro-B Natriuret Pep (<300) pg/mL Serum Total Protein (6.3-8.2) g/dL Albumin (3.5-5.0) g/dL Urine Color (Yellow) Urine Appearance (Clear) Urine pH (4.6-8.0) Ur Specific [place] (1.005-1.030) Urine Protein (Negative) Urine Glucose (UA) (Negative) mg/dL Urine Ketones (Negative) Urine Blood (Negative) Urine Nitrite (Negative) Urine Bilirubin (Negative) Urine Urobilinogen (0.2) mg/dL Ur Leukocyte Esterase (Negative) U Hyaline Cast (Auto) (0-2) /LPF Urine Microscopic RBC (0-5) /HPF Urine Microscopic WBC (0-5) /HPF Ur Epithelial Cells (None Seen) /HPF Urine Bacteria (None Seen) /HPF Urine Culture Reflexed (NO) Monoscreen (NEGATIVE) Influenza Type A Ag (NEGATIVE) Influenza Type B Ag (NEGATIVE) RSV (PCR) (NEGATIVE) SARS-CoV-2 (PCR) (NEGATIVE) - Progress Progress: unchanged <JOSÉ MELTON - Last Filed: 07/29/23 19:18> - Progress Discussed with .: Maryanne Will see patient in: hospital (observation) Counseled pt/family regarding: lab results, diagnosis, rad results <NAYELI EVREETT - Last Filed: 07/29/23 23:58> - Progress Progress Note: 07/29/23 18:41 This patient's medical issue is 1 of moderate to high complexity. Level complex in the work-up performed based on review of the patient's past medical history, review the patient's medication list, review the patient's drug allergy list, history of present illness and physical findings on examination. Work-up in this patient includes placement of a intravenous line, infusion normal saline solution, CBC, CMP, lactic acid level, COVID/viral swabs, monotest, troponin level, BNP level, D-dimer level, urinalysis and ammonia level. 07/29/23 18:42 I am transferring care of this patient to Dr. Nayeli Everett at shift change. He will follow-up on the test that I ordered and make final disposition. (JOSÉ MELTON) Patient is a 78-year-old male presents to our ED for evaluation of generalized weakness. Patient initially evaluated by Dr. Arboleda. Patient endorsed to Dr. Everett at change of shift at 7 PM. Patient reassessed. Patient still feels somewhat weak. Patient's second troponin trended upward slightly however still within normal range. In light of this change patient's cardiac risk factors including his age history of diabetes and history of coronary artery disease with a recent CABG involving the LAD we decided to keep patient for cardiac rule out. Patient's daily antibiotic infusion is Maxipime and vancomycin. Patient reassessed. No active chest pain. Vital stable. Family at bedside. Patient agrees to admission to [facility] for further evaluation and treatment. Case discussed with hospitalist, Dr. Osborn at 11:50 PM who agrees to admission to [facility] for further evaluation and treatment. Portions of this note were created with voice recognition technology. There may be grammatical, spelling, punctuation or sound alike errors Complexity of problems addressed is moderate acute complicated No critical care time Complexity of data reviewed and analyzed is extensive. Test ordered test reviewed. Results analyzed and correlated clinically with history and physical examination. Management discussed with hospitalist who agrees to admission to [facility] to [facility]. Risk of complication and or risk of morbidity/mortality of patient management is high. Patient requires hospitalization for further evaluation and treatment Vital stable. Time spent admit patient approximately 20 minutes. Plan of care established for shared decision making. Son and at bedside involved in shared decision making. Portions of this note were created with voice recognition technology. There may be grammatical, spelling, punctuation or sound alike errors 07/29/23 23:49 (NAYELI EVERETT) Medical Desision Making - Independent Historian Additional History obtained from: Spouse - Diagnostic Testing Diagnostic test were ordered, analyzed, and reviewed by me: No <JOSÉ MELTON - Last Filed: 07/29/23 19:18> - Departure Departure Disposition: Home Critical Care Time: No <JOSÉ MELTON - Last Filed: 07/29/23 19:18> <NAYELI VEERETT - Last Filed: 07/29/23 23:58> - Departure Clinical Impression: Generalized weakness, Glucosuria Condition: Stable Referrals: ASH ALBRECHT MD [Primary Care Provider] - Follow up/PCP as directed
[2023-07-29] MEDS ORDERED: Sodium Chloride 0.9% 1000 ML 1,000 ML IV STA (18:19)
[2023-07-29 18:59] LABS: Absolute Neutrophil Ct (ANC) 5.79 x10^3/uL (1.4-6.9); BASOPHIL % 0.4 % (0.0-0.4); Basophil (Absolute #) 0.03 x10^3/uL (0-0.4); Eosinophil % 6.4 % (0.00-5.0); Eosinophil (Absolute #) 0.55 x10^3/uL (0-0.5); Hematocrit 33.7 % (42-50); Hemoglobin 10.4 g/dL (12.5-18.0); IMMATURE GRAN # 0.02 x10^3u/L (0.00-0.03); IMMATURE GRAN % 0.2 % (0.00-0.4); Lymphocyte (Absolute #) 1.39 x10^3/uL (1.0-4.6); Lymphocytes % 16.3 % (24.0-44.0); Mean Cell Volume 92.6 fL (78-100); Mean Corpuscular Hemoglobin 28.6 pg (26-32); Mean Corpuscular Hgb Concent. 30.9 g/dL (32-36); Mean Platelet Volume 9.6 fL (7.5-11.0); Monocyte (Absolute #) 0.75 x10^3/uL (0.0-1.3); Monocytes % 8.8 % (0.0-12.0); Neutrophil % 67.9 % (36.0-66.0); Platelet Count 217 x10^3/uL (150-450); Red Blood Count 3.64 x10^6/uL (4.1-5.6); Red Cell Distribution Width 13.9 % (11.5-14.0); White Blood Count 8.5 x10^3/uL (4.0-10.5)
[2023-07-29 19:26] LABS: ALBUMIN 3.6 g/dL (3.5-5.0); ANION GAP 12.9 MEQ/L (5-15); BILIRUBIN,TOTAL 0.4 mg/dL (0.2-1.3); Calcium 8.7 mg/dL (8.4-10.2); Creatinine 1 1.5 mg/dL (0.66-1.25); MAGNESIUM 2.3 mg/dL (1.6-2.3); Potassium 4.3 mmol/L (3.5-5.1); Total Protein 6.8 g/dL (6.3-8.2)
[2023-07-29 19:34] LABS: Appearance Clear (Clear); Bacteria None Seen /HPF (None Seen); Bilirubin Negative (Negative); Blood Small (Negative); Epithelial Cells None Seen /HPF (None Seen); Glucose, Urine >=1000 mg/dL (Negative); Ketones Negative (Negative); Leukocyte Esterase Negative (Negative); Nitrite Negative (Negative); Protein,Urine Dip 30 (Negative); RBC 0-2 /HPF (0-5); Specific Gravity 1.025 (1.005-1.030); Urobilinogen 0.2 mg/dL (0.2); WBC 0-2 /HPF (0-5)
[2023-07-29 19:35] LABS: ADD URINE CULTURE? YES (NO)
[2023-07-29 19:37] LABS: INFLUENZA A NEGATIVE (NEGATIVE); INFLUENZA B NEGATIVE (NEGATIVE); RESPIRATORY SYNCTIAL VIRUS NEGATIVE (NEGATIVE); SARS-CoV-2 Xpert Express NEGATIVE (NEGATIVE)
[2023-07-29] MEDS ORDERED: Sodium Chloride 0.9% 500 ML 500 ML IV ONE ×2 (20:11)
[2023-07-30] MEDS ORDERED: HUMALOG SQ PRN (00:15)
[2023-07-30] MEDS ORDERED: TYLENOL 325 MG PO PRN (00:15)
[2023-07-30] MEDS ORDERED: Nitrostat 0.4 MG Tablet SL PRN (00:21)
--- NOTE | 2023-07-30 00:31 | PCM.HP ---
History of Present Illness - Chief Complaint Chief Complaint: weakness History of Present Illness: is a 78 year old male with past medical history of CAD s/p CABG, HTN, HLP, DMII, CKD 3, Peripheral neuropathy (hx of esposure to agent orange), CVA and a chronic right hip prosthetic infection for which he gets daily IV ABX in OP setting since Jul 14 when he last had an I&D done for this right hip infection. He came in tonight with c/o progressive weakness x 2 weeks. His is concern that he may be "septic" since the last time he felt like this, he was. Denies fever, chills, cough, sputum, SOB, chest pain, palpitation, dysuria, hematuria, flank pain, nausea, vomiting or diarrhea. In ER, work-up was not remarkable. trop 0.012->0.014. Being admitted for serial trops given history of CAD and PT eval for possible need for rehab - Review of Systems Constitutional: Fatigue Eyes: No Symptoms Ears, Nose, & Throat: No Symptoms Respiratory: No Symptoms Cardiac: No Symptoms Abdominal/Gastrointestinal: No Symptoms Genitourinary Symptoms: No Symptoms Musculoskeletal: No Symptoms Skin: No Symptoms Neurological: Other (Generalized weakness) Psychological: No Symptoms Endocrine: No Symptoms Hematologic/Lymphatic: No Symptoms Immunological/Allergic: No Symptoms Medications & Allergies Home Medications: Home Medication List Insulin Detemir [Levemir] 25 unit SQ BID 02/07/17 [History Confirmed 07/29/23] Ferrous Sulfate 325 mg PO DAILY 04/09/18 [History Confirmed 07/29/23] Alogliptin Benzoate [Alogliptin] 6.25 mg PO DINNER 09/20/19 [History Confirmed 07/29/23] Nitroglycerin 0.4 mg Tablet [Nitrostat 0.4 MG Tablet] 0.4 mg SL Q5MIN PRN MR X 3 PRN 09/20/19 [History Confirmed 07/29/23] Aspirin 81 mg PO DAILY 07/30/22 [History Confirmed 07/29/23] Duloxetine HCl 30 mg [Cymbalta 30 MG Capsule] 30 mg PO DAILY 07/30/22 [History Confirmed 07/29/23] Atorvastatin Calcium 80 mg PO DAILY 07/18/23 [History Confirmed 07/30/23] Empagliflozin [Jardiance] 10 mg PO DAILY 07/18/23 [History Confirmed 07/29/23] Lactobacillus Acidophilus [Probiotic] 1 each PO DAILY 07/18/23 [History Confirmed 07/30/23] Memantine HCl 5 mg [Namenda 5 MG] 5 mg PO DAILY 07/18/23 [History Confirmed 07/29/23] Multivitamin 1 each PO DAILY 07/18/23 [History Confirmed 07/29/23] Pregabalin 50 mg PO BID 07/18/23 [History Confirmed 07/29/23] Allergies/Adverse Reactions: Allergies Allergy/AdvReac Type Severity Reaction Status Date / Time latex Allergy Severe SORES IN Verified 07/29/23 17:35 MOUTH AND TONGUE sulfamethoxazole Allergy Intermediate Weakness Verified 07/29/23 17:35 [From Bactrim] bee venom protein (honey bee) Allergy Shortness Verified 07/29/23 17:35 of Breath Sulfa (Sulfonamide Allergy Verified 07/29/23 17:35 Antibiotics) trimethoprim [From Bactrim] Allergy Verified 07/29/23 17:35 - Past Medical History Past Medical History: Yes Neurological History: Peripheral Neuropathy ENT History: Other Cardiac History: Myocardial Infarction ([place]) Respiratory History: No Pertinent History Endocrine Medical History: Diabetes Type II Musculoskelatal History: Arthritis, Fractures GI Medical History: No Pertinent History History: No Pertinent History Pyscho-Social History: No Pertinent History Male Reproductive Disorders: No Pertinent History Comment: EXPOSURE TO AGENT ORANGE IN [place], MULTIPLE HIP SX DUE TO INFECTION, CHRONIC KIDNEY DISEASE STAGE 3, NEUROPATHY. FAMILY PRACTICIONER: DR. BAZZI - Past Surgical History Past Surgical History: Yes Neuro Surgical History: No Pertinent History Cardiac History: CABG, Cardiac Catheterization Respiratory Surgery: No Pertinent History GI Surgical History: Appendectomy, Cholecystectomy Genitourinary Surgical Hx: No Pertinent History Musculskeletal Surgical Hx: Orthopedic Surgery Male Surgical History: No Pertinent History Other Surgical History: Back surgery 2010, Neck surgery 2007, Left knee meniscal repair 2004, Right hip repair 1989, 1990, 2003, 10/11/2012, 01/10/2013, 2019...Fx: Pelvis, Ribs, Vertabrae, Right hip from tree falling on him in 1989. right hip - most recent hip sx january 2020, left knee replacement - Social History Smoking Status: Former smoker How long have you smoked: [id number] Exposure to second hand smoke: No Alcohol: None Drug Use: none Significant Family History: no pertinent family hx - Physical Exam Vital Signs: Vital Signs - 24 hr Temp Pulse Resp BP BP Pulse Ox 07/29/23 23:00 74 20 129/87 07/29/23 22:30 65 19 132/77 07/29/23 22:00 75 19 131/73 07/29/23 21:30 86 23 137/80 07/29/23 21:00 80 21 138/75 95 07/29/23 20:34 79 24 140/73 99 07/29/23 19:30 81 20 141/73 99 07/29/23 19:00 65 28 H 141/76 99 07/29/23 18:44 62 16 143/77 100 07/29/23 18:30 63 19 143/77 100 07/29/23 17:28 96.7 F 60 16 139/72 98 General Appearance: no apparent distress Neurologic Exam: alert, oriented x 3, cooperative, normal mood/affect Eye Exam: PERRL/EOMI, eyes nml inspection Ears, Nose, Throat Exam: normal ENT inspection, moist mucous membranes Neck Exam: normal inspection, supple, full range of motion Respiratory Exam: normal breath sounds, lungs clear Cardiovascular Exam: regular rate/rhythm, normal heart sounds, normal peripheral pulses Gastrointestinal/Abdomen Exam: soft, normal bowel sounds Rectal Exam: deferred Back Exam: normal inspection Extremity Exam: normal inspection Skin Exam: normal color, warm, dry Results - Labs Lab/Micro Results: Lab Results-Last 24 Hours 07/29/23 07/29/23 07/29/23 Range/Units 18:43 18:50 18:50 WBC 8.5 (4.0-10.5) x10^3/uL RBC 3.64 L (4.1-5.6) x10^6/uL Hgb 10.4 L (12.5-18.0) g/dL Hct 33.7 L (42-50) % MCV 92.6 (78-100) fL MCH 28.6 (26-32) pg MCHC 30.9 L (32-36) g/dL RDW 13.9 (11.5-14.0) % Plt Count 217 (150-450) x10^3/uL MPV 9.6 (7.5-11.0) fL Gran % 67.9 H (36.0-66.0) % Immature Gran % (Auto) 0.2 (0.00-0.4) % Nucleat RBC Rel Count 0.0 (0.00-0.1) % Eos # (Auto) 0.55 H (0-0.5) x10^3/uL Immature Gran # (Auto) 0.02 (0.00-0.03) x10^3u/L Absolute Lymphs (auto) 1.39 (1.0-4.6) x10^3/uL Absolute Monos (auto) 0.75 (0.0-1.3) x10^3/uL Absolute Nucleated RBC 0.00 (0.00-0.01) x10^3u/L Lymphocytes % 16.3 L (24.0-44.0) % Monocytes % 8.8 (0.0-12.0) % Eosinophils % 6.4 H (0.00-5.0) % Basophils % 0.4 (0.0-0.4) % Absolute Granulocytes 5.79 (1.4-6.9) x10^3/uL Basophils # 0.03 (0-0.4) x10^3/uL D-Dimer (0.0-0.50) mg/L Sodium 134 L (137-145) mmol/L Potassium 4.3 (3.5-5.1) mmol/L Chloride 105 (98-107) mmol/L Carbon Dioxide 20 L (22-30) mmol/L Anion Gap 12.9 (5-15) MEQ/L BUN 41 H (9-20) mg/dL Creatinine 1.50 H (0.66-1.25) mg/dL Estimated GFR 48.0 ML/MIN Glucose 313 H (74-106) mg/dL Lactic Acid 1.3 (0.4-2.0) Calcium 8.7 (8.4-10.2) mg/dL Magnesium 2.3 (1.6-2.3) mg/dL Total Bilirubin 0.40 (0.2-1.3) mg/dL AST 28 (17-59) U/L ALT 24 (0-50) U/L Alkaline Phosphatase 95 (38-126) U/L Ammonia (9-30) umol/L Creatine Kinase 53 L (55-170) U/L Troponin I (0.000-0.034) ng/mL NT-Pro-B Natriuret Pep 751 (<300) pg/mL Serum Total Protein 6.8 (6.3-8.2) g/dL Albumin 3.6 (3.5-5.0) g/dL Urine Color (Yellow) Urine Appearance (Clear) Urine pH (4.6-8.0) Ur Specific [place] (1.005-1.030) Urine Protein (Negative) Urine Glucose (UA) (Negative) mg/dL Urine Ketones (Negative) Urine Blood (Negative) Urine Nitrite (Negative) Urine Bilirubin (Negative) Urine Urobilinogen (0.2) mg/dL Ur Leukocyte Esterase (Negative) U Hyaline Cast (Auto) (0-2) /LPF Urine Microscopic RBC (0-5) /HPF Urine Microscopic WBC (0-5) /HPF Ur Epithelial Cells (None Seen) /HPF Urine Bacteria (None Seen) /HPF Urine Culture Reflexed (NO) Monoscreen (NEGATIVE) Influenza Type A Ag (NEGATIVE) Influenza Type B Ag (NEGATIVE) RSV (PCR) (NEGATIVE) SARS-CoV-2 (PCR) (NEGATIVE) 07/29/23 07/29/23 07/29/23 Range/Units 18:50 18:50 18:50 WBC (4.0-10.5) x10^3/uL RBC (4.1-5.6) x10^6/uL Hgb (12.5-18.0) g/dL Hct (42-50) % MCV (78-100) fL MCH (26-32) pg MCHC (32-36) g/dL RDW (11.5-14.0) % Plt Count (150-450) x10^3/uL MPV (7.5-11.0) fL Gran % (36.0-66.0) % Immature Gran % (Auto) (0.00-0.4) % Nucleat RBC Rel Count (0.00-0.1) % Eos # (Auto) (0-0.5) x10^3/uL Immature Gran # (Auto) (0.00-0.03) x10^3u/L Absolute Lymphs (auto) (1.0-4.6) x10^3/uL Absolute Monos (auto) (0.0-1.3) x10^3/uL Absolute Nucleated RBC (0.00-0.01) x10^3u/L Lymphocytes % (24.0-44.0) % Monocytes % (0.0-12.0) % Eosinophils % (0.00-5.0) % Basophils % (0.0-0.4) % Absolute Granulocytes (1.4-6.9) x10^3/uL Basophils # (0-0.4) x10^3/uL D-Dimer 2.53 H* (0.0-0.50) mg/L Sodium (137-145) mmol/L Potassium (3.5-5.1) mmol/L Chloride (98-107) mmol/L Carbon Dioxide (22-30) mmol/L Anion Gap (5-15) MEQ/L BUN (9-20) mg/dL Creatinine (0.66-1.25) mg/dL Estimated GFR ML/MIN Glucose (74-106) mg/dL Lactic Acid (0.4-2.0) Calcium (8.4-10.2) mg/dL Magnesium (1.6-2.3) mg/dL Total Bilirubin (0.2-1.3) mg/dL AST (17-59) U/L ALT (0-50) U/L Alkaline Phosphatase (38-126) U/L Ammonia (9-30) umol/L Creatine Kinase (55-170) U/L Troponin I 0.012 (0.000-0.034) ng/mL NT-Pro-B Natriuret Pep (<300) pg/mL Serum Total Protein (6.3-8.2) g/dL Albumin (3.5-5.0) g/dL Urine Color (Yellow) Urine Appearance (Clear) Urine pH (4.6-8.0) Ur Specific [place] (1.005-1.030) Urine Protein (Negative) Urine Glucose (UA) (Negative) mg/dL Urine Ketones (Negative) Urine Blood (Negative) Urine Nitrite (Negative) Urine Bilirubin (Negative) Urine Urobilinogen (0.2) mg/dL Ur Leukocyte Esterase (Negative) U Hyaline Cast (Auto) (0-2) /LPF Urine Microscopic RBC (0-5) /HPF Urine Microscopic WBC (0-5) /HPF Ur Epithelial Cells (None Seen) /HPF Urine Bacteria (None Seen) /HPF Urine Culture Reflexed (NO) Monoscreen WEAKLY POSITIVE (NEGATIVE) Influenza Type A Ag (NEGATIVE) Influenza Type B Ag (NEGATIVE) RSV (PCR) (NEGATIVE) SARS-CoV-2 (PCR) (NEGATIVE) 07/29/23 07/29/23 07/29/23 Range/Units 18:50 18:50 19:10 WBC (4.0-10.5) x10^3/uL RBC (4.1-5.6) x10^6/uL Hgb (12.5-18.0) g/dL Hct (42-50) % MCV (78-100) fL MCH (26-32) pg MCHC (32-36) g/dL RDW (11.5-14.0) % Plt Count (150-450) x10^3/uL MPV (7.5-11.0) fL Gran % (36.0-66.0) % Immature Gran % (Auto) (0.00-0.4) % Nucleat RBC Rel Count (0.00-0.1) % Eos # (Auto) (0-0.5) x10^3/uL Immature Gran # (Auto) (0.00-0.03) x10^3u/L Absolute Lymphs (auto) (1.0-4.6) x10^3/uL Absolute Monos (auto) (0.0-1.3) x10^3/uL Absolute Nucleated RBC (0.00-0.01) x10^3u/L Lymphocytes % (24.0-44.0) % Monocytes % (0.0-12.0) % Eosinophils % (0.00-5.0) % Basophils % (0.0-0.4) % Absolute Granulocytes (1.4-6.9) x10^3/uL Basophils # (0-0.4) x10^3/uL D-Dimer (0.0-0.50) mg/L Sodium (137-145) mmol/L Potassium (3.5-5.1) mmol/L Chloride (98-107) mmol/L Carbon Dioxide (22-30) mmol/L Anion Gap (5-15) MEQ/L BUN (9-20) mg/dL Creatinine (0.66-1.25) mg/dL Estimated GFR ML/MIN Glucose (74-106) mg/dL Lactic Acid (0.4-2.0) Calcium (8.4-10.2) mg/dL Magnesium (1.6-2.3) mg/dL Total Bilirubin (0.2-1.3) mg/dL AST (17-59) U/L ALT (0-50) U/L Alkaline Phosphatase (38-126) U/L Ammonia < 9 L (9-30) umol/L Creatine Kinase (55-170) U/L Troponin I (0.000-0.034) ng/mL NT-Pro-B Natriuret Pep (<300) pg/mL Serum Total Protein (6.3-8.2) g/dL Albumin (3.5-5.0) g/dL Urine Color Yellow (Yellow) Urine Appearance Clear (Clear) Urine pH 5.0 (4.6-8.0) Ur Specific [place] 1.025 (1.005-1.030) Urine Protein 30 (Negative) Urine Glucose (UA) >=1000 A (Negative) mg/dL Urine Ketones Negative (Negative) Urine Blood Small A (Negative) Urine Nitrite Negative (Negative) Urine Bilirubin Negative (Negative) Urine Urobilinogen 0.2 (0.2) mg/dL Ur Leukocyte Esterase Negative (Negative) U Hyaline Cast (Auto) 3-5 A (0-2) /LPF Urine Microscopic RBC 0-2 (0-5) /HPF Urine Microscopic WBC 0-2 (0-5) /HPF Ur Epithelial Cells None Seen (None Seen) /HPF Urine Bacteria None Seen (None Seen) /HPF Urine Culture Reflexed YES (NO) Monoscreen (NEGATIVE) Influenza Type A Ag NEGATIVE (NEGATIVE) Influenza Type B Ag NEGATIVE (NEGATIVE) RSV (PCR) NEGATIVE (NEGATIVE) SARS-CoV-2 (PCR) NEGATIVE (NEGATIVE) 07/29/23 Range/Units 22:00 WBC (4.0-10.5) x10^3/uL RBC (4.1-5.6) x10^6/uL Hgb (12.5-18.0) g/dL Hct (42-50) % MCV (78-100) fL MCH (26-32) pg MCHC (32-36) g/dL RDW (11.5-14.0) % Plt Count (150-450) x10^3/uL MPV (7.5-11.0) fL Gran % (36.0-66.0) % Immature Gran % (Auto) (0.00-0.4) % Nucleat RBC Rel Count (0.00-0.1) % Eos # (Auto) (0-0.5) x10^3/uL Immature Gran # (Auto) (0.00-0.03) x10^3u/L Absolute Lymphs (auto) (1.0-4.6) x10^3/uL Absolute Monos (auto) (0.0-1.3) x10^3/uL Absolute Nucleated RBC (0.00-0.01) x10^3u/L Lymphocytes % (24.0-44.0) % Monocytes % (0.0-12.0) % Eosinophils % (0.00-5.0) % Basophils % (0.0-0.4) % Absolute Granulocytes (1.4-6.9) x10^3/uL Basophils # (0-0.4) x10^3/uL D-Dimer (0.0-0.50) mg/L Sodium (137-145) mmol/L Potassium (3.5-5.1) mmol/L Chloride (98-107) mmol/L Carbon Dioxide (22-30) mmol/L Anion Gap (5-15) MEQ/L BUN (9-20) mg/dL Creatinine (0.66-1.25) mg/dL Estimated GFR ML/MIN Glucose (74-106) mg/dL Lactic Acid (0.4-2.0) Calcium (8.4-10.2) mg/dL Magnesium (1.6-2.3) mg/dL Total Bilirubin (0.2-1.3) mg/dL AST (17-59) U/L ALT (0-50) U/L Alkaline Phosphatase (38-126) U/L Ammonia (9-30) umol/L Creatine Kinase (55-170) U/L Troponin I 0.014 (0.000-0.034) ng/mL NT-Pro-B Natriuret Pep (<300) pg/mL Serum Total Protein (6.3-8.2) g/dL Albumin (3.5-5.0) g/dL Urine Color (Yellow) Urine Appearance (Clear) Urine pH (4.6-8.0) Ur Specific [place] (1.005-1.030) Urine Protein (Negative) Urine Glucose (UA) (Negative) mg/dL Urine Ketones (Negative) Urine Blood (Negative) Urine Nitrite (Negative) Urine Bilirubin (Negative) Urine Urobilinogen (0.2) mg/dL Ur Leukocyte Esterase (Negative) U Hyaline Cast (Auto) (0-2) /LPF Urine Microscopic RBC (0-5) /HPF Urine Microscopic WBC (0-5) /HPF Ur Epithelial Cells (None Seen) /HPF Urine Bacteria (None Seen) /HPF Urine Culture Reflexed (NO) Monoscreen (NEGATIVE) Influenza Type A Ag (NEGATIVE) Influenza Type B Ag (NEGATIVE) RSV (PCR) (NEGATIVE) SARS-CoV-2 (PCR) (NEGATIVE) - Radiology Impressions Radiology Exams & Impressions: Radiology Procedures Category Date Time Status CHEST 1 VIEW (PORTABLE) Stat Exams 07/29/23 18:19 Taken CHEST WITH CONTRAST [CT] Stat Exams 07/29/23 19:27 Taken Assessment/Plan (1) Generalized weakness Current Visit: Yes Status: Acute Assessment & Plan: No obvious causes seen here. UA unremarkable. BS 300s. Na mildly low at 134. K is normal. Cr up 1.5, so perhaps a bit dehydrated. IVF started. PT consulted to michael for possible rheba need Code(s): R53.1 - WEAKNESS (2) Elevated troponin Current Visit: Yes Status: Acute Assessment & Plan: Weakly elevated at 0.012->0.014. Waiting on last trop. No chest pain nor SOB Code(s): R79.89 - OTHER SPECIFIED ABNORMAL FINDINGS OF BLOOD CHEMISTRY (3) Acute renal injury Current Visit: No Status: Acute Assessment & Plan: has hx of CKD stage 3. Cr 1.5, BUN 41. Likely a bit on the dry side/or near baseline. IVF started, recheck labs in AM. He received CTA chest - so IV contrast exposure, will monitor Cr closely for sign of JAY JAY from IV contrast Code(s): N17.9 - ACUTE KIDNEY FAILURE, UNSPECIFIED (4) Anemia Current Visit: No Status: Acute Assessment & Plan: Hgb 10.4. It was 11 recently. I do not think he is losing blood nor is this the reason for his weakness. May be contributing however. Continue oral iron, monit or Code(s): D64.9 - ANEMIA, UNSPECIFIED (5) Dehydration Current Visit: No Status: Acute Code(s): E86.0 - DEHYDRATION (6) Chronic infection of hip joint prosthesis Current Visit: No Status: Chronic Qualifiers: Encounter type: sequela Qualified Code(s): T84.59XS - Infection and inflammatory reaction due to other internal joint prosthesis, sequela; Z96.649 - Presence of unspecified artificial hip joint Assessment & Plan: He gets IV Vanc and something else daily since Jun. Will continue it here. Recent I&D on Jul 14. Being seen by wound care Will check Vanc level Code(s): T84.59XA - INFECT/INFLM REACTION DUE TO OTH INTERNAL JOINT PROSTH, INIT; Z96.649 - PRESENCE OF UNSPECIFIED ARTIFICIAL HIP JOINT Telemedicine Encounter - Telemedicine Encounter Telemedicine Encounter: The entirety of this encounter was performed via Telemedicine Pt gave me verbal consent to have this telemedicine visit Heparin DVT prophylaxis FULL code 23 hrs obs
[2023-07-30] MEDS: Sodium Chloride 0.9% 1000 ML 1,000 ML IV SCH ×2 (01:44→16:22)
[2023-07-30 02:48] LABS: Hematocrit 32.6 % (42-50); Hemoglobin 10.4 g/dL (12.5-18.0); Mean Cell Volume 91.6 fL (78-100); Mean Corpuscular Hemoglobin 29.2 pg (26-32); Mean Corpuscular Hgb Concent. 31.9 g/dL (32-36); Mean Platelet Volume 9.1 fL (7.5-11.0); Platelet Count 207 x10^3/uL (150-450); Red Blood Count 3.56 x10^6/uL (4.1-5.6); Red Cell Distribution Width 13.9 % (11.5-14.0); White Blood Count 10.3 x10^3/uL (4.0-10.5)
[2023-07-30 03:10] LABS: ALBUMIN 3.3 g/dL (3.5-5.0); BILIRUBIN,TOTAL 0.5 mg/dL (0.2-1.3); Calcium 8.6 mg/dL (8.4-10.2); Creatinine 1 1.34 mg/dL (0.66-1.25); EST GLOMERULAR FILTRATION RATE 54.9 ML/MIN; Total Protein 6.7 g/dL (6.3-8.2)
[2023-07-30] MEDS ORDERED: PHARMACY DOSING REQUIRED: VANCOMYCIN IV STA (07:23)
[2023-07-30] MEDS: Maxipime 2 GM** 2 G in Sodium Chloride 100ML MINI-BAG PLUS 100 ML IV SCH (07:56)
[2023-07-30] MEDS: Cymbalta 30 MG Capsule PO SCH (08:30)
[2023-07-30] MEDS: Lantus Insulin SQ SCH ×2 (08:30→21:23)
[2023-07-30] MEDS: Acidophilus TABLET PO SCH (08:30)
[2023-07-30] MEDS: ECOTRIN 81 MG PO SCH (08:30)
[2023-07-30] MEDS: HEPARIN 5000 UNITS/0.5 ML (HIGH RISK MED) SQ SCH ×2 (08:30→21:24)
[2023-07-30] MEDS: Namenda 5 MG PO SCH (08:30)
[2023-07-30] MEDS: FEOSOL 325 MG PO SCH (08:30)
[2023-07-30] MEDS: Lyrica 50MG PO SCH ×2 (08:30→21:23)
[2023-07-30] MEDS: THERAGRAN MULTIVITAMIN PO SCH (08:30)
[2023-07-30] MEDS: VANCOMYCIN 1 GRAM/200 ML BAG 1 GM/200 ML PIGGYBACK IV SCH (08:31)
[2023-07-30] MEDS: JARDIANCE PO SCH (08:31)
[2023-07-30] MEDS: NORCO 5/325 MG PO PRN ×2 (08:35→21:23)
[2023-07-30] MEDS: ZOCOR 20MG PO SCH (08:36)
--- NOTE | 2023-07-30 08:36 | XRAY ---
Indication: Weakness and fatigue. Comparison: March 22, 2020 Portable chest remains inflated and clear with stable tiny left apical calcified granuloma. Heart not enlarged again with CABG. New right arm PICC line with tip projecting over SVC. Bony thorax intact again with osteopenia, mild degenerative changes, and lower cervical fusion. Impression: Continued nonacute chest with chronic features.
--- NOTE | 2023-07-30 08:38 | XRAY ---
Indication: Short of breath. Elevated d-dimer. Multiple contiguous axial images obtained through the chest using 80 cc Isovue 370 contrast and PE protocol. Comparison: None Good opacification of the pulmonary arteries to include the lobar and segmental branches. No pulmonary embolus. Heart not enlarged with right arm PICC line in situ. Tiny mediastinal and left hilar calcified nodes. No pathologic mediastinal/hilar lymphadenopathy. Lungs demonstrates minimal dependent atelectasis and tiny left upper lobe calcified granuloma. No suspicious pulmonary mass/nodule, infiltrate, effusion, or pneumothorax. Bony thorax intact with mild degenerative changes about the spine, sternotomy hardware, and incompletely visualized cervical fusion hardware. Limited upper abdomen demonstrate mild fatty liver and hepatic calcified granuloma. Impression: 1. Negative pulmonary embolus. No acute cardiopulmonary abnormalities. 2. Incidental chronic bony findings, fatty liver, and old granulomatous disease.
[2023-07-30] MEDS ORDERED: MAXIPIME 1 GM IV SCH (10:00)
[2023-07-30] MEDS ORDERED: Januvia 50 MG PO SCH (17:00)
[2023-07-30] MEDS ORDERED: NON-FORMULARY ITEM (Alogliptin Benzoate [Alogliptin] 12.5 MG Tablet) PO SCH (17:00)
[2023-07-31 04:34] LABS: Absolute Neutrophil Ct (ANC) 4.44 x10^3/uL (1.4-6.9); BASOPHIL % 0.5 % (0.0-0.4); Basophil (Absolute #) 0.04 x10^3/uL (0-0.4); Eosinophil % 9.1 % (0.00-5.0); Eosinophil (Absolute #) 0.69 x10^3/uL (0-0.5); Hematocrit 35.2 % (42-50); Hemoglobin 11.2 g/dL (12.5-18.0); IMMATURE GRAN # 0.02 x10^3u/L (0.00-0.03); IMMATURE GRAN % 0.3 % (0.00-0.4); Lymphocyte (Absolute #) 1.66 x10^3/uL (1.0-4.6); Lymphocytes % 21.9 % (24.0-44.0); Mean Cell Volume 91.2 fL (78-100); Mean Corpuscular Hgb Concent. 31.8 g/dL (32-36); Mean Platelet Volume 9.1 fL (7.5-11.0); Monocyte (Absolute #) 0.74 x10^3/uL (0.0-1.3); Monocytes % 9.7 % (0.0-12.0); Neutrophil % 58.5 % (36.0-66.0); Platelet Count 231 x10^3/uL (150-450); Red Blood Count 3.86 x10^6/uL (4.1-5.6); Red Cell Distribution Width 14.2 % (11.5-14.0); White Blood Count 7.6 x10^3/uL (4.0-10.5)
[2023-07-31 04:58] LABS: ALBUMIN 3.4 g/dL (3.5-5.0); ANION GAP 12.7 MEQ/L (5-15); BILIRUBIN,TOTAL 0.3 mg/dL (0.2-1.3); Calcium 8.7 mg/dL (8.4-10.2); Creatinine 1 1.45 mg/dL (0.66-1.25); EST GLOMERULAR FILTRATION RATE 49.9 ML/MIN; Potassium 3.8 mmol/L (3.5-5.1); Total Protein 6.7 g/dL (6.3-8.2)
[2023-07-31] MEDS: Sodium Chloride 0.9% 1000 ML 1,000 ML IV SCH (05:33)
[2023-07-31 07:04] VITALS: RESP 17; TEMP 97.7
[2023-07-31] MEDS: HEPARIN 5000 UNITS/0.5 ML (HIGH RISK MED) SQ SCH (08:56)
[2023-07-31] MEDS: Lantus Insulin SQ SCH (08:57)
[2023-07-31] MEDS: Lyrica 50MG PO SCH (08:58)
[2023-07-31] MEDS: JARDIANCE PO SCH (08:58)
[2023-07-31] MEDS: ECOTRIN 81 MG PO SCH (08:58)
[2023-07-31] MEDS: Cymbalta 30 MG Capsule PO SCH (08:58)
[2023-07-31] MEDS: Acidophilus TABLET PO SCH (08:58)
[2023-07-31] MEDS: Namenda 5 MG PO SCH (08:59)
[2023-07-31] MEDS: ZOCOR 20MG PO SCH (08:59)
[2023-07-31] MEDS: FEOSOL 325 MG PO SCH (08:59)
[2023-07-31] MEDS: THERAGRAN MULTIVITAMIN PO SCH (08:59)
[2023-07-31] MEDS: Maxipime 2 GM** 2 G in Sodium Chloride 100ML MINI-BAG PLUS 100 ML IV SCH (09:00)
[2023-07-31] MEDS ORDERED: TROUGH DRUG LEVELS IJ ONE (09:30)
--- NOTE | 2023-07-31 09:48 | PCM.DS ---
Discharge Summary Date of Admission: 07/30/23 00:15 Date of Discharge: 07/31/23 Admitting Physician: HOWIE PICKARD DO Primary Care Provider: AMBROCIO,ASH Allergies Allergies latex Allergy (Severe, Verified 07/29/23 17:35) SORES IN MOUTH AND TONGUE sulfamethoxazole [From Bactrim] Allergy (Intermediate, Verified 07/29/23 17:35) Weakness bee venom protein (honey bee) Allergy (Verified 07/29/23 17:35) Shortness of Breath Sulfa (Sulfonamide Antibiotics) Allergy (Verified 07/29/23 17:35) trimethoprim [From Bactrim] Allergy (Verified 07/29/23 17:35) Hospital Summary - Hospital Course Hospital Course: is a 78 year old male with past medical history of CAD s/p CABG, HTN, HLP, DMII, CKD 3, Peripheral neuropathy (hx of esposure to agent orange), CVA and a chronic right hip prosthetic infection for which he gets daily IV ABX in OP setting since Jul 14 when he last had an I&D done for this right hip infection. He came in tonight with c/o progressive weakness x 2 weeks. His is concern that he may be "septic" since the last time he felt like this, he was. In ER, work-up was not remarkable. trop 0.012->0.014. DDimer elevated, CT chest negative for PE. CXR with nonacute findings. Admitted for serial trops given history of CAD and PT eval for possible need for rehab. All additional labs unremarkable since hospitalized. He is at his baseline creat. Blood cultures/urine cultures NGTD. He did test weakly positive to mono. Patient advised of precautions. He is set up for OP PT for strengthening. Patient states he feels that he is at his baseline and requesting discharge. No change to current OP treatment plan. He will resume OP IV ABX tomorrow as scheduled. All questions and concerns have been addressed, patient is medically stable for discharge. Latest Assessment & Plan (1) Generalized weakness Current Visit: Yes Status: Acute Assessment & Plan: No obvious causes seen here. UA unremarkable. BS 300s. Na mildly low at 134. K is normal. Cr up 1.5, so perhaps a bit dehydrated. IVF started. PT consulted to eval for possible rheba need Code(s): R53.1 - WEAKNESS (2) Elevated troponin Current Visit: Yes Status: Acute Assessment & Plan: Weakly elevated at 0.012->0.014. Waiting on last trop. No chest pain nor SOB Code(s): R79.89 - OTHER SPECIFIED ABNORMAL FINDINGS OF BLOOD CHEMISTRY (3) Acute renal injury Current Visit: No Status: Acute Assessment & Plan: has hx of CKD stage 3. Cr 1.5, BUN 41. Likely a bit on the dry side/or near baseline. IVF started, recheck labs in AM. He received CTA chest - so IV contrast exposure, will monitor Cr closely for sign of JAY JAY from IV contrast Code(s): N17.9 - ACUTE KIDNEY FAILURE, UNSPECIFIED (4) Anemia Current Visit: No Status: Acute Assessment & Plan: Hgb 10.4. It was 11 recently. I do not think he is losing blood nor is this the reason for his weakness. May be contributing however. Continue oral iron, monitor Code(s): D64.9 - ANEMIA, UNSPECIFIED (5) Dehydration Current Visit: No Status: Acute Code(s): E86.0 - DEHYDRATION (6) Chronic infection of hip joint prosthesis Current Visit: No Status: Chronic Qualifiers: Encounter type: sequela Qualified Code(s): T84.59XS - Infection and inflammatory reaction due to other internal joint prosthesis, sequela; Z96.649 - Presence of unspecified artificial hip joint Assessment & Plan: He gets IV Vanc and something else daily since Jun. Will continue it here. Recent I&D on Jul 14. Being seen by wound care Will check Vanc level I spent 35 minutes [id number] with the patient on the day of discharge performing discharge exam, discussing hospital stay and discharge instructions with patient and caregivers, preparation of discharge records, prescriptions & referral forms and addressing any questions/concerns the patient had as documented above. - Vitals & Intake/Output Vital Signs: Vital Signs Temperature 97.7 F 07/31/23 07:03 Pulse Rate 75 07/31/23 07:03 Respiratory Rate 17 07/31/23 08:00 Blood Pressure 149/73 07/31/23 07:03 O2 Sat by Pulse Oximetry 96 07/31/23 07:03 Intake & Output: Intake & Output 07/28/23 07/29/23 07/30/2307/31/23 11:59 11:59 11:59 11:59 Intake Total 615 3420 Output Total 1100 1600 Balance -485 1820 Weight 67.3 kg - Lab Result Diagrams: 07/31/23 04:00 07/31/23 04:17 Lab Results-Last 24 Hrs: Lab Results-Last 24 Hours 07/30/23 07/30/23 07/30/23 Range/Units 11:21 16:17 20:56 WBC (4.0-10.5) x10^3/uL RBC (4.1-5.6) x10^6/uL Hgb (12.5-18.0) g/dL Hct (42-50) % MCV (78-100) fL MCH (26-32) pg MCHC (32-36) g/dL RDW (11.5-14.0) % Plt Count (150-450) x10^3/uL MPV (7.5-11.0) fL Gran % (36.0-66.0) % Immature Gran % (Auto) (0.00-0.4) % Nucleat RBC Rel Count (0.00-0.1) % Eos # (Auto) (0-0.5) x10^3/uL Immature Gran # (Auto) (0.00-0.03) x10^3u/L Absolute Lymphs (auto) (1.0-4.6) x10^3/uL Absolute Monos (auto) (0.0-1.3) x10^3/uL Absolute Nucleated RBC (0.00-0.01) x10^3u/L Lymphocytes % (24.0-44.0) % Monocytes % (0.0-12.0) % Eosinophils % (0.00-5.0) % Basophils % (0.0-0.4) % Absolute Granulocytes (1.4-6.9) x10^3/uL Basophils # (0-0.4) x10^3/uL Sodium (137-145) mmol/L Potassium (3.5-5.1) mmol/L Chloride (98-107) mmol/L Carbon Dioxide (22-30) mmol/L Anion Gap (5-15) MEQ/L BUN (9-20) mg/dL Creatinine (0.66-1.25) mg/dL Estimated GFR ML/MIN Glucose (74-106) mg/dL POC Glucometer 166 H 177 H 211 H (74 to 106) mg/dL Calcium (8.4-10.2) mg/dL Total Bilirubin (0.2-1.3) mg/dL AST (17-59) U/L ALT (0-50) U/L Alkaline Phosphatase (38-126) U/L Serum Total Protein (6.3-8.2) g/dL Albumin (3.5-5.0) g/dL 07/31/23 07/31/23 07/31/23 Range/Units 04:00 04:17 04:26 WBC 7.6 (4.0-10.5) x10^3/uL RBC 3.86 L (4.1-5.6) x10^6/uL Hgb 11.2 L (12.5-18.0) g/dL Hct 35.2 L (42-50) % MCV 91.2 (78-100) fL MCH 29.0 (26-32) pg MCHC 31.8 L (32-36) g/dL RDW 14.2 H (11.5-14.0) % Plt Count 231 (150-450) x10^3/uL MPV 9.1 (7.5-11.0) fL Gran % 58.5 (36.0-66.0) % Immature Gran % (Auto) 0.3 (0.00-0.4) % Nucleat RBC Rel Count 0.0 (0.00-0.1) % Eos # (Auto) 0.69 H (0-0.5) x10^3/uL Immature Gran # (Auto) 0.02 (0.00-0.03) x10^3u/L Absolute Lymphs (auto) 1.66 (1.0-4.6) x10^3/uL Absolute Monos (auto) 0.74 (0.0-1.3) x10^3/uL Absolute Nucleated RBC 0.00 (0.00-0.01) x10^3u/L Lymphocytes % 21.9 L (24.0-44.0) % Monocytes % 9.7 (0.0-12.0) % Eosinophils % 9.1 H (0.00-5.0) % Basophils % 0.5 (0.0-0.4) % Absolute Granulocytes 4.44 (1.4-6.9) x10^3/uL Basophils # 0.04 (0-0.4) x10^3/uL Sodium 138 (137-145) mmol/L Potassium 3.8 (3.5-5.1) mmol/L Chloride 110 H (98-107) mmol/L Carbon Dioxide 19 L (22-30) mmol/L Anion Gap 12.7 (5-15) MEQ/L BUN 35 H (9-20) mg/dL Creatinine 1.45 H (0.66-1.25) mg/dL Estimated GFR 49.9 ML/MIN Glucose 74 (74-106) mg/dL POC Glucometer 66 L (74 to 106) mg/dL Calcium 8.7 (8.4-10.2) mg/dL Total Bilirubin 0.30 (0.2-1.3) mg/dL AST 30 (17-59) U/L ALT 23 (0-50) U/L Alkaline Phosphatase 94 (38-126) U/L Serum Total Protein 6.7 (6.3-8.2) g/dL Albumin 3.4 L (3.5-5.0) g/dL 07/31/23 Range/Units 08:37 WBC (4.0-10.5) x10^3/uL RBC (4.1-5.6) x10^6/uL Hgb (12.5-18.0) g/dL Hct (42-50) % MCV (78-100) fL MCH (26-32) pg MCHC (32-36) g/dL RDW (11.5-14.0) % Plt Count (150-450) x10^3/uL MPV (7.5-11.0) fL Gran % (36.0-66.0) % Immature Gran % (Auto) (0.00-0.4) % Nucleat RBC Rel Count (0.00-0.1) % Eos # (Auto) (0-0.5) x10^3/uL Immature Gran # (Auto) (0.00-0.03) x10^3u/L Absolute Lymphs (auto) (1.0-4.6) x10^3/uL Absolute Monos (auto) (0.0-1.3) x10^3/uL Absolute Nucleated RBC (0.00-0.01) x10^3u/L Lymphocytes % (24.0-44.0) % Monocytes % (0.0-12.0) % Eosinophils % (0.00-5.0) % Basophils % (0.0-0.4) % Absolute Granulocytes (1.4-6.9) x10^3/uL Basophils # (0-0.4) x10^3/uL Sodium (137-145) mmol/L Potassium (3.5-5.1) mmol/L Chloride (98-107) mmol/L Carbon Dioxide (22-30) mmol/L Anion Gap (5-15) MEQ/L BUN (9-20) mg/dL Creatinine (0.66-1.25) mg/dL Estimated GFR ML/MIN Glucose (74-106) mg/dL POC Glucometer 164 H (74 to 106) mg/dL Calcium (8.4-10.2) mg/dL Total Bilirubin (0.2-1.3) mg/dL AST (17-59) U/L ALT (0-50) U/L Alkaline Phosphatase (38-126) U/L Serum Total Protein (6.3-8.2) g/dL Albumin (3.5-5.0) g/dL Micro Results-Entire Visit: Microbiology 07/29/23 19:10 Urine Culture - Final Clean Catch Midstream NO GROWTH 07/29/23 18:50 Blood Culture - Preliminary Blood 07/29/23 18:35 Blood Culture - Preliminary Blood Accuchecks Date 07/31/23 Date 07/31/23 Date 07/30/23 Date 07/30/23 Date 07/30/23 Time 07:03 Time 04:29 Time 21:31 Time 16:21 Time 12:15 - Radiology Exams Ordered Rad Exams-Entire Visit: Radiology Procedures Category Date Time Status CHEST 1 VIEW (PORTABLE) Stat Exams 07/29/23 18:19 Completed CHEST WITH CONTRAST [CT] Stat Exams 07/29/23 19:27 Completed - Procedures and Test Procedures and Tests throughout Hospitalization: Therapy Orders & Screens 07/30/23 00:15 PT Eval & Treat (MD Order) ONCE Reason for Eval:: He has chronic right hip issues, progressively worse with his weakness. May need rehab Diagnosis: weakness Discharge Exam General Appearance: no apparent distress Neurologic Exam: alert, oriented x 3, cooperative Eye Exam: PERRL Ears, Nose, Throat Exam: normal ENT inspection Neck Exam: normal inspection Respiratory Exam: normal breath sounds, lungs clear Cardiovascular Exam: regular rate/rhythm, normal heart sounds Gastrointestinal/Abdomen Exam: soft, normal bowel sounds Male Genitalia Exam: deferred Rectal Exam: deferred Back Exam: normal inspection Extremity Exam: normal inspection Skin Exam: other (Right hip surgical incision, intact with no erythema, drainage, streaking) Final Diagnosis/Problem List - Final Discharge Diagnosis/Problem (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 Current Visit: No Status: Chronic Code(s): T84.59XA - INFECT/INFLM REACTION DUE TO OTH INTERNAL JOINT PROSTH, INIT; Z96.649 - PRESENCE OF UNSPECIFIED ARTIFICIAL HIP JOINT (2) Elevated troponin Current Visit: Yes Status: Acute Code(s): R79.89 - OTHER SPECIFIED ABNORMAL FINDINGS OF BLOOD CHEMISTRY (3) Generalized weakness Current Visit: Yes Status: Acute Code(s): R53.1 - WEAKNESS (4) Acute renal injury Current Visit: No Status: Acute Code(s): N17.9 - ACUTE KIDNEY FAILURE, UNSPECIFIED - Discharge Disposition: Home, Self-Care Condition: Stable Prescriptions: New Cefepime HCl 2 gm [Maxipime 2 GM] 2 g IV Q24H Vancomycin/Water For Inj (Peg) [Vancomycin 1 Gram/200 ml Bag] 1 gm IV DAILY iv piggy Continue Insulin Detemir [Levemir] 25 unit SQ BID Ferrous Sulfate 325 mg PO DAILY Nitroglycerin 0.4 mg Tablet [Nitrostat 0.4 MG Tablet] 0.4 mg SL Q5MIN PRN MR X 3 PRN PRN Reason: Chest Pain Alogliptin Benzoate [Alogliptin] 6.25 mg PO DINNER Duloxetine HCl 30 mg [Cymbalta 30 MG Capsule] 30 mg PO DAILY Aspirin 81 mg PO DAILY Memantine HCl 5 mg [Namenda 5 MG] 5 mg PO DAILY Pregabalin 50 mg PO BID Empagliflozin [Jardiance] 10 mg PO DAILY Atorvastatin Calcium 80 mg PO DAILY Multivitamin 1 each PO DAILY Lactobacillus Acidophilus [Probiotic] 1 each PO DAILY Outpatient Orders: Physical Therapy Eval & Treat Facility: [facility], Location: PHYSICAL THERAPY Instructions: Mononucleosis Additional Instructions: YOUR INFUSIONS WILL RESUME IN OUPT TOMORROW 08/01@0815 YOU HAVE AN APT FOR PHYSICAL THERAPY SATURDAY 08/04@11 AM Follow up with: ASH ALBRECHT MD [Primary Care Provider] - JUANJOSE LIMON MD [COURTESY STAFF] -
[2023-07-31] MEDS: VANCOMYCIN 1 GRAM/200 ML BAG 1 GM/200 ML PIGGYBACK IV SCH (11:07)
[2023-07-31 11:24] VITALS: BP 147/60; PULSE 67; O2SAT 98
== END 2023-07-31 13:23 | disposition home or self-care (01) ==
LOC: ED 17:17 → MED SURG 07-30 00:15
PROVIDERS: ADMIT Internal Medicine; ATTEND Internal Medicine
DX: T84.59XA Infection and inflammatory reaction due to other internal joint prosthesis, initial encounter (principal); R53.1 Weakness; R79.89 Other specified abnormal findings of blood chemistry; N17.9 Acute kidney failure, unspecified; D64.9 Anemia, unspecified; E86.0 Dehydration; E11.22 Type 2 diabetes mellitus with diabetic chronic kidney disease; I12.9 Hypertensive chronic kidney disease with stage 1 through stage 4 chronic kidney disease, or unspecified chronic kidney disease; N18.30 Chronic kidney disease, stage 3 unspecified; I25.10 Atherosclerotic heart disease of native coronary artery without angina pectoris; E78.5 Hyperlipidemia, unspecified; Z95.0 Presence of cardiac pacemaker; Z96.649 Presence of unspecified artificial hip joint; Z20.828 Contact with and (suspected) exposure to other viral communicable diseases
CPT/HCPCS: 0241U; 36415; 71045; 71260; 80053; 80202; 81001; 82140; 82550; 82947; 83605; 83735; 83880; 84484; 85025; 85027; 85379; 86308; 87040; 87086; 93005; 93268; 96360; 96361; 97161; 97530; 99285; G0378; Q3014; J0692; J1642; J1644; A9270-GY; J3370

== ENCOUNTER 2024-12-27 06:00 | Day surgery (SDC) | payer MEDICARE, OTHER ==
[2024-12-27] MEDS ORDERED: Lactated Ringers 1,000 ML IV ONE (06:05)
[2024-12-27 06:16] VITALS: RESP 18
[2024-12-27] MEDS: Lactated Ringers 1,000 ML IV SCH (06:17)
[2024-12-27] MEDS: TETRACAINE 0.5% STERI-UNIT SOL OP ONE ×2 (06:18→07:13)
[2024-12-27] MEDS: Ak-Dilate OPHTHALMIC*** 0.71 ML, Cyclogyl 1% OPHTH SOL 0.71 ML, GATIFLOXACIN 0.5% OPHTH... OP SCH (06:18)
[2024-12-27 06:57] LABS: Calcium 8.8 mg/dL (8.4-10.2); Creatinine 1 1.86 mg/dL (0.66-1.25); EST GLOMERULAR FILTRATION RATE 36.8 ML/MIN; Potassium 4.2 mmol/L (3.5-5.1)
[2024-12-27] MEDS ORDERED: propofoL IV ONE (07:03)
[2024-12-27] MEDS ORDERED: Xylocaine-Mpf 2% 5 Ml Vial ONE (07:05)
[2024-12-27] MEDS ORDERED: TRIAMCINOLONE 15 MG/ML INJ INTRAOP NR (07:30)
[2024-12-27] MEDS ORDERED: BETADINE 5% OPHTHALMIC 30 ML OP NR (07:30)
[2024-12-27] MEDS ORDERED: VIGAMOX/BSS 0.15% SYR IO NR (07:30)
[2024-12-27] MEDS ORDERED: Epinephrine Preservative Free 1 MG/ML INTRAOP NR (07:30)
[2024-12-27] MEDS ORDERED: DEXMEDETOMIDINE 80 MCG/20ML-NS IV NR (07:30)
[2024-12-27] MEDS ORDERED: DEXTENZA OP NR (07:30)
[2024-12-27 07:50] VITALS: BP 111/66; PULSE 67; TEMP 97.6; O2SAT 99
[2024-12-27] MEDS ORDERED: Zofran 4 MG/2 ML VIAL IV PRN (08:00)
== END 2024-12-27 08:00 | disposition home or self-care (01) ==
LOC: SDC 06:00
PROVIDERS: ATTEND Ophthalmology
DX: H25.812 Combined forms of age-related cataract, left eye (principal); E11.9 Type 2 diabetes mellitus without complications; I10 Essential (primary) hypertension
CPT/HCPCS: 36415; 80048; 93005; 99100; C1780; J0171; J1096; J2704; A9270-GY